=== PATIENT | male | born 1945 | race Caucasian/White ===

== ENCOUNTER 2016-12-31 11:53 | Inpatient (IN) | payer MEDICARE, OTHER ==
[2016-12-31] VITALS (7 sets, daily range): BP systolic 114–166; BP diastolic 68–95; PULSE 73–88; RESP 14–24; TEMP 97.7–97.9; O2SAT 97–100
[~2016-12-31] VITALS: Ht 175.3 cm; Wt 86.1 kg
[2016-12-31] MEDS ORDERED: NS 500 ML (EXCEL BAG) INJ 500 ML IV ONE (12:00)
[2016-12-31] MEDS ORDERED: NORMOSOL R INJ 3,000 ML IV ONE (12:00)
[2016-12-31] MEDS ORDERED: PHENYLEPH/NS 1000 MCG/10 ML SYR IV ONE (12:00)
[2016-12-31] MEDS ORDERED: SODIUM CHLORIDE 0.9% INJ 250 ML IV ONE (12:00)
[2016-12-31] MEDS ORDERED: SODIUM CHLOR 0.9% 1000 ML INJ 2,000 ML IV ONE (12:00)
[2016-12-31] MEDS ORDERED: ETOMIDATE 40 MG/20 ML VIAL ONE (12:02)
[2016-12-31] MEDS ORDERED: PROPOFOL 1000 MG/100 ML INJ 100 ML ONE ×2 (12:10→15:14)
[2016-12-31] MEDS ORDERED: MIDAZOLAM HCL 5 MG/ML VIAL (1 ML) ONE ×2 (12:20→13:34)
[2016-12-31 12:33] LABS: APTT (PATIENT) 23.8 SEC (24.3-30.1); INTERNATIONAL NORMALIZED RATIO 1.2 RATIO; PROTHROMBIN TIME - PATIENT 13.2 SEC (9.8-11.6)
[2016-12-31 12:35] LABS: AUTOMATED NEUTROPHIL # 6.7 TH/MM3 (1.8-7.7); BASOPHIL % 0.3 % (0.0-2.0); EOSINOPHIL # 0.1 TH/MM3 (0-0.4); EOSINOPHIL % 0.8 % (0.0-4.0); HEMATOCRIT 39.5 % (39.0-51.0); HEMO FLAGS DIFF FINAL; LYMPH % 15.6 % (9.0-44.0); LYMPHOCYTE # 1.4 TH/MM3 (1.0-4.8); MEAN CORPUSCULAR HEMOGLOBIN 33.2 PG (27.0-34.0); MEAN CORPUSCULAR HGB CONC 33.2 % (32.0-36.0); MONO % 9.5 % (0.0-8.0); NEUT % 73.8 % (16.0-70.0); PLATELET COUNT 217 TH/MM3 (150-450); RED BLOOD COUNT 3.95 MIL/MM3 (4.50-5.90); RED CELL DISTRIBUTION WIDTH 13.2 % (11.6-17.2); WHITE BLOOD COUNT 9.1 TH/MM3 (4.0-11.0)
[2016-12-31 12:39] LABS: I-STAT POTASSIUM 4.1 MMOL/L (3.5-4.9)
[2016-12-31] MEDS ORDERED: IOHEXOL 350 MG/ML 10 ML VIAL (for RAD DIAG) IV ONE (12:42)
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
[2016-12-31] MEDS ORDERED: ETOMIDATE 20 MG/10 ML VIAL ONE (13:32)
[2016-12-31 13:46] LABS: BLOOD GAS BASE EXCESS -10.2 mmol/L (-2-2); BLOOD GAS CARBOXYHEMOGLOBIN 1.1 % (0-4); BLOOD GAS HCO3 17 mmol/L (22-26); BLOOD GAS METHEMOGLOBIN 1.3 % (0-2); BLOOD GAS O2 HGB SATURATION 91 % (90-100); BLOOD GAS OXYGEN CONTENT 12.1 Vol % (12.0-20.0); BLOOD GAS PCO2 54 mmHg (38-42); BLOOD GAS PO2 84 mmHg (61-120); BLOOD GAS TOTAL HGB 9.4 G/DL (12.0-16.0); CRITICAL VALUE YES; DRAW SITE ART LINE; FIO2 100 %; OXYGEN DEVICE VENTILATOR; STAT YES; TEMP CORR TO 98.6
[2016-12-31 13:52] LABS: AUTOMATED NEUTROPHIL # 13.5 TH/MM3 (1.8-7.7); BASOPHIL # 0.1 TH/MM3 (0-0.2); BASOPHIL % 0.3 % (0.0-2.0); EOSINOPHIL # 0.1 TH/MM3 (0-0.4); EOSINOPHIL % 0.3 % (0.0-4.0); HEMATOCRIT 27.4 % (39.0-51.0); HEMO FLAGS AUTO DIFF; LYMPH % 11.2 % (9.0-44.0); LYMPHOCYTE # 1.9 TH/MM3 (1.0-4.8); MEAN CELL VOLUME 94.5 FL (80.0-100.0); MEAN CORPUSCULAR HEMOGLOBIN 32.3 PG (27.0-34.0); MEAN CORPUSCULAR HGB CONC 34.2 % (32.0-36.0); MONO % 6.7 % (0.0-8.0); NEUT % 81.5 % (16.0-70.0); PLATELET COUNT 93 TH/MM3 (150-450); RED CELL DISTRIBUTION WIDTH 16.9 % (11.6-17.2); WHITE BLOOD COUNT 16.6 TH/MM3 (4.0-11.0)
[2016-12-31 14:06] LABS: APTT (PATIENT) 74.8 SEC (24.3-30.1); INTERNATIONAL NORMALIZED RATIO 1.3 RATIO; PROTHROMBIN TIME - PATIENT 14.8 SEC (9.8-11.6)
[2016-12-31 14:13] LABS: CALCIUM-PROTEIN CORRECTED 7.5 MG/DL (8.5-10.1); POTASSIUM 4.2 MEQ/L (3.5-5.1); TOTAL BILIRUBIN ADULT 0.4 MG/DL (0.2-1.0)
[2016-12-31 14:17] LABS: BANDS 14 % (0-6); METAMYELOCYTES 3 % (0-1); MYELOCYTES 0 % (0-0); NEUTROPHIL # MANUAL DIFF 15.3 TH/MM3 (1.8-7.7); POLYS (SEG NEUTROPHILS) 75 % (16-70); WBC DIFF SAMPLE 100
[2016-12-31 14:18] LABS: PLATELET ESTIMATE SMEAR LOW (NORMAL); PLATELET MORPHOLOGY NORMAL (NORMAL); SCAN/DIFF FINAL DIFF MANUAL
[2016-12-31 14:18] LABS: BLOOD GAS BASE EXCESS -7.2 mmol/L (-2-2); BLOOD GAS CARBOXYHEMOGLOBIN 1.2 % (0-4); BLOOD GAS HCO3 19 mmol/L (22-26); BLOOD GAS METHEMOGLOBIN 1.1 % (0-2); BLOOD GAS O2 HGB SATURATION 97 % (90-100); BLOOD GAS OXYGEN CONTENT 15.7 Vol % (12.0-20.0); BLOOD GAS PCO2 42 mmHg (38-42); BLOOD GAS PO2 235 mmHg (61-120); BLOOD GAS TOTAL HGB 11.1 G/DL (12.0-16.0); CRITICAL VALUE YES; TEMP CORR TO 98.6
[2016-12-31 14:19] LABS: FIO2 100 %; OXYGEN DEVICE VENTILATOR; STAT YES; ULNAR PULSE PRESENT; VENT SETTINGS OR SETTINGS
[2016-12-31 14:20] LABS: CRENATED RBCS 1+ (NORMAL)
[2016-12-31] MEDS ORDERED: SODIUM CHLORIDE 0.9% FLUSH 10 ML FLUSH IV FLUSH PRN (15:30)
[2016-12-31] MEDS ORDERED: Post-op Orders (for Pharmacy) MISC XX ONE (15:30)
[2016-12-31] MEDS ORDERED: NALOXONE HCL 0.4 MG/ML AMP IV PRN (15:30)
[2016-12-31] MEDS ORDERED: NOREPINEPHRINE-DEXTROSE DRIP 250 ML IV ONE (15:39)
[2016-12-31 16:00] LABS: BLOOD GAS BASE EXCESS -3.2 mmol/L (-2-2); BLOOD GAS CARBOXYHEMOGLOBIN 1.2 % (0-4); BLOOD GAS HCO3 21 mmol/L (22-26); BLOOD GAS O2 HGB SATURATION 96 % (90-100); BLOOD GAS OXYGEN CONTENT 18.2 Vol % (12.0-20.0); BLOOD GAS PCO2 40 mmHg (38-42); BLOOD GAS PO2 102 mmHg (61-120); BLOOD GAS TOTAL HGB 13.4 G/DL (12.0-16.0); TEMP CORR TO 98.6
[2016-12-31] MEDS: LACTATED RINGER'S 1000 ML INJ 1,000 ML IV SCH ×2 (16:00→20:11)
[2016-12-31 16:01] LABS: CRITICAL VALUE NO; DRAW SITE ART LINE; FIO2 50 %; OXYGEN DEVICE VENTILATOR; STAT NO
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
[2016-12-31] MEDS: PANTOPRAZOLE SODIUM 40 MG VIAL IV SCH (16:30)
[2016-12-31] MEDS: PIPERACIL-TAZO 3.375 GM PREMIX 50 ML IV SCH (16:30)
[2016-12-31] MEDS: fentaNYL DRIP 250 ML IV SCH (16:31)
[2016-12-31] MEDS: PROPOFOL 1000 MG/100 ML INJ 100 ML IV SCH (16:31)
[2016-12-31 16:39] LABS: AUTOMATED NEUTROPHIL # 9.9 TH/MM3 (1.8-7.7); BASOPHIL % 0.1 % (0.0-2.0); HEMATOCRIT 38.7 % (39.0-51.0); LYMPH % 7.4 % (9.0-44.0); LYMPHOCYTE # 0.9 TH/MM3 (1.0-4.8); MEAN CELL VOLUME 86.6 FL (80.0-100.0); MEAN CORPUSCULAR HEMOGLOBIN 29.9 PG (27.0-34.0); MEAN CORPUSCULAR HGB CONC 34.5 % (32.0-36.0); NEUT % 82.5 % (16.0-70.0); PLATELET COUNT 92 TH/MM3 (150-450); RED BLOOD COUNT 4.48 MIL/MM3 (4.50-5.90); RED CELL DISTRIBUTION WIDTH 17.9 % (11.6-17.2)
[2016-12-31 16:48] LABS: HEMO FLAGS AUTO DIFF
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
[2016-12-31 17:24] LABS: BANDS 18 % (0-6); METAMYELOCYTES 1 % (0-1); NEUTROPHIL # MANUAL DIFF 10.6 TH/MM3 (1.8-7.7); POLYS (SEG NEUTROPHILS) 69 % (16-70); WBC DIFF SAMPLE 100
[2016-12-31 17:25] LABS: PLATELET ESTIMATE SMEAR LOW (NORMAL); PLATELET MORPHOLOGY NORMAL (NORMAL); SCAN/DIFF FINAL DIFF MANUAL
[2016-12-31] MEDS: CHLORHEXIDINE 0.12% (ORAL KIT) 15 ML CUP MT SCH (20:09)
[2016-12-31] MEDS: SODIUM CHLORIDE 0.9% FLUSH 10 ML FLUSH IV FLUSH SCH (20:10)
[2016-12-31 20:27] LABS: HEMATOCRIT 36.8 % (39.0-51.0); MEAN CELL VOLUME 86.2 FL (80.0-100.0); MEAN CORPUSCULAR HEMOGLOBIN 29.7 PG (27.0-34.0); MEAN CORPUSCULAR HGB CONC 34.5 % (32.0-36.0); PLATELET COUNT 95 TH/MM3 (150-450); RED BLOOD COUNT 4.27 MIL/MM3 (4.50-5.90); RED CELL DISTRIBUTION WIDTH 17.9 % (11.6-17.2); WHITE BLOOD COUNT 12.3 TH/MM3 (4.0-11.0)
[2016-12-31 20:29] LABS: REVIEW FLAG FINAL
[2016-12-31 20:37] LABS: APTT (PATIENT) 29.2 SEC (24.3-30.1); INTERNATIONAL NORMALIZED RATIO 1.1 RATIO; PROTHROMBIN TIME - PATIENT 12.6 SEC (9.8-11.6)
[2016-12-31 21:01] LABS: BICARBONATE 24.1 MEQ/L (21.0-32.0); POTASSIUM 4.1 MEQ/L (3.5-5.1)
--- NOTE | 2016-12-31 21:30 | MP ---
cc: OLGA HIDALGO MD DATE OF SURGERY 12/31/2016 PREOPERATIVE DIAGNOSIS: Bilateral hemopneumothoraces. POSTOPERATIVE DIAGNOSIS Bilateral hemopneumothoraces. PROCEDURE Left lateral chest tube placement and left anterior chest tube placement. SURGEON Dr. Hidalgo. ANESTHESIA General. ESTIMATED BLOOD LOSS Minimal. DESCRIPTION OF PROCEDURE The patient prepped and draped in the usual fashion in the ER. Area infiltrated with 1% Xylocaine. Needle inserted in the sixth intercostal space. On withdrawal of the needle air is encountered. An incision is now made in mid axillary line deepened down with hemostat into the chest and there is a shelton of air. A 28-English chest tube is placed in the posterior sulcus sutured in place with 0-silk. After the CT scan the patient is noted to have an area of left upper lobe collapse possibly due to bronchial leak in the upper of bronchi. Therefore, after completing the abdominal surgical case in the operating room, this thing is attended. An incision is made in the mammary line about fourth intercostal space anteriorly and then deepened down into the chest. A 28-English chest tube is placed and placed on Pleur-Evac draining massive amounts of blood and air establishing re-expansion of this lung. Chest x-ray is obtained. The patient tolerated the procedure well. Olga Hidalgo SJ/KK /4:44 PM /9:23 PM
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
[2016-12-31 21:37] LABS: CALCIUM-PROTEIN CORRECTED 8.2 MG/DL (8.5-10.1)
[2017-01-01] VITALS (18 sets, daily range): BP systolic 98–158; BP diastolic 53–84; PULSE 62–108; RESP 14–18; TEMP 98.1–99.6; O2SAT 94–100
[2017-01-01] MEDS: PIPERACIL-TAZO 3.375 GM PREMIX 50 ML IV SCH ×3 (00:36→16:16)
[2017-01-01] MEDS: PROPOFOL 1000 MG/100 ML INJ 100 ML IV SCH ×4 (00:36→22:32)
[2017-01-01] MEDS: LACTATED RINGER'S 1000 ML INJ 1,000 ML IV SCH ×5 (03:43→21:23)
--- NOTE | 2017-01-01 05:01 | RADRPT ---
EXAM DATE/TIME: 01/01/2017 04:37 [facility] COMPARISON: CHEST SINGLE AP, December 31, 2016, 15:38. INDICATIONS : Short of breath. MEDICAL HISTORY : None. SURGICAL HISTORY : None. ENCOUNTER: Subsequent ACUITY: 2 days PAIN SCORE: 0/10 LOCATION: Bilateral chest FINDINGS: A single view of the chest demonstrates 2 left-sided chest tubes and one right-sided chest tube. No p neumothorax. Endotracheal tube nasogastric tube are unchanged. Lungs are relatively clear. Subcutaneo us emphysema bilaterally. Left-sided rib fractures. CONCLUSION: No pneumothorax. Juan Miller MD on January 01, 2017 at 4:58 Board Certified Radiologist. This report was verified electronically.
[2017-01-01 05:13] LABS: AUTOMATED NEUTROPHIL # 8.7 TH/MM3 (1.8-7.7); BASOPHIL % 0.2 % (0.0-2.0); EOSINOPHIL % 0.1 % (0.0-4.0); HEMATOCRIT 34.5 % (39.0-51.0); HEMO FLAGS AUTO DIFF; LYMPH % 7.9 % (9.0-44.0); LYMPHOCYTE # 0.9 TH/MM3 (1.0-4.8); MEAN CELL VOLUME 86.6 FL (80.0-100.0); MEAN CORPUSCULAR HEMOGLOBIN 29.9 PG (27.0-34.0); MEAN CORPUSCULAR HGB CONC 34.5 % (32.0-36.0); MONO % 17.1 % (0.0-8.0); NEUT % 74.7 % (16.0-70.0); PLATELET COUNT 99 TH/MM3 (150-450); RED BLOOD COUNT 3.98 MIL/MM3 (4.50-5.90); RED CELL DISTRIBUTION WIDTH 18.3 % (11.6-17.2); WHITE BLOOD COUNT 11.6 TH/MM3 (4.0-11.0)
[2017-01-01 05:32] LABS: APTT (PATIENT) 29.4 SEC (24.3-30.1); INTERNATIONAL NORMALIZED RATIO 1.2 RATIO; PROTHROMBIN TIME - PATIENT 13.6 SEC (9.8-11.6)
[2017-01-01 05:54] LABS: BICARBONATE 29.4 MEQ/L (21.0-32.0); CALCIUM-PROTEIN CORRECTED 7.7 MG/DL (8.5-10.1); MAGNESIUM 1.7 MG/DL (1.5-2.5); POTASSIUM 4.4 MEQ/L (3.5-5.1)
[2017-01-01 06:13] LABS: CKMB 7.4 NG/ML (0.5-3.6)
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
[2017-01-01 06:54] LABS: BANDS 12 % (0-6); METAMYELOCYTES 1 % (0-1); NEUTROPHIL # MANUAL DIFF 9.6 TH/MM3 (1.8-7.7); POLYS (SEG NEUTROPHILS) 70 % (16-70); WBC DIFF SAMPLE 100
[2017-01-01 06:55] LABS: PLATELET ESTIMATE SMEAR LOW (NORMAL); PLATELET MORPHOLOGY NORMAL (NORMAL); SCAN/DIFF FINAL DIFF MANUAL
[2017-01-01] MEDS: CHLORHEXIDINE 0.12% (ORAL KIT) 15 ML CUP MT SCH ×2 (07:31→20:28)
[2017-01-01] MEDS: SODIUM CHLORIDE 0.9% FLUSH 10 ML FLUSH IV FLUSH SCH ×2 (07:32→21:05)
[2017-01-01 09:45] LABS: BLOOD GAS BASE EXCESS 2.4 mmol/L (-2-2); BLOOD GAS CARBOXYHEMOGLOBIN 1.6 % (0-4); BLOOD GAS HCO3 27 mmol/L (22-26); BLOOD GAS METHEMOGLOBIN 0.9 % (0-2); BLOOD GAS O2 HGB SATURATION 92 % (90-100); BLOOD GAS OXYGEN CONTENT 14.2 Vol % (12.0-20.0); BLOOD GAS PCO2 44 mmHg (38-42); BLOOD GAS PO2 71 mmHg (61-120); BLOOD GAS TOTAL HGB 10.9 G/DL (12.0-16.0); CRITICAL VALUE NO; OXYGEN DEVICE VENT; TEMP CORR TO 98.6
[2017-01-01 09:46] LABS: DRAW SITE LT RADIAL; FIO2 40 %; NUMBER OF ARTERIAL PUNCTURES 1; STAT NO; ULNAR PULSE PRESENT
--- NOTE | 2017-01-01 09:50 | EKG ---
Date Performed: 12/31/2016 Time Performed: 16:26:34 PTAGE: 89 years EKG: Sinus rhythm LOW QRS VOLTAGE IN PRECORDIAL LEADS PATTERN CONSISTENT WITH PULMONARY DISEASE POSSIBLE RIGHT VENTRIC ULAR CONDUCTION DELAY LEFT ANTERIOR FASCICULAR BLOCK NONSPECIFIC T-WAVE ABNORMALITY ABNORMAL ECG INTE RPRETATION BASED ON A DEFAULT AGE OF 42 YEARS NO PREVIOUS TRACING DOCTOR: Ziggy Barksdale Interpretating Date/Time 01/01/2017 09:49:17
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
[2017-01-01] MEDS: fentaNYL DRIP 250 ML IV SCH (15:15)
[2017-01-01] MEDS: PANTOPRAZOLE SODIUM 40 MG VIAL IV SCH (16:16)
[2017-01-01] MEDS ORDERED: MAGNESIUM SULFATE INJ 2 GM in SODIUM CHLORIDE 0.9% INJ 96 ML IV PRN (19:00)
[2017-01-01] MEDS ORDERED: POTASSIUM CHLORIDE 25 MEQ EFFERVESCENT TAB PO PRN (19:00)
[2017-01-01] MEDS ORDERED: POTASSIUM PHOSPHATE INJ 30 MMOL in SODIUM CHLOR 0.9% 250 ML INJ 250 ML IV PRN (19:00)
[2017-01-01] MEDS ORDERED: POTASSIUM PHOSPHATE MONOBASIC 500 MG TAB PO/TUBE PRN (19:00)
[2017-01-01] MEDS ORDERED: MAGNESIUM SULFATE INJ 4 GM in SODIUM CHLORIDE 0.9% INJ 92 ML IV PRN (19:00)
[2017-01-01] MEDS ORDERED: MAGNESIUM OXIDE 400 MG TAB PO PRN (19:00)
[2017-01-01] MEDS ORDERED: POTASSIUM CHLOR 20 MEQ PREMIX 100 ML IV PRN ×2 (19:00)
[2017-01-01] MEDS ORDERED: POTASSIUM PHOSPHATE MONOBASIC 500 MG TAB PO PRN (19:00)
[2017-01-01] MEDS ORDERED: POTASSIUM CHLOR 40 MEQ PREMIX 100 ML IV PRN (19:00)
--- NOTE | 2017-01-01 21:17 | ECHRPT ---
Indication: CHEST TRAUMA CONCLUSIONS Very technically difficult study. Grossly normal left ventricular size and systolic function on limited imaging. BP: 98 / 57 HR: 71 Rhythm: Sinus MEASUREMENTS (Male / Female) Normal Values Technical Quality:Very technically difficult study M-MODE LV Diastolic Diameter MM 3.5 cm 4.2 - 5.9 / 3.9 - 5.3 cm LV Systolic Diameter MM 2.0 cm LV Ejection Fraction MM Teich 75.7 % IVS Diastolic Thickness MM 1.5 cm 0.6 - 1.0 / 0.6 - 0.9 cm LVPW Diastolic Thickness MM 1.2 cm 0.6 - 1.0 / 0.6 - 0.9 cm LV Relative Wall Thickness MM 0.8 0.24 - 0.42 / 0.22 - 0.42 RV Diastolic Diameter MM 2.1 cm FINDINGS LEFT VENTRICLE Grossly normal left ventricular size and systolic function on limited imaging. RIGHT VENTRICLE The right ventricle was not well visualized. Normal right ventricular size and systolic function. LEFT ATRIUM The left atrium was not well visualized. RIGHT ATRIUM The right atrium is not well visualized. ATRIAL SEPTUM The interatrial septum not well visualized. AORTA The aortic root and proximal ascending aorta are not well visualized. MITRAL VALVE The mitral valve is not well visualized. AORTIC VALVE The aortic valve is not well visualized. TRICUSPID VALVE The tricuspid valve is not well visualized. PULMONARY VALVE The pulmonary valve is not well visualized. PERICARDIUM No pericardial effusion. Ziggy Barksdale MD, FACC (Electronically Signed) Final Date:01 January 2017 21:16
[2017-01-02] VITALS (19 sets, daily range): BP systolic 107–151; BP diastolic 56–79; PULSE 66–107; RESP 14; TEMP 98.4–100.9; O2SAT 95–100
[2017-01-02] MEDS: LACTATED RINGER'S 1000 ML INJ 1,000 ML IV SCH ×3 (02:54→16:49)
[2017-01-02] MEDS: PROPOFOL 1000 MG/100 ML INJ 100 ML IV SCH ×5 (03:51→21:32)
[2017-01-02 04:01] LABS: AUTOMATED NEUTROPHIL # 8.8 TH/MM3 (1.8-7.7); BASOPHIL % 0.3 % (0.0-2.0); EOSINOPHIL # 0.1 TH/MM3 (0-0.4); EOSINOPHIL % 1.2 % (0.0-4.0); HEMATOCRIT 26.2 % (39.0-51.0); HEMO FLAGS DIFF FINAL; LYMPH % 11.5 % (9.0-44.0); LYMPHOCYTE # 1.4 TH/MM3 (1.0-4.8); MEAN CELL VOLUME 88.4 FL (80.0-100.0); MEAN CORPUSCULAR HEMOGLOBIN 30.5 PG (27.0-34.0); MEAN CORPUSCULAR HGB CONC 34.5 % (32.0-36.0); MONO % 15.3 % (0.0-8.0); NEUT % 71.7 % (16.0-70.0); PLATELET COUNT 108 TH/MM3 (150-450); RED BLOOD COUNT 2.96 MIL/MM3 (4.50-5.90); RED CELL DISTRIBUTION WIDTH 17.8 % (11.6-17.2); WHITE BLOOD COUNT 12.2 TH/MM3 (4.0-11.0)
[2017-01-02 04:36] LABS: BICARBONATE 31.1 MEQ/L (21.0-32.0); CALCIUM-PROTEIN CORRECTED 8.3 MG/DL (8.5-10.1); MAGNESIUM 1.8 MG/DL (1.5-2.5); POTASSIUM 3.7 MEQ/L (3.5-5.1); TOTAL BILIRUBIN ADULT 0.9 MG/DL (0.2-1.0)
[2017-01-02 05:04] LABS: BLOOD GAS BASE EXCESS 3.7 mmol/L (-2-2); BLOOD GAS CARBOXYHEMOGLOBIN 1.4 % (0-4); BLOOD GAS HCO3 28 mmol/L (22-26); BLOOD GAS METHEMOGLOBIN 0.9 % (0-2); BLOOD GAS O2 HGB SATURATION 92 % (90-100); BLOOD GAS OXYGEN CONTENT 12.3 Vol % (12.0-20.0); BLOOD GAS PCO2 48 mmHg (38-42); BLOOD GAS PO2 72 mmHg (61-120); BLOOD GAS TOTAL HGB 9.5 G/DL (12.0-16.0); CRITICAL VALUE NO; TEMP CORR TO 98.6
[2017-01-02 05:05] LABS: DRAW SITE RT RADIAL; FIO2 40 %; NUMBER OF ARTERIAL PUNCTURES 1; OXYGEN DEVICE PRVC; STAT NO; ULNAR PULSE PRESENT
--- NOTE | 2017-01-02 05:30 | RADRPT ---
EXAM DATE/TIME: 01/02/2017 04:24 [facility] COMPARISON: CHEST SINGLE AP, January 01, 2017, 4:37. INDICATIONS : Short of breath. MEDICAL HISTORY : None. SURGICAL HISTORY : None. ENCOUNTER: Subsequent ACUITY: 3 days PAIN SCORE: Non-responsive. LOCATION: Bilateral chest FINDINGS: A single view of the chest demonstrates right basilar density. Bilateral chest tubes without pneumoth orax. Endotracheal tube and nasogastric tube are unchanged. Left-sided rib fractures. Subcutaneous em physema bilaterally again noted. CONCLUSION: Right basilar atelectasis. No pneumothorax. Juan Miller MD on January 02, 2017 at 5:26 Board Certified Radiologist. This report was verified electronically.
[2017-01-02] MEDS: SODIUM PHOSPHATE INJ 30 MMOL in SODIUM CHLOR 0.9% 250 ML INJ 240 ML IV PRN (06:00)
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
[2017-01-02] MEDS: CHLORHEXIDINE 0.12% (ORAL KIT) 15 ML CUP MT SCH ×2 (08:00→20:02)
[2017-01-02] MEDS: SODIUM CHLORIDE 0.9% FLUSH 10 ML FLUSH IV FLUSH SCH ×2 (08:53→20:02)
[2017-01-02] MEDS: PIPERACIL-TAZO 3.375 GM PREMIX 50 ML IV SCH ×2 (08:53)
--- NOTE | 2017-01-02 09:28 | RADRPT ---
EXAM DATE/TIME: 01/02/2017 08:16 [facility] COMPARISON: CT THORAX W CONTRAST, December 31, 2016, 12:42. CHEST SINGLE AP, January 02, 2017, 4:24. INDICATIONS : Evaluate for fracture due to trauma. MEDICAL HISTORY : None. SURGICAL HISTORY : None. ENCOUNTER: Subsequent ACUITY: 3 days PAIN SCORE: Non-responsive. LOCATION: Left Clavicle. FINDINGS: Two view examination of the left clavicle demonstrates nondisplaced fractures involving the distal po rtion of the clavicle. There continues to be good alignment at the a.c. joint. There also appear to b e fractures involving the left scapula. Fractures of the left scapula appear relatively nondisplaced. CONCLUSION: Nondisplaced fractures involving the distal clavicle with good alignment at the a.c. joint. Lars Granados MD on January 02, 2017 at 9:23 Board Certified Radiologist. This report was verified electronically.
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
[2017-01-02] MEDS: PANTOPRAZOLE SODIUM 40 MG VIAL IV SCH (16:01)
[2017-01-02] MEDS: fentaNYL DRIP 250 ML IV SCH (16:04)
[2017-01-03] VITALS (21 sets, daily range): BP systolic 103–148; BP diastolic 57–81; PULSE 56–106; RESP 14–22; TEMP 98.2–99.5; O2SAT 92–100
[2017-01-03] MEDS: LACTATED RINGER'S 1000 ML INJ 1,000 ML IV SCH ×2 (02:20→11:10)
[2017-01-03] MEDS: PROPOFOL 1000 MG/100 ML INJ 100 ML IV SCH ×5 (02:21→17:42)
[2017-01-03 04:19] LABS: BASOPHIL % 0.4 % (0.0-2.0); EOSINOPHIL # 0.3 TH/MM3 (0-0.4); HEMO FLAGS DIFF FINAL; LYMPH % 7.2 % (9.0-44.0); LYMPHOCYTE # 0.8 TH/MM3 (1.0-4.8); MEAN CELL VOLUME 90.4 FL (80.0-100.0); MEAN CORPUSCULAR HGB CONC 35.4 % (32.0-36.0); MONO % 13.4 % (0.0-8.0); PLATELET COUNT 121 TH/MM3 (150-450); RED BLOOD COUNT 2.43 MIL/MM3 (4.50-5.90); RED CELL DISTRIBUTION WIDTH 17.4 % (11.6-17.2); WHITE BLOOD COUNT 10.5 TH/MM3 (4.0-11.0)
[2017-01-03 04:49] LABS: BICARBONATE 29.8 MEQ/L (21.0-32.0); CALCIUM-PROTEIN CORRECTED 8.5 MG/DL (8.5-10.1); MAGNESIUM 1.8 MG/DL (1.5-2.5); TOTAL BILIRUBIN ADULT 0.8 MG/DL (0.2-1.0)
[2017-01-03 04:51] LABS: POTASSIUM 3.6 MEQ/L (3.5-5.1)
--- NOTE | 2017-01-03 06:10 | RADRPT ---
EXAM DATE/TIME: 01/03/2017 05:11 [facility] COMPARISON: CHEST SINGLE AP, January 02, 2017, 4:24. INDICATIONS : Trauma MEDICAL HISTORY : None. SURGICAL HISTORY : None. ENCOUNTER: Subsequent ACUITY: 4 - 6 days PAIN SCORE: Non-responsive. LOCATION: Bilateral chest FINDINGS: A single view of the chest demonstrates bilateral thoracostomy tubes without pneumothorax. Multiple l eft-sided rib fractures. Emphysematous changes in the deep tissues about the left chest are stable. R ight-sided consolidation/effusion with probable atelectatic changes in the left lingula. Endotracheal and nasogastric tubes are unchanged in position. CONCLUSION: 1. Stable position of life support tubes including bilateral thoracostomy tubes without pneumothorax. 2. Extensive left-sided rib fractures. Stable emphysematous changes in the deep tissues about the lef t hemithorax. 3. Right basilar consolidation/effusion with minimal atelectatic changes in the left lingular region. Augusto Sims MD on January 03, 2017 at 5:59 Board Certified Radiologist. This report was verified electronically.
[2017-01-03 06:14] LABS: BLOOD GAS BASE EXCESS 1.6 mmol/L (-2-2); BLOOD GAS CARBOXYHEMOGLOBIN 1.3 % (0-4); BLOOD GAS HCO3 26 mmol/L (22-26); BLOOD GAS METHEMOGLOBIN 0.8 % (0-2); BLOOD GAS O2 HGB SATURATION 94 % (90-100); BLOOD GAS OXYGEN CONTENT 14.4 Vol % (12.0-20.0); BLOOD GAS PCO2 44 mmHg (38-42); BLOOD GAS PO2 82 mmHg (61-120); BLOOD GAS TOTAL HGB 10.8 G/DL (12.0-16.0); CRITICAL VALUE NO; OXYGEN DEVICE VENT; TEMP CORR TO 98.6; VENT SETTINGS SEE COMMENTS
[2017-01-03 06:15] LABS: DRAW SITE RT RADIAL; FIO2 40 %; NUMBER OF ARTERIAL PUNCTURES 1; STAT NO; ULNAR PULSE PRESENT
[2017-01-03] MEDS: SODIUM PHOSPHATE INJ 30 MMOL in SODIUM CHLOR 0.9% 250 ML INJ 240 ML IV PRN (07:03)
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
[2017-01-03] MEDS: CHLORHEXIDINE 0.12% (ORAL KIT) 15 ML CUP MT SCH ×2 (08:00→20:00)
[2017-01-03] MEDS: SODIUM CHLORIDE 0.9% FLUSH 10 ML FLUSH IV FLUSH SCH ×2 (09:00→20:56)
[2017-01-03] MEDS ORDERED: SODIUM CHLOR 0.9% 250 ML INJ 250 ML IV ONE (09:15)
[2017-01-03] MEDS ORDERED: FUROSEMIDE 20 MG/2 ML VIAL IV ONE (09:15)
[2017-01-03] MEDS: DEXMEDETOMIDINE INJ 200 MCG in SODIUM CHLORIDE 0.9% INJ 50 ML IV SCH ×4 (10:25→22:13)
[2017-01-03] MEDS: fentaNYL DRIP 250 ML IV SCH (10:33)
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
[2017-01-03] MEDS ORDERED: POTASSIUM CHLOR 40 MEQ PREMIX 100 ML IV ONE (10:45)
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
[2017-01-03] MEDS: MAGNESIUM SULFATE 1 GM PREMIX 100 ML IV SCH ×2 (11:09→13:00)
[2017-01-03 15:39] LABS: HEMATOCRIT 28.7 % (39.0-51.0); REVIEW FLAG FINAL
[2017-01-03] MEDS: PANTOPRAZOLE SODIUM 40 MG VIAL IV SCH (17:34)
[2017-01-03] MEDS: DOCUSATE SODIUM 100 MG/10 ML UDC PO SCH (20:56)
[2017-01-04] VITALS (17 sets, daily range): BP systolic 92–152; BP diastolic 50–83; PULSE 40–126; RESP 14–15; TEMP 97.7–100.3; O2SAT 92–100
[2017-01-04 05:06] LABS: BLOOD GAS BASE EXCESS 2.8 mmol/L (-2-2); BLOOD GAS CARBOXYHEMOGLOBIN 1.6 % (0-4); BLOOD GAS HCO3 27 mmol/L (22-26); BLOOD GAS METHEMOGLOBIN 0.7 % (0-2); BLOOD GAS O2 HGB SATURATION 93 % (90-100); BLOOD GAS OXYGEN CONTENT 13.5 Vol % (12.0-20.0); BLOOD GAS PCO2 39 mmHg (38-42); BLOOD GAS PO2 71 mmHg (61-120); BLOOD GAS TOTAL HGB 10.4 G/DL (12.0-16.0); CRITICAL VALUE NO; DRAW SITE RT RADIAL; FIO2 40 %; NUMBER OF ARTERIAL PUNCTURES 1; OXYGEN DEVICE VENTILATOR; STAT NO; TEMP CORR TO 98.6; ULNAR PULSE PRESENT; VENT SETTINGS PRVC14/600/1.3/+8
[2017-01-04 05:07] LABS: BASOPHIL # 0.1 TH/MM3 (0-0.2); BASOPHIL % 0.6 % (0.0-2.0); EOSINOPHIL # 0.6 TH/MM3 (0-0.4); EOSINOPHIL % 5.7 % (0.0-4.0); HEMATOCRIT 27.6 % (39.0-51.0); HEMO FLAGS DIFF FINAL; LYMPH % 7.1 % (9.0-44.0); LYMPHOCYTE # 0.7 TH/MM3 (1.0-4.8); MEAN CELL VOLUME 89.7 FL (80.0-100.0); MEAN CORPUSCULAR HEMOGLOBIN 30.2 PG (27.0-34.0); MEAN CORPUSCULAR HGB CONC 33.7 % (32.0-36.0); MONO % 16.1 % (0.0-8.0); NEUT % 70.5 % (16.0-70.0); PLATELET COUNT 178 TH/MM3 (150-450); RED BLOOD COUNT 3.08 MIL/MM3 (4.50-5.90); RED CELL DISTRIBUTION WIDTH 16.4 % (11.6-17.2); WHITE BLOOD COUNT 9.9 TH/MM3 (4.0-11.0)
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
[2017-01-04 05:18] LABS: ALT (GPT) 37 U/L (12-78); ANION GAP 6 MEQ/L (5-15); AST (GOT) 32 U/L (15-37); BICARBONATE 30.1 MEQ/L (21.0-32.0); BLOOD UREA NITROGEN 11 MG/DL (7-18); CHLORIDE 108 MEQ/L (98-107); GLOMERULAR FILTRATION RATE 112 ML/MIN (>89); POTASSIUM 3.4 MEQ/L (3.5-5.1); SODIUM (NA) 144 MEQ/L (136-145)
[2017-01-04 05:20] LABS: ALKALINE PHOSPHATASE 42 U/L (45-117); TOTAL BILIRUBIN ADULT 0.7 MG/DL (0.2-1.0)
[2017-01-04] MEDS ORDERED: POTASSIUM CHLOR 40 MEQ PREMIX 100 ML IV ONE (07:30)
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
[2017-01-04] MEDS: LACTATED RINGER'S 1000 ML INJ 1,000 ML IV SCH ×3 (08:49→23:50)
[2017-01-04] MEDS: DEXMEDETOMIDINE INJ 200 MCG in SODIUM CHLORIDE 0.9% INJ 50 ML IV SCH (10:06)
[2017-01-04] MEDS: fentaNYL DRIP 250 ML IV SCH ×2 (10:06→20:54)
[2017-01-04] MEDS: LACTULOSE SYRUP 20 GM/30 ML CUP PO SCH ×2 (10:06→20:55)
[2017-01-04] MEDS: DOCUSATE SODIUM 100 MG/10 ML UDC PO SCH ×2 (10:06→20:55)
[2017-01-04] MEDS: CHLORHEXIDINE 0.12% (ORAL KIT) 15 ML CUP MT SCH ×2 (10:07→20:00)
[2017-01-04] MEDS: SODIUM CHLORIDE 0.9% FLUSH 10 ML FLUSH IV FLUSH SCH ×2 (10:07→20:55)
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
[2017-01-04] MEDS ORDERED: ENALAPRILAT 1.25 MG/ML VIAL IV PUSH PRN (13:30)
[2017-01-04] MEDS ORDERED: Vancomycin Consult Pharmacy 1 EA OTHER SCH (13:30)
[2017-01-04] MEDS: PROPOFOL 1000 MG/100 ML INJ 100 ML IV SCH ×3 (13:51→20:54)
[2017-01-04] MEDS: MIDAZOLAM 100 MG/ML INJ 100 ML IV SCH (13:54)
[2017-01-04] MEDS: PIPERACIL-TAZO 4.5 GM PREMIX 100 ML IV SCH ×2 (13:55→20:54)
[2017-01-04] MEDS: VANCOMYCIN 1,500 MG/NS 500 ML IV SCH ×2 (17:30)
[2017-01-04] MEDS: PANTOPRAZOLE SODIUM 40 MG VIAL IV SCH (17:31)
[2017-01-04] MEDS ORDERED: ROCURONIUM INJ 50 MG/5 ML VIAL ONE (17:57)
--- NOTE | 2017-01-04 18:14 | PD.PROCEDR ---
Procedure Note Procedure DATE: 01/04/2017 PROCEDURE: Orotracheal intubation INDICATION: Unable to pass suction catheter through ET tube likely obstruction process with high peak pressures DETAILS OF PROCEDURE The patient was placed in optimal position and preoxygenated with 100% FiO2 via bag valve mask. At the start oxygen saturation was 100%. The patient was administered 50 mg rocuronium IV while on sedation of propofol drip at 35 mcg/kg /m and fentanyl drip at 200 mcg an hour. I entered the oropharynx with a size 4 GVL glidescope obtained a grade 3 view of the airway. On single attempt a size 8.0 cuffed endotracheal tube was passed through the vocal cords. Correct tube location was confirmed with end tidal CO2 detector and by auscultating over bilateral lung phillips. The endotracheal tube was secured with adhesive tape at a depth of 24 cm at the lips. The patient was connected to the ventilator. The patient tolerated the procedure well without any apparent complications. Oxygen saturations were maintained greater than 95% all times. STAT chest x-ray pending at time of dictation. Osmar Reina MD Jan 04, 2017 18:14
--- NOTE | 2017-01-04 19:05 | RADRPT ---
EXAM DATE/TIME: 01/04/2017 18:49 [facility] COMPARISON: CHEST SINGLE AP, January 04, 2017, 4:27. INDICATIONS : Respiratory failure. Patient is status post intubation.. MEDICAL HISTORY : None. SURGICAL HISTORY : None. ENCOUNTER: Subsequent ACUITY: 1 day PAIN SCORE: Non-responsive. LOCATION: Bilateral chest FINDINGS: A single AP semierect view of the chest was obtained again demonstrates the right-sided chest tube in place with no visualized pneumothorax. An endotracheal tube is present with the tip approximately 2 cm above the janice. A nasogastric tube is seen coursing through the esophagus and into the stomach. The patient is mildly rotated. There are 2 left-sided chest tubes in place. There is a left clavicula r fracture. Multiple left rib fractures are visualized as well. There is a small amount of subcutaneo us emphysema again noted over the left clavicle. There is a left effusion with blunting of the costop hrenic angle. There is mild patchy opacity in the left lung base. The heart size is at the upper limi ts of normal. CONCLUSION: 1. Endotracheal tube in place with the tip approximately 2 cm above the janice. 2. Bilateral chest tubes with no visualized pneumothorax. 3. Small left effusion and patchy opacity at the left lung base. 4. Left clavicular fracture and multiple left rib fractures. Burt Moses MD on January 04, 2017 at 19:01 Board Certified Radiologist. This report was verified electronically.
[2017-01-05] VITALS (17 sets, daily range): BP systolic 96–135; BP diastolic 55–73; PULSE 53–82; RESP 15; TEMP 98.3–99.1; O2SAT 95–100
[2017-01-05] MEDS: PIPERACIL-TAZO 4.5 GM PREMIX 100 ML IV SCH ×4 (03:00→19:55)
[2017-01-05] MEDS: PROPOFOL 1000 MG/100 ML INJ 100 ML IV SCH ×5 (03:56→22:41)
[2017-01-05] MEDS: VANCOMYCIN 1,500 MG/NS 500 ML IV SCH ×4 (03:57→15:02)
[2017-01-05 04:39] LABS: BASOPHIL % 0.4 % (0.0-2.0); EOSINOPHIL # 0.4 TH/MM3 (0-0.4); EOSINOPHIL % 5.5 % (0.0-4.0); HEMATOCRIT 24.6 % (39.0-51.0); HEMO FLAGS DIFF FINAL; LYMPH % 12.2 % (9.0-44.0); MEAN CELL VOLUME 90.1 FL (80.0-100.0); MEAN CORPUSCULAR HGB CONC 33.3 % (32.0-36.0); MONO % 17.1 % (0.0-8.0); NEUT % 64.8 % (16.0-70.0); PLATELET COUNT 189 TH/MM3 (150-450); RED BLOOD COUNT 2.73 MIL/MM3 (4.50-5.90); RED CELL DISTRIBUTION WIDTH 16.1 % (11.6-17.2); WHITE BLOOD COUNT 7.8 TH/MM3 (4.0-11.0)
[2017-01-05 05:03] LABS: ANION GAP 8 MEQ/L (5-15); AST (GOT) 33 U/L (15-37); BICARBONATE 27.5 MEQ/L (21.0-32.0); BLOOD UREA NITROGEN 14 MG/DL (7-18); CHLORIDE 108 MEQ/L (98-107); GLOMERULAR FILTRATION RATE 88 ML/MIN (>89); MAGNESIUM 2.3 MG/DL (1.5-2.5); POTASSIUM 3.2 MEQ/L (3.5-5.1); SODIUM (NA) 143 MEQ/L (136-145)
[2017-01-05 05:05] LABS: ALKALINE PHOSPHATASE 103 U/L (45-117); ALT (GPT) 31 U/L (12-78); TOTAL BILIRUBIN ADULT 0.8 MG/DL (0.2-1.0)
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
--- NOTE | 2017-01-05 05:42 | RADRPT ---
EXAM DATE/TIME: 01/05/2017 04:58 [facility] COMPARISON: CT BRAIN W/O CONTRAST, December 31, 2016, 12:38. INDICATIONS : Vision changes. RADIATION DOSE: 47.23 CTDIvol (mGy) MEDICAL HISTORY : None SURGICAL HISTORY : None. ENCOUNTER: Subsequent ACUITY: 2 days PAIN SCALE: 0/10 LOCATION: cranial TECHNIQUE: Multiple contiguous axial images were obtained of the head. Using automated exposure control and adj ustment of the mA and/or kV according to patient size, radiation dose was kept as low as reasonably a chievable to obtain optimal diagnostic quality images. DICOM format image data is available electro nically for review and comparison. FINDINGS: CEREBRUM: The ventricles are normal for age. No evidence of midline shift, mass lesion, hemorrhage or acute in farction. No extra-axial fluid collections are seen. POSTERIOR FOSSA: The cerebellum and brainstem are intact. The 4th ventricle is midline. The cerebellopontine angle i s unremarkable. EXTRACRANIAL: The visualized portion of the orbits is intact. Diffuse sinus opacification. SKULL: The calvaria is intact. No evidence of skull fracture. CONCLUSION: No acute intracranial disease. Paranasal sinus disease. Juan Miller MD on January 05, 2017 at 5:39 Board Certified Radiologist. This report was verified electronically.
[2017-01-05 05:50] LABS: BLOOD GAS BASE EXCESS 2.4 mmol/L (-2-2); BLOOD GAS CARBOXYHEMOGLOBIN 1.5 % (0-4); BLOOD GAS HCO3 26 mmol/L (22-26); BLOOD GAS METHEMOGLOBIN 0.7 % (0-2); BLOOD GAS O2 HGB SATURATION 89 % (90-100); BLOOD GAS OXYGEN CONTENT 11.3 Vol % (12.0-20.0); BLOOD GAS PCO2 40 mmHg (38-42); BLOOD GAS PO2 61 mmHg (61-120); CRITICAL VALUE YES; DRAW SITE LT BRACHIAL; FIO2 50 %; NUMBER OF ARTERIAL PUNCTURES 2; OXYGEN DEVICE VENTILATOR; STAT NO; TEMP CORR TO 98.6; ULNAR PULSE PRESENT; VENT SETTINGS PRVC/AC
[2017-01-05] MEDS: MIDAZOLAM 100 MG/ML INJ 100 ML IV SCH (06:01)
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
[2017-01-05] MEDS ORDERED: GLYCERIN ADULT 2 GM SUPP RECTAL PRN (07:45)
[2017-01-05] MEDS ORDERED: POTASSIUM CHLOR 40 MEQ PREMIX 100 ML IV ONE (08:00)
[2017-01-05] MEDS ORDERED: METHYLNALTREXONE BROMIDE 12 MG/0.6 ML VIAL SQ ONE (08:00)
[2017-01-05] MEDS: LACTULOSE SYRUP 20 GM/30 ML CUP PO SCH ×2 (08:51→19:55)
[2017-01-05] MEDS: DOCUSATE SODIUM 100 MG/10 ML UDC PO SCH ×2 (08:52→19:55)
[2017-01-05] MEDS: POLYETHYLENE GLYCOL 17 GM PKG OG-TUBE SCH ×2 (08:52→19:56)
[2017-01-05] MEDS: fentaNYL DRIP 250 ML IV SCH (08:52)
--- NOTE | 2017-01-05 08:57 | RADRPT ---
EXAM DATE/TIME: 01/05/2017 08:09 [facility] COMPARISON: No previous studies available for comparison. INDICATIONS : Evaluate abdomen due to constipation. MEDICAL HISTORY : None. SURGICAL HISTORY : None. ENCOUNTER: Initial ACUITY: 1 day PAIN SCORE: Non-responsive. LOCATION: Bilateral abdomen. FINDINGS: Supine view of the abdomen was performed. Surgical drain overlies the left upper abdominal abdomen. N G tube enters the stomach. Numerous air-filled loops of small bowel throughout the abdomen. No abnor mal masses, calcifications, or organomegaly is seen. There numerous left-sided rib fractures. CONCLUSION: Multiple displaced rib fractures on the left side. NG tube and surgical drain are in good position. N umerous air-filled loops of bowel throughout the abdomen. Ziggy Juarez MD on January 05, 2017 at 8:54 Board Certified Radiologist. This report was verified electronically.
[2017-01-05] MEDS ORDERED: POTASSIUM CHLORIDE 20 MEQ PWD PACKET PO ONE (09:00)
[2017-01-05] MEDS: SENNOSIDES SYRUP 8.8 MG/5 ML CUP NG SCH ×2 (09:00→19:55)
[2017-01-05] MEDS ORDERED: GLYCERIN ADULT 2 GM SUPP RECTAL ONE (09:00)
[2017-01-05] MEDS: CHLORHEXIDINE 0.12% (ORAL KIT) 15 ML CUP MT SCH ×2 (09:02→19:57)
[2017-01-05] MEDS: SODIUM CHLORIDE 0.9% FLUSH 10 ML FLUSH IV FLUSH SCH ×2 (09:04→19:58)
[2017-01-05] MEDS ORDERED: REMOVE OLD LIDOCAINE PATCH T-DERMAL SCH (09:45)
[2017-01-05] MEDS: LIDOCAINE HCL 5% PATCH T-DERMAL SCH (10:32)
[2017-01-05] MEDS: REMOVE OLD LIDOCAINE PATCH T-DERMAL SCH (10:32)
[2017-01-05] MEDS: ENOXAPARIN SODIUM 30 MG/0.3 ML SYRINGE SQ SCH (11:08)
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
[2017-01-05] MEDS ORDERED: oxyCODONE HCL ORAL CONC 20 MG/ML SYRINGE PO PRN (12:00)
[2017-01-05] MEDS: oxyCODONE HCL ORAL CONC 20 MG/ML SYRINGE PO PRN ×2 (12:49→19:56)
[2017-01-05] MEDS: METOCLOPRAMIDE HCL 10 MG/2 ML VIAL IV PUSH SCH ×2 (15:02→22:41)
--- NOTE | 2017-01-05 15:25 | RADRPT ---
EXAM DATE/TIME: 01/05/2017 15:08 [facility] COMPARISON: CHEST SINGLE AP, January 05, 2017, 4:21. INDICATIONS : Evaluate post r chest tube and left lateral chest tube removed MEDICAL HISTORY : None. SURGICAL HISTORY : None. ENCOUNTER: Subsequent ACUITY: 2 days PAIN SCORE: Non-responsive. LOCATION: chest FINDINGS: A single view of the chest demonstrates persistent bibasilar areas of consolidation with probable ass ociated effusions. The right-sided thoracostomy tube and one of the left-sided thoracostomy tubes hav e been removed. No pneumothorax. A single left-sided thoracostomy tube remains. Multiple left-sided r ib fractures. Endotracheal tube is appropriately positioned above the janice the nasogastric tube ent ering the stomach. CONCLUSION: 1. Removal of the single right and one on the left thoracostomy tubes without pneumothorax. 2. Persistent bibasilar airspace disease with probable associated effusions. Augusto Sims MD on January 05, 2017 at 15:22 Board Certified Radiologist. This report was verified electronically.
[2017-01-05 23:19] LABS: BACTERIA, URINE RARE /hpf; BLOOD, URINE NEG (NEG); COMMENT (UR) CATH-CULTURE IND; CULTURE IF INDICATED CATH CULTURE IND; GLUCOSE,URINE NEG (NEG); KETONE, URINE TRACE mg/dL (NEG); MUCUS URINE FEW /lpf (OCC); NITRITE,URINE NEG (NEG); SQUAMOUS EPITHELIAL CELL URINE <1 /hpf (0-5); URINE COLOR LIGHT-RED (YELLW/STRAW)
[2017-01-06] VITALS (15 sets, daily range): BP systolic 116–165; BP diastolic 66–94; PULSE 68–110; RESP 15–25; TEMP 99–99.9; O2SAT 94–96
[2017-01-06] MEDS: ENOXAPARIN SODIUM 30 MG/0.3 ML SYRINGE SQ SCH ×2 (01:34→11:53)
[2017-01-06] MEDS: oxyCODONE HCL ORAL CONC 20 MG/ML SYRINGE PO PRN ×2 (01:35→06:21)
[2017-01-06] MEDS: PIPERACIL-TAZO 4.5 GM PREMIX 100 ML IV SCH ×4 (02:34→20:24)
[2017-01-06] MEDS: PROPOFOL 1000 MG/100 ML INJ 100 ML IV SCH ×4 (03:24→16:34)
[2017-01-06] MEDS: MIDAZOLAM 100 MG/ML INJ 100 ML IV SCH (03:24)
[2017-01-06] MEDS ORDERED: PHARMACY ORDERED LAB ONE ×2 (03:45→15:45)
[2017-01-06] MEDS: VANCOMYCIN 1,500 MG/NS 500 ML IV SCH ×4 (04:00→17:02)
[2017-01-06 06:14] LABS: BLOOD GAS BASE EXCESS 1.9 mmol/L (-2-2); BLOOD GAS CARBOXYHEMOGLOBIN 1.5 % (0-4); BLOOD GAS HCO3 26 mmol/L (22-26); BLOOD GAS O2 HGB SATURATION 92 % (90-100); BLOOD GAS OXYGEN CONTENT 13.1 Vol % (12.0-20.0); BLOOD GAS PCO2 43 mmHg (38-42); BLOOD GAS PO2 72 mmHg (61-120); BLOOD GAS TOTAL HGB 10.1 G/DL (12.0-16.0); CRITICAL VALUE NO; OXYGEN DEVICE VENTILATOR; TEMP CORR TO 98.6; VENT SETTINGS PRVC/AC
[2017-01-06 06:15] LABS: DRAW SITE LT BRACHIAL; FIO2 50 %; NUMBER OF ARTERIAL PUNCTURES 2; STAT NO; ULNAR PULSE PRESENT
[2017-01-06] MEDS: METOCLOPRAMIDE HCL 10 MG/2 ML VIAL IV PUSH SCH ×3 (06:20→22:32)
[2017-01-06 06:23] LABS: AUTOMATED NEUTROPHIL # 6.9 TH/MM3 (1.8-7.7); BASOPHIL % 0.2 % (0.0-2.0); EOSINOPHIL # 0.4 TH/MM3 (0-0.4); EOSINOPHIL % 3.9 % (0.0-4.0); HEMATOCRIT 28.4 % (39.0-51.0); HEMO FLAGS DIFF FINAL; LYMPH % 5.8 % (9.0-44.0); LYMPHOCYTE # 0.5 TH/MM3 (1.0-4.8); MEAN CELL VOLUME 91.1 FL (80.0-100.0); MEAN CORPUSCULAR HEMOGLOBIN 30.1 PG (27.0-34.0); MEAN CORPUSCULAR HGB CONC 33.1 % (32.0-36.0); MONO % 16.9 % (0.0-8.0); NEUT % 73.2 % (16.0-70.0); PLATELET COUNT 267 TH/MM3 (150-450); RED BLOOD COUNT 3.12 MIL/MM3 (4.50-5.90); RED CELL DISTRIBUTION WIDTH 16.3 % (11.6-17.2); WHITE BLOOD COUNT 9.4 TH/MM3 (4.0-11.0)
--- NOTE | 2017-01-06 06:31 | RADRPT ---
EXAM DATE/TIME: 01/06/2017 04:58 [facility] COMPARISON: CHEST SINGLE AP, January 05, 2017, 15:08. INDICATIONS : Short of breath. MEDICAL HISTORY : None. SURGICAL HISTORY : None. ENCOUNTER: Subsequent ACUITY: 3 days PAIN SCORE: 0/10 LOCATION: Bilateral chest FINDINGS: A single view of the chest demonstrates the endotracheal tube and nasogastric tube are in good positi on. The left-sided chest tube is in good position. As a moderate size left pleural effusion. The hear t is enlarged. There is no visible pneumothorax. Osseous structures are intact. CONCLUSION: Numerous left-sided rib fractures. Continued increased density left lung likely pleural effusion Ziggy Juarez MD on January 06, 2017 at 6:29 Board Certified Radiologist. This report was verified electronically.
--- NOTE | 2017-01-06 07:01 | PD.ORT.PN ---
Subjective Subjective Remarks Intubated and sedated Objective Vitals Vital Signs Date Time Temp Pulse Resp B/P Pulse Ox O2 Delivery O2 Flow Rate FiO2 01/06/17 05:26 94 50 01/06/17 02:00 50 01/06/17 00:00 92 01/06/17 00:00 50 01/06/17 00:00 99.2 92 15 158/90 96 01/05/17 23:49 99 50 01/05/17 22:00 74 01/05/17 20:01 97 50 01/05/17 20:00 50 01/05/17 20:00 98.4 82 15 135/73 97 01/05/17 20:00 97 Mechanical Ventilator 50 01/05/17 20:00 72 01/05/17 18:00 72 01/05/17 16:00 50 01/05/17 16:00 72 01/05/17 16:00 98.6 72 15 129/71 97 01/05/17 15:31 96 50 01/05/17 14:00 60 01/05/17 12:28 95 50 01/05/17 12:00 62 01/05/17 12:00 98.5 62 15 114/65 97 01/05/17 12:00 50 01/05/17 10:00 59 01/05/17 09:29 100 55 01/05/17 08:00 98.7 53 15 97/56 98 01/05/17 08:00 53 01/05/17 08:00 50 01/05/17 08:00 98 Mechanical Ventilator 60 I/O 01/05/17 01/05/17 01/05/17 01/06/17 01/06/17 01/06/17 07:00 15:00 23:00 07:00 15:00 23:00 Intake Total 1445 ml 2308 ml 1204 ml Output Total 353 ml 460 ml 413 ml Balance 1092 ml 1848 ml 791 ml Intake IV Total 1098 ml 1490 ml 720 ml Tube Feeding 307 ml 618 ml 344 ml Lipid 140 ml Other 40 ml 60 ml 140 ml Output Urine Total 225 ml 350 ml 325 ml Chest Tube Drainage Total 68 ml 30 ml 38 ml Drainage Total 60 ml 80 ml 50 ml # Bowel Movements 0 2 1 Result Diagram: 01/06/17 0610 01/05/17 1650 Imaging Last 24 hours Impressions Chest X-Ray 01/02/17 0600 Signed Impressions: Service Date/Time: December 04:24 - CONCLUSION: Right basilar atelectasis. No pneumothorax. Juan Miller MD Objective Remarks LUE: palpable deformity left clavicle. mild crepitus. good cap refill distally. In restraints RUE: no crepitus with motion. good cap refill BLE: no crepitus with motion. good cap refill Assessment & Plan Assessment and Plan 1) Left Clavicle and Scapula fxs -xrays of clavicle reviewed. properly aligned. -nonop treatment -sling and swath once restraints are removed and NWB -f/u outpatient with Marcel or Burt Schofield Jr. Jan 06, 2017 07:01
[2017-01-06 07:17] LABS: BICARBONATE 29.5 MEQ/L (21.0-32.0); CALCIUM-PROTEIN CORRECTED 8.6 MG/DL (8.5-10.1); MAGNESIUM 2.1 MG/DL (1.5-2.5); POTASSIUM 3.7 MEQ/L (3.5-5.1)
[2017-01-06] MEDS: DOCUSATE SODIUM 100 MG/10 ML UDC PO SCH ×2 (08:24→20:24)
[2017-01-06] MEDS: SODIUM CHLORIDE 0.9% FLUSH 10 ML FLUSH IV FLUSH SCH ×2 (08:24→20:25)
[2017-01-06] MEDS: LACTULOSE SYRUP 20 GM/30 ML CUP PO SCH ×2 (08:25→20:24)
[2017-01-06] MEDS: LIDOCAINE HCL 5% PATCH T-DERMAL SCH (08:25)
[2017-01-06] MEDS: POLYETHYLENE GLYCOL 17 GM PKG OG-TUBE SCH ×3 (08:25→20:24)
[2017-01-06] MEDS: SENNOSIDES SYRUP 8.8 MG/5 ML CUP NG SCH ×3 (08:25→20:24)
[2017-01-06] MEDS: CHLORHEXIDINE 0.12% (ORAL KIT) 15 ML CUP MT SCH ×2 (08:27→20:25)
[2017-01-06] MEDS: REMOVE OLD LIDOCAINE PATCH T-DERMAL SCH (11:00)
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
[2017-01-06] MEDS: fentaNYL DRIP 250 ML IV SCH ×2 (13:37→20:24)
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
[2017-01-07] VITALS (21 sets, daily range): BP systolic 98–182; BP diastolic 55–98; PULSE 54–86; RESP 15–16; TEMP 98.8–99.8; O2SAT 89–98
[2017-01-07] MEDS: ENOXAPARIN SODIUM 30 MG/0.3 ML SYRINGE SQ SCH ×3 (00:14→23:36)
[2017-01-07] MEDS: PROPOFOL 1000 MG/100 ML INJ 100 ML IV SCH ×7 (00:15→23:35)
[2017-01-07] MEDS: PIPERACIL-TAZO 4.5 GM PREMIX 100 ML IV SCH ×4 (01:52→20:28)
[2017-01-07 05:06] LABS: BLOOD GAS CARBOXYHEMOGLOBIN 1.6 % (0-4); BLOOD GAS HCO3 27 mmol/L (22-26); BLOOD GAS METHEMOGLOBIN 0.7 % (0-2); BLOOD GAS O2 HGB SATURATION 91 % (90-100); BLOOD GAS OXYGEN CONTENT 11.5 Vol % (12.0-20.0); BLOOD GAS PCO2 43 mmHg (38-42); BLOOD GAS PO2 68 mmHg (61-120); BLOOD GAS TOTAL HGB 8.9 G/DL (12.0-16.0); CRITICAL VALUE NO; OXYGEN DEVICE VENTILATOR; TEMP CORR TO 98.6
[2017-01-07 05:07] LABS: ALT (GPT) 57 U/L (12-78); ANION GAP 5 MEQ/L (5-15); AST (GOT) 49 U/L (15-37); BICARBONATE 28.6 MEQ/L (21.0-32.0); BLOOD UREA NITROGEN 11 MG/DL (7-18); CHLORIDE 108 MEQ/L (98-107); GLOMERULAR FILTRATION RATE 89 ML/MIN (>89); MAGNESIUM 2.1 MG/DL (1.5-2.5); POTASSIUM 3.8 MEQ/L (3.5-5.1); SODIUM (NA) 142 MEQ/L (136-145)
[2017-01-07 05:07] LABS: DRAW SITE LT BRACHIAL; FIO2 45 %; NUMBER OF ARTERIAL PUNCTURES 2; STAT NO; VENT SETTINGS PRVC/AC
[2017-01-07 05:09] LABS: ALKALINE PHOSPHATASE 76 U/L (45-117); TOTAL BILIRUBIN ADULT 0.7 MG/DL (0.2-1.0)
[2017-01-07] MEDS: VANCOMYCIN INJ 1,700 MG in SODIUM CHLORID 0.9% 500 ML INJ 500 ML IV SCH ×2 (05:28→16:01)
[2017-01-07] MEDS: METOCLOPRAMIDE HCL 10 MG/2 ML VIAL IV PUSH SCH ×3 (05:28→22:52)
[2017-01-07 05:35] LABS: BASOPHIL # 0.1 TH/MM3 (0-0.2); BASOPHIL % 0.6 % (0.0-2.0); EOSINOPHIL # 0.5 TH/MM3 (0-0.4); EOSINOPHIL % 5.3 % (0.0-4.0); HEMATOCRIT 30.3 % (39.0-51.0); HEMO FLAGS DIFF FINAL; LYMPH % 9.8 % (9.0-44.0); LYMPHOCYTE # 0.9 TH/MM3 (1.0-4.8); MEAN CELL VOLUME 91.2 FL (80.0-100.0); MEAN CORPUSCULAR HEMOGLOBIN 30.1 PG (27.0-34.0); MONO % 21.9 % (0.0-8.0); NEUT % 62.4 % (16.0-70.0); PLATELET COUNT 410 TH/MM3 (150-450); RED BLOOD COUNT 3.33 MIL/MM3 (4.50-5.90); RED CELL DISTRIBUTION WIDTH 16.1 % (11.6-17.2); WHITE BLOOD COUNT 9.6 TH/MM3 (4.0-11.0)
--- NOTE | 2017-01-07 05:53 | RADRPT ---
EXAM DATE/TIME: 01/07/2017 05:03 [facility] COMPARISON: CHEST SINGLE AP, January 06, 2017, 4:58. INDICATIONS : Short of breath. MEDICAL HISTORY : None. SURGICAL HISTORY : None. ENCOUNTER: Subsequent ACUITY: 4 - 6 days PAIN SCORE: Non-responsive. LOCATION: Bilateral chest FINDINGS: Decreasing bilateral consolidation and small effusions, now mild/small. No pneumothorax. Heart size stable, within normal limits. Endotracheal tube tip is approximately 4 cm above the janice. Nasogastric tube courses into the stoma ch. CONCLUSION: Decreasing effusions and basilar predominant consolidation, now small/mild. Daljit Cabrera MD on January 07, 2017 at 5:51 Board Certified Radiologist. This report was verified electronically.
[2017-01-07] MEDS: CHLORHEXIDINE 0.12% (ORAL KIT) 15 ML CUP MT SCH ×2 (08:00→20:30)
[2017-01-07] MEDS: POLYETHYLENE GLYCOL 17 GM PKG OG-TUBE SCH ×2 (08:03→20:28)
[2017-01-07] MEDS: REMOVE OLD LIDOCAINE PATCH T-DERMAL SCH (08:04)
[2017-01-07] MEDS: DOCUSATE SODIUM 100 MG/10 ML UDC PO SCH ×2 (08:04→20:28)
[2017-01-07] MEDS: SENNOSIDES SYRUP 8.8 MG/5 ML CUP NG SCH ×2 (08:04→20:29)
[2017-01-07] MEDS: LACTULOSE SYRUP 20 GM/30 ML CUP PO SCH ×2 (08:04→20:28)
[2017-01-07] MEDS: SODIUM CHLORIDE 0.9% FLUSH 10 ML FLUSH IV FLUSH SCH ×2 (08:05→20:29)
[2017-01-07] MEDS: fentaNYL DRIP 250 ML IV SCH ×2 (11:28→23:36)
[2017-01-07 12:44] LABS: BLOOD GAS VENOUS BASE EXCESS 2.7 mmol/L (-2-2); BLOOD GAS VENOUS HCO3 28 mmol/L (22-26); BLOOD GAS VENOUS O2 CONTENT 6.5 Vol % (9.0-17.0); BLOOD GAS VENOUS O2 HGB SAT 45 % (70-76); BLOOD GAS VENOUS PCO2 53 mmHg (44-48); BLOOD GAS VENOUS PO2 29 mmHg (35-40); BLOOD GAS VENOUS pH 7.34 (7.360-7.400); TEMP CORR TO 98.6
[2017-01-07 12:45] LABS: CRITICAL VALUE YES; DRAW SITE RT BRACHIAL; FIO2 65 %; OXYGEN DEVICE VENTILATOR; STAT YES
--- NOTE | 2017-01-07 13:24 | RADRPT ---
EXAM DATE/TIME: 01/07/2017 13:01 [facility] COMPARISON: CHEST SINGLE AP, January 07, 2017, 5:03. INDICATIONS : Respiratory failure. MEDICAL HISTORY : Non-responsive. SURGICAL HISTORY : Non-responsive. ENCOUNTER: Subsequent ACUITY: 1 week PAIN SCORE: Non-responsive. LOCATION: Bilateral chest FINDINGS: The ET tube is in good position there is a nasogastric tube present. The heart is enlarged. There are small bilateral effusions. There is diffuse interstitial prominence with likely parenchymal contusio n on the left. There is a chest tube on the left. In this projection, the tip of the tube is likely s till within the thorax however the sidehole may be outside of the thorax along the chest wall. There are multiple rib fractures along the left apex. There is no significant pneumothorax. The osseous str uctures are grossly intact. CONCLUSION: 1. Left effusion and parenchymal contusion. 2. ET tube and NG tube in good position. 3. The tip of the chest tube likely remains within the thorax are the sidehole may have pulled out. T here are multiple left upper rib fractures. There is no pneumothorax. Fly Longo MD on January 07, 2017 at 13:20 Board Certified Radiologist. This report was verified electronically.
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
[2017-01-07] MEDS: ARTIFICIAL TEARS OPTH OINT 3.5 APPLIC/3.5 GM TUBO EACH EYE SCH (20:31)
[2017-01-08] VITALS (22 sets, daily range): BP systolic 108–149; BP diastolic 57–91; PULSE 58–90; RESP 15–21; TEMP 98.3–98.9; O2SAT 92–97
[2017-01-08] MEDS: PIPERACIL-TAZO 4.5 GM PREMIX 100 ML IV SCH ×4 (02:16→20:08)
[2017-01-08] MEDS: VANCOMYCIN INJ 1,700 MG in SODIUM CHLORID 0.9% 500 ML INJ 500 ML IV SCH ×3 (04:26→23:58)
[2017-01-08 04:42] LABS: AUTOMATED NEUTROPHIL # 6.2 TH/MM3 (1.8-7.7); BASOPHIL # 0.1 TH/MM3 (0-0.2); BASOPHIL % 0.6 % (0.0-2.0); EOSINOPHIL # 0.6 TH/MM3 (0-0.4); EOSINOPHIL % 6.4 % (0.0-4.0); HEMATOCRIT 29.8 % (39.0-51.0); HEMO FLAGS DIFF FINAL; LYMPH % 10.3 % (9.0-44.0); MEAN CELL VOLUME 90.6 FL (80.0-100.0); MEAN CORPUSCULAR HEMOGLOBIN 30.2 PG (27.0-34.0); MEAN CORPUSCULAR HGB CONC 33.4 % (32.0-36.0); MONO % 20.5 % (0.0-8.0); NEUT % 62.2 % (16.0-70.0); PLATELET COUNT 485 TH/MM3 (150-450); RED BLOOD COUNT 3.29 MIL/MM3 (4.50-5.90); RED CELL DISTRIBUTION WIDTH 16.2 % (11.6-17.2)
[2017-01-08 05:10] LABS: ALT (GPT) 78 U/L (12-78); ANION GAP 6 MEQ/L (5-15); AST (GOT) 65 U/L (15-37); BICARBONATE 28.5 MEQ/L (21.0-32.0); BLOOD UREA NITROGEN 12 MG/DL (7-18); CHLORIDE 108 MEQ/L (98-107); GLOMERULAR FILTRATION RATE 89 ML/MIN (>89); MAGNESIUM 2.2 MG/DL (1.5-2.5); POTASSIUM 3.9 MEQ/L (3.5-5.1); SODIUM (NA) 142 MEQ/L (136-145)
[2017-01-08 05:12] LABS: ALKALINE PHOSPHATASE 73 U/L (45-117); TOTAL BILIRUBIN ADULT 0.6 MG/DL (0.2-1.0)
[2017-01-08 05:40] LABS: BLOOD GAS BASE EXCESS 2.3 mmol/L (-2-2); BLOOD GAS CARBOXYHEMOGLOBIN 1.4 % (0-4); BLOOD GAS HCO3 27 mmol/L (22-26); BLOOD GAS METHEMOGLOBIN 0.9 % (0-2); BLOOD GAS O2 HGB SATURATION 86 % (90-100); BLOOD GAS OXYGEN CONTENT 11.5 Vol % (12.0-20.0); BLOOD GAS PCO2 48 mmHg (38-42); BLOOD GAS PO2 57 mmHg (61-120); BLOOD GAS TOTAL HGB 9.5 G/DL (12.0-16.0); CRITICAL VALUE YES; OXYGEN DEVICE VENTILATOR; TEMP CORR TO 98.6
[2017-01-08 05:41] LABS: DRAW SITE LT BRACHIAL; FIO2 65 %; NUMBER OF ARTERIAL PUNCTURES 1; STAT NO; VENT SETTINGS PRVC/AC
[2017-01-08] MEDS: METOCLOPRAMIDE HCL 10 MG/2 ML VIAL IV PUSH SCH ×3 (06:23→22:00)
--- NOTE | 2017-01-08 07:33 | RADRPT ---
EXAM DATE/TIME: 01/08/2017 06:55 [facility] COMPARISON: CHEST SINGLE AP, January 04, 2017, 4:27. CHEST SINGLE AP, January 04, 2017, 18:49. CHEST SINGLE AP, January 05, 2017, 4:21. CHEST SINGLE AP, January 05, 2017, 15:08. CHEST SINGLE AP, January 06, 2017, 4:58. CHEST SINGLE AP, January 07, 2017, 13:01. INDICATIONS : Low oxygen saturation. MEDICAL HISTORY : None. SURGICAL HISTORY : None. ENCOUNTER: Subsequent ACUITY: 1 day PAIN SCORE: Non-responsive. LOCATION: Bilateral chest FINDINGS: A left apical chest tube has pulled back and now is within the chest wall. It is no longer within the pleural space. The lungs continue to demonstrate patchy airspace disease. Left-sided pleural thickening and effusion remain evident. There is no significant pneumothorax. Endotracheal and nasogastric tubes are in stable position. Left rib fractures are again noted. CONCLUSION: Left apical chest tube has pulled out of the pleural space and is now within the chest wall. No evidence of pneumothorax Persistent bilateral patchy airspace disease and left pleural effusion. No other significant change. Charanjit Wilburn MD on January 08, 2017 at 7:29 Board Certified Radiologist. This report was verified electronically.
[2017-01-08] MEDS: PROPOFOL 1000 MG/100 ML INJ 100 ML IV SCH ×5 (08:28→23:58)
[2017-01-08] MEDS: CHLORHEXIDINE 0.12% (ORAL KIT) 15 ML CUP MT SCH ×2 (08:29→20:12)
[2017-01-08] MEDS: LIDOCAINE HCL 5% PATCH T-DERMAL SCH ×2 (09:00→10:06)
--- NOTE | 2017-01-08 09:38 | RADRPT ---
EXAM DATE/TIME: 01/08/2017 08:10 [facility] COMPARISON: No previous studies available for comparison. INDICATIONS : Bilateral arm swelling. MEDICAL HISTORY : Left clavicle fracture. Left Scapulor fracture. Left and right rib fracture. Hemopneumothorax. Liver laceration. SURGICAL HISTORY : Exploratory laparotomy. Splenectomy. Intubated. ENCOUNTER: Initial ACUITY: 1 day PAIN SCORE: Non-responsive LOCATION: Bilateral arm. FINDINGS: RIGHT UPPER EXTREMITY: There is spontaneous flow documented in the brachial, basilic, cephalic, axillary, and subclavian vei ns. The vessels are compressible and augmentation response is documented. No filling defects are se en. The flow is phasic with respiration. Direction of flow in the jugular vein is caudal. LEFT UPPER EXTREMITY: There is spontaneous flow documented in the brachial, cephalic, axillary, and subclavian veins. The vessels are compressible and augmentation response is documented. No filling defects are seen. The flow is phasic with respiration. Direction of flow in the jugular vein is caudal. There is however occlusive thrombus within the basilic vein. CONCLUSION: Occlusive thrombus within the left basilic vein. Nichol Wellington MD on January 08, 2017 at 9:35 Board Certified Radiologist. This report was verified electronically.
[2017-01-08] MEDS ORDERED: BISACODYL 10 MG SUPP RECTAL ONE (09:45)
--- NOTE | 2017-01-08 09:45 | RADRPT ---
EXAM DATE/TIME: 01/08/2017 08:43 [facility] COMPARISON: No previous studies available for comparison. INDICATIONS : Bilateral leg swelling. MEDICAL HISTORY : Left clavicle fracture. Left Scapulor fracture. Left and right rib fracture. Hemopneumothorax. Liver laceration. SURGICAL HISTORY : Exploratory laparotomy. Splenectomy. Intubated. ENCOUNTER: Initial ACUITY: 1 day PAIN SCORE: Non-responsive LOCATION: Bilateral leg. TECHNIQUE: Venous ultrasound of the left and right leg was performed from the inguinal ligament to the proximal calf. Real-time, color Doppler and spectral tracing, compression and augmentation techniques were us ed. FINDINGS: RIGHT LEG: There is normal compressibility of the deep venous system from the inguinal region to the proximal ca lf. No echogenic clot is seen in the lumen of the common femoral, femoral, popliteal, and posterior tibial veins. There is a normal response of the venous system to proximal and distal augmentation an d respiration. LEFT LEG: There is normal compressibility of the deep venous system from the inguinal region to the proximal ca lf. No echogenic clot is seen in the lumen of the common femoral, femoral, popliteal, and posterior tibial veins. There is a normal response of the venous system to proximal and distal augmentation an d respiration. CONCLUSION: Normal examination. Nichol Wellington MD on January 08, 2017 at 9:36 Board Certified Radiologist. This report was verified electronically.
[2017-01-08] MEDS: POLYETHYLENE GLYCOL 17 GM PKG OG-TUBE SCH ×2 (10:02→20:08)
[2017-01-08] MEDS: DOCUSATE SODIUM 100 MG/10 ML UDC PO SCH ×2 (10:02→20:08)
[2017-01-08] MEDS: LACTULOSE SYRUP 20 GM/30 ML CUP PO SCH ×2 (10:02→20:07)
[2017-01-08] MEDS: SENNOSIDES SYRUP 8.8 MG/5 ML CUP NG SCH ×2 (10:02→20:08)
[2017-01-08] MEDS: PANTOPRAZOLE SODIUM 40 MG VIAL IV PUSH SCH (10:03)
[2017-01-08] MEDS: SODIUM CHLORIDE 0.9% FLUSH 10 ML FLUSH IV FLUSH SCH ×2 (10:03→20:08)
[2017-01-08] MEDS: ARTIFICIAL TEARS OPTH OINT 3.5 APPLIC/3.5 GM TUBO EACH EYE SCH ×2 (10:04→20:09)
[2017-01-08] MEDS: REMOVE OLD LIDOCAINE PATCH T-DERMAL SCH (10:05)
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
[2017-01-08] MEDS: ENOXAPARIN SODIUM 30 MG/0.3 ML SYRINGE SQ SCH ×2 (11:29→23:58)
[2017-01-08] MEDS: fentaNYL DRIP 250 ML IV SCH ×2 (12:26→20:09)
[2017-01-08] MEDS ORDERED: IOHEXOL 350 MG/ML 10 ML VIAL (for RAD DIAG) IV ONE (12:54)
--- NOTE | 2017-01-08 13:34 | RADRPT ---
EXAM DATE/TIME: 01/08/2017 12:49 [facility] COMPARISON: CT ABDOMEN & PELVIS W CONTRAST, December 31, 2016, 12:42. CT THORAX W CONTRAST, December 31, 2016, 12:42. INDICATIONS : Chest trauma; evaluate for embolism. IV CONTRAST: 74 cc Omnipaque 350 (iohexol) IV RADIATION DOSE: 24.48 CTDIvol (mGy) MEDICAL HISTORY : None SURGICAL HISTORY : Bilateral chest tubes. ENCOUNTER: Initial ACUITY: 1 week PAIN SCALE: Non-responsive LOCATION: chest TECHNIQUE: Volumetric scanning of the chest was performed using a pulmonary embolism protocol MIP images were re constructed. Using automated exposure control and adjustment of the mA and/or kV according to patien t size, radiation dose was kept as low as reasonably achievable to obtain optimal diagnostic quality images. DICOM format image data is available electronically for review and comparison. Follow-up recommendations for incidentally detected pulmonary nodules are based at a minimum on nodul e size and patient risk factors according to Fleischner Society Guidelines. FINDINGS: Multiple left sided rib fractures, left scapular and clavicular fractures are again seen. Previo usly seen extensive subcutaneous emphysema has resolved and the pneumothorax has resolved. Bilateral pleural effusions are present with dense consolidation in both lung bases worse since the prior exam particularly in the left lower chest. There is no evidence for PE for technique. Incidental note is m tony of cysts in the liver the largest measures 1.8 cm in size. CONCLUSION: 1. There is no evidence for PE for technique. 2. Worsening left pleural effusion and interval development of right pleural effusion and dense conso lidation in both lung bases. 3. Resolution of the previously seen left pneumothorax and subcutaous emphysema. Nichol Wellington MD on January 08, 2017 at 13:27 Board Certified Radiologist. This report was verified electronically.
[2017-01-08] MEDS: HYDROmorphone HCL PF 1 MG/ML VIAL IV PRN (13:48)
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
[2017-01-08] MEDS ORDERED: LIDOCAINE 1%/EPINEPHrine 1:100,000 SOLN 20 ML VIAL ONE (16:33)
[2017-01-08] MEDS ORDERED: PHARMACY ORDERED LAB ONE (16:45)
--- NOTE | 2017-01-08 17:29 | PD.RAD ---
Post CT Procedure Prog Note Pre Procedure Diagnosis: (1) Bilateral pneumothorax (2) Flail chest Post Procedure Diagnosis: (1) Flail chest (2) Bilateral pneumothorax Procedure Date: Jan 08, 2017 Supervising Radiologist: Fly Longo Anesthesia: Local, Conscious Sedation Plan of Activity Patient to Unit: Critical Care Patient Condition: Poor Additional Comments: 12 Bangladeshi chest tube placed on the left. 1 liter of hemorrhagic fluid removed. samples sent for culture. Complete reinflation of the left lung. Tube in good position. See PACS Report for procedural detail/treatment Fly Longo MD Jan 08, 2017 17:29
[2017-01-08 20:08] LABS: PLEURAL FLUID LYMPHS 6 %
[2017-01-09] VITALS (22 sets, daily range): BP systolic 94–134; BP diastolic 53–71; PULSE 55–85; RESP 13–15; TEMP 98.4–99.6; O2SAT 92–96
[2017-01-09] MEDS: PIPERACIL-TAZO 4.5 GM PREMIX 100 ML IV SCH ×4 (02:14→20:16)
[2017-01-09] MEDS: HYDROmorphone HCL PF 1 MG/ML VIAL IV PRN ×3 (02:15→13:36)
--- NOTE | 2017-01-09 03:48 | RADRPT ---
EXAM DATE/TIME: 01/09/2017 02:34 [facility] COMPARISON: CHEST SINGLE AP, January 08, 2017, 6:55. INDICATIONS : Short of breath. MEDICAL HISTORY : None. SURGICAL HISTORY : Bilateral chest tubes. ENCOUNTER: Subsequent ACUITY: 2 days PAIN SCORE: Non-responsive. LOCATION: Bilateral chest FINDINGS: A single frontal expiratory view of the chest was performed. Endotracheal tube and nasogastric tube i n place. Multiple left-sided rib fractures are again seen. Left sided chest tube is in place. No evid ence of pneumothorax. Bilateral lower lung zone opacity more prominent on the most recent comparison chest radiograph. Lung volumes are low. CONCLUSION: Low lung volumes with bilateral lower lung consolidation versus atelectasis and pleural effusions. Le ft-sided chest tube. No evidence of the thorax. Randall Rm MD on January 09, 2017 at 3:43 Board Certified Radiologist. This report was verified electronically.
[2017-01-09 04:44] LABS: HEMATOCRIT 26.5 % (39.0-51.0); MEAN CELL VOLUME 91.5 FL (80.0-100.0); MEAN CORPUSCULAR HEMOGLOBIN 30.2 PG (27.0-34.0); PLATELET COUNT 536 TH/MM3 (150-450); RED BLOOD COUNT 2.89 MIL/MM3 (4.50-5.90); RED CELL DISTRIBUTION WIDTH 16.2 % (11.6-17.2); REVIEW FLAG FINAL; WHITE BLOOD COUNT 8.7 TH/MM3 (4.0-11.0)
[2017-01-09 05:16] LABS: BICARBONATE 28.8 MEQ/L (21.0-32.0); POTASSIUM 3.5 MEQ/L (3.5-5.1)
[2017-01-09] MEDS: METOCLOPRAMIDE HCL 10 MG/2 ML VIAL IV PUSH SCH ×3 (05:37→21:43)
[2017-01-09] MEDS: PROPOFOL 1000 MG/100 ML INJ 100 ML IV SCH ×4 (05:37→22:59)
[2017-01-09 05:42] LABS: BLOOD GAS BASE EXCESS 2.3 mmol/L (-2-2); BLOOD GAS CARBOXYHEMOGLOBIN 1.4 % (0-4); BLOOD GAS HCO3 27 mmol/L (22-26); BLOOD GAS METHEMOGLOBIN 0.9 % (0-2); BLOOD GAS O2 HGB SATURATION 89 % (90-100); BLOOD GAS OXYGEN CONTENT 11.3 Vol % (12.0-20.0); BLOOD GAS PCO2 43 mmHg (38-42); BLOOD GAS PO2 62 mmHg (61-120); TEMP CORR TO 98.6
[2017-01-09 05:43] LABS: CRITICAL VALUE YES; FIO2 80 %; OXYGEN DEVICE VENTILATOR; VENT SETTINGS PRVC/AC
[2017-01-09 05:44] LABS: DRAW SITE RT BRACHIAL; NUMBER OF ARTERIAL PUNCTURES 1; STAT NO
--- NOTE | 2017-01-09 07:52 | RADRPT ---
EXAM DATE/TIME: 01/08/2017 16:58 INDICATIONS : Left lung fluid. DEVICE(S): 1.) [place] 12fr FLUID: Total volume [id number] cc of cloudy, red fluid was remoted. Fluid was sent for laboratory ordered studies. MEDICAL HISTORY : None. SURGICAL HISTORY : Pacemaker. ENCOUNTER: Initial ACUITY: 1 day PAIN SCORE: Non-responsive LOCATION: Left chest PROCEDURE : 1. CT guided chest tube placement. 2. Conscious sedation with continuous EKG and oximetry monitoring. The risks, benefits and alternatives to the procedure were explained and verbal and written consent w as obtained. The site was prepped in sterile fashion. Full sterile technique was used, including ca p, mask, sterile gloves and gown and a large sterile sheet. Hand hygiene and 2% chlorhexidine and/or betadine/alcohol prep was utilized per protocol for cutaneous antisepsis. The skin and subcutaneous tissues were infiltrated with local anesthetic solution. Using automated exposure control and adjus tment of the mA and/or kV according to patient size, radiation dose was kept as low as reasonably ach ievable to obtain optimal diagnostic quality images. DICOM format image data is available electronic ally for review and comparison. With CT guidance the left chest was punctured and a 12 [place] nonlocking catheter was placed. Suction ing was applied and 1 L of hemorrhagic fluid was removed. Post procedure images demonstrate satisfac tory position of the tube. The catheter was sutured in place and a dressing was applied. Conscious sedation was performed with the prescribed dosages and duration as above. The patient ben ated the procedure well and there were no complications. EKG and oximetry remained stable throughout the procedure. The patient was sent to post anesthesia recovery in stable condition. CONCLUSION: Uncomplicated chest tube placement as above. 1 L of hemorrhagic fluid was removed. Fly Longo MD on January 09, 2017 at 7:49 Board Certified Radiologist. This report was verified electronically.
[2017-01-09] MEDS: fentaNYL DRIP 250 ML IV SCH (08:13)
[2017-01-09] MEDS: CHLORHEXIDINE 0.12% (ORAL KIT) 15 ML CUP MT SCH ×2 (08:15→20:17)
[2017-01-09] MEDS ORDERED: SODIUM CHLOR 0.9% 250 ML INJ 250 ML IV ONE (09:30)
[2017-01-09] MEDS ORDERED: FUROSEMIDE 20 MG/2 ML VIAL IV ONE (09:30)
[2017-01-09] MEDS: LORazepam 2 MG/ML VIAL IV PRN (09:32)
[2017-01-09] MEDS: ARTIFICIAL TEARS OPTH OINT 3.5 APPLIC/3.5 GM TUBO EACH EYE SCH ×2 (09:39→20:16)
[2017-01-09] MEDS: LACTULOSE SYRUP 20 GM/30 ML CUP PO SCH ×2 (09:39→20:17)
[2017-01-09] MEDS: SENNOSIDES SYRUP 8.8 MG/5 ML CUP NG SCH ×2 (09:39→20:17)
[2017-01-09] MEDS: PANTOPRAZOLE SODIUM 40 MG VIAL IV PUSH SCH (09:39)
[2017-01-09] MEDS: SODIUM CHLORIDE 0.9% FLUSH 10 ML FLUSH IV FLUSH SCH ×2 (09:40→20:16)
[2017-01-09] MEDS: LIDOCAINE HCL 5% PATCH T-DERMAL SCH (09:40)
[2017-01-09] MEDS: DOCUSATE SODIUM 100 MG/10 ML UDC PO SCH ×2 (09:40→20:17)
[2017-01-09] MEDS: REMOVE OLD LIDOCAINE PATCH T-DERMAL SCH (09:40)
[2017-01-09] MEDS: POLYETHYLENE GLYCOL 17 GM PKG OG-TUBE SCH ×2 (09:41→20:17)
[2017-01-09] MEDS ORDERED: NALOXONE HCL 0.4 MG/ML AMP IV PRN (11:15)
[2017-01-09] MEDS: ENOXAPARIN SODIUM 30 MG/0.3 ML SYRINGE SQ SCH (11:39)
[2017-01-09] MEDS: VANCOMYCIN INJ 1,700 MG in SODIUM CHLORID 0.9% 500 ML INJ 500 ML IV SCH (12:01)
[2017-01-09] MEDS: HYDROmorphone HCL PCA 6 MG/30 ML IV SCH ×6 (13:07→22:20)
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
[2017-01-09] MEDS: PCA - TOTAL MG DILAUDID DELIVERED PER SHIFT OTHER SCH ×2 (14:00→22:13)
[2017-01-09 15:04] LABS: BLOOD GAS CARBOXYHEMOGLOBIN 1.3 % (0-4); BLOOD GAS HCO3 27 mmol/L (22-26); BLOOD GAS O2 HGB SATURATION 88 % (90-100); BLOOD GAS OXYGEN CONTENT 11.9 Vol % (12.0-20.0); BLOOD GAS PCO2 46 mmHg (38-42); BLOOD GAS PO2 62 mmHg (61-120); BLOOD GAS TOTAL HGB 9.6 G/DL (12.0-16.0); CRITICAL VALUE YES; OXYGEN DEVICE VENTILATOR; TEMP CORR TO 98.6
[2017-01-09 15:05] LABS: DRAW SITE LT RADIAL; FIO2 75 %; NUMBER OF ARTERIAL PUNCTURES 1; STAT NO; ULNAR PULSE PRESENT; VENT SETTINGS APRV
[2017-01-09 19:05] LABS: HEMATOCRIT 29.9 % (39.0-51.0); REVIEW FLAG FINAL
[2017-01-10] VITALS (18 sets, daily range): BP systolic 109–175; BP diastolic 55–98; PULSE 61–108; RESP 13–25; TEMP 99.3–100.5; O2SAT 75–97
[2017-01-10] MEDS: HYDROmorphone HCL PCA 6 MG/30 ML IV SCH ×13 (00:12→22:22)
[2017-01-10] MEDS: VANCOMYCIN INJ 1,700 MG in SODIUM CHLORID 0.9% 500 ML INJ 500 ML IV SCH (00:15)
[2017-01-10] MEDS: ENOXAPARIN SODIUM 30 MG/0.3 ML SYRINGE SQ SCH ×3 (00:15→23:34)
[2017-01-10] MEDS: PROPOFOL 1000 MG/100 ML INJ 100 ML IV SCH ×6 (02:04→23:17)
[2017-01-10] MEDS: PIPERACIL-TAZO 4.5 GM PREMIX 100 ML IV SCH ×4 (03:34→20:31)
[2017-01-10] MEDS: LORazepam 2 MG/ML VIAL IV PRN (03:44)
[2017-01-10 04:14] LABS: AUTOMATED NEUTROPHIL # 7.2 TH/MM3 (1.8-7.7); BASOPHIL # 0.1 TH/MM3 (0-0.2); BASOPHIL % 0.8 % (0.0-2.0); EOSINOPHIL # 0.8 TH/MM3 (0-0.4); EOSINOPHIL % 7.1 % (0.0-4.0); HEMATOCRIT 31.6 % (39.0-51.0); HEMO FLAGS DIFF FINAL; LYMPH % 12.4 % (9.0-44.0); LYMPHOCYTE # 1.5 TH/MM3 (1.0-4.8); MEAN CELL VOLUME 89.3 FL (80.0-100.0); MEAN CORPUSCULAR HEMOGLOBIN 30.1 PG (27.0-34.0); MEAN CORPUSCULAR HGB CONC 33.6 % (32.0-36.0); MONO % 18.3 % (0.0-8.0); NEUT % 61.4 % (16.0-70.0); PLATELET COUNT 651 TH/MM3 (150-450); RED BLOOD COUNT 3.54 MIL/MM3 (4.50-5.90); RED CELL DISTRIBUTION WIDTH 16.4 % (11.6-17.2); WHITE BLOOD COUNT 11.7 TH/MM3 (4.0-11.0)
[2017-01-10 04:26] LABS: BODY FLUID LDH 252 U/L (()); BODY FLUID LDH SOURCE PLEURAL (())
[2017-01-10 04:48] LABS: ALT (GPT) 71 U/L (12-78); ANION GAP 8 MEQ/L (5-15); AST (GOT) 54 U/L (15-37); BICARBONATE 27.7 MEQ/L (21.0-32.0); BLOOD UREA NITROGEN 11 MG/DL (7-18); CHLORIDE 106 MEQ/L (98-107); GLOMERULAR FILTRATION RATE 86 ML/MIN (>89); MAGNESIUM 2.1 MG/DL (1.5-2.5); POTASSIUM 3.5 MEQ/L (3.5-5.1); SODIUM (NA) 142 MEQ/L (136-145)
[2017-01-10 04:50] LABS: ALKALINE PHOSPHATASE 90 U/L (45-117); TOTAL BILIRUBIN ADULT 0.8 MG/DL (0.2-1.0)
[2017-01-10] MEDS: METOCLOPRAMIDE HCL 10 MG/2 ML VIAL IV PUSH SCH ×3 (05:09→21:56)
[2017-01-10 05:27] LABS: BLOOD GAS BASE EXCESS 1.7 mmol/L (-2-2); BLOOD GAS CARBOXYHEMOGLOBIN 1.1 % (0-4); BLOOD GAS HCO3 26 mmol/L (22-26); BLOOD GAS METHEMOGLOBIN 0.8 % (0-2); BLOOD GAS O2 HGB SATURATION 92 % (90-100); BLOOD GAS OXYGEN CONTENT 12.8 Vol % (12.0-20.0); BLOOD GAS PCO2 41 mmHg (38-42); BLOOD GAS PO2 71 mmHg (61-120); BLOOD GAS TOTAL HGB 9.8 G/DL (12.0-16.0); CRITICAL VALUE NO; OXYGEN DEVICE VENTILATOR; TEMP CORR TO 98.6
[2017-01-10 05:28] LABS: DRAW SITE RT BRACHIAL; FIO2 100 %; NUMBER OF ARTERIAL PUNCTURES 1; STAT NO; ULNAR PULSE PRESENT; VENT SETTINGS BILEVEL
[2017-01-10] MEDS: PCA - TOTAL MG DILAUDID DELIVERED PER SHIFT OTHER SCH ×3 (05:45→22:08)
--- NOTE | 2017-01-10 06:10 | RADRPT ---
EXAM DATE/TIME: 01/10/2017 03:24 [place] COMPARISON: CT PULMONARY ANGIOGRAM, January 08, 2017, 12:49. INDICATIONS : Trauma. MEDICAL HISTORY : None. SURGICAL HISTORY : None. ENCOUNTER: Subsequent ACUITY: 1 week PAIN SCORE: Non-responsive. LOCATION: Bilateral chest FINDINGS: There are bilateral pleural effusions. Endotracheal tube, enteric tube again seen. There is cardiomeg renato. There is basilar atelectasis. CONCLUSION: Bilateral effusions and basilar atelectasis. Shan Sotomayor MD on January 10, 2017 at 6:07 Board Certified Radiologist. This report was verified electronically.
[2017-01-10] MEDS: CHLORHEXIDINE 0.12% (ORAL KIT) 15 ML CUP MT SCH ×2 (08:00→20:31)
[2017-01-10] MEDS: ARTIFICIAL TEARS OPTH OINT 3.5 APPLIC/3.5 GM TUBO EACH EYE SCH ×2 (08:42→20:32)
[2017-01-10] MEDS: SODIUM CHLORIDE 0.9% FLUSH 10 ML FLUSH IV FLUSH SCH ×2 (08:42→20:32)
[2017-01-10] MEDS: PANTOPRAZOLE SODIUM 40 MG VIAL IV PUSH SCH (08:42)
[2017-01-10] MEDS: SENNOSIDES SYRUP 8.8 MG/5 ML CUP NG SCH ×2 (08:42→20:32)
[2017-01-10] MEDS: REMOVE OLD LIDOCAINE PATCH T-DERMAL SCH (08:43)
[2017-01-10] MEDS: POLYETHYLENE GLYCOL 17 GM PKG OG-TUBE SCH ×2 (08:43→20:33)
[2017-01-10] MEDS: LIDOCAINE HCL 5% PATCH T-DERMAL SCH (08:43)
[2017-01-10] MEDS: DOCUSATE SODIUM 100 MG/10 ML UDC PO SCH ×2 (08:43→20:33)
[2017-01-10] MEDS: LACTULOSE SYRUP 20 GM/30 ML CUP PO SCH ×2 (08:43→20:33)
[2017-01-10] MEDS: RESP: ALBUTEROL 2.5 MG/3 ML NEB (PRN) NEB ×2 (09:15→16:37)
[2017-01-10] MEDS ORDERED: FUROSEMIDE 40 MG/5 ML UNIT DOSE CUP NG ONE (09:30)
[2017-01-10] MEDS ORDERED: POTASSIUM CHLORIDE 25 MEQ EFFERVESCENT TAB PO ONE (09:30)
[2017-01-10] MEDS: MIDAZOLAM 100 MG/ML INJ 100 ML IV SCH (10:37)
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
[2017-01-10] MEDS ORDERED: PHARMACY ORDERED LAB ONE (11:45)
[2017-01-10] MEDS: VANCOMYCIN 1,500 MG/NS 500 ML IV SCH ×2 (15:06)
[2017-01-10 17:46] LABS: BLOOD GAS BASE EXCESS 2.1 mmol/L (-2-2); BLOOD GAS CARBOXYHEMOGLOBIN 1.3 % (0-4); BLOOD GAS HCO3 26 mmol/L (22-26); BLOOD GAS METHEMOGLOBIN 1.1 % (0-2); BLOOD GAS O2 HGB SATURATION 94 % (90-100); BLOOD GAS OXYGEN CONTENT 12.6 Vol % (12.0-20.0); BLOOD GAS PCO2 36 mmHg (38-42); BLOOD GAS PO2 78 mmHg (61-120); BLOOD GAS TOTAL HGB 9.5 G/DL (12.0-16.0); CRITICAL VALUE NO; DRAW SITE RT RADIAL; FIO2 70 %; NUMBER OF ARTERIAL PUNCTURES 1; OXYGEN DEVICE VENTILATOR; STAT NO; TEMP CORR TO 98.6; ULNAR PULSE PRESENT
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
[2017-01-11] VITALS (18 sets, daily range): BP systolic 119–145; BP diastolic 62–76; PULSE 68–93; RESP 13–14; TEMP 98.5–99.8; O2SAT 70–98
[2017-01-11] MEDS: HYDROmorphone HCL PCA 6 MG/30 ML IV SCH ×12 (00:13→22:13)
[2017-01-11] MEDS: PROPOFOL 1000 MG/100 ML INJ 100 ML IV SCH ×5 (02:00→21:40)
[2017-01-11] MEDS: PIPERACIL-TAZO 4.5 GM PREMIX 100 ML IV SCH ×4 (02:23→21:20)
[2017-01-11] MEDS: VANCOMYCIN 1,500 MG/NS 500 ML IV SCH ×4 (04:14→16:12)
[2017-01-11 04:35] LABS: AUTOMATED NEUTROPHIL # 8.6 TH/MM3 (1.8-7.7); BASOPHIL # 0.1 TH/MM3 (0-0.2); BASOPHIL % 0.5 % (0.0-2.0); EOSINOPHIL # 0.6 TH/MM3 (0-0.4); EOSINOPHIL % 4.9 % (0.0-4.0); HEMATOCRIT 28.1 % (39.0-51.0); HEMO FLAGS DIFF FINAL; LYMPH % 7.1 % (9.0-44.0); LYMPHOCYTE # 0.9 TH/MM3 (1.0-4.8); MEAN CELL VOLUME 90.5 FL (80.0-100.0); MEAN CORPUSCULAR HEMOGLOBIN 30.3 PG (27.0-34.0); MEAN CORPUSCULAR HGB CONC 33.5 % (32.0-36.0); MONO % 15.4 % (0.0-8.0); NEUT % 72.1 % (16.0-70.0); PLATELET COUNT 657 TH/MM3 (150-450); RED CELL DISTRIBUTION WIDTH 15.8 % (11.6-17.2); WHITE BLOOD COUNT 11.9 TH/MM3 (4.0-11.0)
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
[2017-01-11 05:04] LABS: ALT (GPT) 73 U/L (12-78); ANION GAP 8 MEQ/L (5-15); AST (GOT) 53 U/L (15-37); BICARBONATE 27.2 MEQ/L (21.0-32.0); BLOOD UREA NITROGEN 14 MG/DL (7-18); CHLORIDE 107 MEQ/L (98-107); GLOMERULAR FILTRATION RATE 76 ML/MIN (>89); POTASSIUM 3.3 MEQ/L (3.5-5.1); SODIUM (NA) 142 MEQ/L (136-145)
[2017-01-11 05:06] LABS: ALKALINE PHOSPHATASE 105 U/L (45-117); TOTAL BILIRUBIN ADULT 0.7 MG/DL (0.2-1.0)
[2017-01-11 05:18] LABS: BLOOD GAS BASE EXCESS 2.4 mmol/L (-2-2); BLOOD GAS CARBOXYHEMOGLOBIN 1.2 % (0-4); BLOOD GAS HCO3 26 mmol/L (22-26); BLOOD GAS O2 HGB SATURATION 93 % (90-100); BLOOD GAS PCO2 37 mmHg (38-42); BLOOD GAS PO2 72 mmHg (61-120); BLOOD GAS TOTAL HGB 10.7 G/DL (12.0-16.0); TEMP CORR TO 98.6
[2017-01-11 05:19] LABS: CRITICAL VALUE NO; OXYGEN DEVICE VENTILATOR
[2017-01-11 05:20] LABS: DRAW SITE RT RADIAL; FIO2 80 %; NUMBER OF ARTERIAL PUNCTURES 1; STAT NO; ULNAR PULSE PRESENT; VENT SETTINGS APRV
[2017-01-11] MEDS: METOCLOPRAMIDE HCL 10 MG/2 ML VIAL IV PUSH SCH ×3 (05:47→21:20)
[2017-01-11] MEDS: POTASSIUM CHLOR 40 MEQ PREMIX 100 ML IV PRN (05:48)
[2017-01-11] MEDS: PCA - TOTAL MG DILAUDID DELIVERED PER SHIFT OTHER SCH ×3 (06:53→22:12)
[2017-01-11] MEDS ORDERED: FUROSEMIDE 40 MG/4 ML VIAL IV PUSH ONE (08:00)
[2017-01-11] MEDS: CHLORHEXIDINE 0.12% (ORAL KIT) 15 ML CUP MT SCH ×2 (08:00→20:22)
[2017-01-11] MEDS ORDERED: POTASSIUM CHLORIDE 25 MEQ EFFERVESCENT TAB PO ONE (08:00)
[2017-01-11] MEDS: PANTOPRAZOLE SODIUM 40 MG VIAL IV PUSH SCH (08:24)
[2017-01-11] MEDS: LIDOCAINE HCL 5% PATCH T-DERMAL SCH (08:24)
[2017-01-11] MEDS: POLYETHYLENE GLYCOL 17 GM PKG OG-TUBE SCH ×2 (08:27→21:00)
[2017-01-11] MEDS: ARTIFICIAL TEARS OPTH OINT 3.5 APPLIC/3.5 GM TUBO EACH EYE SCH (08:27)
[2017-01-11] MEDS: SENNOSIDES SYRUP 8.8 MG/5 ML CUP NG SCH ×2 (08:27→21:00)
[2017-01-11] MEDS: SODIUM CHLORIDE 0.9% FLUSH 10 ML FLUSH IV FLUSH SCH ×2 (08:27→21:20)
[2017-01-11] MEDS: DOCUSATE SODIUM 100 MG/10 ML UDC PO SCH ×2 (08:28→21:00)
[2017-01-11] MEDS: REMOVE OLD LIDOCAINE PATCH T-DERMAL SCH (08:28)
[2017-01-11] MEDS: LACTULOSE SYRUP 20 GM/30 ML CUP PO SCH ×2 (08:28→21:00)
[2017-01-11] MEDS: MIDAZOLAM HCL 5 MG/ML VIAL (1 ML) IV PRN (09:10)
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
[2017-01-11] MEDS: RESP: ALBUTEROL 2.5 MG/3 ML NEB (PRN) NEB ×2 (12:18→19:52)
[2017-01-11] MEDS: ENOXAPARIN SODIUM 30 MG/0.3 ML SYRINGE SQ SCH ×2 (12:26→23:56)
[2017-01-11] MEDS: ARTIFICIAL TEARS OPTH SOLN 15 ML BTL EACH EYE SCH ×2 (12:27→16:12)
[2017-01-11] MEDS: MIDAZOLAM 100 MG/ML INJ 100 ML IV SCH (18:13)
[2017-01-12] VITALS (19 sets, daily range): BP systolic 125–154; BP diastolic 68–75; PULSE 75–91; RESP 13–25; TEMP 99.5–100.5; O2SAT 92–97
[2017-01-12] MEDS: HYDROmorphone HCL PCA 6 MG/30 ML IV SCH ×6 (00:10→10:06)
[2017-01-12] MEDS: PROPOFOL 1000 MG/100 ML INJ 100 ML IV SCH ×8 (00:13→23:30)
[2017-01-12] MEDS: PIPERACIL-TAZO 4.5 GM PREMIX 100 ML IV SCH ×4 (03:11→20:34)
[2017-01-12] MEDS ORDERED: PHARMACY ORDERED LAB ONE (03:45)
[2017-01-12 04:17] LABS: AUTOMATED NEUTROPHIL # 10.3 TH/MM3 (1.8-7.7); BASOPHIL # 0.1 TH/MM3 (0-0.2); BASOPHIL % 0.4 % (0.0-2.0); EOSINOPHIL # 0.8 TH/MM3 (0-0.4); EOSINOPHIL % 5.5 % (0.0-4.0); HEMATOCRIT 28.9 % (39.0-51.0); HEMO FLAGS DIFF FINAL; LYMPH % 7.1 % (9.0-44.0); MEAN CELL VOLUME 90.9 FL (80.0-100.0); MONO % 14.8 % (0.0-8.0); NEUT % 72.2 % (16.0-70.0); PLATELET COUNT 744 TH/MM3 (150-450); RED BLOOD COUNT 3.18 MIL/MM3 (4.50-5.90); RED CELL DISTRIBUTION WIDTH 16.7 % (11.6-17.2); WHITE BLOOD COUNT 14.3 TH/MM3 (4.0-11.0)
--- NOTE | 2017-01-12 04:18 | RADRPT ---
EXAM DATE/TIME: 01/12/2017 03:30 [place] COMPARISON: CHEST SINGLE AP, January 11, 2017, 4:08. INDICATIONS : Evaluate respiratory failure and rib fractures post trauma. MEDICAL HISTORY : None. Liver laceration SURGICAL HISTORY : Splenectomy. ENCOUNTER: Subsequent ACUITY: 1 week PAIN SCORE: Non-responsive. LOCATION: Bilateral chest FINDINGS: Bilateral effusions and basilar consolidation stable. Endotracheal tube and enteric tube again seen. Cardiomegaly. CONCLUSION: No significant change has occurred. Shan Sotomayor MD on January 12, 2017 at 4:16 Board Certified Radiologist. This report was verified electronically.
[2017-01-12 04:39] LABS: BICARBONATE 27.2 MEQ/L (21.0-32.0); MAGNESIUM 2.2 MG/DL (1.5-2.5); POTASSIUM 3.3 MEQ/L (3.5-5.1)
[2017-01-12 04:48] LABS: CALCIUM-PROTEIN CORRECTED 8.3 MG/DL (8.5-10.1)
[2017-01-12 05:15] LABS: BLOOD GAS BASE EXCESS 1.9 mmol/L (-2-2); BLOOD GAS CARBOXYHEMOGLOBIN 1.2 % (0-4); BLOOD GAS HCO3 26 mmol/L (22-26); BLOOD GAS METHEMOGLOBIN 0.8 % (0-2); BLOOD GAS O2 HGB SATURATION 92 % (90-100); BLOOD GAS OXYGEN CONTENT 13.7 Vol % (12.0-20.0); BLOOD GAS PCO2 37 mmHg (38-42); BLOOD GAS PO2 70 mmHg (61-120); BLOOD GAS TOTAL HGB 10.5 G/DL (12.0-16.0); CRITICAL VALUE NO; OXYGEN DEVICE VENTILATOR; TEMP CORR TO 98.6
[2017-01-12 05:16] LABS: DRAW SITE RT RADIAL; FIO2 80 %; NUMBER OF ARTERIAL PUNCTURES 1; STAT NO; ULNAR PULSE PRESENT; VENT SETTINGS APRV
[2017-01-12] MEDS: POTASSIUM CHLOR 40 MEQ PREMIX 100 ML IV PRN (06:10)
[2017-01-12] MEDS: METOCLOPRAMIDE HCL 10 MG/2 ML VIAL IV PUSH SCH ×3 (06:10→20:20)
[2017-01-12] MEDS: PCA - TOTAL MG DILAUDID DELIVERED PER SHIFT OTHER SCH (06:11)
[2017-01-12] MEDS: VANCOMYCIN 1,500 MG/NS 500 ML IV SCH ×4 (06:48→16:00)
[2017-01-12] MEDS: CHLORHEXIDINE 0.12% (ORAL KIT) 15 ML CUP MT SCH ×2 (07:55→20:00)
[2017-01-12] MEDS: ARTIFICIAL TEARS OPTH SOLN 15 ML BTL EACH EYE SCH ×3 (07:55→17:05)
[2017-01-12] MEDS: SODIUM CHLORIDE 0.9% FLUSH 10 ML FLUSH IV FLUSH SCH ×2 (07:55→20:34)
[2017-01-12] MEDS: MIDAZOLAM 100 MG/ML INJ 100 ML IV SCH (07:56)
[2017-01-12] MEDS: DOCUSATE SODIUM 100 MG/10 ML UDC PO SCH ×2 (07:57→20:20)
[2017-01-12] MEDS: SENNOSIDES SYRUP 8.8 MG/5 ML CUP NG SCH ×2 (07:57→20:19)
[2017-01-12] MEDS: POLYETHYLENE GLYCOL 17 GM PKG OG-TUBE SCH ×2 (07:57→20:19)
[2017-01-12] MEDS: LACTULOSE SYRUP 20 GM/30 ML CUP PO SCH ×2 (07:57→20:20)
[2017-01-12] MEDS: LIDOCAINE HCL 5% PATCH T-DERMAL SCH (08:14)
[2017-01-12] MEDS: REMOVE OLD LIDOCAINE PATCH T-DERMAL SCH (08:14)
[2017-01-12] MEDS: PANTOPRAZOLE SODIUM 40 MG VIAL IV PUSH SCH (08:14)
[2017-01-12] MEDS ORDERED: BUMETANIDE INJ 1 MG/4 ML VIAL IV PUSH ONE (10:30)
[2017-01-12] MEDS: fentaNYL 2,500 MCG/NS 250 ML IV SCH ×2 (11:48→20:34)
[2017-01-12] MEDS: ENOXAPARIN SODIUM 30 MG/0.3 ML SYRINGE SQ SCH ×2 (11:48→23:30)
[2017-01-12 12:33] LABS: BACTERIA, URINE FEW /hpf; BLOOD, URINE LARGE (NEG); GLUCOSE,URINE NEG (NEG); KETONE, URINE NEG (NEG); NITRITE,URINE NEG (NEG)
[2017-01-12 12:34] LABS: COMMENT (UR) CATH-CULTURE IND; CULTURE IF INDICATED CATH CULTURE IND; URINE COLOR BROWN (YELLW/STRAW)
[2017-01-12 13:56] LABS: C. DIFF EPI 027 PRESUMPTIVE NEGATIVE (NEGATIVE); C. DIFF TOXIN PCR NEGATIVE (NEGATIVE)
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
[2017-01-12] MEDS: RESP: ALBUTEROL 2.5 MG/3 ML NEB (PRN) NEB (20:01)
[2017-01-13] VITALS (18 sets, daily range): BP systolic 121–150; BP diastolic 68–81; PULSE 65–102; RESP 13–27; TEMP 98.6–99.6; O2SAT 92–100
[2017-01-13] MEDS: PROPOFOL 1000 MG/100 ML INJ 100 ML IV SCH ×6 (02:36→16:17)
[2017-01-13] MEDS: PIPERACIL-TAZO 4.5 GM PREMIX 100 ML IV SCH ×4 (02:37→19:55)
[2017-01-13] MEDS: VANCOMYCIN 1,500 MG/NS 500 ML IV SCH ×2 (02:37)
[2017-01-13 03:06] LABS: AUTOMATED NEUTROPHIL # 11.5 TH/MM3 (1.8-7.7); BASOPHIL # 0.1 TH/MM3 (0-0.2); BASOPHIL % 0.5 % (0.0-2.0); EOSINOPHIL # 0.6 TH/MM3 (0-0.4); HEMATOCRIT 31.5 % (39.0-51.0); LYMPH % 8.1 % (9.0-44.0); LYMPHOCYTE # 1.3 TH/MM3 (1.0-4.8); MEAN CORPUSCULAR HEMOGLOBIN 29.6 PG (27.0-34.0); MEAN CORPUSCULAR HGB CONC 32.2 % (32.0-36.0); MONO % 16.3 % (0.0-8.0); NEUT % 71.1 % (16.0-70.0); PLATELET COUNT 881 TH/MM3 (150-450); RED BLOOD COUNT 3.42 MIL/MM3 (4.50-5.90); RED CELL DISTRIBUTION WIDTH 16.3 % (11.6-17.2); WHITE BLOOD COUNT 16.2 TH/MM3 (4.0-11.0)
[2017-01-13 03:21] LABS: ALT (GPT) 105 U/L (12-78); ANION GAP 7 MEQ/L (5-15); AST (GOT) 68 U/L (15-37); BICARBONATE 27.8 MEQ/L (21.0-32.0); BLOOD UREA NITROGEN 17 MG/DL (7-18); CHLORIDE 106 MEQ/L (98-107); GLOMERULAR FILTRATION RATE 70 ML/MIN (>89); POTASSIUM 3.8 MEQ/L (3.5-5.1); SODIUM (NA) 141 MEQ/L (136-145)
[2017-01-13 03:23] LABS: ALKALINE PHOSPHATASE 186 U/L (45-117)
[2017-01-13 03:29] LABS: HEMO FLAGS AUTO DIFF
[2017-01-13] MEDS: METOCLOPRAMIDE HCL 10 MG/2 ML VIAL IV PUSH SCH (04:47)
[2017-01-13 05:16] LABS: SCAN/DIFF AUTO DIFF CONFIRMED
[2017-01-13 05:17] LABS: PLATELET ESTIMATE SMEAR HIGH (NORMAL); PLATELET MORPHOLOGY NORMAL (NORMAL)
[2017-01-13] MEDS: fentaNYL 2,500 MCG/NS 250 ML IV SCH ×2 (06:25→16:16)
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
[2017-01-13] MEDS: CHLORHEXIDINE 0.12% (ORAL KIT) 15 ML CUP MT SCH ×2 (08:00→19:56)
[2017-01-13] MEDS: SODIUM CHLORIDE 0.9% FLUSH 10 ML FLUSH IV FLUSH SCH ×2 (08:21→19:56)
[2017-01-13] MEDS: ARTIFICIAL TEARS OPTH SOLN 15 ML BTL EACH EYE SCH ×3 (08:21→17:23)
[2017-01-13] MEDS: PANTOPRAZOLE SODIUM 40 MG VIAL IV PUSH SCH (08:22)
[2017-01-13] MEDS: SENNOSIDES SYRUP 8.8 MG/5 ML CUP NG SCH ×2 (08:22→19:56)
[2017-01-13] MEDS: LIDOCAINE HCL 5% PATCH T-DERMAL SCH (08:22)
[2017-01-13] MEDS ORDERED: BUMETANIDE INJ 1 MG/4 ML VIAL IV PUSH ONE (09:45)
--- NOTE | 2017-01-13 10:07 | RADRPT ---
EXAM DATE/TIME: 01/13/2017 09:54 [facility] COMPARISON: CHEST SINGLE AP, January 11, 2017, 4:08. CHEST SINGLE AP, January 12, 2017, 3:30. INDICATIONS : Shortness of breath; evaluate for effusion. MEDICAL HISTORY : Unobtainable. SURGICAL HISTORY : Unobtainable. ENCOUNTER: Subsequent ACUITY: 2 weeks PAIN SCORE: Non-responsive. LOCATION: Bilateral chest FINDINGS: A single view of the chest demonstrates the endotracheal tube and nasogastric remain in good position . There is a consolidation the right lung base and mild perihilar vascular congestion. Left pigtail c atheter in good position. Numerous left-sided rib fractures without evidence of pneumothorax. Small p leural effusion on the left.. The cardiomediastinal contours are unremarkable. Osseous structures a re intact. CONCLUSION: Tubes and catheters in good position. Numerous left-sided rib fracture without evidence of residual p neumothorax. Small pleural effusion the left lateral chest Ziggy Juarez MD on January 13, 2017 at 10:04 Board Certified Radiologist. This report was verified electronically.
[2017-01-13] MEDS: REMOVE OLD LIDOCAINE PATCH T-DERMAL SCH (11:00)
[2017-01-13 12:12] LABS: BLOOD GAS BASE EXCESS 1.8 mmol/L (-2-2); BLOOD GAS CARBOXYHEMOGLOBIN 1.2 % (0-4); BLOOD GAS HCO3 25 mmol/L (22-26); BLOOD GAS METHEMOGLOBIN 0.8 % (0-2); BLOOD GAS O2 HGB SATURATION 93 % (90-100); BLOOD GAS OXYGEN CONTENT 13.7 Vol % (12.0-20.0); BLOOD GAS PCO2 34 mmHg (38-42); BLOOD GAS PO2 68 mmHg (61-120); BLOOD GAS TOTAL HGB 10.4 G/DL (12.0-16.0); CRITICAL VALUE NO; OXYGEN DEVICE VENTILATOR; TEMP CORR TO 98.6
[2017-01-13] MEDS: ENOXAPARIN SODIUM 30 MG/0.3 ML SYRINGE SQ SCH (12:13)
[2017-01-13 12:14] LABS: DRAW SITE RT RADIAL; FIO2 40 %; NUMBER OF ARTERIAL PUNCTURES 1; STAT NO; ULNAR PULSE PRESENT
[2017-01-13] MEDS: VANCOMYCIN INJ 1,250 MG in SODIUM CHLOR 0.9% 250 ML INJ 250 ML IV SCH (17:22)
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
[2017-01-13] MEDS: MIDAZOLAM 100 MG/ML INJ 100 ML IV SCH (19:56)
--- NOTE | 2017-01-13 22:22 | HHI.IDPN ---
Subjective Subjective Remarks delayed entry pt was seen earlier today around [address] Trimble overall somewhat better FiO2 down to 45% fever low grade large amount of secretions Antibiotics vancomycin zosyn Allergies: Coded Allergies: No Known Allergies (Unverified , 12/31/16) Objective . Vital Signs Date Time Temp Pulse Resp B/P Pulse Ox O2 Delivery O2 Flow Rate FiO2 01/13/17 22:00 89 01/13/17 20:00 99.1 75 13 128/68 92 01/13/17 20:00 40 01/13/17 20:00 72 01/13/17 19:45 94 40 01/13/17 18:00 69 01/13/17 16:00 98.8 88 13 142/79 94 01/13/17 16:00 60 01/13/17 16:00 88 01/13/17 15:46 99 40 01/13/17 14:00 94 01/13/17 12:23 95 40 01/13/17 12:00 98.8 102 27 150/72 94 01/13/17 12:00 102 01/13/17 12:00 60 01/13/17 10:10 96 Ventilator 40 01/13/17 10:00 65 01/13/17 08:00 98.7 66 13 146/81 100 01/13/17 08:00 60 01/13/17 08:00 68 01/13/17 07:35 99 60 01/13/17 06:00 81 01/13/17 04:00 77 01/13/17 04:00 99.6 75 13 148/77 100 01/13/17 04:00 70 01/13/17 03:32 97 70 01/13/17 02:00 93 01/13/17 00:00 70 01/13/17 00:00 79 01/13/17 00:00 98.6 74 13 121/68 96 01/12/17 23:55 97 70 01/12/17 01/12/17 01/13/17 15:00 23:00 07:00 Intake Total 1147 ml 1611 ml 1308 ml Output Total 1600 ml 725 ml 250 ml Balance -453 ml 886 ml 1058 ml Intake IV Total 669 ml 1195 ml 942 ml Tube Feeding 478 ml 416 ml 366 ml Output Urine Total 1300 ml 425 ml 250 ml Stool Total 200 ml Chest Tube Drainage Total 300 ml 100 ml # Bowel Movements 4 . Laboratory Tests Test 01/12/17 01/13/17 03:45 02:30 White Blood Count 14.3 TH/MM3 16.2 TH/MM3 Red Blood Count 3.18 MIL/MM3 3.42 MIL/MM3 Hemoglobin 9.5 GM/DL 10.2 GM/DL Hematocrit 28.9 % 31.5 % Mean Corpuscular Volume 90.9 FL 92.0 FL Mean Corpuscular Hemoglobin 30.0 PG 29.6 PG Mean Corpuscular Hemoglobin 33.0 % 32.2 % Concent Red Cell Distribution Width 16.7 % 16.3 % Platelet Count 744 TH/MM3 881 TH/MM3 Mean Platelet Volume 8.3 FL 8.2 FL Neutrophils (%) (Auto) 72.2 % 71.1 % Lymphocytes (%) (Auto) 7.1 % 8.1 % Monocytes (%) (Auto) 14.8 % 16.3 % Eosinophils (%) (Auto) 5.5 % 4.0 % Basophils (%) (Auto) 0.4 % 0.5 % Neutrophils # (Auto) 10.3 TH/MM3 11.5 TH/MM3 Lymphocytes # (Auto) 1.0 TH/MM3 1.3 TH/MM3 Monocytes # (Auto) 2.1 TH/MM3 2.6 TH/MM3 Eosinophils # (Auto) 0.8 TH/MM3 0.6 TH/MM3 Basophils # (Auto) 0.1 TH/MM3 0.1 TH/MM3 CBC Comment DIFF FINAL AUTO DIFF Differential Comment AUTO DIFF CONFIRMED Platelet Estimate HIGH Platelet Morphology Comment NORMAL Laboratory Tests Test 01/12/17 01/12/17 01/13/17 03:45 16:58 02:30 Sodium Level 141 MEQ/L 141 MEQ/L Potassium Level 3.3 MEQ/L 3.9 MEQ/L 3.8 MEQ/L Chloride Level 106 MEQ/L 106 MEQ/L Carbon Dioxide Level 27.2 MEQ/L 27.8 MEQ/L Anion Gap 8 MEQ/L 7 MEQ/L Blood Urea Nitrogen 16 MG/DL 17 MG/DL Creatinine 1.00 MG/DL 1.05 MG/DL Estimat Glomerular Filtration 74 ML/MIN 70 ML/MIN Rate Random Glucose 170 MG/DL 166 MG/DL Calcium Level 7.4 MG/DL 7.7 MG/DL Protein Corrected Calcium 8.3 MG/DL Phosphorus Level 3.0 MG/DL Magnesium Level 2.2 MG/DL Total Bilirubin 1.0 MG/DL 1.0 MG/DL Aspartate Amino Transf 62 U/L 68 U/L (AST/SGOT) Alanine Aminotransferase 86 U/L 105 U/L (ALT/SGPT) Alkaline Phosphatase 141 U/L 186 U/L Total Protein 5.4 GM/DL 6.3 GM/DL Albumin 1.6 GM/DL 1.7 GM/DL Microbiology Date/Time Procedure Status Source Growth 01/12/17 11:00 Gram Stain - Final Resulted Sputum Endotracheal 01/12/17 11:00 Sputum Culture - Preliminary Resulted Sputum Endotracheal MODERATE GROWTH NORMAL RESPIRATORY FL... 01/12/17 11:00 Urine Culture - Preliminary Resulted Urine Catheterized Urine NO GROWTH IN 24 HOURS. 01/12/17 17:08 Aerobic Blood Culture - Preliminary Resulted Blood Peripheral NO GROWTH IN 1 DAY 01/12/17 17:08 Anaerobic Blood Culture - Preliminary Resulted Blood Peripheral NO GROWTH IN 1 DAY 01/12/17 18:52 Aerobic Blood Culture - Preliminary Resulted Blood Peripheral NO GROWTH IN 1 DAY 01/12/17 18:52 Anaerobic Blood Culture - Preliminary Resulted Blood Peripheral NO GROWTH IN 1 DAY Imaging Last Impressions Chest X-Ray 01/13/17 0000 Signed Impressions: Service Date/Time: Friday, January 13, 2017 09:54 - CONCLUSION: Tubes and catheters in good position. Numerous left-sided rib fracture without evidence of residual pneumothorax. Small pleural effusion the left lateral chest Ziggy Juarez MD Chest Tube Insertion 01/08/17 1628 Signed Impressions: Service Date/Time: Sunday, January 08, 2017 16:58 - CONCLUSION: Uncomplicated chest tube placement as above. 1 L of hemorrhagic fluid was removed. Fly Longo MD Upper Extremity Ultrasound 01/08/17 0000 Signed Impressions: Service Date/Time: Sunday, January 08, 2017 08:10 - CONCLUSION: Occlusive thrombus within the left basilic vein. Nichol Wellington MD Lower Extremity Ultrasound 01/08/17 0000 Signed Impressions: Service Date/Time: Sunday, January 08, 2017 08:43 - CONCLUSION: Normal examination. Nichol Wellington MD CT Angiography 01/08/17 0000 Signed Impressions: Service Date/Time: Sunday, January 08, 2017 12:49 - CONCLUSION: 1. There is no evidence for PE for technique. 2. Worsening left pleural effusion and interval development of right pleural effusion and dense consolidation in both lung bases. 3. Resolution of the previously seen left pneumothorax and subcutaous emphysema. Nichol Wellington MD Head CT 01/05/17 0600 Signed Impressions: Service Date/Time: Thursday, January 05, 2017 04:58 - CONCLUSION: No acute intracranial disease. Paranasal sinus disease. Juan Miller MD Abdomen X-Ray 01/05/17 0000 Signed Impressions: Service Date/Time: Thursday, January 05, 2017 08:09 - CONCLUSION: Multiple displaced rib fractures on the left side. NG tube and surgical drain are in good position. Numerous air-filled loops of bowel throughout the abdomen. Ziggy Juarez MD Clavicle X-Ray 01/02/17 0000 Signed Impressions: Service Date/Time: December 08:16 - CONCLUSION: Nondisplaced fractures involving the distal clavicle with good alignment at the a.c. joint. Lars Granados MD Pelvis X-Ray 12/31/16 1224 Signed Impressions: Service Date/Time: Saturday, December 31, 2016 11:46 - CONCLUSION: No acute disease. Shan Sotomayor MD Chest CT 12/31/16 1224 Signed Impressions: Service Date/Time: Saturday, December 31, 2016 12:42 - CONCLUSION: 1. Flail left chest with a moderate to large left pneumothorax and presence of left chest tube. This does raise the possibility of a bronchial injury. 2. Comminuted left clavicle and left scapular fracture. 3. Right chest tube also present with tiny right pneumothorax. 4. Bilateral lung contusions. Small left hemothorax. No evidence for traumatic aortic injury. Endotracheal tube in satisfactory position. Kimo Ventura MD Cervical Spine CT 12/31/16 1224 Signed Impressions: Service Date/Time: Saturday, December 31, 2016 12:38 - CONCLUSION: 1. Extensive air within the soft tissues of the neck dissecting cephalad from the chest. Bilateral chest tubes with small apical pneumothoraces. Endotracheal tube present. 2. No acute fracture or subluxation in the cervical spine. Kimo Ventura MD Abdomen/Pelvis CT 12/31/16 1224 Signed Impressions: Service Date/Time: Saturday, December 31, 2016 12:42 - CONCLUSION: 1. Severely fractured spleen with numerous areas of active extravasation and moderate hemoperitoneum. 2. Laceration left lobe liver with some active extravasation as well. 3. Extensive air dissecting down the left abdominal wall and into the left scrotal region. 4. Flattened IVC with intense contrast in the kidneys and adrenals characteristic of hypovolemia. 5. Numerous lower left rib fractures left pneumothorax, left hemothorax and bilateral chest tubes and lung contusions. See chest CT report. Kimo Ventura MD Physical Exam CONSTITUTIONAL/GENERAL: This is an adequately nourished patient, in no apparent distress. TUBES/LINES/DRAINS: SKIN: No jaundice, rashes, or lesions. . Skin temperature appropriate. Not diaphoretic. EYES: Pupils equal and round and reactive. No scleral icterus. No injection or drainage. Fundi not examined. ENT: Hearing not tested. Nose without bleeding or purulent drainage.Oral mucosae without visible erythema, exudates, masses, or lesions. Orally intubated NECK: Trachea midline. Supple, nontender. CARDIOVASCULAR: Regular rate and rhythm without murmurs, gallops, or rubs. No JVD. Periphery well perfused with brisk refill RESPIRATORY/CHEST: Symmetric, unlabored respirations. Clear to auscultation. Breath sounds diminished b/b. No wheezes, rales, or rhonchi. CT in place L with serosang dc GASTROINTESTINAL: Abdomen tight , markedly distended no reaction to plpaation. No hepato-splenomegaly, or palpable masses. Bowel sounds hypoactive Medial laparotomy with minimal d/c Liquid brown strool in dignidshield GENITOURINARY: Without palpable bladder distension. Michel catheter in place with very cloudy brownish urine Scrtom is markedly edematous and ecchymotic MUSCULOSKELETAL: Extremities without clubbing, cyanosis, Improcved ansarca 4+ edema, less tight No mottling or clubbing. NEUROLOGICAL: Heavily sedated and unresponsive PSYCHIATRIC: unable to assess Assessment & Plan Remarks Assessment and Plan Multi trauma LEFT clavicle fx (non op) LEFT scapula fx (non-op) Bronchial arboration LEFT serial rib fx LEFT flail chest LEFT PTX / FELIPE RIGHT PTX BILAT lung contusions Fractured spleen (Grade 4) w/ extravasation and hemoperitoneum LEFT lower lobe liver laceration Hepatic vein rupture Extensive air down the left abdominal wall Hemorrhagic shock Fluid overload PNA in the settings of b/l pulmonary contusions Low grade fever Worsning leukocytosis Diarrhea, C.diff negative Some improvement noted - cont current abx - fu P clx -fu blood clx - if bl clx remain neg @ 3 days will start to de esaclate abx tx dw Lurdes Molina MD Jan 13, 2017 22:22
[2017-01-14] VITALS (19 sets, daily range): BP systolic 128–176; BP diastolic 60–84; PULSE 58–86; RESP 13; TEMP 98.6–99.8; O2SAT 79–99
[2017-01-14] MEDS: PROPOFOL 1000 MG/100 ML INJ 100 ML IV SCH ×7 (00:17→23:30)
[2017-01-14] MEDS: fentaNYL 2,500 MCG/NS 250 ML IV SCH ×3 (00:17→23:30)
[2017-01-14] MEDS: ENOXAPARIN SODIUM 30 MG/0.3 ML SYRINGE SQ SCH ×3 (00:17→23:32)
[2017-01-14] MEDS: MIDAZOLAM HCL 5 MG/ML VIAL (1 ML) IV PRN (03:18)
[2017-01-14] MEDS: PIPERACIL-TAZO 4.5 GM PREMIX 100 ML IV SCH ×4 (03:18→21:13)
[2017-01-14] MEDS: LORazepam 2 MG/ML VIAL IV PRN (03:18)
[2017-01-14 03:32] LABS: AUTOMATED NEUTROPHIL # 10.8 TH/MM3 (1.8-7.7); BASOPHIL # 0.1 TH/MM3 (0-0.2); BASOPHIL % 0.5 % (0.0-2.0); EOSINOPHIL # 0.8 TH/MM3 (0-0.4); EOSINOPHIL % 5.3 % (0.0-4.0); HEMATOCRIT 28.6 % (39.0-51.0); LYMPH % 6.7 % (9.0-44.0); MEAN CELL VOLUME 91.3 FL (80.0-100.0); MEAN CORPUSCULAR HGB CONC 32.8 % (32.0-36.0); MONO % 14.5 % (0.0-8.0); PLATELET COUNT 898 TH/MM3 (150-450); RED BLOOD COUNT 3.13 MIL/MM3 (4.50-5.90); RED CELL DISTRIBUTION WIDTH 16.1 % (11.6-17.2); WHITE BLOOD COUNT 14.8 TH/MM3 (4.0-11.0)
[2017-01-14 03:37] LABS: HEMO FLAGS AUTO DIFF
[2017-01-14] MEDS ORDERED: PHARMACY ORDERED LAB ONE (03:45)
[2017-01-14] MEDS: VANCOMYCIN INJ 1,250 MG in SODIUM CHLOR 0.9% 250 ML INJ 250 ML IV SCH (03:55)
[2017-01-14 04:08] LABS: BICARBONATE 26.6 MEQ/L (21.0-32.0); POTASSIUM 3.5 MEQ/L (3.5-5.1); TOTAL BILIRUBIN ADULT 0.8 MG/DL (0.2-1.0)
[2017-01-14] MEDS: RESP: ALBUTEROL 2.5 MG/3 ML NEB (PRN) NEB (05:05)
[2017-01-14 05:28] LABS: BLOOD GAS BASE EXCESS 1.3 mmol/L (-2-2); BLOOD GAS CARBOXYHEMOGLOBIN 1.1 % (0-4); BLOOD GAS HCO3 26 mmol/L (22-26); BLOOD GAS METHEMOGLOBIN 0.8 % (0-2); BLOOD GAS O2 HGB SATURATION 96 % (90-100); BLOOD GAS OXYGEN CONTENT 12.7 Vol % (12.0-20.0); BLOOD GAS PCO2 41 mmHg (38-42); BLOOD GAS PO2 111 mmHg (61-120); BLOOD GAS TOTAL HGB 9.3 G/DL (12.0-16.0); CRITICAL VALUE NO; OXYGEN DEVICE VENTILATOR; TEMP CORR TO 98.6
[2017-01-14 05:29] LABS: VENT SETTINGS APRV
[2017-01-14 05:30] LABS: FIO2 100 %
[2017-01-14 05:31] LABS: PLATELET ESTIMATE SMEAR HIGH (NORMAL); PLATELET MORPHOLOGY NORMAL (NORMAL)
[2017-01-14 05:32] LABS: DRAW SITE RT BRACHIAL; NUMBER OF ARTERIAL PUNCTURES 1; STAT NO; ULNAR PULSE PRESENT
[2017-01-14 05:32] LABS: SCAN/DIFF AUTO DIFF CONFIRMED
[2017-01-14] MEDS: POTASSIUM CHLOR 40 MEQ PREMIX 100 ML IV PRN (05:40)
--- NOTE | 2017-01-14 06:02 | RADRPT ---
EXAM DATE/TIME: 01/14/2017 04:40 [place] COMPARISON: CHEST SINGLE AP, January 13, 2017, 9:54. INDICATIONS : Shortness of breath. MEDICAL HISTORY : None. SURGICAL HISTORY : None. ENCOUNTER: Subsequent ACUITY: 2 weeks PAIN SCORE: 0/10 LOCATION: Bilateral chest FINDINGS: The support devices remain in place. There are scattered areas of atelectasis in both lung bases, rig ht greater than left. There is no definite pneumothorax. Multiple left-sided rib fractures are again demonstrated. The heart size is stable. No significant pleural effusions. No significant change lesley red to the prior exam. CONCLUSION: No significant interval change. Lars Granados MD on January 14, 2017 at 5:59 Board Certified Radiologist. This report was verified electronically.
[2017-01-14] MEDS: HYDROmorphone HCL PF 1 MG/ML VIAL IV PRN (06:10)
[2017-01-14] MEDS: CHLORHEXIDINE 0.12% (ORAL KIT) 15 ML CUP MT SCH ×2 (08:00→21:37)
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
[2017-01-14] MEDS: ARTIFICIAL TEARS OPTH SOLN 15 ML BTL EACH EYE SCH ×3 (09:00→18:00)
[2017-01-14] MEDS: LIDOCAINE HCL 5% PATCH T-DERMAL SCH (09:00)
[2017-01-14] MEDS: SODIUM CHLORIDE 0.9% FLUSH 10 ML FLUSH IV FLUSH SCH ×2 (09:00→21:14)
[2017-01-14 09:31] LABS: BLOOD GAS BASE EXCESS 1.5 mmol/L (-2-2); BLOOD GAS CARBOXYHEMOGLOBIN 1.1 % (0-4); BLOOD GAS HCO3 25 mmol/L (22-26); BLOOD GAS METHEMOGLOBIN 0.7 % (0-2); BLOOD GAS O2 HGB SATURATION 97 % (90-100); BLOOD GAS OXYGEN CONTENT 13.2 Vol % (12.0-20.0); BLOOD GAS PCO2 39 mmHg (38-42); BLOOD GAS PO2 125 mmHg (61-120); BLOOD GAS TOTAL HGB 9.5 G/DL (12.0-16.0); TEMP CORR TO 98.6
[2017-01-14 09:32] LABS: CRITICAL VALUE NO; OXYGEN DEVICE VENTILATOR
[2017-01-14 09:33] LABS: DRAW SITE RT RADIAL; FIO2 80 %; VENT SETTINGS BILEVEL/APRV
[2017-01-14 09:34] LABS: NUMBER OF ARTERIAL PUNCTURES 1; STAT NO; ULNAR PULSE PRESENT
[2017-01-14] MEDS ORDERED: BUMETANIDE INJ 1 MG/4 ML VIAL IV PUSH ONE (09:45)
[2017-01-14] MEDS: SENNOSIDES SYRUP 8.8 MG/5 ML CUP NG SCH ×2 (10:19→21:14)
[2017-01-14] MEDS: REMOVE OLD LIDOCAINE PATCH T-DERMAL SCH (11:00)
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
--- NOTE | 2017-01-14 14:31 | HHI.IDPN ---
Subjective Subjective Remarks no fever WBC went down all clx remain negative On vent 50% Antibiotics vancomycin zosyn Allergies: Coded Allergies: No Known Allergies (Unverified , 12/31/16) Objective . Vital Signs Date Time Temp Pulse Resp B/P Pulse Ox O2 Delivery O2 Flow Rate FiO2 01/14/17 12:17 99 50 01/14/17 12:00 50 01/14/17 12:00 72 01/14/17 10:00 74 01/14/17 09:45 99 70 01/14/17 08:00 73 01/14/17 08:00 80 01/14/17 08:00 99.1 76 13 151/70 94 01/14/17 07:30 97 80 01/14/17 07:01 90 01/14/17 06:00 66 01/14/17 05:06 92 100 01/14/17 04:00 58 01/14/17 04:00 99.1 81 13 138/72 88 01/14/17 04:00 100 01/14/17 03:00 79 100 01/14/17 02:00 58 01/14/17 01:18 96 40 01/14/17 00:00 60 01/14/17 00:00 40 01/14/17 00:00 98.6 60 13 128/60 96 01/13/17 22:00 89 01/13/17 20:00 99.1 75 13 128/68 92 01/13/17 20:00 40 01/13/17 20:00 72 01/13/17 19:45 94 40 01/13/17 18:00 69 01/13/17 16:00 98.8 88 13 142/79 94 01/13/17 16:00 60 01/13/17 16:00 88 01/13/17 15:46 99 40 01/13/17 01/13/17 01/14/17 14:59 22:59 06:59 Intake Total 1831 ml 1060 ml 1283 ml Output Total 970 ml 425 ml 400 ml Balance 861 ml 635 ml 883 ml Intake IV Total 1073 ml 776 ml 863 ml Tube Feeding 658 ml 284 ml 420 ml Other 100 ml Output Urine Total 900 ml 425 ml 400 ml Stool Total 0 ml Chest Tube Drainage Total 70 ml . Laboratory Tests Test 01/13/17 01/14/17 02:30 03:20 White Blood Count 16.2 TH/MM3 14.8 TH/MM3 Red Blood Count 3.42 MIL/MM3 3.13 MIL/MM3 Hemoglobin 10.2 GM/DL 9.4 GM/DL Hematocrit 31.5 % 28.6 % Mean Corpuscular Volume 92.0 FL 91.3 FL Mean Corpuscular Hemoglobin 29.6 PG 30.0 PG Mean Corpuscular Hemoglobin 32.2 % 32.8 % Concent Red Cell Distribution Width 16.3 % 16.1 % Platelet Count 881 TH/MM3 898 TH/MM3 Mean Platelet Volume 8.2 FL 7.7 FL Neutrophils (%) (Auto) 71.1 % 73.0 % Lymphocytes (%) (Auto) 8.1 % 6.7 % Monocytes (%) (Auto) 16.3 % 14.5 % Eosinophils (%) (Auto) 4.0 % 5.3 % Basophils (%) (Auto) 0.5 % 0.5 % Neutrophils # (Auto) 11.5 TH/MM3 10.8 TH/MM3 Lymphocytes # (Auto) 1.3 TH/MM3 1.0 TH/MM3 Monocytes # (Auto) 2.6 TH/MM3 2.2 TH/MM3 Eosinophils # (Auto) 0.6 TH/MM3 0.8 TH/MM3 Basophils # (Auto) 0.1 TH/MM3 0.1 TH/MM3 CBC Comment AUTO DIFF AUTO DIFF Differential Comment AUTO DIFF AUTO DIFF CONFIRMED CONFIRMED Platelet Estimate HIGH HIGH Platelet Morphology Comment NORMAL NORMAL Red Cell Morphology Comment NORMAL Laboratory Tests Test 01/12/17 01/13/17 01/14/17 16:58 02:30 03:20 Potassium Level 3.9 MEQ/L 3.8 MEQ/L 3.5 MEQ/L Sodium Level 141 MEQ/L 140 MEQ/L Chloride Level 106 MEQ/L 105 MEQ/L Carbon Dioxide Level 27.8 MEQ/L 26.6 MEQ/L Anion Gap 7 MEQ/L 8 MEQ/L Blood Urea Nitrogen 17 MG/DL 18 MG/DL Creatinine 1.05 MG/DL 0.92 MG/DL Estimat Glomerular Filtration 70 ML/MIN 82 ML/MIN Rate Random Glucose 166 MG/DL 166 MG/DL Calcium Level 7.7 MG/DL 7.4 MG/DL Total Bilirubin 1.0 MG/DL 0.8 MG/DL Aspartate Amino Transf 68 U/L 73 U/L (AST/SGOT) Alanine Aminotransferase 105 U/L 122 U/L (ALT/SGPT) Alkaline Phosphatase 186 U/L 205 U/L Total Protein 6.3 GM/DL 6.0 GM/DL Albumin 1.7 GM/DL 1.6 GM/DL Protein Corrected Calcium 8.0 MG/DL Microbiology Date/Time Procedure Status Source Growth 01/12/17 11:00 Gram Stain - Final Complete Sputum Endotracheal 01/12/17 11:00 Sputum Culture - Final Complete Sputum Endotracheal MODERATE GROWTH NORMAL RESPIRATORY BELTRAN 01/12/17 11:00 Urine Culture - Final Complete Urine Catheterized Urine NO GROWTH IN 48 HOURS. 01/12/17 17:08 Aerobic Blood Culture - Preliminary Resulted Blood Peripheral NO GROWTH IN 2 DAYS 01/12/17 17:08 Anaerobic Blood Culture - Preliminary Resulted Blood Peripheral NO GROWTH IN 2 DAYS 01/12/17 18:52 Aerobic Blood Culture - Preliminary Resulted Blood Peripheral NO GROWTH IN 2 DAYS 01/12/17 18:52 Anaerobic Blood Culture - Preliminary Resulted Blood Peripheral NO GROWTH IN 2 DAYS Imaging Last Impressions Chest X-Ray 01/14/17 0600 Signed Impressions: Service Date/Time: Saturday, January 14, 2017 04:40 - CONCLUSION: No significant interval change. Lars Granados MD Chest Tube Insertion 01/08/17 1628 Signed Impressions: Service Date/Time: Sunday, January 08, 2017 16:58 - CONCLUSION: Uncomplicated chest tube placement as above. 1 L of hemorrhagic fluid was removed. Fly Longo MD Upper Extremity Ultrasound 01/08/17 0000 Signed Impressions: Service Date/Time: Sunday, January 08, 2017 08:10 - CONCLUSION: Occlusive thrombus within the left basilic vein. Nichlo Wellington MD Lower Extremity Ultrasound 01/08/17 0000 Signed Impressions: Service Date/Time: Sunday, January 08, 2017 08:43 - CONCLUSION: Normal examination. Nichol Wellington MD CT Angiography 01/08/17 0000 Signed Impressions: Service Date/Time: Sunday, January 08, 2017 12:49 - CONCLUSION: 1. There is no evidence for PE for technique. 2. Worsening left pleural effusion and interval development of right pleural effusion and dense consolidation in both lung bases. 3. Resolution of the previously seen left pneumothorax and subcutaous emphysema. Nichol Wellington MD Head CT 01/05/17 0600 Signed Impressions: Service Date/Time: Thursday, January 05, 2017 04:58 - CONCLUSION: No acute intracranial disease. Paranasal sinus disease. Juan Miller MD Abdomen X-Ray 01/05/17 0000 Signed Impressions: Service Date/Time: Thursday, January 05, 2017 08:09 - CONCLUSION: Multiple displaced rib fractures on the left side. NG tube and surgical drain are in good position. Numerous air-filled loops of bowel throughout the abdomen. Ziggy Juarez MD Clavicle X-Ray 01/02/17 0000 Signed Impressions: Service Date/Time: December 08:16 - CONCLUSION: Nondisplaced fractures involving the distal clavicle with good alignment at the a.c. joint. Lars Granados MD Pelvis X-Ray 12/31/16 1224 Signed Impressions: Service Date/Time: Saturday, December 31, 2016 11:46 - CONCLUSION: No acute disease. Shan Sotomayor MD Chest CT 12/31/16 1224 Signed Impressions: Service Date/Time: Saturday, December 31, 2016 12:42 - CONCLUSION: 1. Flail left chest with a moderate to large left pneumothorax and presence of left chest tube. This does raise the possibility of a bronchial injury. 2. Comminuted left clavicle and left scapular fracture. 3. Right chest tube also present with tiny right pneumothorax. 4. Bilateral lung contusions. Small left hemothorax. No evidence for traumatic aortic injury. Endotracheal tube in satisfactory position. Kimo Ventura MD Cervical Spine CT 12/31/16 1224 Signed Impressions: Service Date/Time: Saturday, December 31, 2016 12:38 - CONCLUSION: 1. Extensive air within the soft tissues of the neck dissecting cephalad from the chest. Bilateral chest tubes with small apical pneumothoraces. Endotracheal tube present. 2. No acute fracture or subluxation in the cervical spine. Kmio Ventura MD Abdomen/Pelvis CT 12/31/16 1224 Signed Impressions: Service Date/Time: Saturday, December 31, 2016 12:42 - CONCLUSION: 1. Severely fractured spleen with numerous areas of active extravasation and moderate hemoperitoneum. 2. Laceration left lobe liver with some active extravasation as well. 3. Extensive air dissecting down the left abdominal wall and into the left scrotal region. 4. Flattened IVC with intense contrast in the kidneys and adrenals characteristic of hypovolemia. 5. Numerous lower left rib fractures left pneumothorax, left hemothorax and bilateral chest tubes and lung contusions. See chest CT report. Kimo Ventura MD Physical Exam CONSTITUTIONAL/GENERAL: This is an adequately nourished patient, in no apparent distress. TUBES/LINES/DRAINS: SKIN: No jaundice, rashes, or lesions. . Skin temperature appropriate. Not diaphoretic. EYES: Pupils equal and round and reactive. No scleral icterus. No injection or drainage. Fundi not examined. ENT: Hearing not tested. Nose without bleeding or purulent drainage.Oral mucosae without visible erythema, exudates, masses, or lesions. Orally intubated CARDIOVASCULAR: Regular rate and rhythm without murmurs, gallops, or rubs. No JVD. Periphery well perfused with brisk refill RESPIRATORY/CHEST: Symmetric, unlabored respirations. Clear to auscultation. Breath sounds diminished b/b. No wheezes, rales, or rhonchi. CT in place L with serosang dc GASTROINTESTINAL: Abdomen tight , markedly distended no reaction to plpaation. No hepato-splenomegaly, or palpable masses. Bowel sounds hypoactive Medial laparotomy with minimal d/c Liquid brown strool in dignidshield GENITOURINARY: Without palpable bladder distension. Michel catheter in place with cloudy brownish urine MUSCULOSKELETAL: Extremities without clubbing, cyanosis, 4+ edema, less tight , seems better No mottling or clubbing. NEUROLOGICAL: Heavily sedated and unresponsive PSYCHIATRIC: unable to assess Assessment & Plan Remarks Assessment and Plan Multi trauma LEFT clavicle fx (non op) LEFT scapula fx (non-op) Bronchial arboration LEFT serial rib fx LEFT flail chest LEFT PTX / FELIPE RIGHT PTX BILAT lung contusions Fractured spleen (Grade 4) w/ extravasation and hemoperitoneum LEFT lower lobe liver laceration Hepatic vein rupture Extensive air down the left abdominal wall Hemorrhagic shock Fluid overload PNA in the settings of b/l pulmonary contusions Low grade fever Leukocytosis - improving Diarrhea, C.diff negative Some improvement noted - dc vanco - cont zosyn for now - will change to CFTX tomorrow if bllod cl remain negative _ ok to place PICC line dw Lurdes Chapman MD Jan 14, 2017 14:31
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
--- NOTE | 2017-01-14 19:12 | RADRPT ---
EXAM DATE/TIME: 01/14/2017 18:56 [facility] COMPARISON: CHEST SINGLE AP, January 14, 2017, 4:40. INDICATIONS : Post right side PICC line placement. MEDICAL HISTORY : None. SURGICAL HISTORY : None. ENCOUNTER: Subsequent ACUITY: 2 weeks PAIN SCORE: Non-responsive. LOCATION: Bilateral chest FINDINGS: Right PIC line is present. The distal tip overlies the expected location of the SVC/right atrial junc tion. Left lung is not fully imaged. CONCLUSION: Right PICC line as above. Shan Sotomayor MD on January 14, 2017 at 19:10 Board Certified Radiologist. This report was verified electronically.
[2017-01-14] MEDS ORDERED: SODIUM CHLORIDE 0.9% FLUSH 10 ML FLUSH IV FLUSH PRN (21:00)
[2017-01-14] MEDS: hydrALAZINE HCL 20 MG/ML VIAL IV PUSH PRN (21:51)
[2017-01-15] VITALS (18 sets, daily range): BP systolic 128–154; BP diastolic 68–86; PULSE 73–115; RESP 13–28; TEMP 99–99.7; O2SAT 96–100
[2017-01-15] MEDS: PIPERACIL-TAZO 4.5 GM PREMIX 100 ML IV SCH ×4 (02:38→20:58)
[2017-01-15] MEDS: MIDAZOLAM 100 MG/ML INJ 100 ML IV SCH (02:39)
[2017-01-15] MEDS: PROPOFOL 1000 MG/100 ML INJ 100 ML IV SCH ×6 (02:39→20:58)
[2017-01-15] MEDS ORDERED: PHARMACY ORDERED LAB ONE (03:45)
--- NOTE | 2017-01-15 04:32 | RADRPT ---
EXAM DATE/TIME: 01/15/2017 03:51 [facility] COMPARISON: CHEST SINGLE AP, January 14, 2017, 18:56. INDICATIONS : Shortness of breath. MEDICAL HISTORY : None. SURGICAL HISTORY : None. ENCOUNTER: Subsequent ACUITY: 2 weeks PAIN SCORE: Non-responsive. LOCATION: Bilateral chest FINDINGS: The support devices remain in place. There continues to be scattered pulmonary infiltrates bilaterall y. The pattern is not significantly changed compared to the prior study. The heart size is stable. No definite pneumothorax. CONCLUSION: No significant interval change. Lars Granados MD on January 15, 2017 at 4:30 Board Certified Radiologist. This report was verified electronically.
[2017-01-15 04:48] LABS: AUTOMATED NEUTROPHIL # 8.4 TH/MM3 (1.8-7.7); BASOPHIL # 0.1 TH/MM3 (0-0.2); BASOPHIL % 0.5 % (0.0-2.0); EOSINOPHIL # 0.8 TH/MM3 (0-0.4); EOSINOPHIL % 6.8 % (0.0-4.0); HEMATOCRIT 25.9 % (39.0-51.0); HEMO FLAGS DIFF FINAL; LYMPH % 5.7 % (9.0-44.0); LYMPHOCYTE # 0.7 TH/MM3 (1.0-4.8); MEAN CELL VOLUME 92.1 FL (80.0-100.0); MEAN CORPUSCULAR HEMOGLOBIN 31.2 PG (27.0-34.0); MEAN CORPUSCULAR HGB CONC 33.9 % (32.0-36.0); MONO % 17.1 % (0.0-8.0); NEUT % 69.9 % (16.0-70.0); PLATELET COUNT 880 TH/MM3 (150-450); RED BLOOD COUNT 2.81 MIL/MM3 (4.50-5.90); RED CELL DISTRIBUTION WIDTH 16.4 % (11.6-17.2)
[2017-01-15 05:09] LABS: BLOOD GAS BASE EXCESS 0.9 mmol/L (-2-2); BLOOD GAS CARBOXYHEMOGLOBIN 0.9 % (0-4); BLOOD GAS HCO3 25 mmol/L (22-26); BLOOD GAS METHEMOGLOBIN 0.8 % (0-2); BLOOD GAS O2 HGB SATURATION 97 % (90-100); BLOOD GAS OXYGEN CONTENT 18.2 Vol % (12.0-20.0); BLOOD GAS PCO2 37 mmHg (38-42); BLOOD GAS PO2 114 mmHg (61-120); BLOOD GAS TOTAL HGB 13.3 G/DL (12.0-16.0); CRITICAL VALUE NO; OXYGEN DEVICE VENTILATOR; TEMP CORR TO 98.6
[2017-01-15 05:10] LABS: DRAW SITE RT RADIAL; FIO2 50 %; NUMBER OF ARTERIAL PUNCTURES 1; STAT NO; ULNAR PULSE PRESENT; VENT SETTINGS APRV
[2017-01-15 05:22] LABS: BICARBONATE 25.8 MEQ/L (21.0-32.0); CALCIUM-PROTEIN CORRECTED 7.9 MG/DL (8.5-10.1); POTASSIUM 3.5 MEQ/L (3.5-5.1)
[2017-01-15] MEDS: POTASSIUM CHLOR 40 MEQ PREMIX 100 ML IV PRN (06:02)
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
[2017-01-15] MEDS: CHLORHEXIDINE 0.12% (ORAL KIT) 15 ML CUP MT SCH ×2 (08:00→20:59)
[2017-01-15] MEDS: SENNOSIDES SYRUP 8.8 MG/5 ML CUP NG SCH ×2 (08:38→20:58)
[2017-01-15] MEDS: LIDOCAINE HCL 5% PATCH T-DERMAL SCH (08:39)
[2017-01-15] MEDS: REMOVE OLD LIDOCAINE PATCH T-DERMAL SCH (08:39)
[2017-01-15] MEDS: SODIUM CHLORIDE 0.9% FLUSH 10 ML FLUSH IV FLUSH SCH ×3 (08:39→20:58)
[2017-01-15] MEDS: ARTIFICIAL TEARS OPTH SOLN 15 ML BTL EACH EYE SCH ×3 (08:39→15:40)
[2017-01-15] MEDS: fentaNYL 2,500 MCG/NS 250 ML IV SCH (09:55)
[2017-01-15] MEDS ORDERED: BUMETANIDE INJ 1 MG/4 ML VIAL IV PUSH ONE (10:00)
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
[2017-01-15] MEDS: ENOXAPARIN SODIUM 30 MG/0.3 ML SYRINGE SQ SCH (11:55)
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
[2017-01-16] VITALS (20 sets, daily range): BP systolic 115–154; BP diastolic 65–94; PULSE 75–94; RESP 13–40; TEMP 99.1–100.4; O2SAT 94–100
[2017-01-16] MEDS: fentaNYL 2,500 MCG/NS 250 ML IV SCH ×3 (00:01→16:56)
[2017-01-16] MEDS: ENOXAPARIN SODIUM 30 MG/0.3 ML SYRINGE SQ SCH ×2 (00:01→10:48)
[2017-01-16] MEDS: LABETALOL HCL 100 MG/20 ML VIAL IV PUSH PRN (00:13)
[2017-01-16] MEDS: ACETAMINOPHEN 650 MG/20.3 ML UDC OG-TUBE PRN (00:13)
[2017-01-16] MEDS: MIDAZOLAM 100 MG/ML INJ 100 ML IV SCH ×2 (03:03→20:36)
[2017-01-16] MEDS: PROPOFOL 1000 MG/100 ML INJ 100 ML IV SCH ×7 (03:15→22:38)
[2017-01-16] MEDS: PIPERACIL-TAZO 4.5 GM PREMIX 100 ML IV SCH ×3 (04:00→14:28)
[2017-01-16 05:21] LABS: BLOOD GAS BASE EXCESS -0.1 mmol/L (-2-2); BLOOD GAS CARBOXYHEMOGLOBIN 1.1 % (0-4); BLOOD GAS HCO3 24 mmol/L (22-26); BLOOD GAS METHEMOGLOBIN 0.8 % (0-2); BLOOD GAS O2 HGB SATURATION 97 % (90-100); BLOOD GAS PCO2 35 mmHg (38-42); BLOOD GAS PO2 127 mmHg (61-120); BLOOD GAS TOTAL HGB 9.4 G/DL (12.0-16.0); CRITICAL VALUE NO; OXYGEN DEVICE VENTILATOR; TEMP CORR TO 98.6
[2017-01-16 05:22] LABS: DRAW SITE RT RADIAL; FIO2 45 %; NUMBER OF ARTERIAL PUNCTURES 1; STAT NO; ULNAR PULSE PRESENT; VENT SETTINGS BILEVEL/APRV
[2017-01-16 05:35] LABS: HEMATOCRIT 24.3 % (39.0-51.0); MEAN CELL VOLUME 91.5 FL (80.0-100.0); MEAN CORPUSCULAR HEMOGLOBIN 31.9 PG (27.0-34.0); MEAN CORPUSCULAR HGB CONC 34.9 % (32.0-36.0); PLATELET COUNT 850 TH/MM3 (150-450); RED BLOOD COUNT 2.66 MIL/MM3 (4.50-5.90); RED CELL DISTRIBUTION WIDTH 16.4 % (11.6-17.2); WHITE BLOOD COUNT 12.7 TH/MM3 (4.0-11.0)
[2017-01-16 06:02] LABS: HEMO FLAGS AUTO DIFF
--- NOTE | 2017-01-16 06:35 | RADRPT ---
EXAM DATE/TIME: 01/16/2017 05:52 [facility] COMPARISON: CHEST SINGLE AP, January 15, 2017, 3:51. INDICATIONS : Respiratory distress. MEDICAL HISTORY : None. SURGICAL HISTORY : None. ENCOUNTER: Subsequent ACUITY: 2 weeks PAIN SCORE: Non-responsive. LOCATION: Bilateral chest FINDINGS: The support devices remain in place. There is no pneumothorax. There continue to be scattered bilater al pulmonary infiltrates without significant changes. The heart size is stable. Small left pleural ef fusion which is stable. CONCLUSION: No interval change. Lars Granados MD on January 16, 2017 at 6:32 Board Certified Radiologist. This report was verified electronically.
[2017-01-16 06:57] LABS: BICARBONATE 23.8 MEQ/L (21.0-32.0); POTASSIUM 3.7 MEQ/L (3.5-5.1); TOTAL BILIRUBIN ADULT 1.3 MG/DL (0.2-1.0)
[2017-01-16 07:39] LABS: CALCIUM-PROTEIN CORRECTED 7.2 MG/DL (8.5-10.1)
[2017-01-16 08:41] LABS: BANDS 12 % (0-6); EOSINOPHILS 6 % (0-4); MYELOCYTES 1 % (0-0); NEUTROPHIL # MANUAL DIFF 10.9 TH/MM3 (1.8-7.7); POLYS (SEG NEUTROPHILS) 73 % (16-70); WBC DIFF SAMPLE 100
[2017-01-16 08:42] LABS: PLATELET ESTIMATE SMEAR HIGH (NORMAL); PLATELET MORPHOLOGY ENLARGED (NORMAL); SCAN/DIFF FINAL DIFF MANUAL
[2017-01-16] MEDS: CHLORHEXIDINE 0.12% (ORAL KIT) 15 ML CUP MT SCH ×2 (08:46→20:44)
[2017-01-16] MEDS: SENNOSIDES SYRUP 8.8 MG/5 ML CUP NG SCH ×2 (08:55→20:43)
[2017-01-16] MEDS: REMOVE OLD LIDOCAINE PATCH T-DERMAL SCH (08:56)
[2017-01-16] MEDS: LIDOCAINE HCL 5% PATCH T-DERMAL SCH (08:56)
[2017-01-16] MEDS: ARTIFICIAL TEARS OPTH SOLN 15 ML BTL EACH EYE SCH ×3 (08:56→17:30)
[2017-01-16] MEDS: SODIUM CHLORIDE 0.9% FLUSH 10 ML FLUSH IV FLUSH SCH ×3 (08:56→20:43)
[2017-01-16] MEDS ORDERED: GLUCAGON 1 MG/ML VIAL OTHER PRN (09:30)
[2017-01-16] MEDS ORDERED: DEXTROSE 50% IN WATER 50 ML SYRINGE IV PRN (09:30)
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
--- NOTE | 2017-01-16 12:25 | RADRPT ---
EXAM DATE/TIME: 01/16/2017 12:01 [facility] COMPARISON: CHEST SINGLE AP, January 12, 2017, 3:30. CHEST SINGLE AP, January 16, 2017, 5:52. INDICATIONS : Evaluate effusion MEDICAL HISTORY : [facility], rib fractures SURGICAL HISTORY : chest tube on left ENCOUNTER: Subsequent ACUITY: 2 weeks PAIN SCORE: Non-responsive. LOCATION: Bilateral chest FINDINGS: A single portable frontal view of the chest shows the left small caliber thoracostomy tube. This has pulled back somewhat relative to the January 12 exam. It remains within the left hemithorax. A small lef t effusion is stable in size. Left basilar consolidation is stable. Right lung is clear without discr ete effusion. Heart is normal in size. Tip of the endotracheal tube approximately 4 cm proximal to th e janice. Tip of the NG tube within the lower thoracic esophagus. Right PICC line in good position. M ultiple left-sided rib fractures. CONCLUSION: 1. Although the small caliber left thoracostomy tube has pulled back slightly from the prior exam it still remains within the left chest. 2. Stable small left effusion and left lower lobe consolidation. 3. No pneumothorax. Gagan Sarmiento Jr., MD on January 16, 2017 at 12:20 Board Certified Radiologist. This report was verified electronically.
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
--- NOTE | 2017-01-16 18:35 | HHI.IDPN ---
Subjective Subjective Remarks + fever up to 100.5 + liquid diarrhea, C.diff neg as of 01/12 WBC went down tolerating tube feeds all clx remain negative On vent 50% Antibiotics zosyn Allergies: Coded Allergies: No Known Allergies (Unverified , 12/31/16) Objective . Vital Signs Date Time Temp Pulse Resp B/P Pulse Ox O2 Delivery O2 Flow Rate FiO2 01/16/17 18:00 93 01/16/17 17:34 96 40 01/16/17 16:00 89 01/16/17 16:00 99.4 89 30 142/81 96 01/16/17 16:00 40 01/16/17 14:10 96 40 01/16/17 14:00 85 01/16/17 12:00 40 01/16/17 12:00 99.5 85 22 136/94 96 01/16/17 12:00 85 01/16/17 11:44 97 40 01/16/17 10:00 86 01/16/17 08:32 95 40 01/16/17 08:00 45 01/16/17 08:00 99.7 88 14 115/65 100 01/16/17 08:00 88 01/16/17 06:00 75 01/16/17 04:09 100 45 01/16/17 04:00 75 01/16/17 04:00 100.4 75 15 131/74 100 01/16/17 04:00 45 01/16/17 02:00 79 01/16/17 01:08 98 45 01/16/17 00:00 100.4 93 13 154/73 100 01/16/17 00:00 93 01/16/17 00:00 45 01/15/17 22:00 86 01/15/17 21:18 99 45 01/15/17 20:00 99.1 85 13 136/79 100 01/15/17 20:00 81 01/15/17 20:00 45 01/15/17 01/15/17 01/16/17 15:00 23:00 07:00 Intake Total 1343 ml 1053 ml 1276 ml Output Total 1500 ml 525 ml 500 ml Balance -157 ml 528 ml 776 ml Intake IV Total 732 ml 543 ml 733 ml Tube Feeding 511 ml 450 ml 483 ml Tube Irrigant 60 ml 60 ml Other 100 ml Output Urine Total 1500 ml 525 ml 500 ml Stool Total 0 ml 0 ml Chest Tube Drainage Total 0 ml 0 ml 0 ml . Laboratory Tests Test 01/15/17 01/16/17 04:25 05:00 White Blood Count 12.0 TH/MM3 12.7 TH/MM3 Red Blood Count 2.81 MIL/MM3 2.66 MIL/MM3 Hemoglobin 8.8 GM/DL 8.5 GM/DL Hematocrit 25.9 % 24.3 % Mean Corpuscular Volume 92.1 FL 91.5 FL Mean Corpuscular Hemoglobin 31.2 PG 31.9 PG Mean Corpuscular Hemoglobin 33.9 % 34.9 % Concent Red Cell Distribution Width 16.4 % 16.4 % Platelet Count 880 TH/MM3 850 TH/MM3 Mean Platelet Volume 8.2 FL 7.9 FL Neutrophils (%) (Auto) 69.9 % % Lymphocytes (%) (Auto) 5.7 % % Monocytes (%) (Auto) 17.1 % % Eosinophils (%) (Auto) 6.8 % % Basophils (%) (Auto) 0.5 % % Neutrophils # (Auto) 8.4 TH/MM3 TH/MM3 Lymphocytes # (Auto) 0.7 TH/MM3 TH/MM3 Monocytes # (Auto) 2.0 TH/MM3 TH/MM3 Eosinophils # (Auto) 0.8 TH/MM3 TH/MM3 Basophils # (Auto) 0.1 TH/MM3 TH/MM3 CBC Comment DIFF FINAL AUTO DIFF Differential Comment FINAL DIFF MANUAL Differential Total Cells 100 Counted Neutrophils % (Manual) 73 % Band Neutrophils % 12 % Lymphocytes % 3 % Monocytes % 5 % Eosinophils % 6 % Neutrophils # (Manual) 10.9 TH/MM3 Myelocytes 1 % Platelet Estimate HIGH Platelet Morphology Comment ENLARGED Laboratory Tests Test 01/15/17 01/16/17 04:25 05:00 Sodium Level 137 MEQ/L 135 MEQ/L Potassium Level 3.5 MEQ/L 3.7 MEQ/L Chloride Level 103 MEQ/L 101 MEQ/L Carbon Dioxide Level 25.8 MEQ/L 23.8 MEQ/L Anion Gap 8 MEQ/L 10 MEQ/L Blood Urea Nitrogen 18 MG/DL 19 MG/DL Creatinine 0.92 MG/DL 0.93 MG/DL Estimat Glomerular Filtration 82 ML/MIN 81 ML/MIN Rate Random Glucose 163 MG/DL 205 MG/DL Calcium Level 7.1 MG/DL 6.6 MG/DL Protein Corrected Calcium 7.9 MG/DL 7.2 MG/DL Total Bilirubin 1.0 MG/DL 1.3 MG/DL Aspartate Amino Transf 40 U/L 46 U/L (AST/SGOT) Alanine Aminotransferase 93 U/L 86 U/L (ALT/SGPT) Alkaline Phosphatase 186 U/L 190 U/L Total Protein 5.6 GM/DL 5.8 GM/DL Albumin 1.4 GM/DL 1.4 GM/DL Imaging Last Impressions Chest X-Ray 01/16/17 0600 Signed Impressions: Service Date/Time: December 05:52 - CONCLUSION: No interval change. Lars Granados MD Chest Tube Insertion 01/08/17 1628 Signed Impressions: Service Date/Time: Sunday, January 08, 2017 16:58 - CONCLUSION: Uncomplicated chest tube placement as above. 1 L of hemorrhagic fluid was removed. Fly Longo MD Upper Extremity Ultrasound 01/08/17 0000 Signed Impressions: Service Date/Time: Sunday, January 08, 2017 08:10 - CONCLUSION: Occlusive thrombus within the left basilic vein. Nichol Wellington MD Lower Extremity Ultrasound 01/08/17 0000 Signed Impressions: Service Date/Time: Sunday, January 08, 2017 08:43 - CONCLUSION: Normal examination. Nichol Wellington MD CT Angiography 01/08/17 0000 Signed Impressions: Service Date/Time: Sunday, January 08, 2017 12:49 - CONCLUSION: 1. There is no evidence for PE for technique. 2. Worsening left pleural effusion and interval development of right pleural effusion and dense consolidation in both lung bases. 3. Resolution of the previously seen left pneumothorax and subcutaous emphysema. Nichol Wellington MD Head CT 01/05/17 0600 Signed Impressions: Service Date/Time: Thursday, January 05, 2017 04:58 - CONCLUSION: No acute intracranial disease. Paranasal sinus disease. Juan Miller MD Abdomen X-Ray 01/05/17 0000 Signed Impressions: Service Date/Time: Thursday, January 05, 2017 08:09 - CONCLUSION: Multiple displaced rib fractures on the left side. NG tube and surgical drain are in good position. Numerous air-filled loops of bowel throughout the abdomen. Ziggy Juarez MD Clavicle X-Ray 01/02/17 0000 Signed Impressions: Service Date/Time: December 08:16 - CONCLUSION: Nondisplaced fractures involving the distal clavicle with good alignment at the a.c. joint. Lars Granados MD Pelvis X-Ray 12/31/16 1224 Signed Impressions: Service Date/Time: Saturday, December 31, 2016 11:46 - CONCLUSION: No acute disease. Shan Sotomayor MD Chest CT 12/31/16 1224 Signed Impressions: Service Date/Time: Saturday, December 31, 2016 12:42 - CONCLUSION: 1. Flail left chest with a moderate to large left pneumothorax and presence of left chest tube. This does raise the possibility of a bronchial injury. 2. Comminuted left clavicle and left scapular fracture. 3. Right chest tube also present with tiny right pneumothorax. 4. Bilateral lung contusions. Small left hemothorax. No evidence for traumatic aortic injury. Endotracheal tube in satisfactory position. Kimo Ventura MD Cervical Spine CT 12/31/16 1224 Signed Impressions: Service Date/Time: Saturday, December 31, 2016 12:38 - CONCLUSION: 1. Extensive air within the soft tissues of the neck dissecting cephalad from the chest. Bilateral chest tubes with small apical pneumothoraces. Endotracheal tube present. 2. No acute fracture or subluxation in the cervical spine. Kimo Ventura MD Abdomen/Pelvis CT 12/31/16 1224 Signed Impressions: Service Date/Time: Saturday, December 31, 2016 12:42 - CONCLUSION: 1. Severely fractured spleen with numerous areas of active extravasation and moderate hemoperitoneum. 2. Laceration left lobe liver with some active extravasation as well. 3. Extensive air dissecting down the left abdominal wall and into the left scrotal region. 4. Flattened IVC with intense contrast in the kidneys and adrenals characteristic of hypovolemia. 5. Numerous lower left rib fractures left pneumothorax, left hemothorax and bilateral chest tubes and lung contusions. See chest CT report. Kimo Ventura MD Physical Exam CONSTITUTIONAL/GENERAL: This is an adequately nourished patient, in no apparent distress. TUBES/LINES/DRAINS: SKIN: No jaundice, rashes, or lesions. . Skin temperature appropriate. Not diaphoretic. EYES: Pupils equal and round and reactive. No scleral icterus. No injection or drainage. Fundi not examined. ENT: Hearing not tested. Nose without bleeding or purulent drainage.Oral mucosae without visible erythema, exudates, masses, or lesions. Orally intubated CARDIOVASCULAR: Regular rate and rhythm without murmurs, gallops, or rubs. No JVD. Periphery well perfused with brisk refill RESPIRATORY/CHEST: Symmetric, unlabored respirations. Clear to auscultation. Breath sounds diminished b/b. No wheezes, rales, or rhonchi. CT in place L with serosang dc GASTROINTESTINAL: Abdomen less tight , but still markedly distended no reaction to palpation. No hepato-splenomegaly, or palpable masses. Bowel sounds hypoactive Medial laparotomy incision dry and clean Liquid brown strool in dignidshield GENITOURINARY: Without palpable bladder distension. Michel catheter in place with cloudy brownish urine MUSCULOSKELETAL: Extremities without clubbing, cyanosis, 3+ edema, less tight , seems better No mottling or clubbing. NEUROLOGICAL: Heavily sedated and unresponsive PSYCHIATRIC: unable to assess Assessment & Plan Remarks Assessment and Plan Multi trauma LEFT clavicle fx (non op) LEFT scapula fx (non-op) Bronchial arboration LEFT serial rib fx LEFT flail chest LEFT PTX / FELIPE RIGHT PTX BILAT lung contusions Fractured spleen (Grade 4) w/ extravasation and hemoperitoneum LEFT lower lobe liver laceration Hepatic vein rupture Extensive air down the left abdominal wall Hemorrhagic shock Fluid overload PNA in the settings of b/l pulmonary contusions Low grade fever Leukocytosis - improving - bandemia today Diarrhea, C.diff negative Some improvement noted - repeat BC if spikes, worse leukocytosis or clinical deterioration - cont zosyn for now - will change zosyn to CFTX selena RN dw Lurdes Chapman MD Jan 16, 2017 18:35
[2017-01-16] MEDS: cefTRIAXone INJ 2,000 MG in SODIUM CHLORIDE 0.9% INJ 100 ML IV SCH (20:37)
[2017-01-17] VITALS (18 sets, daily range): BP systolic 109–146; BP diastolic 57–87; PULSE 77–100; RESP 16–32; TEMP 98.4–99.7; O2SAT 89–97
[2017-01-17] MEDS: ENOXAPARIN SODIUM 30 MG/0.3 ML SYRINGE SQ SCH ×2 (00:22→11:49)
[2017-01-17] MEDS: PROPOFOL 1000 MG/100 ML INJ 100 ML IV SCH ×8 (01:30→21:41)
[2017-01-17] MEDS: fentaNYL 2,500 MCG/NS 250 ML IV SCH ×2 (04:53→18:33)
[2017-01-17 05:05] LABS: AUTOMATED NEUTROPHIL # 9.8 TH/MM3 (1.8-7.7); BASOPHIL # 0.2 TH/MM3 (0-0.2); BASOPHIL % 1.2 % (0.0-2.0); EOSINOPHIL # 0.8 TH/MM3 (0-0.4); HEMATOCRIT 27.1 % (39.0-51.0); LYMPH % 5.7 % (9.0-44.0); LYMPHOCYTE # 0.8 TH/MM3 (1.0-4.8); MEAN CELL VOLUME 91.6 FL (80.0-100.0); MEAN CORPUSCULAR HEMOGLOBIN 29.4 PG (27.0-34.0); MEAN CORPUSCULAR HGB CONC 32.1 % (32.0-36.0); MONO % 17.3 % (0.0-8.0); NEUT % 69.8 % (16.0-70.0); PLATELET COUNT 982 TH/MM3 (150-450); RED BLOOD COUNT 2.96 MIL/MM3 (4.50-5.90); RED CELL DISTRIBUTION WIDTH 16.5 % (11.6-17.2)
[2017-01-17 05:14] LABS: HEMO FLAGS AUTO DIFF
[2017-01-17 05:26] LABS: ANION GAP 6 MEQ/L (5-15); AST (GOT) 40 U/L (15-37); BICARBONATE 28.1 MEQ/L (21.0-32.0); BLOOD UREA NITROGEN 20 MG/DL (7-18); CHLORIDE 105 MEQ/L (98-107); GLOMERULAR FILTRATION RATE 78 ML/MIN (>89); POTASSIUM 4.1 MEQ/L (3.5-5.1); SODIUM (NA) 139 MEQ/L (136-145)
[2017-01-17 05:32] LABS: ALKALINE PHOSPHATASE 229 U/L (45-117); ALT (GPT) 85 U/L (12-78); TOTAL BILIRUBIN ADULT 0.9 MG/DL (0.2-1.0)
[2017-01-17 05:49] LABS: BLOOD GAS BASE EXCESS 1.4 mmol/L (-2-2); BLOOD GAS CARBOXYHEMOGLOBIN 1.3 % (0-4); BLOOD GAS HCO3 25 mmol/L (22-26); BLOOD GAS METHEMOGLOBIN 0.8 % (0-2); BLOOD GAS O2 HGB SATURATION 92 % (90-100); BLOOD GAS PCO2 40 mmHg (38-42); BLOOD GAS PO2 72 mmHg (61-120); BLOOD GAS TOTAL HGB 9.2 G/DL (12.0-16.0); CRITICAL VALUE NO; TEMP CORR TO 98.6
[2017-01-17 05:50] LABS: DRAW SITE RT RADIAL; FIO2 40 %; NUMBER OF ARTERIAL PUNCTURES 1; OXYGEN DEVICE VENTILATOR; STAT NO; ULNAR PULSE PRESENT; VENT SETTINGS PRVC15/550/1.0/+16
[2017-01-17 07:04] LABS: HOWELL-JOLLY BODIES PRESENT (NONE SEEN); PLATELET ESTIMATE SMEAR HIGH (NORMAL); PLATELET MORPHOLOGY ENLARGED (NORMAL); SCAN/DIFF AUTO DIFF CONFIRMED; STOMATOCYTES 1+ (NORMAL)
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
[2017-01-17] MEDS: LIDOCAINE HCL 5% PATCH T-DERMAL SCH (08:51)
[2017-01-17] MEDS: MIDAZOLAM 100 MG/ML INJ 100 ML IV SCH (08:52)
[2017-01-17] MEDS: REMOVE OLD LIDOCAINE PATCH T-DERMAL SCH (08:52)
[2017-01-17] MEDS: SENNOSIDES SYRUP 8.8 MG/5 ML CUP NG SCH ×2 (08:52→20:02)
[2017-01-17] MEDS: SODIUM CHLORIDE 0.9% FLUSH 10 ML FLUSH IV FLUSH SCH ×3 (08:52→20:02)
[2017-01-17] MEDS: ARTIFICIAL TEARS OPTH SOLN 15 ML BTL EACH EYE SCH ×3 (08:53→17:05)
[2017-01-17] MEDS: CHLORHEXIDINE 0.12% (ORAL KIT) 15 ML CUP MT SCH ×2 (08:53→20:02)
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
--- NOTE | 2017-01-17 15:01 | RADRPT ---
EXAM DATE/TIME: 01/17/2017 13:17 [facility] COMPARISON: CHEST SINGLE AP, January 17, 2017, 6:03. INDICATIONS : Evaluate for pneumothorax. MEDICAL HISTORY : GROUP HOME. Rib fracture. SURGICAL HISTORY : None. ENCOUNTER: Subsequent ACUITY: 2 weeks PAIN SCORE: Non-responsive. LOCATION: Bilateral chest FINDINGS: A single portable frontal view of the chest shows an endotracheal tube 4 cm proximal to the janice. N asogastric tube is coiled in the fundus. Right-sided PICC line with the tip in the innominate vein. T his has retracted somewhat from the prior study. Left lower lobe infiltrate and small left effusion a re stable. No pneumothorax. Heart is normal in size. Multiple left-sided rib fractures. CONCLUSION: 1. No pneumothorax. 2. Stable left lower lobe infiltrate and small effusion. 3. PICC line has pulled back slightly with the tip felt to be in the innominate vein. It can still be utilized from this level. Gagan Sarmiento Jr., MD on January 17, 2017 at 14:42 Board Certified Radiologist. This report was verified electronically.
[2017-01-17] MEDS: cefTRIAXone INJ 2,000 MG in SODIUM CHLORIDE 0.9% INJ 100 ML IV SCH (20:03)
[2017-01-17] MEDS: RESP: ALBUTEROL 2.5 MG/3 ML NEB (PRN) NEB (20:21)
[2017-01-18] VITALS (18 sets, daily range): BP systolic 100–142; BP diastolic 58–89; PULSE 72–99; RESP 12–24; TEMP 98.9–99.6; O2SAT 94–100
[2017-01-18] MEDS: PROPOFOL 1000 MG/100 ML INJ 100 ML IV SCH ×7 (00:40→22:26)
[2017-01-18] MEDS: ENOXAPARIN SODIUM 30 MG/0.3 ML SYRINGE SQ SCH ×3 (03:26→23:59)
[2017-01-18 05:05] LABS: AUTOMATED NEUTROPHIL # 8.6 TH/MM3 (1.8-7.7); BASOPHIL # 0.1 TH/MM3 (0-0.2); BASOPHIL % 0.7 % (0.0-2.0); EOSINOPHIL # 0.8 TH/MM3 (0-0.4); EOSINOPHIL % 6.5 % (0.0-4.0); HEMATOCRIT 26.9 % (39.0-51.0); LYMPH % 7.5 % (9.0-44.0); MEAN CELL VOLUME 92.2 FL (80.0-100.0); MEAN CORPUSCULAR HEMOGLOBIN 29.7 PG (27.0-34.0); MEAN CORPUSCULAR HGB CONC 32.2 % (32.0-36.0); MONO % 18.8 % (0.0-8.0); NEUT % 66.5 % (16.0-70.0); PLATELET COUNT 923 TH/MM3 (150-450); RED BLOOD COUNT 2.92 MIL/MM3 (4.50-5.90); RED CELL DISTRIBUTION WIDTH 16.2 % (11.6-17.2)
[2017-01-18 05:20] LABS: HEMO FLAGS AUTO DIFF
[2017-01-18 05:28] LABS: ANION GAP 7 MEQ/L (5-15); AST (GOT) 47 U/L (15-37); BICARBONATE 26.6 MEQ/L (21.0-32.0); BLOOD UREA NITROGEN 20 MG/DL (7-18); CHLORIDE 106 MEQ/L (98-107); GLOMERULAR FILTRATION RATE 88 ML/MIN (>89); POTASSIUM 4.3 MEQ/L (3.5-5.1); SODIUM (NA) 140 MEQ/L (136-145)
[2017-01-18 05:29] LABS: ALT (GPT) 88 U/L (12-78)
[2017-01-18 05:31] LABS: ALKALINE PHOSPHATASE 250 U/L (45-117); TOTAL BILIRUBIN ADULT 0.7 MG/DL (0.2-1.0)
[2017-01-18] MEDS: fentaNYL 2,500 MCG/NS 250 ML IV SCH (05:41)
--- NOTE | 2017-01-18 06:38 | RADRPT ---
EXAM DATE/TIME: 01/18/2017 04:49 [facility] COMPARISON: CHEST SINGLE AP, January 17, 2017, 13:17. INDICATIONS : Post chest tube removal. MEDICAL HISTORY : [facility]ITENTI[facility]. Rib Fractures. SURGICAL HISTORY : None. ENCOUNTER: Subsequent ACUITY: 2 weeks PAIN SCORE: Non-responsive. LOCATION: Bilateral chest FINDINGS: Endotracheal tube, nasogastric tube and right PICC line are stable. There has been slight interval wo rsening in aeration with increasing confluence of bibasilar pleuroparenchymal opacities. Accounting f or rotation, cardiac contours are grossly stable. CONCLUSION: Some interval worsening in aeration. Daljit Anthony MD on January 18, 2017 at 6:36 Board Certified Radiologist. This report was verified electronically.
[2017-01-18] MEDS: RESP: ALBUTEROL 2.5 MG/3 ML NEB (PRN) NEB ×2 (07:40→21:10)
[2017-01-18] MEDS: SODIUM CHLORIDE 0.9% FLUSH 10 ML FLUSH IV FLUSH SCH ×3 (07:51→20:41)
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
[2017-01-18] MEDS ORDERED: FUROSEMIDE 100 MG/10 ML VIAL IV PUSH ONE (08:15)
[2017-01-18] MEDS: ARTIFICIAL TEARS OPTH SOLN 15 ML BTL EACH EYE SCH ×3 (09:00→18:00)
[2017-01-18] MEDS: SENNOSIDES SYRUP 8.8 MG/5 ML CUP NG SCH ×2 (09:23→20:40)
[2017-01-18] MEDS: LIDOCAINE HCL 5% PATCH T-DERMAL SCH (09:24)
[2017-01-18] MEDS: CHLORHEXIDINE 0.12% (ORAL KIT) 15 ML CUP MT SCH ×2 (09:25→20:00)
[2017-01-18] MEDS: MIDAZOLAM 100 MG/ML INJ 100 ML IV SCH (09:25)
[2017-01-18] MEDS: FUROSEMIDE INJ 100 MG in SODIUM CHLORIDE 0.9% INJ 90 ML IV SCH ×2 (09:26→17:33)
[2017-01-18 09:57] LABS: PLATELET ESTIMATE SMEAR HIGH (NORMAL); PLATELET MORPHOLOGY NORMAL (NORMAL)
[2017-01-18 09:58] LABS: SCAN/DIFF AUTO DIFF CONFIRMED
[2017-01-18 10:59] LABS: BLOOD GAS BASE EXCESS 1.2 mmol/L (-2-2); BLOOD GAS CARBOXYHEMOGLOBIN 1.2 % (0-4); BLOOD GAS HCO3 25 mmol/L (22-26); BLOOD GAS METHEMOGLOBIN 0.7 % (0-2); BLOOD GAS O2 HGB SATURATION 93 % (90-100); BLOOD GAS OXYGEN CONTENT 11.1 Vol % (12.0-20.0); BLOOD GAS PCO2 41 mmHg (38-42); BLOOD GAS PO2 75 mmHg (61-120); BLOOD GAS TOTAL HGB 8.4 G/DL (12.0-16.0); CRITICAL VALUE NO; OXYGEN DEVICE VENTILATOR; TEMP CORR TO 98.6
[2017-01-18 11:00] LABS: DRAW SITE LT RADIAL; FIO2 10 %; NUMBER OF ARTERIAL PUNCTURES 2; STAT NO; ULNAR PULSE PRESENT
[2017-01-18] MEDS: REMOVE OLD LIDOCAINE PATCH T-DERMAL SCH (11:00)
--- NOTE | 2017-01-18 11:42 | HHI.PR ---
Addendum to Inpatient Note Additional Information seen and examined deteriorated reps ganesh bradshaw sputum change abx zosyn, zyvox fullnote to follow Lurdes Quarles MD Jan 18, 2017 11:42
[2017-01-18 12:22] LABS: BLOOD GAS BASE EXCESS 1.1 mmol/L (-2-2); BLOOD GAS HCO3 25 mmol/L (22-26); BLOOD GAS METHEMOGLOBIN 0.7 % (0-2); BLOOD GAS O2 HGB SATURATION 92 % (90-100); BLOOD GAS OXYGEN CONTENT 13.1 Vol % (12.0-20.0); BLOOD GAS PCO2 41 mmHg (38-42); BLOOD GAS PO2 71 mmHg (61-120); BLOOD GAS TOTAL HGB 10.1 G/DL (12.0-16.0); CRITICAL VALUE NO; OXYGEN DEVICE VENTILATOR; TEMP CORR TO 98.6
[2017-01-18 12:24] LABS: DRAW SITE RT RADIAL; FIO2 95 %; NUMBER OF ARTERIAL PUNCTURES 1; STAT NO; ULNAR PULSE PRESENT; VENT SETTINGS APRV
[2017-01-18] MEDS: PIPERACIL-TAZO 4.5 GM PREMIX 100 ML IV SCH ×3 (12:25→23:59)
[2017-01-18] MEDS: LINEZOLID 600 MG PREMIX 300 ML IV SCH ×2 (12:25→23:59)
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
--- NOTE | 2017-01-18 15:10 | HHI.IDPN ---
Subjective Subjective Remarks delayed entry Pt seen erlier today around 1130 doing much worse on bipahsic vent'n, 100% FiO2 + low grade fever not mucjh secretions now, but earlier had a lot of secretions Antibiotics CFTX Allergies: Coded Allergies: No Known Allergies (Unverified , 12/31/16) Objective . Vital Signs Date Time Temp Pulse Resp B/P Pulse Ox O2 Delivery O2 Flow Rate FiO2 01/18/17 14:00 78 01/18/17 12:00 95 01/18/17 12:00 99.5 95 23 126/73 97 01/18/17 12:00 100 01/18/17 10:00 80 01/18/17 08:00 88 01/18/17 08:00 100 01/18/17 08:00 99.6 88 16 109/58 94 01/18/17 07:46 95 100 01/18/17 06:00 91 01/18/17 04:18 96 80 01/18/17 04:00 98.9 99 24 142/89 97 01/18/17 04:00 99 01/18/17 04:00 100 01/18/17 02:00 98 01/18/17 01:24 96 80 01/18/17 00:00 92 01/18/17 00:00 100 01/18/17 00:00 98.9 92 18 132/71 97 01/17/17 22:00 96 01/17/17 20:22 94 70 01/17/17 20:00 70 01/17/17 20:00 98.7 87 27 126/74 91 01/17/17 20:00 87 01/17/17 18:16 65 01/17/17 18:00 78 01/17/17 17:43 95 70 01/17/17 17:00 70 01/17/17 16:00 86 01/17/17 16:00 99.0 86 32 134/76 89 01/17/17 16:00 100 01/17/17 01/17/17 01/18/17 15:00 23:00 07:00 Intake Total 1247 ml 1408 ml 833 ml Output Total 700 ml 650 ml 600 ml Balance 547 ml 758 ml 233 ml Intake IV Total 646 ml 746 ml 413 ml Tube Feeding 541 ml 572 ml 360 ml Tube Irrigant 60 ml 90 ml 60 ml Output Urine Total 500 ml 550 ml 500 ml Stool Total 200 ml 100 ml 100 ml Chest Tube Drainage Total 0 ml . Laboratory Tests Test 01/17/17 01/18/17 04:40 04:45 White Blood Count 14.0 TH/MM3 13.0 TH/MM3 Red Blood Count 2.96 MIL/MM3 2.92 MIL/MM3 Hemoglobin 8.7 GM/DL 8.7 GM/DL Hematocrit 27.1 % 26.9 % Mean Corpuscular Volume 91.6 FL 92.2 FL Mean Corpuscular Hemoglobin 29.4 PG 29.7 PG Mean Corpuscular Hemoglobin 32.1 % 32.2 % Concent Red Cell Distribution Width 16.5 % 16.2 % Platelet Count 982 TH/MM3 923 TH/MM3 Mean Platelet Volume 7.9 FL 7.7 FL Neutrophils (%) (Auto) 69.8 % 66.5 % Lymphocytes (%) (Auto) 5.7 % 7.5 % Monocytes (%) (Auto) 17.3 % 18.8 % Eosinophils (%) (Auto) 6.0 % 6.5 % Basophils (%) (Auto) 1.2 % 0.7 % Neutrophils # (Auto) 9.8 TH/MM3 8.6 TH/MM3 Lymphocytes # (Auto) 0.8 TH/MM3 1.0 TH/MM3 Monocytes # (Auto) 2.4 TH/MM3 2.4 TH/MM3 Eosinophils # (Auto) 0.8 TH/MM3 0.8 TH/MM3 Basophils # (Auto) 0.2 TH/MM3 0.1 TH/MM3 CBC Comment AUTO DIFF AUTO DIFF Differential Comment AUTO DIFF AUTO DIFF CONFIRMED CONFIRMED Platelet Estimate HIGH HIGH Platelet Morphology Comment ENLARGED NORMAL Stomatocytes 1+ Duran-Milam Bodies PRESENT Laboratory Tests Test 01/17/17 01/18/17 04:40 04:45 Sodium Level 139 MEQ/L 140 MEQ/L Potassium Level 4.1 MEQ/L 4.3 MEQ/L Chloride Level 105 MEQ/L 106 MEQ/L Carbon Dioxide Level 28.1 MEQ/L 26.6 MEQ/L Anion Gap 6 MEQ/L 7 MEQ/L Blood Urea Nitrogen 20 MG/DL 20 MG/DL Creatinine 0.96 MG/DL 0.86 MG/DL Estimat Glomerular Filtration 78 ML/MIN 88 ML/MIN Rate Random Glucose 162 MG/DL 150 MG/DL Calcium Level 7.7 MG/DL 7.9 MG/DL Total Bilirubin 0.9 MG/DL 0.7 MG/DL Aspartate Amino Transf 40 U/L 47 U/L (AST/SGOT) Alanine Aminotransferase 85 U/L 88 U/L (ALT/SGPT) Alkaline Phosphatase 229 U/L 250 U/L Total Protein 6.2 GM/DL 6.4 GM/DL Albumin 1.6 GM/DL 1.6 GM/DL Imaging Last Impressions Chest X-Ray 01/18/17 0600 Signed Impressions: Service Date/Time: Wednesday, January 18, 2017 04:49 - CONCLUSION: Some interval worsening in aeration. Daljit Anthony MD Chest Tube Insertion 01/08/17 1628 Signed Impressions: Service Date/Time: Sunday, January 08, 2017 16:58 - CONCLUSION: Uncomplicated chest tube placement as above. 1 L of hemorrhagic fluid was removed. Fly Longo MD Upper Extremity Ultrasound 01/08/17 0000 Signed Impressions: Service Date/Time: Sunday, January 08, 2017 08:10 - CONCLUSION: Occlusive thrombus within the left basilic vein. Nichol Wellington MD Lower Extremity Ultrasound 01/08/17 0000 Signed Impressions: Service Date/Time: Sunday, January 08, 2017 08:43 - CONCLUSION: Normal examination. Nichol Wellington MD CT Angiography 01/08/17 0000 Signed Impressions: Service Date/Time: Sunday, January 08, 2017 12:49 - CONCLUSION: 1. There is no evidence for PE for technique. 2. Worsening left pleural effusion and interval development of right pleural effusion and dense consolidation in both lung bases. 3. Resolution of the previously seen left pneumothorax and subcutaous emphysema. Nichol Wellington MD Head CT 01/05/17 0600 Signed Impressions: Service Date/Time: Thursday, January 05, 2017 04:58 - CONCLUSION: No acute intracranial disease. Paranasal sinus disease. Juan Miller MD Abdomen X-Ray 01/05/17 0000 Signed Impressions: Service Date/Time: Thursday, January 05, 2017 08:09 - CONCLUSION: Multiple displaced rib fractures on the left side. NG tube and surgical drain are in good position. Numerous air-filled loops of bowel throughout the abdomen. Ziggy Juarez MD Clavicle X-Ray 01/02/17 0000 Signed Impressions: Service Date/Time: December 08:16 - CONCLUSION: Nondisplaced fractures involving the distal clavicle with good alignment at the a.c. joint. Lars Granados MD Pelvis X-Ray 12/31/16 1224 Signed Impressions: Service Date/Time: Saturday, December 31, 2016 11:46 - CONCLUSION: No acute disease. Shan Sotomayor MD Chest CT 12/31/16 1224 Signed Impressions: Service Date/Time: Saturday, December 31, 2016 12:42 - CONCLUSION: 1. Flail left chest with a moderate to large left pneumothorax and presence of left chest tube. This does raise the possibility of a bronchial injury. 2. Comminuted left clavicle and left scapular fracture. 3. Right chest tube also present with tiny right pneumothorax. 4. Bilateral lung contusions. Small left hemothorax. No evidence for traumatic aortic injury. Endotracheal tube in satisfactory position. Kimo Ventura MD Cervical Spine CT 12/31/164 Signed Impressions: Service Date/Time: Saturday, December 31, 2016 12:38 - CONCLUSION: 1. Extensive air within the soft tissues of the neck dissecting cephalad from the chest. Bilateral chest tubes with small apical pneumothoraces. Endotracheal tube present. 2. No acute fracture or subluxation in the cervical spine. Kimo Ventura MD Abdomen/Pelvis CT 12/31/16 1224 Signed Impressions: Service Date/Time: Saturday, December 31, 2016 12:42 - CONCLUSION: 1. Severely fractured spleen with numerous areas of active extravasation and moderate hemoperitoneum. 2. Laceration left lobe liver with some active extravasation as well. 3. Extensive air dissecting down the left abdominal wall and into the left scrotal region. 4. Flattened IVC with intense contrast in the kidneys and adrenals characteristic of hypovolemia. 5. Numerous lower left rib fractures left pneumothorax, left hemothorax and bilateral chest tubes and lung contusions. See chest CT report. Kimo Ventura MD Physical Exam CONSTITUTIONAL/GENERAL: This is an adequately nourished patient, in no apparent distress. TUBES/LINES/DRAINS: SKIN: No jaundice, rashes, or lesions. . Skin temperature appropriate. Not diaphoretic. EYES: Pupils equal and round and reactive. No scleral icterus. No injection or drainage. Fundi not examined. ENT: Hearing not tested. Nose without bleeding or purulent drainage.Oral mucosae without visible erythema, exudates, masses, or lesions. Orally intubated CARDIOVASCULAR: Regular rate and rhythm without murmurs, gallops, or rubs. No JVD. Periphery well perfused with brisk refill RESPIRATORY/CHEST: Symmetric, unlabored respirations. Diffuse rhonch to auscultation. Breath sounds diminished b/b. CT in place L with serosang dc GASTROINTESTINAL: Abdomen lsoft , much less distended no reaction to palpation. No hepato-splenomegaly, or palpable masses. Bowel sounds hypoactive Medial laparotomy incision dry and clean, healing Liquid brown strool in dignidshield GENITOURINARY: Without palpable bladder distension. Michel catheter in place with clear yellow urine MUSCULOSKELETAL: Extremities without clubbing, cyanosis, 3+ edema, less tight , seems better No mottling or clubbing. NEUROLOGICAL: Heavily sedated and unresponsive PSYCHIATRIC: unable to assess Assessment & Plan Remarks Assessment and Plan Multi trauma LEFT clavicle fx (non op) LEFT scapula fx (non-op) Bronchial arboration LEFT serial rib fx LEFT flail chest LEFT PTX / FELIPE RIGHT PTX BILAT lung contusions Fractured spleen (Grade 4) w/ extravasation and hemoperitoneum LEFT lower lobe liver laceration Hepatic vein rupture Extensive air down the left abdominal wall Hemorrhagic shock Fluid overload PNA in the settings of b/l pulmonary contusions Low grade fever WOrsening resp status; maxed out on vent support, Acute VDRF ? fluid overolad vs new pneumonia Leukocytosis - improving - bandemia today Diarrhea, C.diff negative REC's: - repeat sputum clx - dc CFTX - start zosyn, zyvox selena RN dw Lurdes Chapman MD Jan 18, 2017 15:10
[2017-01-18 16:06] LABS: BICARBONATE 26.7 MEQ/L (21.0-32.0); POTASSIUM 4.1 MEQ/L (3.5-5.1)
[2017-01-18 16:28] LABS: CALCIUM-PROTEIN CORRECTED 7.6 MG/DL (8.5-10.1)
[2017-01-18] MEDS: ALBUMIN HUMAN 25% 25 GM/100 ML BAGP IV SCH (18:14)
[2017-01-18] MEDS ORDERED: CALCIUM GLUCONATE INJ 2 GM in SODIUM CHLORIDE 0.9% INJ 100 ML IV ONE (20:00)
[2017-01-19] VITALS (18 sets, daily range): BP systolic 111–170; BP diastolic 62–94; PULSE 72–100; RESP 12–23; TEMP 98.6–100.3; O2SAT 93–98
[2017-01-19] MEDS: ALBUMIN HUMAN 25% 25 GM/100 ML BAGP IV SCH ×3 (02:28→16:44)
[2017-01-19] MEDS: RESP: ALBUTEROL 2.5 MG/3 ML NEB (PRN) NEB ×2 (03:16→08:12)
[2017-01-19] MEDS: FUROSEMIDE INJ 100 MG in SODIUM CHLORIDE 0.9% INJ 90 ML IV SCH ×2 (03:33→11:18)
[2017-01-19 04:34] LABS: BLOOD GAS BASE EXCESS 2.5 mmol/L (-2-2); BLOOD GAS CARBOXYHEMOGLOBIN 1.1 % (0-4); BLOOD GAS HCO3 27 mmol/L (22-26); BLOOD GAS METHEMOGLOBIN 0.7 % (0-2); BLOOD GAS O2 HGB SATURATION 95 % (90-100); BLOOD GAS OXYGEN CONTENT 10.7 Vol % (12.0-20.0); BLOOD GAS PCO2 44 mmHg (38-42); BLOOD GAS PO2 82 mmHg (61-120); BLOOD GAS TOTAL HGB 7.9 G/DL (12.0-16.0); CRITICAL VALUE NO; OXYGEN DEVICE VENTILATOR; TEMP CORR TO 98.6
[2017-01-19 04:35] LABS: DRAW SITE RT RADIAL; FIO2 55 %; NUMBER OF ARTERIAL PUNCTURES 1; STAT NO; ULNAR PULSE PRESENT
[2017-01-19] MEDS: PIPERACIL-TAZO 4.5 GM PREMIX 100 ML IV SCH ×4 (05:39→23:40)
[2017-01-19] MEDS: MIDAZOLAM 100 MG/ML INJ 100 ML IV SCH ×2 (05:39→21:33)
[2017-01-19 06:02] LABS: BICARBONATE 28.5 MEQ/L (21.0-32.0); POTASSIUM 3.8 MEQ/L (3.5-5.1)
[2017-01-19] MEDS: SODIUM CHLORIDE 0.9% FLUSH 10 ML FLUSH IV FLUSH SCH ×3 (07:22→21:00)
[2017-01-19] MEDS: SENNOSIDES SYRUP 8.8 MG/5 ML CUP NG SCH ×2 (07:57→21:03)
[2017-01-19] MEDS: CHLORHEXIDINE 0.12% (ORAL KIT) 15 ML CUP MT SCH ×2 (07:57→20:00)
[2017-01-19] MEDS: ARTIFICIAL TEARS OPTH SOLN 15 ML BTL EACH EYE SCH ×3 (07:57→16:45)
[2017-01-19] MEDS: LIDOCAINE HCL 5% PATCH T-DERMAL SCH (07:57)
[2017-01-19] MEDS: PROPOFOL 1000 MG/100 ML INJ 100 ML IV SCH ×7 (07:58→23:40)
[2017-01-19] MEDS: REMOVE OLD LIDOCAINE PATCH T-DERMAL SCH (11:00)
[2017-01-19] MEDS: ENOXAPARIN SODIUM 30 MG/0.3 ML SYRINGE SQ SCH ×2 (11:18→23:39)
[2017-01-19] MEDS: LINEZOLID 600 MG PREMIX 300 ML IV SCH (11:18)
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
[2017-01-19] MEDS: RESP: ALBUTEROL 2.5 MG/IPRATROPIUM 0.5 MG NEB (SCH) NEB ×3 (11:57→23:06)
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
[2017-01-19] MEDS: fentaNYL 2,500 MCG/NS 250 ML IV SCH (16:45)
[2017-01-19 20:16] LABS: BICARBONATE 26.3 MEQ/L (21.0-32.0); POTASSIUM 3.7 MEQ/L (3.5-5.1)
[2017-01-19 20:38] LABS: CALCIUM-PROTEIN CORRECTED 7.7 MG/DL (8.5-10.1)
[2017-01-20] VITALS (17 sets, daily range): BP systolic 118–157; BP diastolic 65–96; PULSE 64–110; RESP 12–23; TEMP 98.5–100.9; O2SAT 95–100
[2017-01-20] MEDS: FUROSEMIDE INJ 100 MG in SODIUM CHLORIDE 0.9% INJ 90 ML IV SCH (01:10)
[2017-01-20] MEDS: LINEZOLID 600 MG PREMIX 300 ML IV SCH ×2 (01:10→13:21)
[2017-01-20] MEDS: PROPOFOL 1000 MG/100 ML INJ 100 ML IV SCH ×7 (02:21→22:03)
[2017-01-20] MEDS: ALBUMIN HUMAN 25% 25 GM/100 ML BAGP IV SCH ×3 (02:21→16:52)
[2017-01-20] MEDS: RESP: ALBUTEROL 2.5 MG/IPRATROPIUM 0.5 MG NEB (SCH) NEB ×4 (03:59→21:46)
[2017-01-20 04:37] LABS: AUTOMATED NEUTROPHIL # 6.8 TH/MM3 (1.8-7.7); BASOPHIL # 0.1 TH/MM3 (0-0.2); BASOPHIL % 0.7 % (0.0-2.0); EOSINOPHIL # 0.8 TH/MM3 (0-0.4); HEMATOCRIT 23.5 % (39.0-51.0); LYMPH % 6.1 % (9.0-44.0); LYMPHOCYTE # 0.6 TH/MM3 (1.0-4.8); MEAN CELL VOLUME 91.2 FL (80.0-100.0); MEAN CORPUSCULAR HGB CONC 32.9 % (32.0-36.0); MONO % 19.5 % (0.0-8.0); NEUT % 65.7 % (16.0-70.0); PLATELET COUNT 729 TH/MM3 (150-450); RED BLOOD COUNT 2.58 MIL/MM3 (4.50-5.90); RED CELL DISTRIBUTION WIDTH 16.2 % (11.6-17.2); WHITE BLOOD COUNT 10.3 TH/MM3 (4.0-11.0)
[2017-01-20 04:41] LABS: HEMO FLAGS AUTO DIFF
--- NOTE | 2017-01-20 04:42 | RADRPT ---
EXAM DATE/TIME: 01/20/2017 03:27 CORRECTION Corrected on: January 22, 2017; added None to medical history [facility] COMPARISON: CHEST SINGLE AP, January 18, 2017, 4:49. INDICATIONS : Evaluate rib fractures post trauma/ [place] MEDICAL HISTORY : None. SURGICAL HISTORY : None. ENCOUNTER: Subsequent ACUITY: 1 week PAIN SCORE: Non-responsive. LOCATION: Bilateral chest FINDINGS: Portable AP view of the chest demonstrates a normal-sized cardiac silhouette. Endotracheal tube tip m easures 5 cm from the janice nasogastric tube courses beyond the GE junction. Right upper chimney PIC C distal tip is in the SVC. There are mid and lower lung zone interstitial and airspace opacities tommie aterally. There is blunting of the costophrenic sulci bilaterally. No pneumothorax is visualized. The re are multiple leftward fractures. CONCLUSION: 1. Multiple left rib fractures remain present. No pneumothorax is visualized. 2. Airspace consolidation in the lower lungs bilaterally small bilateral pleural effusions. Daljit Mills MD on January 20, 2017 at 4:39 Board Certified Radiologist. Board Certified Radiologist. This report was verified electronically.
[2017-01-20 05:07] LABS: ANION GAP 6 MEQ/L (5-15); AST (GOT) 82 U/L (15-37); BICARBONATE 31.3 MEQ/L (21.0-32.0); BLOOD UREA NITROGEN 25 MG/DL (7-18); CHLORIDE 101 MEQ/L (98-107); GLOMERULAR FILTRATION RATE 59 ML/MIN (>89); MAGNESIUM 2.4 MG/DL (1.5-2.5); POTASSIUM 3.6 MEQ/L (3.5-5.1); SODIUM (NA) 138 MEQ/L (136-145)
[2017-01-20 05:14] LABS: ALKALINE PHOSPHATASE 253 U/L (45-117); ALT (GPT) 112 U/L (12-78); TOTAL BILIRUBIN ADULT 0.9 MG/DL (0.2-1.0)
[2017-01-20] MEDS: PIPERACIL-TAZO 4.5 GM PREMIX 100 ML IV SCH ×3 (05:18→16:52)
[2017-01-20] MEDS: fentaNYL 2,500 MCG/NS 250 ML IV SCH ×2 (05:18→13:51)
[2017-01-20 05:53] LABS: BLOOD GAS BASE EXCESS 3.8 mmol/L (-2-2); BLOOD GAS CARBOXYHEMOGLOBIN 1.1 % (0-4); BLOOD GAS HCO3 28 mmol/L (22-26); BLOOD GAS METHEMOGLOBIN 0.8 % (0-2); BLOOD GAS O2 HGB SATURATION 95 % (90-100); BLOOD GAS OXYGEN CONTENT 14.8 Vol % (12.0-20.0); BLOOD GAS PCO2 44 mmHg (38-42); BLOOD GAS PO2 89 mmHg (61-120); CRITICAL VALUE NO; OXYGEN DEVICE VENTILATOR; TEMP CORR TO 98.6
[2017-01-20 05:54] LABS: DRAW SITE RT RADIAL; FIO2 50 %; NUMBER OF ARTERIAL PUNCTURES 1; STAT NO; ULNAR PULSE PRESENT; VENT SETTINGS APRV
[2017-01-20] MEDS: SODIUM CHLORIDE 0.9% FLUSH 10 ML FLUSH IV FLUSH SCH ×3 (07:13→21:04)
[2017-01-20 07:16] LABS: BANDS 6 % (0-6); BASOPHILS 1 % (0-2); CORRECTED NUCLEATED RBC 1 /100 WBC (0-0); EOSINOPHILS 9 % (0-4); NEUTROPHIL # MANUAL DIFF 7.1 TH/MM3 (1.8-7.7); POLYS (SEG NEUTROPHILS) 63 % (16-70); WBC DIFF SAMPLE 100
[2017-01-20 07:17] LABS: PLATELET ESTIMATE SMEAR HIGH (NORMAL); PLATELET MORPHOLOGY ENLARGED (NORMAL); SCAN/DIFF FINAL DIFF MANUAL; STOMATOCYTES 1+ (NORMAL)
[2017-01-20] MEDS: ARTIFICIAL TEARS OPTH SOLN 15 ML BTL EACH EYE SCH ×3 (07:41→16:53)
[2017-01-20] MEDS: SENNOSIDES SYRUP 8.8 MG/5 ML CUP NG SCH ×2 (07:41→21:04)
[2017-01-20] MEDS: CHLORHEXIDINE 0.12% (ORAL KIT) 15 ML CUP MT SCH ×2 (07:41→21:04)
[2017-01-20] MEDS: LIDOCAINE HCL 5% PATCH T-DERMAL SCH (07:42)
[2017-01-20] MEDS: REMOVE OLD LIDOCAINE PATCH T-DERMAL SCH (11:00)
[2017-01-20] MEDS: ENOXAPARIN SODIUM 30 MG/0.3 ML SYRINGE SQ SCH (11:12)
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
[2017-01-20] MEDS: hydrALAZINE HCL 20 MG/ML VIAL IV PUSH PRN (11:32)
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
[2017-01-20] MEDS: MIDAZOLAM 100 MG/ML INJ 100 ML IV SCH (13:51)
[2017-01-20 16:23] LABS: BICARBONATE 29.4 MEQ/L (21.0-32.0); MAGNESIUM 2.3 MG/DL (1.5-2.5); POTASSIUM 3.7 MEQ/L (3.5-5.1)
[2017-01-20 16:39] LABS: CALCIUM-PROTEIN CORRECTED 7.5 MG/DL (8.5-10.1)
[2017-01-20] MEDS: FUROSEMIDE 40 MG/4 ML VIAL IV PUSH SCH (16:53)
--- NOTE | 2017-01-20 19:08 | HHI.IDPN ---
Subjective Subjective Remarks Delayed entry - pt was seen earlier today Pt remains afebrile, but having difficult time oxygenating Remains on high vent setrtings with FiO2 @ or near 100% Low grade fever T max 100.9 ALL clx are negative RN reported abundant thick sputum Antibiotics Zosyn Zyvox Past Medical History Foot surgery Allergies: Coded Allergies: No Known Allergies (Unverified , 12/31/16) Objective . Vital Signs Date Time Temp Pulse Resp B/P Pulse Ox O2 Delivery O2 Flow Rate FiO2 01/20/17 18:00 71 01/20/17 16:00 79 01/20/17 16:00 99.7 82 12 122/66 97 01/20/17 16:00 80 01/20/17 15:46 96 80 01/20/17 14:00 83 01/20/17 12:25 100 80 01/20/17 12:00 107 01/20/17 12:00 100 01/20/17 12:00 100.9 107 20 157/96 100 01/20/17 10:00 79 01/20/17 09:30 100 01/20/17 09:25 95 100 01/20/17 08:29 100 50 01/20/17 08:00 99.1 67 23 139/78 99 01/20/17 08:00 50 01/20/17 08:00 67 01/20/17 06:00 71 01/20/17 04:00 98.5 64 12 119/65 97 01/20/17 04:00 50 01/20/17 04:00 64 01/20/17 04:00 95 50 01/20/17 02:00 66 01/20/17 00:00 50 01/20/17 00:00 98.8 84 12 126/67 96 01/20/17 00:00 84 01/19/17 23:00 96 50 01/19/17 22:00 84 01/19/17 20:00 50 01/19/17 20:00 100 01/19/17 20:00 99.8 100 19 170/94 95 01/19/17 01/19/17 01/20/17 15:00 23:00 07:00 Intake Total 1919 ml 1138 ml 1718 ml Output Total 2200 ml 1750 ml 1400 ml Balance -281 ml -612 ml 318 ml Intake IV Total 1177 ml 642 ml 1087 ml Tube Feeding 522 ml 436 ml 531 ml Albumin 100 ml 100 ml Tube Irrigant 120 ml 60 ml Output Urine Total 2200 ml 1750 ml 1400 ml Stool Total 0 ml 0 ml 0 ml . Laboratory Tests Test 01/20/17 04:20 White Blood Count 10.3 TH/MM3 Red Blood Count 2.58 MIL/MM3 Hemoglobin 7.7 GM/DL Hematocrit 23.5 % Mean Corpuscular Volume 91.2 FL Mean Corpuscular Hemoglobin 30.0 PG Mean Corpuscular Hemoglobin 32.9 % Concent Red Cell Distribution Width 16.2 % Platelet Count 729 TH/MM3 Mean Platelet Volume 7.5 FL Neutrophils (%) (Auto) 65.7 % Lymphocytes (%) (Auto) 6.1 % Monocytes (%) (Auto) 19.5 % Eosinophils (%) (Auto) 8.0 % Basophils (%) (Auto) 0.7 % Neutrophils # (Auto) 6.8 TH/MM3 Lymphocytes # (Auto) 0.6 TH/MM3 Monocytes # (Auto) 2.0 TH/MM3 Eosinophils # (Auto) 0.8 TH/MM3 Basophils # (Auto) 0.1 TH/MM3 CBC Comment AUTO DIFF Differential Total Cells 100 Counted Neutrophils % (Manual) 63 % Band Neutrophils % 6 % Lymphocytes % 4 % Monocytes % 17 % Eosinophils % 9 % Basophils % 1 % Neutrophils # (Manual) 7.1 TH/MM3 Nucleated Red Blood Cells 1 /100 WBC Differential Comment FINAL DIFF MANUAL Platelet Estimate HIGH Platelet Morphology Comment ENLARGED Stomatocytes 1+ Laboratory Tests Test 01/19/17 01/19/17 01/20/17 01/20/17 04:55 18:30 04:20 15:00 Sodium Level 139 MEQ/L 136 MEQ/L 138 MEQ/L 136 MEQ/L Potassium Level 3.8 MEQ/L 3.7 MEQ/L 3.6 MEQ/L 3.7 MEQ/L Chloride Level 102 MEQ/L 98 MEQ/L 101 MEQ/L 97 MEQ/L Carbon Dioxide Level 28.5 MEQ/L 26.3 MEQ/L 31.3 MEQ/L 29.4 MEQ/L Anion Gap 9 MEQ/L 12 MEQ/L 6 MEQ/L 10 MEQ/L Blood Urea Nitrogen 22 MG/DL 20 MG/DL 25 MG/DL 26 MG/DL Creatinine 1.11 MG/DL 1.07 MG/DL 1.21 MG/DL 1.20 MG/DL Estimat Glomerular Filtration 66 ML/MIN 69 ML/MIN 59 ML/MIN 60 ML/MIN Rate Random Glucose 167 MG/DL 136 MG/DL 155 MG/DL 203 MG/DL Calcium Level 7.9 MG/DL 7.4 MG/DL 7.5 MG/DL 7.2 MG/DL Protein Corrected Calcium 7.7 MG/DL 7.5 MG/DL Total Protein 6.6 GM/DL 6.6 GM/DL 6.5 GM/DL Phosphorus Level 4.8 MG/DL Magnesium Level 2.4 MG/DL 2.3 MG/DL Total Bilirubin 0.9 MG/DL Aspartate Amino Transf 82 U/L (AST/SGOT) Alanine Aminotransferase 112 U/L (ALT/SGPT) Alkaline Phosphatase 253 U/L Albumin 2.7 GM/DL Microbiology Date/Time Procedure Status Source Growth 01/18/17 15:48 Gram Stain - Final Complete Sputum Endotracheal 01/18/17 15:48 Sputum Culture - Final Complete Sputum Endotracheal HEAVY GROWTH NORMAL RESPIRATORY BELTRAN Imaging Last Impressions Chest X-Ray 01/20/17 0600 Signed Impressions: Service Date/Time: Friday, January 20, 2017 03:27 - CONCLUSION: 1. Multiple left rib fractures remain present. No pneumothorax is visualized. 2. Airspace consolidation in the lower lungs bilaterally small bilateral pleural effusions. Daljit Mills MD Chest Tube Insertion 01/08/17 1628 Signed Impressions: Service Date/Time: Sunday, January 08, 2017 16:58 - CONCLUSION: Uncomplicated chest tube placement as above. 1 L of hemorrhagic fluid was removed. Fly Longo MD Upper Extremity Ultrasound 01/08/17 0000 Signed Impressions: Service Date/Time: Sunday, January 08, 2017 08:10 - CONCLUSION: Occlusive thrombus within the left basilic vein. Nichol Wellington MD Lower Extremity Ultrasound 01/08/17 0000 Signed Impressions: Service Date/Time: Sunday, January 08, 2017 08:43 - CONCLUSION: Normal examination. Nichol Wellington MD CT Angiography 01/08/17 0000 Signed Impressions: Service Date/Time: Sunday, January 08, 2017 12:49 - CONCLUSION: 1. There is no evidence for PE for technique. 2. Worsening left pleural effusion and interval development of right pleural effusion and dense consolidation in both lung bases. 3. Resolution of the previously seen left pneumothorax and subcutaous emphysema. Nichol Wellington MD Head CT 01/05/17 0600 Signed Impressions: Service Date/Time: Thursday, January 05, 2017 04:58 - CONCLUSION: No acute intracranial disease. Paranasal sinus disease. Juan Miller MD Abdomen X-Ray 01/05/17 0000 Signed Impressions: Service Date/Time: Thursday, January 05, 2017 08:09 - CONCLUSION: Multiple displaced rib fractures on the left side. NG tube and surgical drain are in good position. Numerous air-filled loops of bowel throughout the abdomen. Ziggy Juarez MD Clavicle X-Ray 01/02/17 0000 Signed Impressions: Service Date/Time: December 08:16 - CONCLUSION: Nondisplaced fractures involving the distal clavicle with good alignment at the a.c. joint. Lars Granados MD Pelvis X-Ray 12/31/16 1224 Signed Impressions: Service Date/Time: Saturday, December 31, 2016 11:46 - CONCLUSION: No acute disease. Shan Sotomayor MD Chest CT 12/31/16 1224 Signed Impressions: Service Date/Time: Saturday, December 31, 2016 12:42 - CONCLUSION: 1. Flail left chest with a moderate to large left pneumothorax and presence of left chest tube. This does raise the possibility of a bronchial injury. 2. Comminuted left clavicle and left scapular fracture. 3. Right chest tube also present with tiny right pneumothorax. 4. Bilateral lung contusions. Small left hemothorax. No evidence for traumatic aortic injury. Endotracheal tube in satisfactory position. Kimo Ventura MD Cervical Spine CT 12/31/16 1224 Signed Impressions: Service Date/Time: Saturday, December 31, 2016 12:38 - CONCLUSION: 1. Extensive air within the soft tissues of the neck dissecting cephalad from the chest. Bilateral chest tubes with small apical pneumothoraces. Endotracheal tube present. 2. No acute fracture or subluxation in the cervical spine. Kimo Ventura MD Abdomen/Pelvis CT 12/31/16 1224 Signed Impressions: Service Date/Time: Jackie, December 31, 2016 12:42 - CONCLUSION: 1. Severely fractured spleen with numerous areas of active extravasation and moderate hemoperitoneum. 2. Laceration left lobe liver with some active extravasation as well. 3. Extensive air dissecting down the left abdominal wall and into the left scrotal region. 4. Flattened IVC with intense contrast in the kidneys and adrenals characteristic of hypovolemia. 5. Numerous lower left rib fractures left pneumothorax, left hemothorax and bilateral chest tubes and lung contusions. See chest CT report. Kimo Ventura MD Physical Exam CONSTITUTIONAL/GENERAL: Obese male, sedated on the vent. SKIN: No jaundice, rashes, or lesions. Warm EYES: Pupils equal and round and reactive. No scleral icterus. No injection or drainage ENT: Hearing not tested. Nose without bleeding or purulent drainage. Orally intubated CARDIOVASCULAR: Regular rate and rhythm without murmurs, gallops, or rubs. No JVD. Periphery well perfused with brisk refill RESPIRATORY/CHEST: Symmetric, unlabored respirations. Diffuse rhonchi to auscultation. Breath sounds diminished CT in place L with serosang drainage GASTROINTESTINAL: Abdomen soft , much less distended no reaction to palpation. Bowel sounds hypoactive. Midline laparotomy incision dry and clean, healing Liquid brown stool in dignishield GENITOURINARY: Michel catheter in place with clear yellow urine MUSCULOSKELETAL: Extremities without clubbing, cyanosis, 3+ edema, less tight , seems better. No mottling or clubbing. NEUROLOGICAL: Heavily sedated and unresponsive PSYCHIATRIC: unable to assess LINE: PICC RUE no evidence of infetion Assessment & Plan Remarks IMPRESSION Multi trauma LEFT clavicle fx (non op) LEFT scapula fx (non-op) Bronchial arboration LEFT serial rib fx LEFT flail chest LEFT PTX / FELIPE RIGHT PTX BILAT lung contusions Fractured spleen (Grade 4) w/ extravasation and hemoperitoneum LEFT lower lobe liver laceration Hepatic vein rupture Extensive air down the left abdominal wall Hemorrhagic shock Fluid overload PNA in the settings of bilateral pulmonary contusions Low grade fever Worsening resp status - Acute VDRF ? fluid overolad vs new pneumonia Leukocytosis - improving Diarrhea, C.diff negative PLAN Follow new C/S Continue Zosyn dc Zyvox chk procalcitonine Follow temps Monitor progress Lurdes Quarles MD Jan 20, 2017 19:08
[2017-01-20 21:03] LABS: MEAN CORPUSCULAR HGB CONC 37.2 % (32.0-36.0)
[2017-01-21] VITALS (18 sets, daily range): BP systolic 117–166; BP diastolic 64–92; PULSE 78–114; RESP 12–24; TEMP 99.5–102.4; O2SAT 92–100
[2017-01-21] MEDS: ENOXAPARIN SODIUM 30 MG/0.3 ML SYRINGE SQ SCH ×3 (00:04→23:03)
[2017-01-21] MEDS: PIPERACIL-TAZO 4.5 GM PREMIX 100 ML IV SCH ×5 (00:04→23:04)
[2017-01-21] MEDS: fentaNYL 2,500 MCG/NS 250 ML IV SCH (02:56)
[2017-01-21] MEDS: RESP: ALBUTEROL 2.5 MG/IPRATROPIUM 0.5 MG NEB (SCH) NEB ×4 (03:41→21:13)
[2017-01-21] MEDS: PROPOFOL 1000 MG/100 ML INJ 100 ML IV SCH ×7 (04:09→23:04)
[2017-01-21 04:43] LABS: AUTOMATED NEUTROPHIL # 8.4 TH/MM3 (1.8-7.7); BASOPHIL % 0.4 % (0.0-2.0); EOSINOPHIL # 1.1 TH/MM3 (0-0.4); EOSINOPHIL % 8.7 % (0.0-4.0); HEMATOCRIT 22.1 % (39.0-51.0); LYMPH % 6.6 % (9.0-44.0); LYMPHOCYTE # 0.8 TH/MM3 (1.0-4.8); MEAN CELL VOLUME 90.9 FL (80.0-100.0); MEAN CORPUSCULAR HEMOGLOBIN 33.8 PG (27.0-34.0); MONO % 17.9 % (0.0-8.0); NEUT % 66.4 % (16.0-70.0); PLATELET COUNT 610 TH/MM3 (150-450); RED BLOOD COUNT 2.43 MIL/MM3 (4.50-5.90); RED CELL DISTRIBUTION WIDTH 15.6 % (11.6-17.2); WHITE BLOOD COUNT 12.6 TH/MM3 (4.0-11.0)
[2017-01-21 04:44] LABS: HEMO FLAGS AUTO DIFF
[2017-01-21] MEDS: ACETAMINOPHEN 650 MG/20.3 ML UDC OG-TUBE PRN ×3 (04:53→23:12)
[2017-01-21 05:33] LABS: BLOOD GAS BASE EXCESS 4.4 mmol/L (-2-2); BLOOD GAS CARBOXYHEMOGLOBIN 1.2 % (0-4); BLOOD GAS HCO3 28 mmol/L (22-26); BLOOD GAS METHEMOGLOBIN 0.9 % (0-2); BLOOD GAS O2 HGB SATURATION 95 % (90-100); BLOOD GAS PCO2 43 mmHg (38-42); BLOOD GAS PO2 92 mmHg (61-120); BLOOD GAS TOTAL HGB 8.1 G/DL (12.0-16.0); CRITICAL VALUE NO; OXYGEN DEVICE VENTILATOR; TEMP CORR TO 98.6
[2017-01-21 05:35] LABS: DRAW SITE RP; FIO2 80 %; NUMBER OF ARTERIAL PUNCTURES 1; STAT NO; ULNAR PULSE PRESENT
[2017-01-21 05:51] LABS: BICARBONATE 28.2 MEQ/L (21.0-32.0); CALCIUM-PROTEIN CORRECTED 7.7 MG/DL (8.5-10.1); MAGNESIUM 2.3 MG/DL (1.5-2.5); POTASSIUM 3.5 MEQ/L (3.5-5.1); TOTAL BILIRUBIN ADULT 1.3 MG/DL (0.2-1.0)
[2017-01-21 06:21] LABS: BANDS 20 % (0-6); BASOPHILS 1 % (0-2); EOSINOPHILS 11 % (0-4); METAMYELOCYTES 1 % (0-1); MYELOCYTES 2 % (0-0); PLATELET ESTIMATE SMEAR HIGH (NORMAL); PLATELET MORPHOLOGY NORMAL (NORMAL); POLYS (SEG NEUTROPHILS) 56 % (16-70); SCAN/DIFF FINAL DIFF MANUAL; WBC DIFF SAMPLE 100
[2017-01-21] MEDS: SODIUM CHLORIDE 0.9% FLUSH 10 ML FLUSH IV FLUSH SCH ×3 (07:21→20:45)
[2017-01-21] MEDS: CHLORHEXIDINE 0.12% (ORAL KIT) 15 ML CUP MT SCH ×2 (08:27→20:45)
[2017-01-21] MEDS: ARTIFICIAL TEARS OPTH SOLN 15 ML BTL EACH EYE SCH ×3 (08:27→17:15)
[2017-01-21] MEDS: FUROSEMIDE 40 MG/4 ML VIAL IV PUSH SCH (08:28)
[2017-01-21] MEDS: SENNOSIDES SYRUP 8.8 MG/5 ML CUP NG SCH ×2 (08:28→20:45)
[2017-01-21] MEDS: hydrALAZINE HCL 20 MG/ML VIAL IV PUSH PRN (08:49)
[2017-01-21] MEDS: MIDAZOLAM 100 MG/ML INJ 100 ML IV SCH (08:49)
[2017-01-21] MEDS: REMOVE OLD LIDOCAINE PATCH T-DERMAL SCH (09:52)
--- NOTE | 2017-01-21 10:15 | HHI.PR ---
Neuropsych Emotional Emotional: UnabletoAssess: Emotional, Anxious/Fearful, Depressed/Sad, Hostile/ Resentful, Irritable/Angry/Frustrate, Labile, Constricted/Blunted Behavior Behavior: Unable to Asses: Behavior, Coping/Acceptance, Cooperative w/ Treatment, Motivation, Frustration Tolerance/[place], Impulsive/Agitated, Suicidal/ Homicidal Risk Cognitive Cognitive: Unable to Asses: Cognitive, Attention/Concentration, Confused/ Orientation, Insight/Awareness, Judgement/Problem-Solving, Memory Psychosocial Psychosocial: Intact: Psychosocial, Family/Other Adjustment, Realistic Expectation, Unable to Asses: Self-Esteem/Confidence Progress Notes/Response to Tx Contents of Sessions: Adjustment, Level of Consciousness Time with Patient: 15 minutes Premorbid psychological status Premorbid Cognitive, Emotional and Behavioral Status: Stable. The patient has high school and college and is retired. The patient has no prior psychiatric difficulties, as described above. Substance abuse history is unremarkable. Behavioral Reactions of Patient and Family/Support System: Stable. The patients family is experiencing ongoing issues of adjustment given the nature of the injury, and this aspect of recovery will require ongoing monitoring. Emotional/Behavioral Status of Patient and Family/Support System: Stable. Pertinent issues, if appropriate to this patients clinical care, are described in detail above. Maximizing acute care outcome It is recommended that the patient be monitored for emergent behavioral impulsivity as the medical condition evolves. This patients neuropathological challenges may limit their rehabilitation potential going forward, and these challenges will require specialized therapeutic skills to maximize outcome. Additionally, the patients family is experiencing ongoing issues of adjustment given the traumatic nature of the injury, and they may benefit from ongoing psychological assistance. Anticipated Problems Ongoing areas of concern will include behavioral impulsivity, lack of insight and judgment, which is expected to improve with time and treatment. Presently , the patient is not following commands. Treatment Plan This clinician will continue to follow with you throughout the course of this patients acute care treatment, and I will be available to meet with the patient s family/support system to facilitate their understanding and the ongoing care of their family member. The goals of neuropsychological intervention shall be both educational and supportive to the family/support system as is deemed clinically appropriate. [facility] Level: I:No response-total assistance Impression This gentleman suffered a traumatic brain injury secondary to anoxia from volume blood loss, and now has secondary complications due to ARDS. He is expected to have significant major neurocognitive disorder. Diagnosis: (1) Major neurocognitive disorder as late effect of traumatic brain injury without behavioral disturbance Status: Acute Progress Note Narrative Ongoing follow-up of patient seen during daily trauma rounds. This is day 21 post injury. The patient is still recovering from ARDS with PF% of 115. He has made no neurobehavioral improvements given sedation levels. He is at [facility]. I will continue to follow. Neal White PhD Jan 21, 2017 10:15 am
--- NOTE | 2017-01-21 14:21 | HHI.IDPN ---
Subjective Subjective Remarks pt is on vent, FiO2 60% fever, low grade + diarrhea Antibiotics Zosyn Zyvox Past Medical History Foot surgery Allergies: Coded Allergies: No Known Allergies (Unverified , 12/31/16) Objective . Vital Signs Date Time Temp Pulse Resp B/P Pulse Ox O2 Delivery O2 Flow Rate FiO2 01/21/17 12:00 88 01/21/17 12:00 70 01/21/17 12:00 100.1 88 12 140/78 100 01/21/17 11:47 100 60 01/21/17 10:00 94 01/21/17 08:00 99.5 101 24 163/92 100 01/21/17 08:00 101 01/21/17 08:00 75 01/21/17 08:00 100 75 01/21/17 06:00 101 01/21/17 04:06 100 80 01/21/17 04:00 102.3 102 12 166/92 100 01/21/17 04:00 102 01/21/17 04:00 80 01/21/17 02:00 102 01/21/17 01:11 100 80 01/21/17 00:00 82 01/21/17 00:00 99.7 82 12 126/81 100 01/21/17 00:00 80 01/20/17 22:00 72 01/20/17 21:46 100 80 01/20/17 20:00 80 01/20/17 20:00 98.7 69 12 118/70 98 01/20/17 20:00 69 01/20/17 18:00 71 01/20/17 16:00 79 01/20/17 16:00 99.7 82 12 122/66 97 01/20/17 16:00 80 01/20/17 15:46 96 80 01/20/17 14:00 83 01/20/17 01/20/17 01/21/17 14:59 22:59 06:59 Intake Total 1610 ml 1155 ml 1283 ml Output Total 1750 ml 975 ml 700 ml Balance -140 ml 180 ml 583 ml Intake IV Total 898 ml 594 ml 748 ml Tube Feeding 492 ml 501 ml 475 ml Albumin 100 ml Tube Irrigant 120 ml 60 ml 60 ml Output Urine Total 1300 ml 850 ml 600 ml Stool Total 450 ml 125 ml 100 ml . Laboratory Tests Test 01/20/17 01/21/17 04:20 04:20 White Blood Count 10.3 TH/MM3 12.6 TH/MM3 Red Blood Count 2.58 MIL/MM3 2.43 MIL/MM3 Hemoglobin 7.7 GM/DL 8.2 GM/DL Hematocrit 23.5 % 22.1 % Mean Corpuscular Volume 91.2 FL 90.9 FL Mean Corpuscular Hemoglobin 30.0 PG 33.8 PG Mean Corpuscular Hemoglobin 32.9 % 37.2 % Concent Red Cell Distribution Width 16.2 % 15.6 % Platelet Count 729 TH/MM3 610 TH/MM3 Mean Platelet Volume 7.5 FL 8.3 FL Neutrophils (%) (Auto) 65.7 % 66.4 % Lymphocytes (%) (Auto) 6.1 % 6.6 % Monocytes (%) (Auto) 19.5 % 17.9 % Eosinophils (%) (Auto) 8.0 % 8.7 % Basophils (%) (Auto) 0.7 % 0.4 % Neutrophils # (Auto) 6.8 TH/MM3 8.4 TH/MM3 Lymphocytes # (Auto) 0.6 TH/MM3 0.8 TH/MM3 Monocytes # (Auto) 2.0 TH/MM3 2.3 TH/MM3 Eosinophils # (Auto) 0.8 TH/MM3 1.1 TH/MM3 Basophils # (Auto) 0.1 TH/MM3 0.0 TH/MM3 CBC Comment AUTO DIFF AUTO DIFF Differential Total Cells 100 100 Counted Neutrophils % (Manual) 63 % 56 % Band Neutrophils % 6 % 20 % Lymphocytes % 4 % 7 % Monocytes % 17 % 2 % Eosinophils % 9 % 11 % Basophils % 1 % 1 % Neutrophils # (Manual) 7.1 TH/MM3 10.0 TH/MM3 Nucleated Red Blood Cells 1 /100 WBC Differential Comment FINAL DIFF FINAL DIFF MANUAL MANUAL Platelet Estimate HIGH HIGH Platelet Morphology Comment ENLARGED NORMAL Stomatocytes 1+ Metamyelocytes 1 % Myelocytes 2 % Laboratory Tests Test 01/19/17 01/20/17 01/20/17 01/21/17 18:30 04:20 15:00 04:20 Sodium Level 136 MEQ/L 138 MEQ/L 136 MEQ/L 136 MEQ/L Potassium Level 3.7 MEQ/L 3.6 MEQ/L 3.7 MEQ/L 3.5 MEQ/L Chloride Level 98 MEQ/L 101 MEQ/L 97 MEQ/L 98 MEQ/L Carbon Dioxide Level 26.3 MEQ/L 31.3 MEQ/L 29.4 MEQ/L 28.2 MEQ/L Anion Gap 12 MEQ/L 6 MEQ/L 10 MEQ/L 10 MEQ/L Blood Urea Nitrogen 20 MG/DL 25 MG/DL 26 MG/DL 29 MG/DL Creatinine 1.07 MG/DL 1.21 MG/DL 1.20 MG/DL 1.19 MG/DL Estimat Glomerular Filtration 69 ML/MIN 59 ML/MIN 60 ML/MIN 61 ML/MIN Rate Random Glucose 136 MG/DL 155 MG/DL 203 MG/DL 127 MG/DL Calcium Level 7.4 MG/DL 7.5 MG/DL 7.2 MG/DL 7.4 MG/DL Protein Corrected Calcium 7.7 MG/DL 7.5 MG/DL 7.7 MG/DL Total Protein 6.6 GM/DL 6.6 GM/DL 6.5 GM/DL 6.5 GM/DL Phosphorus Level 4.8 MG/DL Magnesium Level 2.4 MG/DL 2.3 MG/DL 2.3 MG/DL Total Bilirubin 0.9 MG/DL 1.3 MG/DL Aspartate Amino Transf 82 U/L 101 U/L (AST/SGOT) Alanine Aminotransferase 112 U/L 162 U/L (ALT/SGPT) Alkaline Phosphatase 253 U/L 263 U/L Albumin 2.7 GM/DL 2.7 GM/DL Procalcitonin 0.06 ng/mL Microbiology Date/Time Procedure Status Source Growth 01/18/17 15:48 Gram Stain - Final Complete Sputum Endotracheal 01/18/17 15:48 Sputum Culture - Final Complete Sputum Endotracheal HEAVY GROWTH NORMAL RESPIRATORY BELTRAN Imaging Last Impressions Chest X-Ray 01/20/17 0600 Signed Impressions: Service Date/Time: Friday, January 20, 2017 03:27 - CONCLUSION: 1. Multiple left rib fractures remain present. No pneumothorax is visualized. 2. Airspace consolidation in the lower lungs bilaterally small bilateral pleural effusions. Daljit Mills MD Chest Tube Insertion 01/08/17 1628 Signed Impressions: Service Date/Time: Sunday, January 08, 2017 16:58 - CONCLUSION: Uncomplicated chest tube placement as above. 1 L of hemorrhagic fluid was removed. Fly Longo MD Upper Extremity Ultrasound 01/08/17 0000 Signed Impressions: Service Date/Time: Sunday, January 08, 2017 08:10 - CONCLUSION: Occlusive thrombus within the left basilic vein. Nichol Wellington MD Lower Extremity Ultrasound 01/08/17 0000 Signed Impressions: Service Date/Time: Sunday, January 08, 2017 08:43 - CONCLUSION: Normal examination. Nichol Wellington MD CT Angiography 01/08/17 0000 Signed Impressions: Service Date/Time: Sunday, January 08, 2017 12:49 - CONCLUSION: 1. There is no evidence for PE for technique. 2. Worsening left pleural effusion and interval development of right pleural effusion and dense consolidation in both lung bases. 3. Resolution of the previously seen left pneumothorax and subcutaous emphysema. Nichol Wellington MD Head CT 01/05/17 0600 Signed Impressions: Service Date/Time: Thursday, January 05, 2017 04:58 - CONCLUSION: No acute intracranial disease. Paranasal sinus disease. Juan Miller MD Abdomen X-Ray 01/05/17 0000 Signed Impressions: Service Date/Time: Thursday, January 05, 2017 08:09 - CONCLUSION: Multiple displaced rib fractures on the left side. NG tube and surgical drain are in good position. Numerous air-filled loops of bowel throughout the abdomen. Ziggy Juarez MD Clavicle X-Ray 01/02/17 0000 Signed Impressions: Service Date/Time: December 08:16 - CONCLUSION: Nondisplaced fractures involving the distal clavicle with good alignment at the a.c. joint. Lars Granados MD Pelvis X-Ray 12/31/16 1224 Signed Impressions: Service Date/Time: Saturday, December 31, 2016 11:46 - CONCLUSION: No acute disease. Shan Sotomayor MD Chest CT 12/31/16 1224 Signed Impressions: Service Date/Time: Saturday, December 31, 2016 12:42 - CONCLUSION: 1. Flail left chest with a moderate to large left pneumothorax and presence of left chest tube. This does raise the possibility of a bronchial injury. 2. Comminuted left clavicle and left scapular fracture. 3. Right chest tube also present with tiny right pneumothorax. 4. Bilateral lung contusions. Small left hemothorax. No evidence for traumatic aortic injury. Endotracheal tube in satisfactory position. Kimo Ventura MD Cervical Spine CT 12/31/16 1224 Signed Impressions: Service Date/Time: Saturday, December 31, 2016 12:38 - CONCLUSION: 1. Extensive air within the soft tissues of the neck dissecting cephalad from the chest. Bilateral chest tubes with small apical pneumothoraces. Endotracheal tube present. 2. No acute fracture or subluxation in the cervical spine. Kimo Ventura MD Abdomen/Pelvis CT 12/31/16 1224 Signed Impressions: Service Date/Time: Saturday, December 31, 2016 12:42 - CONCLUSION: 1. Severely fractured spleen with numerous areas of active extravasation and moderate hemoperitoneum. 2. Laceration left lobe liver with some active extravasation as well. 3. Extensive air dissecting down the left abdominal wall and into the left scrotal region. 4. Flattened IVC with intense contrast in the kidneys and adrenals characteristic of hypovolemia. 5. Numerous lower left rib fractures left pneumothorax, left hemothorax and bilateral chest tubes and lung contusions. See chest CT report. Kimo Ventura MD Physical Exam CONSTITUTIONAL/GENERAL: Obese male, sedated on the vent. SKIN: No jaundice, rashes, or lesions. Warm EYES: Pupils equal and round and reactive. No scleral icterus. No injection or drainage ENT: Hearing not tested. Nose without bleeding or purulent drainage. Orally intubated CARDIOVASCULAR: Regular rate and rhythm without murmurs, gallops, or rubs. No JVD. Periphery well perfused with brisk refill RESPIRATORY/CHEST: Symmetric, unlabored respirations. Diffuse rhonchi to auscultation. Breath sounds diminished CT in place L with serosang drainage GASTROINTESTINAL: Abdomen tight ,quite distended no reaction to palpation. Bowel sounds hypoactive. Midline laparotomy incision dry and clean, healing Liquid brown stool in dignishield GENITOURINARY: Michel catheter in place with clear yellow urine MUSCULOSKELETAL: Extremities without clubbing, cyanosis, 3+ edema, less tight , seems better. No mottling or clubbing. NEUROLOGICAL: Heavily sedated and unresponsive PSYCHIATRIC: unable to assess LINE: PICC RUE no evidence of infetion Assessment & Plan Remarks IMPRESSION Multi trauma LEFT clavicle fx (non op) LEFT scapula fx (non-op) Bronchial arboration LEFT serial rib fx LEFT flail chest LEFT PTX / FELIPE RIGHT PTX BILAT lung contusions Fractured spleen (Grade 4) w/ extravasation and hemoperitoneum LEFT lower lobe liver laceration Hepatic vein rupture Extensive air down the left abdominal wall Hemorrhagic shock Fluid overload PNA in the settings of bilateral pulmonary contusions Low grade fever Worsening resp status - Acute VDRF ? fluid overolad vs new pneumonia Leukocytosis - improving Diarrhea, C.diff negative PLAN Follow new C/S Continue Zosyn for now Follow temps Monitor progress Lurdes Quarles MD Jan 21, 2017 14:21
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
[2017-01-21] MEDS ORDERED: BUMETANIDE INJ 1 MG/4 ML VIAL IV PUSH ONE (15:15)
[2017-01-21] MEDS: BUMETANIDE INJ 100 ML IV SCH (15:46)
[2017-01-21] MEDS ORDERED: FUROSEMIDE 40 MG/4 ML VIAL IV PUSH SCH (17:00)
[2017-01-21 18:16] LABS: POTASSIUM 3.5 MEQ/L (3.5-5.1)
[2017-01-21 19:34] LABS: CALCIUM-PROTEIN CORRECTED 7.4 MG/DL (8.5-10.1)
[2017-01-21] MEDS: POTASSIUM CHLORIDE 25 MEQ EFFERVESCENT TAB PO SCH (20:45)
[2017-01-21 21:03] LABS: MEAN CORPUSCULAR HGB CONC 37.1 % (32.0-36.0)
[2017-01-22] VITALS (19 sets, daily range): BP systolic 131–169; BP diastolic 71–95; PULSE 82–108; RESP 11–30; TEMP 98.9–101.9; O2SAT 94–100
[2017-01-22] MEDS: RESP: ALBUTEROL 2.5 MG/IPRATROPIUM 0.5 MG NEB (SCH) NEB ×4 (04:03→20:34)
[2017-01-22] MEDS: MIDAZOLAM HCL 5 MG/ML VIAL (1 ML) IV PRN (04:07)
[2017-01-22] MEDS: fentaNYL 2,500 MCG/NS 250 ML IV SCH ×2 (04:07→23:48)
[2017-01-22] MEDS: PROPOFOL 1000 MG/100 ML INJ 100 ML IV SCH ×6 (04:07→23:48)
[2017-01-22] MEDS: MIDAZOLAM 100 MG/ML INJ 100 ML IV SCH ×2 (04:07→14:47)
[2017-01-22 05:16] LABS: AUTOMATED NEUTROPHIL # 12.4 TH/MM3 (1.8-7.7); BASOPHIL # 0.1 TH/MM3 (0-0.2); BASOPHIL % 0.6 % (0.0-2.0); EOSINOPHIL # 0.7 TH/MM3 (0-0.4); HEMATOCRIT 22.3 % (39.0-51.0); MEAN CELL VOLUME 90.2 FL (80.0-100.0); MEAN CORPUSCULAR HEMOGLOBIN 33.4 PG (27.0-34.0); MONO % 14.9 % (0.0-8.0); NEUT % 74.5 % (16.0-70.0); PLATELET COUNT 539 TH/MM3 (150-450); RED BLOOD COUNT 2.47 MIL/MM3 (4.50-5.90); RED CELL DISTRIBUTION WIDTH 16.1 % (11.6-17.2); WHITE BLOOD COUNT 16.7 TH/MM3 (4.0-11.0)
[2017-01-22 05:19] LABS: BICARBONATE 27.3 MEQ/L (21.0-32.0); MAGNESIUM 2.4 MG/DL (1.5-2.5); POTASSIUM 3.5 MEQ/L (3.5-5.1)
[2017-01-22] MEDS: PIPERACIL-TAZO 4.5 GM PREMIX 100 ML IV SCH ×4 (05:26→23:48)
[2017-01-22] MEDS: LABETALOL HCL 100 MG/20 ML VIAL IV PUSH PRN ×2 (05:27→12:12)
[2017-01-22 05:32] LABS: HEMO FLAGS AUTO DIFF
[2017-01-22 05:47] LABS: BLOOD GAS BASE EXCESS 4.1 mmol/L (-2-2); BLOOD GAS CARBOXYHEMOGLOBIN 1.2 % (0-4); BLOOD GAS HCO3 28 mmol/L (22-26); BLOOD GAS METHEMOGLOBIN 0.7 % (0-2); BLOOD GAS O2 HGB SATURATION 94 % (90-100); BLOOD GAS OXYGEN CONTENT 11.9 Vol % (12.0-20.0); BLOOD GAS PCO2 40 mmHg (38-42); BLOOD GAS PO2 79 mmHg (61-120); BLOOD GAS TOTAL HGB 8.9 G/DL (12.0-16.0); CRITICAL VALUE NO; FIO2 100 %; OXYGEN DEVICE VENTILATOR; TEMP CORR TO 98.6; VENT SETTINGS ACPC/15/p24/1.3/+12
[2017-01-22 05:48] LABS: DRAW SITE RT RADIAL; NUMBER OF ARTERIAL PUNCTURES 2; STAT NO; ULNAR PULSE PRESENT
[2017-01-22 05:49] LABS: CALCIUM-PROTEIN CORRECTED 7.2 MG/DL (8.5-10.1)
[2017-01-22] MEDS: ACETAMINOPHEN 650 MG/20.3 ML UDC OG-TUBE PRN ×2 (06:19→11:50)
--- NOTE | 2017-01-22 06:21 | RADRPT ---
EXAM DATE/TIME: 01/22/2017 04:39 [facility] COMPARISON: CHEST SINGLE AP, January 20, 2017, 3:27. INDICATIONS : Shortness of breath. MEDICAL HISTORY : None. SURGICAL HISTORY : None. ENCOUNTER: Subsequent ACUITY: 1 week PAIN SCORE: Non-responsive. LOCATION: Bilateral chest FINDINGS: Portable AP view of the chest demonstrates a normal-sized cardiac silhouette. ETT, nasogastric tube, and right upper extremity PICC remain present. There is bilateral lower lung zone airspace consolidat ion along with pleural based opacities. Left rib fractures remain visualized. No pneumothorax is seen . CONCLUSION: Stable chest x-ray with bilateral lower lung zone airspace consolidation and small pleural effusions. Daljit Mills MD on January 22, 2017 at 6:19 Board Certified Radiologist. This report was verified electronically.
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
[2017-01-22] MEDS: SODIUM CHLORIDE 0.9% FLUSH 10 ML FLUSH IV FLUSH SCH ×3 (07:59→20:09)
[2017-01-22 08:13] LABS: BLOOD GAS BASE EXCESS 2.1 mmol/L (-2-2); BLOOD GAS CARBOXYHEMOGLOBIN 1.2 % (0-4); BLOOD GAS HCO3 27 mmol/L (22-26); BLOOD GAS METHEMOGLOBIN 0.8 % (0-2); BLOOD GAS O2 HGB SATURATION 96 % (90-100); BLOOD GAS OXYGEN CONTENT 10.6 Vol % (12.0-20.0); BLOOD GAS PCO2 44 mmHg (38-42); BLOOD GAS PO2 106 mmHg (61-120); BLOOD GAS TOTAL HGB 7.7 G/DL (12.0-16.0); CRITICAL VALUE NO; OXYGEN DEVICE VENTILATOR; TEMP CORR TO 98.6
[2017-01-22 08:14] LABS: DRAW SITE ART LINE; FIO2 100 %; NUMBER OF ARTERIAL PUNCTURES 0; STAT NO; ULNAR PULSE PRESENT; VENT SETTINGS APRV/BILEVEL
--- NOTE | 2017-01-22 08:16 | PD.PROCEDR ---
Procedure Note Procedure DX: Respiratory Failure, hypoxemic (J96.01) OP: Insertion Right Radial Arterial Line (75884) Procedure: Ryan test normal right hand. Right wrist supinated and prepped, draped. Right radial artery cannulated with 20 gauge needle and wire easily advanced. 20 Gauge cannula passed over wire to 10 cm. Good waveform observed, dressing applied. Finger tips pink after procedure. Calvin Dejesus MD Jan 22, 2017 08:16
[2017-01-22 08:26] LABS: BANDS 10 % (0-6); NEUTROPHIL # MANUAL DIFF 14.9 TH/MM3 (1.8-7.7); POLYS (SEG NEUTROPHILS) 79 % (16-70); WBC DIFF SAMPLE 100
[2017-01-22 08:27] LABS: SPHEROCYTES 1+ (NORMAL)
[2017-01-22 08:28] LABS: PLATELET ESTIMATE SMEAR HIGH (NORMAL); PLATELET MORPHOLOGY NORMAL (NORMAL); SCAN/DIFF FINAL DIFF MANUAL
[2017-01-22] MEDS: REMOVE OLD LIDOCAINE PATCH T-DERMAL SCH (08:45)
[2017-01-22] MEDS: ARTIFICIAL TEARS OPTH SOLN 15 ML BTL EACH EYE SCH ×3 (08:45→17:01)
[2017-01-22] MEDS: ALBUMIN HUMAN 25% 25 GM/100 ML BAGP IV SCH ×2 (08:45→17:01)
[2017-01-22] MEDS: SENNOSIDES SYRUP 8.8 MG/5 ML CUP NG SCH ×2 (08:45→20:09)
[2017-01-22] MEDS: CHLORHEXIDINE 0.12% (ORAL KIT) 15 ML CUP MT SCH ×2 (08:45→19:59)
[2017-01-22] MEDS: POTASSIUM CHLORIDE 25 MEQ EFFERVESCENT TAB PO SCH ×2 (08:45→20:08)
[2017-01-22] MEDS: ENOXAPARIN SODIUM 30 MG/0.3 ML SYRINGE SQ SCH ×2 (11:12→23:49)
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
[2017-01-22] MEDS: METOLAZONE 5 MG TAB PO SCH ×2 (11:43→20:09)
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
[2017-01-22] MEDS: hydrALAZINE HCL 20 MG/ML VIAL IV PUSH PRN (13:27)
[2017-01-22 16:03] LABS: BICARBONATE 28.4 MEQ/L (21.0-32.0); MAGNESIUM 2.5 MG/DL (1.5-2.5); POTASSIUM 4.1 MEQ/L (3.5-5.1)
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
[2017-01-22 16:15] LABS: BLOOD GAS BASE EXCESS 1.9 mmol/L (-2-2); BLOOD GAS HCO3 26 mmol/L (22-26); BLOOD GAS METHEMOGLOBIN 0.9 % (0-2); BLOOD GAS O2 HGB SATURATION 96 % (90-100); BLOOD GAS OXYGEN CONTENT 11.5 Vol % (12.0-20.0); BLOOD GAS PCO2 44 mmHg (38-42); BLOOD GAS PO2 107 mmHg (61-120); BLOOD GAS TOTAL HGB 8.3 G/DL (12.0-16.0); CRITICAL VALUE NO; TEMP CORR TO 98.6
[2017-01-22 16:16] LABS: OXYGEN DEVICE VENTILATOR
[2017-01-22 16:17] LABS: DRAW SITE ART LINE; FIO2 80 %; NUMBER OF ARTERIAL PUNCTURES 0; STAT NO; ULNAR PULSE PRESENT; VENT SETTINGS APRV
--- NOTE | 2017-01-22 17:28 | HHI.IDPN ---
Subjective Subjective Remarks pt is on vent, FiO2 80% fever, spiked to 102.5 in the last 24 hrs + diarrhea, stooling 500-670 cc WBC went up Antibiotics Zosyn Zyvox Past Medical History Foot surgery Allergies: Coded Allergies: No Known Allergies (Unverified , 12/31/16) Objective . Vital Signs Date Time Temp Pulse Resp B/P Pulse Ox O2 Delivery O2 Flow Rate FiO2 01/22/17 17:07 99 70 01/22/17 16:00 100.5 99 19 144/71 98 01/22/17 16:00 80 01/22/17 16:00 99 01/22/17 14:00 102 01/22/17 12:00 101 01/22/17 12:00 90 01/22/17 12:00 101.0 82 22 169/76 98 01/22/17 10:30 95 95 01/22/17 10:00 94 01/22/17 09:00 95 01/22/17 08:06 97 95 01/22/17 08:00 82 01/22/17 08:00 99.5 82 11 131/71 97 01/22/17 08:00 100 01/22/17 06:00 89 01/22/17 04:04 95 100 01/22/17 04:00 60 01/22/17 04:00 101.9 108 30 164/95 97 01/22/17 04:00 108 01/22/17 02:00 100 01/22/17 00:23 94 60 01/22/17 00:00 101.7 100 15 137/79 94 01/22/17 00:00 60 01/22/17 00:00 100 01/21/17 22:52 92 60 01/21/17 22:00 96 01/21/17 20:12 94 60 01/21/17 20:00 60 01/21/17 20:00 100 01/21/17 20:00 99.8 78 23 117/64 94 01/21/17 18:00 83 01/21/17 01/21/17 01/22/17 14:59 22:59 06:59 Intake Total 1200 ml 1233 ml 1119 ml Output Total 900 ml 1500 ml 2100 ml Balance 300 ml -267 ml -981 ml Intake IV Total 631 ml 656 ml 619 ml Tube Feeding 449 ml 477 ml 400 ml Tube Irrigant 120 ml 100 ml 100 ml Output Urine Total 700 ml 1300 ml 2000 ml Stool Total 200 ml 200 ml 100 ml . Laboratory Tests Test 01/21/17 01/22/17 04:20 04:12 White Blood Count 12.6 TH/MM3 16.7 TH/MM3 Red Blood Count 2.43 MIL/MM3 2.47 MIL/MM3 Hemoglobin 8.2 GM/DL 8.3 GM/DL Hematocrit 22.1 % 22.3 % Mean Corpuscular Volume 90.9 FL 90.2 FL Mean Corpuscular Hemoglobin 33.8 PG 33.4 PG Mean Corpuscular Hemoglobin 37.2 % 37.1 % Concent Red Cell Distribution Width 15.6 % 16.1 % Platelet Count 610 TH/MM3 539 TH/MM3 Mean Platelet Volume 8.3 FL 8.7 FL Neutrophils (%) (Auto) 66.4 % 74.5 % Lymphocytes (%) (Auto) 6.6 % 6.0 % Monocytes (%) (Auto) 17.9 % 14.9 % Eosinophils (%) (Auto) 8.7 % 4.0 % Basophils (%) (Auto) 0.4 % 0.6 % Neutrophils # (Auto) 8.4 TH/MM3 12.4 TH/MM3 Lymphocytes # (Auto) 0.8 TH/MM3 1.0 TH/MM3 Monocytes # (Auto) 2.3 TH/MM3 2.5 TH/MM3 Eosinophils # (Auto) 1.1 TH/MM3 0.7 TH/MM3 Basophils # (Auto) 0.0 TH/MM3 0.1 TH/MM3 CBC Comment AUTO DIFF AUTO DIFF Differential Total Cells 100 100 Counted Neutrophils % (Manual) 56 % 79 % Band Neutrophils % 20 % 10 % Lymphocytes % 7 % 7 % Monocytes % 2 % 4 % Eosinophils % 11 % Basophils % 1 % Neutrophils # (Manual) 10.0 TH/MM3 14.9 TH/MM3 Metamyelocytes 1 % Myelocytes 2 % Differential Comment FINAL DIFF FINAL DIFF MANUAL MANUAL Platelet Estimate HIGH HIGH Platelet Morphology Comment NORMAL NORMAL Spherocytes 1+ Laboratory Tests Test 01/21/17 01/21/17 01/22/17 01/22/17 04:20 16:15 04:12 15:00 Sodium Level 136 MEQ/L 135 MEQ/L 133 MEQ/L 138 MEQ/L Potassium Level 3.5 MEQ/L 3.5 MEQ/L 3.5 MEQ/L 4.1 MEQ/L Chloride Level 98 MEQ/L 98 MEQ/L 97 MEQ/L 99 MEQ/L Carbon Dioxide Level 28.2 MEQ/L 29.0 MEQ/L 27.3 MEQ/L 28.4 MEQ/L Anion Gap 10 MEQ/L 8 MEQ/L 9 MEQ/L 11 MEQ/L Blood Urea Nitrogen 29 MG/DL 34 MG/DL 38 MG/DL 42 MG/DL Creatinine 1.19 MG/DL 1.34 MG/DL 1.40 MG/DL 1.62 MG/DL Estimat Glomerular Filtration 61 ML/MIN 53 ML/MIN 50 ML/MIN 42 ML/MIN Rate Random Glucose 127 MG/DL 141 MG/DL 149 MG/DL 156 MG/DL Calcium Level 7.4 MG/DL 7.3 MG/DL 6.9 MG/DL 8.0 MG/DL Protein Corrected Calcium 7.7 MG/DL 7.4 MG/DL 7.2 MG/DL Magnesium Level 2.3 MG/DL 2.4 MG/DL 2.5 MG/DL Total Bilirubin 1.3 MG/DL 2.0 MG/DL Aspartate Amino Transf 101 U/L 90 U/L (AST/SGOT) Alanine Aminotransferase 162 U/L 176 U/L (ALT/SGPT) Alkaline Phosphatase 263 U/L 291 U/L Total Protein 6.5 GM/DL 6.9 GM/DL 6.5 GM/DL Albumin 2.7 GM/DL 2.4 GM/DL Procalcitonin 0.06 ng/mL Phosphorus Level 5.1 MG/DL Imaging Last Impressions Chest X-Ray 01/22/17 0600 Signed Impressions: Service Date/Time: Sunday, January 22, 2017 04:39 - CONCLUSION: Stable chest x-ray with bilateral lower lung zone airspace consolidation and small pleural effusions. Daljit Mills MD Chest Tube Insertion 01/08/17 1628 Signed Impressions: Service Date/Time: Sunday, January 08, 2017 16:58 - CONCLUSION: Uncomplicated chest tube placement as above. 1 L of hemorrhagic fluid was removed. Fly Longo MD Upper Extremity Ultrasound 01/08/17 0000 Signed Impressions: Service Date/Time: Sunday, January 08, 2017 08:10 - CONCLUSION: Occlusive thrombus within the left basilic vein. Nichol Wellington MD Lower Extremity Ultrasound 01/08/17 0000 Signed Impressions: Service Date/Time: Sunday, January 08, 2017 08:43 - CONCLUSION: Normal examination. Nichol Wellington MD CT Angiography 01/08/17 0000 Signed Impressions: Service Date/Time: Sunday, January 08, 2017 12:49 - CONCLUSION: 1. There is no evidence for PE for technique. 2. Worsening left pleural effusion and interval development of right pleural effusion and dense consolidation in both lung bases. 3. Resolution of the previously seen left pneumothorax and subcutaous emphysema. Nichol Wellington MD Head CT 01/05/17 0600 Signed Impressions: Service Date/Time: Thursday, January 05, 2017 04:58 - CONCLUSION: No acute intracranial disease. Paranasal sinus disease. Juan Miller MD Abdomen X-Ray 01/05/17 0000 Signed Impressions: Service Date/Time: Thursday, January 05, 2017 08:09 - CONCLUSION: Multiple displaced rib fractures on the left side. NG tube and surgical drain are in good position. Numerous air-filled loops of bowel throughout the abdomen. Ziggy Juarez MD Clavicle X-Ray 01/02/17 0000 Signed Impressions: Service Date/Time: December 08:16 - CONCLUSION: Nondisplaced fractures involving the distal clavicle with good alignment at the a.c. joint. Lars Granados MD Pelvis X-Ray 12/31/16 1224 Signed Impressions: Service Date/Time: Saturday, December 31, 2016 11:46 - CONCLUSION: No acute disease. Shan Sotomayor MD Chest CT 12/31/16 1224 Signed Impressions: Service Date/Time: Saturday, December 31, 2016 12:42 - CONCLUSION: 1. Flail left chest with a moderate to large left pneumothorax and presence of left chest tube. This does raise the possibility of a bronchial injury. 2. Comminuted left clavicle and left scapular fracture. 3. Right chest tube also present with tiny right pneumothorax. 4. Bilateral lung contusions. Small left hemothorax. No evidence for traumatic aortic injury. Endotracheal tube in satisfactory position. Kimo Ventura MD Cervical Spine CT 12/31/16 1224 Signed Impressions: Service Date/Time: Saturday, December 31, 2016 12:38 - CONCLUSION: 1. Extensive air within the soft tissues of the neck dissecting cephalad from the chest. Bilateral chest tubes with small apical pneumothoraces. Endotracheal tube present. 2. No acute fracture or subluxation in the cervical spine. Kimo Ventura MD Abdomen/Pelvis CT 12/31/16 1224 Signed Impressions: Service Date/Time: Saturday, December 31, 2016 12:42 - CONCLUSION: 1. Severely fractured spleen with numerous areas of active extravasation and moderate hemoperitoneum. 2. Laceration left lobe liver with some active extravasation as well. 3. Extensive air dissecting down the left abdominal wall and into the left scrotal region. 4. Flattened IVC with intense contrast in the kidneys and adrenals characteristic of hypovolemia. 5. Numerous lower left rib fractures left pneumothorax, left hemothorax and bilateral chest tubes and lung contusions. See chest CT report. Kimo Ventura MD Physical Exam CONSTITUTIONAL/GENERAL: Obese male, sedated on the vent. SKIN: No jaundice, rashes, or lesions. Warm EYES: Pupils equal and round and reactive. No scleral icterus. + b/l conjuncival hemarrages and hemoses ENT: Hearing not tested. Nose without bleeding or purulent drainage. Orally intubated CARDIOVASCULAR: Regular rate and rhythm without murmurs, gallops, or rubs. No JVD. Periphery well perfused with brisk refill RESPIRATORY/CHEST: Symmetric, unlabored respirations. Few rhonchi to auscultation. Breath sounds diminished CT in place L with serous drainage GASTROINTESTINAL: Abdomen tight ,quite distended no reaction to palpation. Bowel sounds hypoactive. Midline laparotomy incision dry and clean, healing Liquid brown stool in [place] GENITOURINARY: Michel catheter in place with clear yellow urine MUSCULOSKELETAL: Extremities without clubbing, cyanosis, 4+ edema, less tight , seems better. No mottling or clubbing. NEUROLOGICAL: Heavily sedated and unresponsive PSYCHIATRIC: unable to assess LINE: PICC RUE no evidence of infetion Assessment & Plan Remarks IMPRESSION Multi trauma LEFT clavicle fx (non op) LEFT scapula fx (non-op) Bronchial arboration LEFT serial rib fx LEFT flail chest LEFT PTX / FELIPE RIGHT PTX BILAT lung contusions Fractured spleen (Grade 4) w/ extravasation and hemoperitoneum LEFT lower lobe liver laceration Hepatic vein rupture Extensive air down the left abdominal wall Hemorrhagic shock Fluid overload PNA in the settings of bilateral pulmonary contusions Low grade fever Worsening resp status - Acute VDRF ? fluid overolad vs new pneumonia Diarrhea, C.diff negative Worsening fever, leukocytosis Persistent ly negative culture, - nl procalcitonine PLAN Follow new C/S Continue Zosyn add vanco add micafungin CT abd/pel when feasible chk blood clx, urine clx repeat C.diff Follow temps Monitor progress Lurdes Quarles MD Jan 22, 2017 17:28
[2017-01-22] MEDS ORDERED: Vancomycin Consult Pharmacy 1 EA OTHER SCH (17:30)
--- NOTE | 2017-01-22 18:05 | RADRPT ---
EXAM DATE/TIME: 01/22/2017 13:18 [facility] COMPARISON: No previous studies available for comparison. INDICATIONS : Increased BUN/creatinine. MEDICAL HISTORY : No significant medical history. SURGICAL HISTORY : Foot surgery. Knee repair. ENCOUNTER: Initial ACUITY: 1 day PAIN SCORE: Nonresponsive. LOCATION: Bilateral flank MEASUREMENTS: RIGHT KIDNEY: 11.3 x 6.0 x 5.3 cm LEFT KIDNEY: 13.0 x 5.6 x 7.1 cm FINDINGS: Exam is mildly limited. RIGHT KIDNEY: Renal cortex is normal in thickness and echotexture. No hydronephrosis, stone, or mass. LEFT KIDNEY: Renal cortex is normal in thickness and echotexture. No hydronephrosis, stone, or mass. BLADDER: Within normal limits given the degree of distension. Michel catheter present. CONCLUSION: Normal renal sonogram. Juan iMller MD on January 22, 2017 at 18:03 Board Certified Radiologist. This report was verified electronically.
[2017-01-22] MEDS ORDERED: DIATRIZOATE MEGLUM/DIATRIZOATE SOD 9 ML CUP PO ONE (19:30)
[2017-01-22] MEDS ORDERED: VANCOMYCIN INJ 2,000 MG in SODIUM CHLORID 0.9% 500 ML INJ 500 ML IV ONE (20:00)
[2017-01-22 20:02] LABS: C. DIFF EPI 027 PRESUMPTIVE NEGATIVE (NEGATIVE); C. DIFF TOXIN PCR NEGATIVE (NEGATIVE)
[2017-01-22 20:05] LABS: BACTERIA, URINE OCC /hpf; BLOOD, URINE NEG (NEG); GLUCOSE,URINE NEG (NEG); KETONE, URINE NEG (NEG); MUCUS URINE FEW /lpf (OCC); NITRITE,URINE NEG (NEG); URINE COLOR YELLOW (YELLW/STRAW)
[2017-01-22 20:06] LABS: COMMENT (UR) CATH-CULTURE IND; CULTURE IF INDICATED CATH CULTURE IND
[2017-01-22] MEDS: MICAFUNGIN INJ 150 MG in SODIUM CHLORIDE 0.9% INJ 100 ML IV SCH (20:53)
[2017-01-23] VITALS (19 sets, daily range): BP systolic 126–168; BP diastolic 62–82; PULSE 9–109; RESP 11–24; TEMP 99.1–101.3; O2SAT 95–98
[2017-01-23] MEDS: ALBUMIN HUMAN 25% 25 GM/100 ML BAGP IV SCH ×4 (01:31→23:57)
[2017-01-23] MEDS: BUMETANIDE INJ 100 ML IV SCH ×2 (01:39→14:49)
[2017-01-23] MEDS: MIDAZOLAM 100 MG/ML INJ 100 ML IV SCH ×2 (01:40→09:01)
[2017-01-23] MEDS: RESP: ALBUTEROL 2.5 MG/IPRATROPIUM 0.5 MG NEB (SCH) NEB ×2 (03:07→08:18)
[2017-01-23] MEDS: PROPOFOL 1000 MG/100 ML INJ 100 ML IV SCH ×8 (03:43→23:27)
[2017-01-23 04:13] LABS: BLOOD GAS BASE EXCESS 2.8 mmol/L (-2-2); BLOOD GAS CARBOXYHEMOGLOBIN 1.1 % (0-4); BLOOD GAS HCO3 27 mmol/L (22-26); BLOOD GAS O2 HGB SATURATION 97 % (90-100); BLOOD GAS OXYGEN CONTENT 11.2 Vol % (12.0-20.0); BLOOD GAS PCO2 46 mmHg (38-42); BLOOD GAS PO2 130 mmHg (61-120); TEMP CORR TO 98.6
[2017-01-23 04:14] LABS: CRITICAL VALUE NO; OXYGEN DEVICE VENTILATOR
[2017-01-23 04:15] LABS: DRAW SITE ART LINE; FIO2 60 %; STAT NO; ULNAR PULSE PRESENT
[2017-01-23] MEDS: LABETALOL HCL 100 MG/20 ML VIAL IV PUSH PRN (04:24)
[2017-01-23] MEDS: PIPERACIL-TAZO 4.5 GM PREMIX 100 ML IV SCH ×4 (05:15→23:57)
[2017-01-23 05:51] LABS: BASOPHIL # 0.1 TH/MM3 (0-0.2); BASOPHIL % 0.6 % (0.0-2.0); EOSINOPHIL # 0.6 TH/MM3 (0-0.4); EOSINOPHIL % 3.4 % (0.0-4.0); HEMATOCRIT 23.4 % (39.0-51.0); LYMPH % 3.7 % (9.0-44.0); LYMPHOCYTE # 0.7 TH/MM3 (1.0-4.8); MEAN CELL VOLUME 90.9 FL (80.0-100.0); MEAN CORPUSCULAR HEMOGLOBIN 30.1 PG (27.0-34.0); MEAN CORPUSCULAR HGB CONC 33.1 % (32.0-36.0); MONO % 16.7 % (0.0-8.0); NEUT % 75.6 % (16.0-70.0); PLATELET COUNT 513 TH/MM3 (150-450); RED BLOOD COUNT 2.57 MIL/MM3 (4.50-5.90); RED CELL DISTRIBUTION WIDTH 16.3 % (11.6-17.2); WHITE BLOOD COUNT 18.6 TH/MM3 (4.0-11.0)
[2017-01-23 06:09] LABS: ANION GAP 12 MEQ/L (5-15); AST (GOT) 76 U/L (15-37); BICARBONATE 28.2 MEQ/L (21.0-32.0); BLOOD UREA NITROGEN 52 MG/DL (7-18); CHLORIDE 97 MEQ/L (98-107); GLOMERULAR FILTRATION RATE 37 ML/MIN (>89); MAGNESIUM 2.7 MG/DL (1.5-2.5); POTASSIUM 3.8 MEQ/L (3.5-5.1); SODIUM (NA) 137 MEQ/L (136-145)
[2017-01-23 06:17] LABS: ALKALINE PHOSPHATASE 295 U/L (45-117); ALT (GPT) 147 U/L (12-78); TOTAL BILIRUBIN ADULT 2.2 MG/DL (0.2-1.0)
--- NOTE | 2017-01-23 06:23 | RADRPT ---
EXAM DATE/TIME: 01/23/2017 05:00 [facility] COMPARISON: CHEST SINGLE AP, January 22, 2017, 4:39. INDICATIONS : Respiratory distress. MEDICAL HISTORY : None. SURGICAL HISTORY : None. ENCOUNTER: Subsequent ACUITY: 3 weeks PAIN SCORE: Non-responsive. LOCATION: Bilateral chest FINDINGS: Portable AP view of the chest demonstrates a normal-sized cardiac silhouette. ETT, NG tube, and right upper extremity PICC remain present. Lungs are underinflated and there are stable bibasilar pleural- parenchymal opacities. No pneumothorax is visualized. There are multiple left rib fractures. CONCLUSION: Stable chest x-ray with bibasilar pleural-parenchymal opacities. Daljit Mills MD on January 23, 2017 at 6:21 Board Certified Radiologist. This report was verified electronically.
[2017-01-23 07:01] LABS: HEMO FLAGS AUTO DIFF
[2017-01-23] MEDS: CHLORHEXIDINE 0.12% (ORAL KIT) 15 ML CUP MT SCH ×2 (08:00→20:23)
[2017-01-23] MEDS ORDERED: PHARMACY ORDERED LAB ONE (08:00)
[2017-01-23 08:03] LABS: BANDS 12 % (0-6); BASOPHILS 1 % (0-2); EOSINOPHILS 6 % (0-4); NEUTROPHIL # MANUAL DIFF 14.3 TH/MM3 (1.8-7.7); POLYS (SEG NEUTROPHILS) 65 % (16-70); WBC DIFF SAMPLE 100
[2017-01-23 08:05] LABS: PLATELET ESTIMATE SMEAR HIGH (NORMAL); PLATELET MORPHOLOGY NORMAL (NORMAL); SCAN/DIFF FINAL DIFF MANUAL; TARGET CELLS 1+ (NORMAL)
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
[2017-01-23] MEDS: SODIUM CHLORIDE 0.9% FLUSH 10 ML FLUSH IV FLUSH SCH ×3 (09:00→20:23)
[2017-01-23] MEDS: METOLAZONE 5 MG TAB PO SCH ×2 (09:00→20:24)
[2017-01-23] MEDS: POTASSIUM CHLORIDE 25 MEQ EFFERVESCENT TAB PO SCH ×2 (09:01→20:23)
[2017-01-23] MEDS: ARTIFICIAL TEARS OPTH SOLN 15 ML BTL EACH EYE SCH ×3 (09:02→17:03)
[2017-01-23] MEDS: fentaNYL 2,500 MCG/NS 250 ML IV SCH ×2 (09:02→19:49)
[2017-01-23] MEDS: SENNOSIDES SYRUP 8.8 MG/5 ML CUP NG SCH ×2 (09:03→20:23)
[2017-01-23] MEDS: REMOVE OLD LIDOCAINE PATCH T-DERMAL SCH (10:39)
[2017-01-23] MEDS: ENOXAPARIN SODIUM 30 MG/0.3 ML SYRINGE SQ SCH ×2 (11:56→23:57)
[2017-01-23] MEDS: hydrALAZINE HCL 20 MG/ML VIAL IV PUSH PRN (13:38)
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
[2017-01-23] MEDS: ACETAMINOPHEN 650 MG/20.3 ML UDC OG-TUBE PRN (16:22)
--- NOTE | 2017-01-23 16:57 | HHI.IDPN ---
Subjective Subjective Remarks pt is on vent, FiO2 dowun to 45 % cont ot have fever, up to 101.3 + diarrhea, stooling 500-670 cc WBC went up even higher Antibiotics Saida hair Past Medical History Foot surgery Allergies: Coded Allergies: No Known Allergies (Unverified , 12/31/16) Objective . Vital Signs Date Time Temp Pulse Resp B/P Pulse Ox O2 Delivery O2 Flow Rate FiO2 01/23/17 16:00 99 01/23/17 16:00 45 01/23/17 16:00 101.3 99 14 153/71 01/23/17 14:00 99.7 109 22 164/77 01/23/17 14:00 109 01/23/17 12:00 86 01/23/17 12:00 45 01/23/17 12:00 100.8 98 24 158/71 98 01/23/17 10:54 95 45 01/23/17 10:00 95 01/23/17 08:13 97 50 01/23/17 08:00 99.1 97 21 141/67 98 01/23/17 08:00 86 01/23/17 08:00 60 01/23/17 06:00 92 01/23/17 04:25 98 60 01/23/17 04:00 99.7 97 21 168/82 98 01/23/17 04:00 60 01/23/17 04:00 91 01/23/17 02:00 91 01/23/17 00:28 98 60 01/23/17 00:00 100.4 9 13 158/74 98 01/23/17 00:00 60 01/23/17 00:00 99 01/22/17 22:00 106 01/22/17 20:48 100 40 01/22/17 20:40 98 60 01/22/17 20:00 98.9 93 21 157/77 97 01/22/17 20:00 98 01/22/17 20:00 60 01/22/17 18:00 90 01/22/17 17:07 99 70 01/22/17 01/22/17 01/23/17 14:59 22:59 06:59 Intake Total 1582 ml 1433 ml 1750 ml Output Total 2350 ml 2000 ml 3300 ml Balance -768 ml -567 ml -1550 ml Intake IV Total 868 ml 904 ml 1245 ml Tube Feeding 494 ml 469 ml 505 ml Albumin 100 ml Tube Irrigant 120 ml Other 60 ml Output Urine Total 2150 ml 2000 ml 3000 ml Stool Total 200 ml 300 ml . Laboratory Tests Test 01/22/17 01/23/17 04:12 05:25 White Blood Count 16.7 TH/MM3 18.6 TH/MM3 Red Blood Count 2.47 MIL/MM3 2.57 MIL/MM3 Hemoglobin 8.3 GM/DL 7.7 GM/DL Hematocrit 22.3 % 23.4 % Mean Corpuscular Volume 90.2 FL 90.9 FL Mean Corpuscular Hemoglobin 33.4 PG 30.1 PG Mean Corpuscular Hemoglobin 37.1 % 33.1 % Concent Red Cell Distribution Width 16.1 % 16.3 % Platelet Count 539 TH/MM3 513 TH/MM3 Mean Platelet Volume 8.7 FL 7.8 FL Neutrophils (%) (Auto) 74.5 % 75.6 % Lymphocytes (%) (Auto) 6.0 % 3.7 % Monocytes (%) (Auto) 14.9 % 16.7 % Eosinophils (%) (Auto) 4.0 % 3.4 % Basophils (%) (Auto) 0.6 % 0.6 % Neutrophils # (Auto) 12.4 TH/MM3 14.0 TH/MM3 Lymphocytes # (Auto) 1.0 TH/MM3 0.7 TH/MM3 Monocytes # (Auto) 2.5 TH/MM3 3.1 TH/MM3 Eosinophils # (Auto) 0.7 TH/MM3 0.6 TH/MM3 Basophils # (Auto) 0.1 TH/MM3 0.1 TH/MM3 CBC Comment AUTO DIFF AUTO DIFF Differential Total Cells 100 100 Counted Neutrophils % (Manual) 79 % 65 % Band Neutrophils % 10 % 12 % Lymphocytes % 7 % 5 % Monocytes % 4 % 11 % Neutrophils # (Manual) 14.9 TH/MM3 14.3 TH/MM3 Differential Comment FINAL DIFF FINAL DIFF MANUAL MANUAL Platelet Estimate HIGH HIGH Platelet Morphology Comment NORMAL NORMAL Spherocytes 1+ Eosinophils % 6 % Basophils % 1 % Target Cells 1+ Laboratory Tests Test 01/22/17 01/22/17 01/23/17 04:12 15:00 05:25 Sodium Level 133 MEQ/L 138 MEQ/L 137 MEQ/L Potassium Level 3.5 MEQ/L 4.1 MEQ/L 3.8 MEQ/L Chloride Level 97 MEQ/L 99 MEQ/L 97 MEQ/L Carbon Dioxide Level 27.3 MEQ/L 28.4 MEQ/L 28.2 MEQ/L Anion Gap 9 MEQ/L 11 MEQ/L 12 MEQ/L Blood Urea Nitrogen 38 MG/DL 42 MG/DL 52 MG/DL Creatinine 1.40 MG/DL 1.62 MG/DL 1.82 MG/DL Estimat Glomerular Filtration 50 ML/MIN 42 ML/MIN 37 ML/MIN Rate Random Glucose 149 MG/DL 156 MG/DL 167 MG/DL Calcium Level 6.9 MG/DL 8.0 MG/DL 8.2 MG/DL Protein Corrected Calcium 7.2 MG/DL Magnesium Level 2.4 MG/DL 2.5 MG/DL 2.7 MG/DL Total Bilirubin 2.0 MG/DL 2.2 MG/DL Aspartate Amino Transf 90 U/L 76 U/L (AST/SGOT) Alanine Aminotransferase 176 U/L 147 U/L (ALT/SGPT) Alkaline Phosphatase 291 U/L 295 U/L Total Protein 6.5 GM/DL 7.4 GM/DL Albumin 2.4 GM/DL 3.1 GM/DL Phosphorus Level 5.1 MG/DL 6.2 MG/DL Microbiology Date/Time Procedure Status Source Growth 01/22/17 18:45 Aerobic Blood Culture - Preliminary Resulted Blood Peripheral NO GROWTH IN 1 DAY 01/22/17 18:45 Anaerobic Blood Culture - Preliminary Resulted Blood Peripheral NO GROWTH IN 1 DAY 01/22/17 18:48 Urine Culture - Preliminary Resulted Urine Catheterized Urine NO GROWTH IN 24 HOURS. 01/22/17 18:50 Aerobic Blood Culture - Preliminary Resulted Blood Peripheral NO GROWTH IN 1 DAY 01/22/17 18:50 Anaerobic Blood Culture - Preliminary Resulted Blood Peripheral NO GROWTH IN 1 DAY Imaging Last Impressions Chest X-Ray 01/23/17 0600 Signed Impressions: Service Date/Time: December 05:00 - CONCLUSION: Stable chest x-ray with bibasilar pleural-parenchymal opacities. Daljit Mills MD Renal Ultrasound 01/22/17 0000 Signed Impressions: Service Date/Time: Sunday, January 22, 2017 13:18 - CONCLUSION: Normal renal sonogram. Juan Miller MD Chest Tube Insertion 01/08/17 1628 Signed Impressions: Service Date/Time: Sunday, January 08, 2017 16:58 - CONCLUSION: Uncomplicated chest tube placement as above. 1 L of hemorrhagic fluid was removed. Fly Longo MD Upper Extremity Ultrasound 01/08/17 0000 Signed Impressions: Service Date/Time: Sunday, January 08, 2017 08:10 - CONCLUSION: Occlusive thrombus within the left basilic vein. Nichol Wellington MD Lower Extremity Ultrasound 01/08/17 0000 Signed Impressions: Service Date/Time: Sunday, January 08, 2017 08:43 - CONCLUSION: Normal examination. Nichol Wellington MD CT Angiography 01/08/17 0000 Signed Impressions: Service Date/Time: Sunday, January 08, 2017 12:49 - CONCLUSION: 1. There is no evidence for PE for technique. 2. Worsening left pleural effusion and interval development of right pleural effusion and dense consolidation in both lung bases. 3. Resolution of the previously seen left pneumothorax and subcutaous emphysema. Nichol Wellington MD Head CT 01/05/17 0600 Signed Impressions: Service Date/Time: Thursday, January 05, 2017 04:58 - CONCLUSION: No acute intracranial disease. Paranasal sinus disease. Juan Miller MD Abdomen X-Ray 01/05/17 0000 Signed Impressions: Service Date/Time: Thursday, January 05, 2017 08:09 - CONCLUSION: Multiple displaced rib fractures on the left side. NG tube and surgical drain are in good position. Numerous air-filled loops of bowel throughout the abdomen. Ziggy Juarez MD Clavicle X-Ray 01/02/17 0000 Signed Impressions: Service Date/Time: December 08:16 - CONCLUSION: Nondisplaced fractures involving the distal clavicle with good alignment at the a.c. joint. Lars Granados MD Pelvis X-Ray 12/31/16 1224 Signed Impressions: Service Date/Time: Saturday, December 31, 2016 11:46 - CONCLUSION: No acute disease. Shan Sotomayor MD Chest CT 12/31/16 1224 Signed Impressions: Service Date/Time: Saturday, December 31, 2016 12:42 - CONCLUSION: 1. Flail left chest with a moderate to large left pneumothorax and presence of left chest tube. This does raise the possibility of a bronchial injury. 2. Comminuted left clavicle and left scapular fracture. 3. Right chest tube also present with tiny right pneumothorax. 4. Bilateral lung contusions. Small left hemothorax. No evidence for traumatic aortic injury. Endotracheal tube in satisfactory position. Kimo Ventura MD Cervical Spine CT 12/31/16 1224 Signed Impressions: Service Date/Time: Saturday, December 31, 2016 12:38 - CONCLUSION: 1. Extensive air within the soft tissues of the neck dissecting cephalad from the chest. Bilateral chest tubes with small apical pneumothoraces. Endotracheal tube present. 2. No acute fracture or subluxation in the cervical spine. Kimo Ventura MD Abdomen/Pelvis CT 12/31/16 1224 Signed Impressions: Service Date/Time: Saturday, December 31, 2016 12:42 - CONCLUSION: 1. Severely fractured spleen with numerous areas of active extravasation and moderate hemoperitoneum. 2. Laceration left lobe liver with some active extravasation as well. 3. Extensive air dissecting down the left abdominal wall and into the left scrotal region. 4. Flattened IVC with intense contrast in the kidneys and adrenals characteristic of hypovolemia. 5. Numerous lower left rib fractures left pneumothorax, left hemothorax and bilateral chest tubes and lung contusions. See chest CT report. Kimo Ventura MD Physical Exam CONSTITUTIONAL/GENERAL: Obese male, sedated on the vent. SKIN: No jaundice, rashes, or lesions. Warm EYES: Pupils equal and round and reactive. No scleral icterus. + b/l conjuncival hemarrages and hemoses ENT: Hearing not tested. Nose without bleeding or purulent drainage. Orally intubated CARDIOVASCULAR: Regular rate and rhythm without murmurs, gallops, or rubs. No JVD. Periphery well perfused with brisk refill RESPIRATORY/CHEST: Symmetric, unlabored respirations. Few rhonchi to auscultation. Breath sounds diminished CT in place L with serous drainage GASTROINTESTINAL: Abdomen tight ,quite distended no reaction to palpation. Midline laparotomy incision dry and clean, healing Liquid brown stool in [place] GENITOURINARY: Michel catheter in place with clear yellow urine MUSCULOSKELETAL: Extremities without clubbing, cyanosis, 4+ edema, less tight , seems better. No mottling or clubbing. NEUROLOGICAL: Heavily sedated and unresponsive PSYCHIATRIC: unable to assess LINE: PICC RUE no evidence of infetion Assessment & Plan Remarks IMPRESSION Multi trauma LEFT clavicle fx (non op) LEFT scapula fx (non-op) Bronchial arboration LEFT serial rib fx LEFT flail chest LEFT PTX / FELIPE RIGHT PTX BILAT lung contusions Fractured spleen (Grade 4) w/ extravasation and hemoperitoneum LEFT lower lobe liver laceration Hepatic vein rupture Extensive air down the left abdominal wall Hemorrhagic shock Fluid overload PNA in the settings of bilateral pulmonary contusions Low grade fever Worsening resp status - Acute VDRF ? fluid overolad vs new pneumonia Diarrhea, C.diff negative Persistent fever, worsening leukocytosis ? source ? intraabdominal abscess Persistent ly negative culture, - nl procalcitonine PLAN Follow new C/S Continue Zosyn cont vanco cont micafungin CT abd/pel fu blood clx, urine clx Follow temps Monitor progress Lurdes Quarles MD Jan 23, 2017 16:57
[2017-01-23 17:20] LABS: BLOOD GAS BASE EXCESS 1.4 mmol/L (-2-2); BLOOD GAS CARBOXYHEMOGLOBIN 1.3 % (0-4); BLOOD GAS HCO3 26 mmol/L (22-26); BLOOD GAS O2 HGB SATURATION 95 % (90-100); BLOOD GAS OXYGEN CONTENT 10.6 Vol % (12.0-20.0); BLOOD GAS PCO2 44 mmHg (38-42); BLOOD GAS PO2 91 mmHg (61-120); BLOOD GAS TOTAL HGB 7.8 G/DL (12.0-16.0); CRITICAL VALUE NO; OXYGEN DEVICE VENTILATOR; TEMP CORR TO 98.6
[2017-01-23 17:21] LABS: DRAW SITE ART LINE; FIO2 45 %; NUMBER OF ARTERIAL PUNCTURES 0; STAT NO; ULNAR PULSE PRESENT; VENT SETTINGS BILEVEL
[2017-01-23 17:34] LABS: BICARBONATE 29.5 MEQ/L (21.0-32.0); MAGNESIUM 2.7 MG/DL (1.5-2.5); POTASSIUM 3.7 MEQ/L (3.5-5.1)
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
--- NOTE | 2017-01-23 19:03 | HHI.PR ---
Addendum to Inpatient Note Additional Information dw Dr Gould pt is curretnly too unstable to go to CT while on biphasic vent'n - will wait resp improvement and if cont to have leukocytosis/ fever will re- Lurdes Bonilla MD Jan 23, 2017 19:03
[2017-01-23] MEDS: MICAFUNGIN INJ 150 MG in SODIUM CHLORIDE 0.9% INJ 100 ML IV SCH (20:23)
[2017-01-24] VITALS (19 sets, daily range): BP systolic 126–154; BP diastolic 62–82; PULSE 72–96; RESP 11–25; TEMP 98.7–99.7; O2SAT 93–99
[2017-01-24] MEDS: MIDAZOLAM 100 MG/ML INJ 100 ML IV SCH ×3 (02:20→20:15)
[2017-01-24] MEDS: fentaNYL 2,500 MCG/NS 250 ML IV SCH ×3 (04:18→20:15)
[2017-01-24] MEDS: PROPOFOL 1000 MG/100 ML INJ 100 ML IV SCH ×8 (04:18→22:15)
[2017-01-24 04:31] LABS: BLOOD GAS BASE EXCESS 1.6 mmol/L (-2-2); BLOOD GAS CARBOXYHEMOGLOBIN 1.5 % (0-4); BLOOD GAS HCO3 26 mmol/L (22-26); BLOOD GAS METHEMOGLOBIN 1.1 % (0-2); BLOOD GAS O2 HGB SATURATION 94 % (90-100); BLOOD GAS OXYGEN CONTENT 10.1 Vol % (12.0-20.0); BLOOD GAS PCO2 43 mmHg (38-42); BLOOD GAS PO2 85 mmHg (61-120); BLOOD GAS TOTAL HGB 7.5 G/DL (12.0-16.0); TEMP CORR TO 98.6
[2017-01-24 04:32] LABS: CRITICAL VALUE NO; OXYGEN DEVICE VENTILATOR
[2017-01-24 04:33] LABS: DRAW SITE ART LINE; FIO2 40 %; STAT NO
[2017-01-24 04:49] LABS: AUTOMATED NEUTROPHIL # 10.6 TH/MM3 (1.8-7.7); BASOPHIL # 0.1 TH/MM3 (0-0.2); BASOPHIL % 0.6 % (0.0-2.0); EOSINOPHIL # 1.4 TH/MM3 (0-0.4); EOSINOPHIL % 8.7 % (0.0-4.0); LYMPHOCYTE # 1.1 TH/MM3 (1.0-4.8); MEAN CELL VOLUME 89.7 FL (80.0-100.0); MEAN CORPUSCULAR HEMOGLOBIN 31.1 PG (27.0-34.0); MEAN CORPUSCULAR HGB CONC 34.6 % (32.0-36.0); NEUT % 68.7 % (16.0-70.0); PLATELET COUNT 404 TH/MM3 (150-450); RED BLOOD COUNT 2.18 MIL/MM3 (4.50-5.90); RED CELL DISTRIBUTION WIDTH 16.3 % (11.6-17.2); WHITE BLOOD COUNT 15.5 TH/MM3 (4.0-11.0)
[2017-01-24 04:56] LABS: HEMO FLAGS AUTO DIFF
[2017-01-24 04:58] LABS: HEMATOCRIT 19.5 % (39.0-51.0)
[2017-01-24 05:10] LABS: ANION GAP 14 MEQ/L (5-15); AST (GOT) 73 U/L (15-37); BICARBONATE 26.3 MEQ/L (21.0-32.0); BLOOD UREA NITROGEN 67 MG/DL (7-18); CHLORIDE 96 MEQ/L (98-107); GLOMERULAR FILTRATION RATE 27 ML/MIN (>89); MAGNESIUM 2.9 MG/DL (1.5-2.5); POTASSIUM 3.7 MEQ/L (3.5-5.1); SODIUM (NA) 136 MEQ/L (136-145)
[2017-01-24 05:12] LABS: ALT (GPT) 132 U/L (12-78)
[2017-01-24 05:14] LABS: ALKALINE PHOSPHATASE 281 U/L (45-117); TOTAL BILIRUBIN ADULT 2.6 MG/DL (0.2-1.0)
[2017-01-24 05:31] LABS: BANDS 4 % (0-6); CORRECTED NUCLEATED RBC 2 /100 WBC (0-0); EOSINOPHILS 11 % (0-4); METAMYELOCYTES 1 % (0-1); NEUTROPHIL # MANUAL DIFF 11.5 TH/MM3 (1.8-7.7); POLYS (SEG NEUTROPHILS) 68 % (16-70); PROMYELOCYTES 1 % (0-0); WBC DIFF SAMPLE 100
[2017-01-24 05:32] LABS: PLATELET ESTIMATE SMEAR HIGH (NORMAL); PLATELET MORPHOLOGY NORMAL (NORMAL); SCAN/DIFF FINAL DIFF MANUAL; STOMATOCYTES 1+ (NORMAL)
--- NOTE | 2017-01-24 05:37 | RADRPT ---
EXAM DATE/TIME: 01/24/2017 04:15 [facility] COMPARISON: CHEST SINGLE AP, January 23, 2017, 5:00. INDICATIONS : Shortness of breath MEDICAL HISTORY : [facility], Rib fractures. SURGICAL HISTORY : None. ENCOUNTER: Subsequent ACUITY: 3 weeks PAIN SCORE: Non-responsive. LOCATION: Bilateral chest FINDINGS: Single AP view of the chest. Endotracheal tube, nasogastric tube, and right-sided PICC line remain in place. Bilateral pulmonary parenchymal opacity unchanged. No evidence of pleural effusion or pneumot horax. CONCLUSION: No significant interval change. Randall Rm MD on January 24, 2017 at 5:35 Board Certified Radiologist. This report was verified electronically.
[2017-01-24] MEDS: PIPERACIL-TAZO 4.5 GM PREMIX 100 ML IV SCH ×3 (06:08→17:03)
[2017-01-24] MEDS: BUMETANIDE INJ 100 ML IV SCH ×2 (06:09→22:12)
[2017-01-24] MEDS: LABETALOL HCL 100 MG/20 ML VIAL IV PUSH PRN (06:30)
[2017-01-24] MEDS: CHLORHEXIDINE 0.12% (ORAL KIT) 15 ML CUP MT SCH ×2 (08:00→20:14)
[2017-01-24] MEDS: RESP: ALBUTEROL 2.5 MG/3 ML NEB (PRN) NEB (08:01)
[2017-01-24] MEDS: SENNOSIDES SYRUP 8.8 MG/5 ML CUP NG SCH ×2 (08:27→20:15)
[2017-01-24] MEDS: SODIUM CHLORIDE 0.9% FLUSH 10 ML FLUSH IV FLUSH SCH ×3 (08:28→20:14)
[2017-01-24] MEDS: METOLAZONE 5 MG TAB PO SCH ×2 (08:28→20:15)
[2017-01-24] MEDS: ARTIFICIAL TEARS OPTH SOLN 15 ML BTL EACH EYE SCH ×3 (08:29→17:02)
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
[2017-01-24] MEDS: POTASSIUM CHLORIDE 25 MEQ EFFERVESCENT TAB PO SCH ×2 (09:20→20:15)
[2017-01-24] MEDS ORDERED: ROCURONIUM INJ 50 MG/5 ML VIAL IV ONE (09:30)
[2017-01-24] MEDS: REMOVE OLD LIDOCAINE PATCH T-DERMAL SCH (11:00)
[2017-01-24] MEDS ORDERED: POTASSIUM CHLORIDE 25 MEQ EFFERVESCENT TAB PO SCH (11:45)
[2017-01-24] MEDS: ENOXAPARIN SODIUM 30 MG/0.3 ML SYRINGE SQ SCH (12:00)
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
--- NOTE | 2017-01-24 12:16 | PD.PROCEDR ---
Procedure Note Procedure Procedure: Bronchoscopy to assist percutaneous tracheostomy Indication: Vent dependent respiratory failure, unable to wean Procedure: Informed consent was obtained. The bronchoscope was advanced through the ETT into janice. The janice and right main bronchus had thick yellow secretions which were suctioned out. Upper main bronchi appeared anatomically normal. Under direct visualization ET tube was withdrawn to 18 cm gradually. Percutaneous tracheostomy procedure from insertion of the Angiocath to dilation and placement of tracheostomy tube was directly visualized and confirmed with the video bronchoscopy. There was no significant bleeding and the bronchoscope was then removed. (See separate trach procedure note by Dr. Gould). After completion of the tracheostomy I reentered the newly placed tracheostomy tube with the bronchoscope, and confirmed the position. Bronchoscope was initially advanced to the right lower lobe subsegmental bronchi under significant amount of thick yellow secretions was removed with multiple lavages. Patient also had thick secretions in the left lower lobe which were also removed with multiple lavages Taisha Bocanegra MD Jan 24, 2017 12:16
--- NOTE | 2017-01-24 14:25 | RADRPT ---
EXAM DATE/TIME: 01/24/2017 12:33 [facility] COMPARISON: CHEST SINGLE AP, January 20, 2017, 3:27. CHEST SINGLE AP, January 24, 2017, 4:15. INDICATIONS : Status Post Trach. MEDICAL HISTORY : None. SURGICAL HISTORY : Pacemaker. ENCOUNTER: Subsequent ACUITY: 2 weeks PAIN SCORE: Non-responsive. LOCATION: Bilateral chest FINDINGS: There is slight improvement in pulmonary edema since the prior examination. Residual edema remains. T racheostomy tube is present in satisfactory position. NG tube is present with tip in the stomach. The rest of the examination has not significantly changed. CONCLUSION: Improving pulmonary edema. Nichol Wellington MD on January 24, 2017 at 14:22 Board Certified Radiologist. This report was verified electronically.
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
[2017-01-24 17:32] LABS: BLOOD GAS BASE EXCESS 0.5 mmol/L (-2-2); BLOOD GAS CARBOXYHEMOGLOBIN 1.1 % (0-4); BLOOD GAS HCO3 25 mmol/L (22-26); BLOOD GAS O2 HGB SATURATION 91 % (90-100); BLOOD GAS OXYGEN CONTENT 12.9 Vol % (12.0-20.0); BLOOD GAS PCO2 43 mmHg (38-42); BLOOD GAS PO2 71 mmHg (61-120); CRITICAL VALUE NO; OXYGEN DEVICE VENTILATOR; TEMP CORR TO 98.6
[2017-01-24 17:33] LABS: DRAW SITE ART LINE; FIO2 40 %; NUMBER OF ARTERIAL PUNCTURES 0; STAT NO; ULNAR PULSE PRESENT; VENT SETTINGS APRV
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
[2017-01-24 19:44] LABS: BICARBONATE 24.6 MEQ/L (21.0-32.0); POTASSIUM 3.8 MEQ/L (3.5-5.1)
[2017-01-24] MEDS ORDERED: GELATIN 12 MM/7 MM FOAM ONE ×2 (19:50→23:50)
[2017-01-24] MEDS: MICAFUNGIN INJ 150 MG in SODIUM CHLORIDE 0.9% INJ 100 ML IV SCH (20:14)
[2017-01-25] VITALS (18 sets, daily range): BP systolic 146–157; BP diastolic 73–79; PULSE 80–97; RESP 13–21; TEMP 98.3–99.1; O2SAT 94–97
[2017-01-25 00:51] LABS: HEMATOCRIT 22.9 % (39.0-51.0)
[2017-01-25 00:55] LABS: REVIEW FLAG FINAL
[2017-01-25] MEDS: PROPOFOL 1000 MG/100 ML INJ 100 ML IV SCH ×7 (01:08→21:54)
[2017-01-25] MEDS: fentaNYL 2,500 MCG/NS 250 ML IV SCH ×2 (03:47→17:12)
[2017-01-25 04:12] LABS: BICARBONATE 25.9 MEQ/L (21.0-32.0); POTASSIUM 3.8 MEQ/L (3.5-5.1)
[2017-01-25 04:19] LABS: INTERNATIONAL NORMALIZED RATIO 1.1 RATIO; PROTHROMBIN TIME - PATIENT 12.7 SEC (9.8-11.6)
[2017-01-25 05:06] LABS: BLOOD GAS BASE EXCESS -0.1 mmol/L (-2-2); BLOOD GAS CARBOXYHEMOGLOBIN 1.5 % (0-4); BLOOD GAS HCO3 24 mmol/L (22-26); BLOOD GAS O2 HGB SATURATION 94 % (90-100); BLOOD GAS OXYGEN CONTENT 10.5 Vol % (12.0-20.0); BLOOD GAS PCO2 43 mmHg (38-42); BLOOD GAS PO2 90 mmHg (61-120); BLOOD GAS TOTAL HGB 7.8 G/DL (12.0-16.0); CRITICAL VALUE NO; OXYGEN DEVICE VENTILATOR; TEMP CORR TO 98.6
[2017-01-25 05:07] LABS: DRAW SITE ART LINE; FIO2 40 %; STAT NO
[2017-01-25] MEDS: PIPERACIL-TAZO 4.5 GM PREMIX 100 ML IV SCH ×2 (06:00)
[2017-01-25] MEDS: CHLORHEXIDINE 0.12% (ORAL KIT) 15 ML CUP MT SCH ×2 (08:00→19:47)
[2017-01-25] MEDS: SENNOSIDES SYRUP 8.8 MG/5 ML CUP NG SCH ×2 (08:51→19:47)
[2017-01-25] MEDS: POTASSIUM CHLORIDE 25 MEQ EFFERVESCENT TAB PO SCH ×2 (08:51→19:47)
[2017-01-25] MEDS: METOLAZONE 5 MG TAB PO SCH ×2 (08:51→19:47)
[2017-01-25] MEDS: ARTIFICIAL TEARS OPTH SOLN 15 ML BTL EACH EYE SCH ×3 (08:52→17:11)
[2017-01-25] MEDS: SODIUM CHLORIDE 0.9% FLUSH 10 ML FLUSH IV FLUSH SCH ×3 (09:00→19:47)
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
[2017-01-25] MEDS ORDERED: VANCOMYCIN 1,500 MG/NS 500 ML IV ONE ×2 (10:00)
[2017-01-25] MEDS: BUMETANIDE INJ 100 ML IV SCH ×2 (10:37→23:38)
[2017-01-25] MEDS: REMOVE OLD LIDOCAINE PATCH T-DERMAL SCH (11:00)
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
[2017-01-25] MEDS: PIPERACIL-TAZO 3.375 GM PREMIX 50 ML IV SCH ×3 (13:06→23:38)
[2017-01-25] MEDS: ENOXAPARIN SODIUM 30 MG/0.3 ML SYRINGE SQ SCH ×3 (13:06→23:38)
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
[2017-01-25 15:51] LABS: BLOOD GAS BASE EXCESS 0.2 mmol/L (-2-2); BLOOD GAS CARBOXYHEMOGLOBIN 1.5 % (0-4); BLOOD GAS HCO3 25 mmol/L (22-26); BLOOD GAS METHEMOGLOBIN 1.2 % (0-2); BLOOD GAS O2 HGB SATURATION 93 % (90-100); BLOOD GAS OXYGEN CONTENT 10.5 Vol % (12.0-20.0); BLOOD GAS PCO2 44 mmHg (38-42); BLOOD GAS PO2 82 mmHg (61-120); BLOOD GAS TOTAL HGB 7.9 G/DL (12.0-16.0); CRITICAL VALUE NO; OXYGEN DEVICE VENTILATOR; TEMP CORR TO 98.6
[2017-01-25 15:52] LABS: DRAW SITE ART LINE; FIO2 40 %; STAT NO; ULNAR PULSE PRESENT; VENT SETTINGS APRV/BILEVEL
--- NOTE | 2017-01-25 16:31 | HHI.IDPN ---
Subjective Subjective Remarks pt is on vent,n emains on biphasic Blood clx from 01/22 + for yeast He is on micafungin since 01/22 no fever x 48 yrs cont o have diarrhea, c.diff neg large amount of thin ck purulent looking ETT secretions Antibiotics Zosyn vanco micafungin Past Medical History Foot surgery Allergies: Coded Allergies: No Known Allergies (Unverified , 12/31/16) Objective . Vital Signs Date Time Temp Pulse Resp B/P Pulse Ox O2 Delivery O2 Flow Rate FiO2 01/25/17 15:17 94 40 01/25/17 14:00 87 01/25/17 12:00 99.0 86 14 157/79 95 Automatic Cuff 01/25/17 12:00 40 01/25/17 12:00 86 01/25/17 11:40 96 40 01/25/17 10:00 83 01/25/17 08:00 40 01/25/17 08:00 81 01/25/17 08:00 98.3 81 14 148/74 95 01/25/17 07:31 96 40 01/25/17 06:00 86 01/25/17 04:09 95 40 01/25/17 04:00 40 01/25/17 04:00 98.8 81 15 150/74 95 01/25/17 04:00 80 01/25/17 02:00 82 01/25/17 01:56 94 40 01/25/17 00:00 98.6 84 21 150/74 95 01/25/17 00:00 82 01/25/17 00:00 40 01/24/17 22:00 77 01/24/17 20:28 96 40 01/24/17 20:00 98.7 76 19 141/72 95 01/24/17 20:00 77 01/24/17 20:00 40 01/24/17 18:00 78 01/24/17 01/24/17 01/25/17 15:00 23:00 07:00 Intake Total 1671 ml 871 ml 698 ml Output Total 1125 ml 700 ml 1300 ml Balance 546 ml 171 ml -602 ml Intake IV Total 1111 ml 871 ml 698 ml Tube Feeding 0 ml Packed Cells 500 ml Tube Irrigant 60 ml Output Urine Total 825 ml 700 ml 1300 ml Stool Total 300 ml . Laboratory Tests Test 01/24/17 01/25/17 04:30 00:14 White Blood Count 15.5 TH/MM3 Red Blood Count 2.18 MIL/MM3 Hemoglobin 6.8 GM/DL 8.3 GM/DL Hematocrit 19.5 % 22.9 % Mean Corpuscular Volume 89.7 FL Mean Corpuscular Hemoglobin 31.1 PG Mean Corpuscular Hemoglobin 34.6 % Concent Red Cell Distribution Width 16.3 % Platelet Count 404 TH/MM3 Mean Platelet Volume 8.1 FL Neutrophils (%) (Auto) 68.7 % Lymphocytes (%) (Auto) 7.0 % Monocytes (%) (Auto) 15.0 % Eosinophils (%) (Auto) 8.7 % Basophils (%) (Auto) 0.6 % Neutrophils # (Auto) 10.6 TH/MM3 Lymphocytes # (Auto) 1.1 TH/MM3 Monocytes # (Auto) 2.3 TH/MM3 Eosinophils # (Auto) 1.4 TH/MM3 Basophils # (Auto) 0.1 TH/MM3 CBC Comment AUTO DIFF Differential Total Cells 100 Counted Neutrophils % (Manual) 68 % Band Neutrophils % 4 % Lymphocytes % 8 % Monocytes % 7 % Eosinophils % 11 % Neutrophils # (Manual) 11.5 TH/MM3 Metamyelocytes 1 % Promyelocytes 1 % Nucleated Red Blood Cells 2 /100 WBC Differential Comment FINAL DIFF MANUAL Platelet Estimate HIGH Platelet Morphology Comment NORMAL Stomatocytes 1+ Laboratory Tests Test 01/24/17 01/24/17 01/25/17 04:30 18:30 03:40 Sodium Level 136 MEQ/L 136 MEQ/L 138 MEQ/L Potassium Level 3.7 MEQ/L 3.8 MEQ/L 3.8 MEQ/L Chloride Level 96 MEQ/L 95 MEQ/L 96 MEQ/L Carbon Dioxide Level 26.3 MEQ/L 24.6 MEQ/L 25.9 MEQ/L Anion Gap 14 MEQ/L 16 MEQ/L 16 MEQ/L Blood Urea Nitrogen 67 MG/DL 76 MG/DL 83 MG/DL Creatinine 2.38 MG/DL 2.69 MG/DL 2.78 MG/DL Estimat Glomerular Filtration 27 ML/MIN 24 ML/MIN 23 ML/MIN Rate Random Glucose 158 MG/DL 112 MG/DL 109 MG/DL Calcium Level 8.2 MG/DL 8.4 MG/DL 8.4 MG/DL Phosphorus Level 6.2 MG/DL 8.1 MG/DL 7.8 MG/DL Magnesium Level 2.9 MG/DL 3.0 MG/DL 3.0 MG/DL Total Bilirubin 2.6 MG/DL Aspartate Amino Transf 73 U/L (AST/SGOT) Alanine Aminotransferase 132 U/L (ALT/SGPT) Alkaline Phosphatase 281 U/L Total Protein 7.2 GM/DL Albumin 3.0 GM/DL Microbiology Date/Time Procedure Status Source Growth 01/22/17 18:45 Aerobic Blood Culture - Preliminary Resulted Blood Peripheral NO GROWTH IN 3 DAYS 01/22/17 18:45 Anaerobic Blood Culture - Preliminary Resulted Blood Peripheral NO GROWTH IN 3 DAYS 01/22/17 18:48 Urine Culture - Final Complete Urine Catheterized Urine NO GROWTH IN 48 HOURS. 01/22/17 18:50 Aerobic Blood Culture - Preliminary Resulted Blood Peripheral Yeast Species 01/22/17 18:50 Anaerobic Blood Culture - Preliminary Resulted Blood Peripheral NO GROWTH IN 3 DAYS Imaging Last Impressions Chest X-Ray 01/24/17 0600 Signed Impressions: Service Date/Time: Tuesday, January 24, 2017 04:15 - CONCLUSION: No significant interval change. Randall Rm MD Renal Ultrasound 01/22/17 0000 Signed Impressions: Service Date/Time: Sunday, January 22, 2017 13:18 - CONCLUSION: Normal renal sonogram. Juan Miller MD Chest Tube Insertion 01/08/17 1628 Signed Impressions: Service Date/Time: Sunday, January 08, 2017 16:58 - CONCLUSION: Uncomplicated chest tube placement as above. 1 L of hemorrhagic fluid was removed. Fly Longo MD Upper Extremity Ultrasound 01/08/17 0000 Signed Impressions: Service Date/Time: Sunday, January 08, 2017 08:10 - CONCLUSION: Occlusive thrombus within the left basilic vein. Nichol Wellington MD Lower Extremity Ultrasound 01/08/17 0000 Signed Impressions: Service Date/Time: Sunday, January 08, 2017 08:43 - CONCLUSION: Normal examination. Nichol Wellington MD CT Angiography 01/08/17 0000 Signed Impressions: Service Date/Time: Sunday, January 08, 2017 12:49 - CONCLUSION: 1. There is no evidence for PE for technique. 2. Worsening left pleural effusion and interval development of right pleural effusion and dense consolidation in both lung bases. 3. Resolution of the previously seen left pneumothorax and subcutaous emphysema. Nichol Wellington MD Head CT 01/05/17 0600 Signed Impressions: Service Date/Time: Thursday, January 05, 2017 04:58 - CONCLUSION: No acute intracranial disease. Paranasal sinus disease. Juan Miller MD Abdomen X-Ray 01/05/17 0000 Signed Impressions: Service Date/Time: Thursday, January 05, 2017 08:09 - CONCLUSION: Multiple displaced rib fractures on the left side. NG tube and surgical drain are in good position. Numerous air-filled loops of bowel throughout the abdomen. Ziggy Juarez MD Clavicle X-Ray 01/02/17 0000 Signed Impressions: Service Date/Time: December 08:16 - CONCLUSION: Nondisplaced fractures involving the distal clavicle with good alignment at the a.c. joint. Lars Granados MD Pelvis X-Ray 12/31/16 1224 Signed Impressions: Service Date/Time: Saturday, December 31, 2016 11:46 - CONCLUSION: No acute disease. Shan Sotomayor MD Chest CT 12/31/16 1224 Signed Impressions: Service Date/Time: Saturday, December 31, 2016 12:42 - CONCLUSION: 1. Flail left chest with a moderate to large left pneumothorax and presence of left chest tube. This does raise the possibility of a bronchial injury. 2. Comminuted left clavicle and left scapular fracture. 3. Right chest tube also present with tiny right pneumothorax. 4. Bilateral lung contusions. Small left hemothorax. No evidence for traumatic aortic injury. Endotracheal tube in satisfactory position. Kimo Ventura MD Cervical Spine CT 12/31/16 1224 Signed Impressions: Service Date/Time: Saturday, December 31, 2016 12:38 - CONCLUSION: 1. Extensive air within the soft tissues of the neck dissecting cephalad from the chest. Bilateral chest tubes with small apical pneumothoraces. Endotracheal tube present. 2. No acute fracture or subluxation in the cervical spine. Kimo Ventura MD Abdomen/Pelvis CT 12/31/16 1224 Signed Impressions: Service Date/Time: Saturday, December 31, 2016 12:42 - CONCLUSION: 1. Severely fractured spleen with numerous areas of active extravasation and moderate hemoperitoneum. 2. Laceration left lobe liver with some active extravasation as well. 3. Extensive air dissecting down the left abdominal wall and into the left scrotal region. 4. Flattened IVC with intense contrast in the kidneys and adrenals characteristic of hypovolemia. 5. Numerous lower left rib fractures left pneumothorax, left hemothorax and bilateral chest tubes and lung contusions. See chest CT report. Kimo Ventura MD Physical Exam CONSTITUTIONAL/GENERAL: Obese male, sedated on the vent. SKIN: No jaundice, rashes, or lesions. Warm EYES: Pupils equal and round and reactive. No scleral icterus. + b/l conjuncival hemarrages and hemoses ENT: Hearing not tested. Nose without bleeding or purulent drainage. NACK : trach in place CARDIOVASCULAR: Regular rate and rhythm without murmurs, gallops, or rubs. No JVD. Periphery well perfused with brisk refill RESPIRATORY/CHEST: Symmetric, unlabored respirations. Few rhonchi to auscultation. Breath sounds diminished CT in place L with serous drainage GASTROINTESTINAL: Abdomen soft , less distended no reaction to palpation. Midline laparotomy incision dry and clean, healing and well approximated Liquid brown stool in [place] GENITOURINARY: Michel catheter in place with clear yellow urine MUSCULOSKELETAL: Extremities without clubbing, cyanosis, less prominent edema, less tight , seems better. No mottling or clubbing. NEUROLOGICAL: Heavily sedated and unresponsive PSYCHIATRIC: unable to assess LINE: PICC RUE no evidence of infetion Assessment & Plan Remarks IMPRESSION Multi trauma LEFT clavicle fx (non op) LEFT scapula fx (non-op) Bronchial arboration LEFT serial rib fx LEFT flail chest LEFT PTX / FELIPE RIGHT PTX BILAT lung contusions Fractured spleen (Grade 4) w/ extravasation and hemoperitoneum LEFT lower lobe liver laceration Hepatic vein rupture Extensive air down the left abdominal wall Hemorrhagic shock Fluid overload PNA in the settings of bilateral pulmonary contusions New issue, fungemia ? source Acute VDRF ? fluid overolad vs new pneumonia sp trach ? intraabdominal abscess Diarrhea, C.diff negative PLAN Continue Zosyn cont vanco cont micafungin fu ID on yeast CT abd/pel when feasible fu blood clx rechk sputum clx adjst abx per clx change [facility] Luis Fernando Tam RN, Alexandra A. MD Jan 25, 2017 16:31
[2017-01-25] MEDS: MIDAZOLAM 100 MG/ML INJ 100 ML IV SCH (17:12)
[2017-01-25 18:18] LABS: BICARBONATE 25.2 MEQ/L (21.0-32.0); MAGNESIUM 3.1 MG/DL (1.5-2.5); POTASSIUM 3.8 MEQ/L (3.5-5.1)
[2017-01-25] MEDS: MICAFUNGIN INJ 150 MG in SODIUM CHLORIDE 0.9% INJ 100 ML IV SCH (19:48)
[2017-01-26] VITALS (17 sets, daily range): BP systolic 112–157; BP diastolic 59–77; PULSE 78–91; RESP 11–22; TEMP 98.1–99.9; O2SAT 97–99
[2017-01-26] MEDS: fentaNYL 2,500 MCG/NS 250 ML IV SCH ×3 (03:46→21:16)
[2017-01-26] MEDS: PROPOFOL 1000 MG/100 ML INJ 100 ML IV SCH ×9 (03:47→22:57)
[2017-01-26 04:11] LABS: AUTOMATED NEUTROPHIL # 10.2 TH/MM3 (1.8-7.7); BASOPHIL # 0.2 TH/MM3 (0-0.2); BASOPHIL % 1.1 % (0.0-2.0); EOSINOPHIL # 1.6 TH/MM3 (0-0.4); EOSINOPHIL % 10.9 % (0.0-4.0); LYMPHOCYTE # 0.9 TH/MM3 (1.0-4.8); MEAN CELL VOLUME 88.1 FL (80.0-100.0); MEAN CORPUSCULAR HEMOGLOBIN 31.7 PG (27.0-34.0); MONO % 12.9 % (0.0-8.0); NEUT % 69.1 % (16.0-70.0); PLATELET COUNT 392 TH/MM3 (150-450); RED BLOOD COUNT 2.72 MIL/MM3 (4.50-5.90); RED CELL DISTRIBUTION WIDTH 15.8 % (11.6-17.2); WHITE BLOOD COUNT 14.8 TH/MM3 (4.0-11.0)
[2017-01-26 04:18] LABS: HEMO FLAGS AUTO DIFF
[2017-01-26] MEDS: hydrALAZINE HCL 20 MG/ML VIAL IV PUSH PRN (04:22)
[2017-01-26] MEDS: HYDROmorphone HCL PF 1 MG/ML VIAL IV PRN (04:22)
[2017-01-26] MEDS: LABETALOL HCL 100 MG/20 ML VIAL IV PUSH PRN (04:31)
[2017-01-26] MEDS: MIDAZOLAM HCL 5 MG/ML VIAL (1 ML) IV PRN (04:31)
[2017-01-26 04:50] LABS: ACANTHOCYTES 1+ (NORMAL); BANDS 4 % (0-6); BASOPHILS 1 % (0-2); BICARBONATE 26.2 MEQ/L (21.0-32.0); EOSINOPHILS 11 % (0-4); METAMYELOCYTES 1 % (0-1); MYELOCYTES 1 % (0-0); NEUTROPHIL # MANUAL DIFF 11.1 TH/MM3 (1.8-7.7); POLYS (SEG NEUTROPHILS) 69 % (16-70); POTASSIUM 3.7 MEQ/L (3.5-5.1); WBC DIFF SAMPLE 100
[2017-01-26 04:51] LABS: PLATELET ESTIMATE SMEAR HIGH (NORMAL); PLATELET MORPHOLOGY NORMAL (NORMAL); SCAN/DIFF FINAL DIFF MANUAL
[2017-01-26] MEDS: PIPERACIL-TAZO 3.375 GM PREMIX 50 ML IV SCH ×4 (04:51→22:57)
--- NOTE | 2017-01-26 05:19 | RADRPT ---
EXAM DATE/TIME: 01/26/2017 03:54 [place] COMPARISON: No previous studies available for comparison. INDICATIONS : Infiltrate. MEDICAL HISTORY : None. SURGICAL HISTORY : Pacemaker. ENCOUNTER: Subsequent ACUITY: 2 weeks PAIN SCORE: Non-responsive. LOCATION: Bilateral chest FINDINGS: A single view of the chest demonstrates the tracheostomy tube, right-sided PICC line and nasogastric are all good position. Patchy infiltrates predominantly in the lung bases are stable. Mild perihilar vascular congestion persists The cardiomediastinal contours are unremarkable. Stable multiple left-s ided rib fractures CONCLUSION: Bilateral parenchymal opacifications are unchanged. No pneumothorax Ziggy Juarez MD on January 26, 2017 at 5:17 Board Certified Radiologist. This report was verified electronically.
[2017-01-26] MEDS: CHLORHEXIDINE 0.12% (ORAL KIT) 15 ML CUP MT SCH ×2 (08:00→20:02)
[2017-01-26] MEDS: SODIUM CHLORIDE 0.9% FLUSH 10 ML FLUSH IV FLUSH SCH ×3 (08:08→20:03)
[2017-01-26] MEDS: SENNOSIDES SYRUP 8.8 MG/5 ML CUP NG SCH ×2 (08:11→20:03)
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
[2017-01-26] MEDS: ARTIFICIAL TEARS OPTH SOLN 15 ML BTL EACH EYE SCH ×3 (08:18→17:56)
[2017-01-26] MEDS: METOLAZONE 5 MG TAB PO SCH ×2 (08:18→20:03)
[2017-01-26] MEDS: POTASSIUM CHLORIDE 25 MEQ EFFERVESCENT TAB PO SCH ×2 (08:18→20:03)
[2017-01-26] MEDS: REMOVE OLD LIDOCAINE PATCH T-DERMAL SCH (08:18)
[2017-01-26 08:19] LABS: BLOOD GAS CARBOXYHEMOGLOBIN 1.2 % (0-4); BLOOD GAS HCO3 25 mmol/L (22-26); BLOOD GAS METHEMOGLOBIN 1.3 % (0-2); BLOOD GAS O2 HGB SATURATION 95 % (90-100); BLOOD GAS OXYGEN CONTENT 11.3 Vol % (12.0-20.0); BLOOD GAS PCO2 46 mmHg (38-42); BLOOD GAS PO2 110 mmHg (61-120); BLOOD GAS TOTAL HGB 8.3 G/DL (12.0-16.0); CRITICAL VALUE NO; DRAW SITE ART LINE; FIO2 40 %; OXYGEN DEVICE VENTILATOR; STAT NO; TEMP CORR TO 98.6; ULNAR PULSE PRESENT; VENT SETTINGS APRV/BILEVEL
[2017-01-26] MEDS: MIDAZOLAM 100 MG/ML INJ 100 ML IV SCH (08:19)
[2017-01-26] MEDS: BUMETANIDE INJ 100 ML IV SCH (09:34)
[2017-01-26] MEDS: ENOXAPARIN SODIUM 30 MG/0.3 ML SYRINGE SQ SCH (11:37)
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
[2017-01-26] MEDS: MICAFUNGIN INJ 150 MG in SODIUM CHLORIDE 0.9% INJ 100 ML IV SCH (20:03)
[2017-01-26] MEDS: HEPARIN SODIUM - SQ 10,000 UNITS/ML VIAL SQ SCH (20:03)
[2017-01-26 21:07] LABS: MEAN CORPUSCULAR HGB CONC 36.9 % (32.0-36.0)
[2017-01-27] VITALS (18 sets, daily range): BP systolic 131–172; BP diastolic 64–86; PULSE 81–100; RESP 10–21; TEMP 98.3–98.9; O2SAT 95–99
[2017-01-27] MEDS: MIDAZOLAM 100 MG/ML INJ 100 ML IV SCH ×2 (02:24→17:23)
[2017-01-27] MEDS: PROPOFOL 1000 MG/100 ML INJ 100 ML IV SCH ×8 (02:24→22:06)
[2017-01-27 04:48] LABS: HEMATOCRIT 23.7 % (39.0-51.0); MEAN CELL VOLUME 89.6 FL (80.0-100.0); MEAN CORPUSCULAR HEMOGLOBIN 33.1 PG (27.0-34.0); PLATELET COUNT 392 TH/MM3 (150-450); RED BLOOD COUNT 2.64 MIL/MM3 (4.50-5.90); RED CELL DISTRIBUTION WIDTH 16.1 % (11.6-17.2); WHITE BLOOD COUNT 14.3 TH/MM3 (4.0-11.0)
[2017-01-27] MEDS: PIPERACIL-TAZO 3.375 GM PREMIX 50 ML IV SCH ×3 (04:59→17:23)
[2017-01-27] MEDS: HEPARIN SODIUM - SQ 10,000 UNITS/ML VIAL SQ SCH ×3 (04:59→20:58)
[2017-01-27 05:24] LABS: BICARBONATE 22.9 MEQ/L (21.0-32.0); POTASSIUM 4.3 MEQ/L (3.5-5.1)
[2017-01-27 06:09] LABS: HEMO FLAGS AUTO DIFF
[2017-01-27] MEDS: fentaNYL 2,500 MCG/NS 250 ML IV SCH ×2 (06:57→17:23)
[2017-01-27 07:54] LABS: BANDS 4 % (0-6); BASOPHILS 1 % (0-2); CORRECTED NUCLEATED RBC 1 /100 WBC (0-0); EOSINOPHILS 12 % (0-4); NEUTROPHIL # MANUAL DIFF 10.2 TH/MM3 (1.8-7.7); PLATELET ESTIMATE SMEAR NORMAL (NORMAL); PLATELET MORPHOLOGY NORMAL (NORMAL); POLYS (SEG NEUTROPHILS) 67 % (16-70); WBC DIFF SAMPLE 100
[2017-01-27 07:55] LABS: SCAN/DIFF FINAL DIFF MANUAL; TARGET CELLS 1+ (NORMAL)
[2017-01-27 08:30] LABS: BLOOD GAS BASE EXCESS -0.6 mmol/L (-2-2); BLOOD GAS CARBOXYHEMOGLOBIN 0.9 % (0-4); BLOOD GAS HCO3 25 mmol/L (22-26); BLOOD GAS METHEMOGLOBIN 1.3 % (0-2); BLOOD GAS O2 HGB SATURATION 95 % (90-100); BLOOD GAS PCO2 47 mmHg (38-42); BLOOD GAS PO2 101 mmHg (61-120); BLOOD GAS TOTAL HGB 10.4 G/DL (12.0-16.0); CRITICAL VALUE NO; OXYGEN DEVICE VENTILATOR; TEMP CORR TO 98.6
[2017-01-27 08:31] LABS: DRAW SITE RT RADIAL; FIO2 40 %; NUMBER OF ARTERIAL PUNCTURES 1; STAT NO; ULNAR PULSE PRESENT; VENT SETTINGS APRV
[2017-01-27] MEDS: POTASSIUM CHLORIDE 25 MEQ EFFERVESCENT TAB PO SCH ×2 (09:00→21:00)
[2017-01-27] MEDS: SODIUM CHLORIDE 0.9% FLUSH 10 ML FLUSH IV FLUSH SCH ×3 (09:00→20:59)
[2017-01-27] MEDS: CHLORHEXIDINE 0.12% (ORAL KIT) 15 ML CUP MT SCH ×2 (09:00→20:58)
[2017-01-27] MEDS: SENNOSIDES SYRUP 8.8 MG/5 ML CUP NG SCH ×2 (09:00→20:58)
[2017-01-27] MEDS: METOLAZONE 5 MG TAB PO SCH ×2 (09:01→21:00)
[2017-01-27] MEDS: ARTIFICIAL TEARS OPTH SOLN 15 ML BTL EACH EYE SCH ×3 (10:40→18:33)
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
[2017-01-27] MEDS: BUMETANIDE INJ 100 ML IV SCH (12:06)
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
[2017-01-27] MEDS: MICAFUNGIN INJ 150 MG in SODIUM CHLORIDE 0.9% INJ 100 ML IV SCH (20:58)
[2017-01-28] VITALS (19 sets, daily range): BP systolic 118–174; BP diastolic 61–95; PULSE 82–102; RESP 11–15; TEMP 98.6–99.5; O2SAT 96–100
[2017-01-28] MEDS: PIPERACIL-TAZO 3.375 GM PREMIX 50 ML IV SCH ×4 (01:00→17:06)
[2017-01-28] MEDS: PROPOFOL 1000 MG/100 ML INJ 100 ML IV SCH ×8 (01:00→21:42)
[2017-01-28] MEDS: fentaNYL 2,500 MCG/NS 250 ML IV SCH ×3 (02:40→21:43)
[2017-01-28 05:01] LABS: ALKALINE PHOSPHATASE 273 U/L (45-117); TOTAL BILIRUBIN ADULT 2.1 MG/DL (0.2-1.0)
[2017-01-28 05:34] LABS: ANION GAP 19 MEQ/L (5-15); AST (GOT) 72 U/L (15-37); BICARBONATE 21.3 MEQ/L (21.0-32.0); BLOOD UREA NITROGEN 115 MG/DL (7-18); CHLORIDE 94 MEQ/L (98-107); GLOMERULAR FILTRATION RATE 18 ML/MIN (>89); SODIUM (NA) 134 MEQ/L (136-145)
[2017-01-28 05:36] LABS: POTASSIUM 4.7 MEQ/L (3.5-5.1)
[2017-01-28 05:53] LABS: ALT (GPT) 107 U/L (12-78)
[2017-01-28 05:54] LABS: MEAN CELL VOLUME 88.8 FL (80.0-100.0); MEAN CORPUSCULAR HEMOGLOBIN 31.3 PG (27.0-34.0); MEAN CORPUSCULAR HGB CONC 35.3 % (32.0-36.0); PLATELET COUNT 518 TH/MM3 (150-450); RED BLOOD COUNT 2.81 MIL/MM3 (4.50-5.90); WHITE BLOOD COUNT 16.5 TH/MM3 (4.0-11.0)
--- NOTE | 2017-01-28 05:54 | RADRPT ---
EXAM DATE/TIME: 01/28/2017 04:59 [facility] COMPARISON: CHEST SINGLE AP, January 26, 2017, 3:54. INDICATIONS : Short of breath. MEDICAL HISTORY : None. SURGICAL HISTORY : Pacemaker. ENCOUNTER: Subsequent ACUITY: 2 weeks PAIN SCORE: Non-responsive. LOCATION: Bilateral chest FINDINGS: A single AP portable semierect view of the chest was obtained and again demonstrates the tracheostomy tube and nasogastric tube in place. There has been and interval improvement in the bibasilar opacity with mild patchy residual. The left costophrenic angle remains blunted consistent with a small effus ion. The heart size remains within normal limits. There are multiple overlying electrocardiogram lead s. CONCLUSION: 1. Interval improvement in bibasal opacity. Mild residual remains. 2. Small left effusion. Burt Moses MD on January 28, 2017 at 5:52 Board Certified Radiologist. This report was verified electronically.
[2017-01-28] MEDS: HEPARIN SODIUM - SQ 10,000 UNITS/ML VIAL SQ SCH ×3 (05:56→21:42)
[2017-01-28 06:33] LABS: HEMO FLAGS AUTO DIFF
[2017-01-28 06:38] LABS: BANDS 5 % (0-6); CORRECTED NUCLEATED RBC 3 /100 WBC (0-0); EOSINOPHILS 6 % (0-4); METAMYELOCYTES 1 % (0-1); NEUTROPHIL # MANUAL DIFF 13.2 TH/MM3 (1.8-7.7); OVALOCYTES 1+ (NORMAL); POLYS (SEG NEUTROPHILS) 74 % (16-70); TARGET CELLS 1+ (NORMAL); WBC DIFF SAMPLE 100
[2017-01-28 06:39] LABS: PLATELET ESTIMATE SMEAR HIGH (NORMAL); PLATELET MORPHOLOGY ENLARGED (NORMAL); SCAN/DIFF FINAL DIFF MANUAL
[2017-01-28 08:02] LABS: BLOOD GAS BASE EXCESS -1.5 mmol/L (-2-2); BLOOD GAS CARBOXYHEMOGLOBIN 1.1 % (0-4); BLOOD GAS HCO3 23 mmol/L (22-26); BLOOD GAS METHEMOGLOBIN 1.3 % (0-2); BLOOD GAS O2 HGB SATURATION 95 % (90-100); BLOOD GAS OXYGEN CONTENT 14.9 Vol % (12.0-20.0); BLOOD GAS PCO2 40 mmHg (38-42); BLOOD GAS PO2 101 mmHg (61-120); BLOOD GAS TOTAL HGB 11.1 G/DL (12.0-16.0); CRITICAL VALUE NO; TEMP CORR TO 98.6
[2017-01-28 08:03] LABS: FIO2 40 %; OXYGEN DEVICE VENTILATOR; VENT SETTINGS APRV/BILEVEL
[2017-01-28 08:04] LABS: DRAW SITE RT RADIAL; NUMBER OF ARTERIAL PUNCTURES 1; STAT NO; ULNAR PULSE PRESENT
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
[2017-01-28] MEDS: METOLAZONE 5 MG TAB PO SCH ×2 (08:17→21:19)
[2017-01-28] MEDS: CHLORHEXIDINE 0.12% (ORAL KIT) 15 ML CUP MT SCH ×2 (08:17→21:20)
[2017-01-28] MEDS: ARTIFICIAL TEARS OPTH SOLN 15 ML BTL EACH EYE SCH ×3 (08:18→17:39)
[2017-01-28] MEDS: SODIUM CHLORIDE 0.9% FLUSH 10 ML FLUSH IV FLUSH SCH ×3 (08:18→21:20)
[2017-01-28] MEDS: POTASSIUM CHLORIDE 25 MEQ EFFERVESCENT TAB PO SCH ×2 (08:19→21:00)
[2017-01-28] MEDS: SENNOSIDES SYRUP 8.8 MG/5 ML CUP NG SCH ×2 (08:20→21:00)
[2017-01-28] MEDS: MIDAZOLAM 100 MG/ML INJ 100 ML IV SCH (09:39)
[2017-01-28] MEDS ORDERED: HYOSCYAMINE 0.125 MG TAB PO PRN (11:00)
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
--- NOTE | 2017-01-28 12:06 | GIPROC ---
[facility] [address] [facility]. [facility], [address] EGD PROCEDURE REPORT EXAM DATE: 01/28/2017 PATIENT NAME: Deniz Barrientos MR #: [id number] BIRTHDATE: 1945 ATTENDING: Harini Carreno MD ORDER #: [id number] MOLD POLISHER: Jalen Sanodval and Dawn Ybarra STATUS: inpatient INDICATIONS: The patient is a 71 yr old male here for an EGD due to feeding difficulties, needs peg for penitentiary nutrition PROCEDURE PERFORMED: egd with attempted peg MEDICATIONS: Per Anesthesia and None. TOPICAL ANESTHETIC: none CONSENT: The patient understands the risks and benefits of the procedure and understands that these risks include, but are not limited to: sedation, allergic reaction, infection, perforation and/or bleeding. Alternative means of evaluation and treatment include, among others: physical exam, x-rays, and/or surgical intervention. The patient elects to proceed with this endoscopic procedure. medical equipment was checked for proper function. Hand hygiene and appropriate measures for infection prevention was taken. After the risks, benefits and alternatives of the procedure were thoroughly explained, Informed consent was verified, confirmed and timeout was successfully executed by the treatment team. The patient was anesthetized with topical anesthesia and the Pentax [id number] endoscope was introduced through the mouth and advanced to the second portion of the duodenum. Retroflexed views revealed a hiatal hernia The gastroscope was then slowly withdrawn and removed. Gastritis otherwise normal endoscopy ngt in place peg could not be placed endoscopically-no transillumination noted. ADVERSE EVENTS: There were no complications. IMPRESSIONS: 1. Gastritis otherwise normal endoscopy ngt in place peg could not be placed endoscopically-no transillumination noted 2. Retroflexed views revealed a hiatal hernia RECOMMENDATIONS: 1. Anti-reflux regimen 2. Consult IR for GT placement PATIENT CONDITION: stable DISPOSITION: Inpatient REPEAT EXAM: Return as needed for EGD Harini Carreno MD eSigned: Harini Carreno MD 01/28/2017 12:05 PM cc:
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
[2017-01-28] MEDS: LABETALOL HCL 100 MG/20 ML VIAL IV PUSH PRN (15:23)
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
--- NOTE | 2017-01-28 17:25 | RADRPT ---
EXAM DATE/TIME: 01/28/2017 16:54 [facility] COMPARISON: No previous studies available for comparison. INDICATIONS : Confirm dubhoff placement. MEDICAL HISTORY : None. SURGICAL HISTORY : None. ENCOUNTER: Subsequent ACUITY: 1 month PAIN SCORE: 0/10 LOCATION: Bilateral abdomen FINDINGS: Examination of the abdomen demonstrates a normal bowel gas pattern. No free air is identified. No o rganomegaly is evident. NG tip in distal stomach. Osseous structures are intact. CONCLUSION: 1. Nasogastric tube tip in distal stomach. Kimo Ventura MD on January 28, 2017 at 17:23 Board Certified Radiologist. This report was verified electronically.
[2017-01-28] MEDS: FLUCONAZOLE 200 MG TAB PO SCH (18:37)
[2017-01-29] VITALS (19 sets, daily range): BP systolic 124–139; BP diastolic 63–78; PULSE 82–102; RESP 11–20; TEMP 98.2–99.4; O2SAT 96–100
[2017-01-29] MEDS: PROPOFOL 1000 MG/100 ML INJ 100 ML IV SCH ×4 (01:47→17:31)
[2017-01-29] MEDS: MIDAZOLAM 100 MG/ML INJ 100 ML IV SCH ×2 (04:17→17:31)
[2017-01-29 05:23] LABS: HEMATOCRIT 24.8 % (39.0-51.0); MEAN CELL VOLUME 89.4 FL (80.0-100.0); MEAN CORPUSCULAR HEMOGLOBIN 30.7 PG (27.0-34.0); MEAN CORPUSCULAR HGB CONC 34.3 % (32.0-36.0); PLATELET COUNT 560 TH/MM3 (150-450); RED BLOOD COUNT 2.78 MIL/MM3 (4.50-5.90); RED CELL DISTRIBUTION WIDTH 15.6 % (11.6-17.2); WHITE BLOOD COUNT 14.7 TH/MM3 (4.0-11.0)
[2017-01-29 05:27] LABS: HEMO FLAGS AUTO DIFF
[2017-01-29 05:39] LABS: ANION GAP 19 MEQ/L (5-15); AST (GOT) 58 U/L (15-37); BICARBONATE 22.9 MEQ/L (21.0-32.0); BLOOD UREA NITROGEN 126 MG/DL (7-18); CHLORIDE 94 MEQ/L (98-107); GLOMERULAR FILTRATION RATE 17 ML/MIN (>89); POTASSIUM 3.8 MEQ/L (3.5-5.1); SODIUM (NA) 136 MEQ/L (136-145)
[2017-01-29 05:45] LABS: ALKALINE PHOSPHATASE 270 U/L (45-117); ALT (GPT) 95 U/L (12-78); TOTAL BILIRUBIN ADULT 1.8 MG/DL (0.2-1.0)
[2017-01-29] MEDS: HEPARIN SODIUM - SQ 10,000 UNITS/ML VIAL SQ SCH ×3 (06:00→22:30)
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
[2017-01-29] MEDS: CHLORHEXIDINE 0.12% (ORAL KIT) 15 ML CUP MT SCH ×2 (08:00→20:37)
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
[2017-01-29 08:18] LABS: BANDS 2 % (0-6); BASOPHILS 1 % (0-2); EOSINOPHILS 2 % (0-4); NEUTROPHIL # MANUAL DIFF 11.8 TH/MM3 (1.8-7.7); POLYS (SEG NEUTROPHILS) 78 % (16-70); WBC DIFF SAMPLE 100
[2017-01-29 08:19] LABS: PLATELET ESTIMATE SMEAR HIGH (NORMAL); PLATELET MORPHOLOGY NORMAL (NORMAL); SCAN/DIFF FINAL DIFF MANUAL; TEARDROP RBCS 1+ (NORMAL)
[2017-01-29] MEDS: SODIUM CHLORIDE 0.9% FLUSH 10 ML FLUSH IV FLUSH SCH ×2 (09:00→20:39)
[2017-01-29] MEDS: ARTIFICIAL TEARS OPTH SOLN 15 ML BTL EACH EYE SCH ×3 (09:00→18:00)
[2017-01-29] MEDS: SENNOSIDES SYRUP 8.8 MG/5 ML CUP NG SCH ×2 (09:00→20:37)
[2017-01-29] MEDS: fentaNYL 2,500 MCG/NS 250 ML IV SCH (09:02)
[2017-01-29] MEDS: METOLAZONE 5 MG TAB PO SCH ×2 (09:40→20:37)
[2017-01-29] MEDS: FLUCONAZOLE 200 MG TAB PO SCH (09:40)
[2017-01-29] MEDS: POTASSIUM CHLORIDE 25 MEQ EFFERVESCENT TAB PO SCH ×2 (09:41→20:37)
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
--- NOTE | 2017-01-29 10:15 | RADRPT ---
EXAM DATE/TIME: 01/29/2017 09:56 [facility] COMPARISON: ABDOMEN SINGLE VIEW, January 29, 2017, 7:38. ABDOMEN KUB ONLY, January 05, 2017, 8:09. INDICATIONS : Dobhoff tube placement. MEDICAL HISTORY : None. SURGICAL HISTORY : None. ENCOUNTER: Subsequent ACUITY: 1 month PAIN SCORE: Non-responsive. LOCATION: Abdomen. FINDINGS: Single supine frontal view of the abdomen demonstrates a feeding tube present with distal tip in the proximal stomach. There is a nonobstructive bowel gas pattern. Degenerative changes are present throu ghout the spine. CONCLUSION: Feeding tube has not significantly changed position with distal tip remaining in the proximal stomach . Daljit Mills MD on January 29, 2017 at 10:12 Board Certified Radiologist. This report was verified electronically.
[2017-01-29] MEDS ORDERED: ceFAZolin 2 GM PREMIX 50 ML IV SCH (14:15)
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
[2017-01-30] VITALS (15 sets, daily range): BP systolic 124–169; BP diastolic 67–107; PULSE 84–115; RESP 16–19; TEMP 98.7–99.8; O2SAT 92–99
[2017-01-30] MEDS: PROPOFOL 1000 MG/100 ML INJ 100 ML IV SCH ×6 (00:54→22:43)
[2017-01-30] MEDS: fentaNYL 2,500 MCG/NS 250 ML IV SCH ×2 (01:25→22:43)
[2017-01-30 04:43] LABS: AUTOMATED NEUTROPHIL # 9.6 TH/MM3 (1.8-7.7); BASOPHIL # 0.1 TH/MM3 (0-0.2); BASOPHIL % 0.9 % (0.0-2.0); EOSINOPHIL % 7.1 % (0.0-4.0); HEMATOCRIT 27.2 % (39.0-51.0); LYMPH % 7.8 % (9.0-44.0); LYMPHOCYTE # 1.1 TH/MM3 (1.0-4.8); MEAN CELL VOLUME 88.6 FL (80.0-100.0); MEAN CORPUSCULAR HEMOGLOBIN 30.3 PG (27.0-34.0); MEAN CORPUSCULAR HGB CONC 34.2 % (32.0-36.0); MONO % 17.4 % (0.0-8.0); NEUT % 66.8 % (16.0-70.0); PLATELET COUNT 593 TH/MM3 (150-450); RED BLOOD COUNT 3.07 MIL/MM3 (4.50-5.90); RED CELL DISTRIBUTION WIDTH 16.2 % (11.6-17.2); WHITE BLOOD COUNT 14.4 TH/MM3 (4.0-11.0)
[2017-01-30 04:45] LABS: HEMO FLAGS AUTO DIFF
[2017-01-30 05:09] LABS: ANION GAP 16 MEQ/L (5-15); AST (GOT) 49 U/L (15-37); BICARBONATE 29.2 MEQ/L (21.0-32.0); BLOOD UREA NITROGEN 136 MG/DL (7-18); CHLORIDE 94 MEQ/L (98-107); GLOMERULAR FILTRATION RATE 17 ML/MIN (>89); POTASSIUM 3.9 MEQ/L (3.5-5.1); SODIUM (NA) 139 MEQ/L (136-145)
[2017-01-30 05:13] LABS: ALKALINE PHOSPHATASE 310 U/L (45-117); ALT (GPT) 88 U/L (12-78); TOTAL BILIRUBIN ADULT 1.4 MG/DL (0.2-1.0)
[2017-01-30] MEDS: HEPARIN SODIUM - SQ 10,000 UNITS/ML VIAL SQ SCH ×3 (06:00→21:10)
[2017-01-30 07:11] LABS: TARGET CELLS 1+ (NORMAL)
[2017-01-30 07:12] LABS: PLATELET ESTIMATE SMEAR HIGH (NORMAL); PLATELET MORPHOLOGY NORMAL (NORMAL); SCAN/DIFF AUTO DIFF CONFIRMED
[2017-01-30] MEDS: METOLAZONE 5 MG TAB PO SCH ×2 (08:24→21:09)
[2017-01-30] MEDS: POTASSIUM CHLORIDE 25 MEQ EFFERVESCENT TAB PO SCH ×2 (08:24→21:09)
[2017-01-30] MEDS: CHLORHEXIDINE 0.12% (ORAL KIT) 15 ML CUP MT SCH ×2 (08:25→20:08)
[2017-01-30] MEDS: ARTIFICIAL TEARS OPTH SOLN 15 ML BTL EACH EYE SCH ×3 (08:25→17:34)
[2017-01-30] MEDS: MIDAZOLAM 100 MG/ML INJ 100 ML IV SCH (08:25)
[2017-01-30] MEDS: SENNOSIDES SYRUP 8.8 MG/5 ML CUP NG SCH ×3 (08:25→21:09)
[2017-01-30] MEDS: SODIUM CHLORIDE 0.9% FLUSH 10 ML FLUSH IV FLUSH SCH ×2 (08:25→21:09)
[2017-01-30] MEDS: FLUCONAZOLE 200 MG TAB PO SCH (08:25)
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
[2017-01-30] MEDS: ACETAMINOPHEN 650 MG/20.3 ML UDC OG-TUBE PRN (09:57)
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
[2017-01-30] MEDS: BUMETANIDE INJ 1 MG/4 ML VIAL IV PUSH SCH ×2 (13:55→21:09)
--- NOTE | 2017-01-30 15:12 | PD.RAD ---
Post Procedure Progress Note Pre Procedure Diagnosis: (1) Major neurocognitive disorder as late effect of traumatic brain injury without behavioral disturbance Post Procedure Diagnosis: (1) Major neurocognitive disorder as late effect of traumatic brain injury without behavioral disturbance Procedure Date: Jan 30, 2017 Supervising Radiologist: Gagan Sarmiento JR Proceduralist/Assist: Long Jeffery, RT(R), Eli Silvestre RT(R)() Anesthesia: Other Plan of Activity Patient to Unit: Critical Care Patient Condition: Fair See PACS Report for procedural detail/treatment Feeding Tube Gastrostomy Placement [place]: 18 Findings: G tube in good position. Plan T fasteners will fall off on their own in 2-3 weeks. Jr. Torsten,Gagan Valencia MD Jan 30, 2017 15:12
[2017-01-30] MEDS ORDERED: IOHEXOL 350 MG/ML 50 ML BTL (for RAD DIAG) G-TUBE ONE (15:21)
[2017-01-30] MEDS ORDERED: GLUCAGON 1 MG/ML VIAL IV ONE (15:43)
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
[2017-01-31] VITALS (18 sets, daily range): BP systolic 122–152; BP diastolic 75–91; PULSE 86–121; RESP 14–25; TEMP 98.4–102; O2SAT 95–100
[2017-01-31] MEDS: MIDAZOLAM 100 MG/ML INJ 100 ML IV SCH ×2 (01:52→17:46)
[2017-01-31] MEDS: PROPOFOL 1000 MG/100 ML INJ 100 ML IV SCH ×4 (03:05→22:46)
--- NOTE | 2017-01-31 06:27 | RADRPT ---
EXAM DATE/TIME: 01/31/2017 04:50 [place] COMPARISON: CHEST SINGLE AP, January 28, 2017, 4:59. INDICATIONS : Infiltrate MEDICAL HISTORY : None. SURGICAL HISTORY : Pacemaker. ENCOUNTER: Subsequent ACUITY: 1 month PAIN SCORE: Non-responsive. LOCATION: Bilateral chest FINDINGS: The cardiac silhouette is normal in transverse diameter. A tracheostomy tube is in place in the midli ne. TheThere is left lower lobe atelectasis versus pneumonia. The right lung is free of acute parench ymal opacity. CONCLUSION: 1. Left lower lobe atelectasis versus pneumonia. There has been no significant change when compared t o the prior exam. Efe Park MD on January 31, 2017 at 6:24 Board Certified Radiologist. This report was verified electronically.
[2017-01-31] MEDS: HEPARIN SODIUM - SQ 10,000 UNITS/ML VIAL SQ SCH ×3 (06:29→21:53)
[2017-01-31] MEDS: BUMETANIDE INJ 1 MG/4 ML VIAL IV PUSH SCH ×3 (06:29→21:53)
[2017-01-31 06:54] LABS: BICARBONATE 28.6 MEQ/L (21.0-32.0); POTASSIUM 3.8 MEQ/L (3.5-5.1)
[2017-01-31] MEDS: SODIUM CHLORIDE 0.9% FLUSH 10 ML FLUSH IV FLUSH SCH ×2 (07:15→20:08)
[2017-01-31 07:17] LABS: AUTOMATED NEUTROPHIL # 14.9 TH/MM3 (1.8-7.7); BASOPHIL # 0.1 TH/MM3 (0-0.2); BASOPHIL % 0.4 % (0.0-2.0); EOSINOPHIL # 0.4 TH/MM3 (0-0.4); EOSINOPHIL % 2.1 % (0.0-4.0); HEMATOCRIT 36.9 % (39.0-51.0); HEMO FLAGS DIFF FINAL; LYMPH % 8.3 % (9.0-44.0); LYMPHOCYTE # 1.6 TH/MM3 (1.0-4.8); MEAN CELL VOLUME 89.3 FL (80.0-100.0); MEAN CORPUSCULAR HEMOGLOBIN 30.1 PG (27.0-34.0); MEAN CORPUSCULAR HGB CONC 33.6 % (32.0-36.0); MONO % 9.9 % (0.0-8.0); NEUT % 79.3 % (16.0-70.0); PLATELET COUNT 517 TH/MM3 (150-450); RED BLOOD COUNT 4.13 MIL/MM3 (4.50-5.90); RED CELL DISTRIBUTION WIDTH 16.6 % (11.6-17.2); WHITE BLOOD COUNT 18.8 TH/MM3 (4.0-11.0)
[2017-01-31] MEDS: CHLORHEXIDINE 0.12% (ORAL KIT) 15 ML CUP MT SCH ×2 (07:51→20:08)
[2017-01-31] MEDS: ARTIFICIAL TEARS OPTH SOLN 15 ML BTL EACH EYE SCH ×3 (07:52→18:00)
[2017-01-31] MEDS: POTASSIUM CHLORIDE 25 MEQ EFFERVESCENT TAB PO SCH ×2 (07:52→20:08)
[2017-01-31] MEDS: SENNOSIDES SYRUP 8.8 MG/5 ML CUP NG SCH ×2 (07:52→20:08)
[2017-01-31] MEDS: METOLAZONE 5 MG TAB PO SCH ×2 (07:52→20:08)
[2017-01-31] MEDS: FLUCONAZOLE 200 MG TAB PO SCH (08:29)
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
[2017-01-31] MEDS: RESP: ALBUTEROL 2.5 MG/3 ML NEB (PRN) NEB (11:05)
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
[2017-01-31] MEDS: ACETAMINOPHEN 650 MG/20.3 ML UDC OG-TUBE PRN ×2 (13:51→22:52)
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
[2017-01-31] MEDS: fentaNYL 2,500 MCG/NS 250 ML IV SCH (23:00)
[2017-02-01] VITALS (18 sets, daily range): BP systolic 122–155; BP diastolic 61–83; PULSE 94–105; RESP 16–20; TEMP 99.2–100.2; O2SAT 94–100
[2017-02-01] MEDS: PROPOFOL 1000 MG/100 ML INJ 100 ML IV SCH (05:11)
[2017-02-01] MEDS: HEPARIN SODIUM - SQ 10,000 UNITS/ML VIAL SQ SCH ×3 (05:12→20:22)
[2017-02-01] MEDS: BUMETANIDE INJ 1 MG/4 ML VIAL IV PUSH SCH ×3 (05:12→20:22)
[2017-02-01 05:52] LABS: AUTOMATED NEUTROPHIL # 19.7 TH/MM3 (1.8-7.7); BASOPHIL # 0.1 TH/MM3 (0-0.2); BASOPHIL % 0.4 % (0.0-2.0); EOSINOPHIL # 0.4 TH/MM3 (0-0.4); EOSINOPHIL % 1.7 % (0.0-4.0); HEMATOCRIT 26.6 % (39.0-51.0); LYMPH % 5.2 % (9.0-44.0); LYMPHOCYTE # 1.2 TH/MM3 (1.0-4.8); MEAN CELL VOLUME 90.8 FL (80.0-100.0); MEAN CORPUSCULAR HEMOGLOBIN 29.3 PG (27.0-34.0); MEAN CORPUSCULAR HGB CONC 32.3 % (32.0-36.0); MONO % 10.5 % (0.0-8.0); NEUT % 82.2 % (16.0-70.0); PLATELET COUNT 717 TH/MM3 (150-450); RED BLOOD COUNT 2.93 MIL/MM3 (4.50-5.90); WHITE BLOOD COUNT 23.9 TH/MM3 (4.0-11.0)
[2017-02-01 05:57] LABS: HEMO FLAGS AUTO DIFF
[2017-02-01 06:23] LABS: ANION GAP 18 MEQ/L (5-15); BICARBONATE 29.1 MEQ/L (21.0-32.0); BLOOD UREA NITROGEN 157 MG/DL (7-18); CHLORIDE 94 MEQ/L (98-107); POTASSIUM 3.7 MEQ/L (3.5-5.1); SODIUM (NA) 141 MEQ/L (136-145)
[2017-02-01] MEDS: CHLORHEXIDINE 0.12% (ORAL KIT) 15 ML CUP MT SCH ×2 (08:00→20:23)
[2017-02-01 08:11] LABS: PLATELET ESTIMATE SMEAR HIGH (NORMAL)
[2017-02-01 08:12] LABS: PLATELET MORPHOLOGY NORMAL (NORMAL); SCAN/DIFF AUTO DIFF CONFIRMED
[2017-02-01] MEDS: SENNOSIDES SYRUP 8.8 MG/5 ML CUP NG SCH ×3 (09:00→20:23)
[2017-02-01] MEDS: ARTIFICIAL TEARS OPTH SOLN 15 ML BTL EACH EYE SCH ×3 (09:00→18:46)
[2017-02-01] MEDS: SODIUM CHLORIDE 0.9% FLUSH 10 ML FLUSH IV FLUSH SCH ×2 (09:00→20:23)
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
[2017-02-01] MEDS: POTASSIUM CHLORIDE 25 MEQ EFFERVESCENT TAB PO SCH ×2 (09:50→20:22)
[2017-02-01] MEDS: FLUCONAZOLE 200 MG TAB PO SCH (09:52)
[2017-02-01] MEDS: PROPRANOLOL HCL 20 MG TAB PO SCH ×3 (09:53→18:46)
[2017-02-01] MEDS: METOLAZONE 5 MG TAB PO SCH ×2 (09:53→20:22)
[2017-02-01] MEDS: oxyCODONE HCL ORAL CONC 20 MG/ML SYRINGE PO SCH ×4 (09:54→20:23)
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
[2017-02-01] MEDS ORDERED: HALOPERIDOL LACTATE 5 MG/ML AMP IV PUSH PRN (10:00)
[2017-02-01] MEDS: QUEtiapine FUMARATE 100 MG TAB PO SCH ×3 (10:00→20:22)
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
--- NOTE | 2017-02-01 11:06 | RADRPT ---
EXAM DATE/TIME: 02/01/2017 10:35 [facility] COMPARISON: CT ABDOMEN & PELVIS W CONTRAST, December 31, 2016, 12:42. INDICATIONS : Splenic laceration. ORAL CONTRAST: No oral contrast ingested. RADIATION DOSE: 5.44 CTDIvol (mGy) ; Combined studies - Thorax/Abdomen/Pelvis MEDICAL HISTORY : Splenic laceration, rib fractures. SURGICAL HISTORY : Bilateral chest tubes. ENCOUNTER: Subsequent ACUITY: 1 month PAIN SCALE: Non-responsive LOCATION: lower quadrant TECHNIQUE: Volumetric scanning of the abdomen and pelvis was performed. Using automated exposure control and ad justment of the mA and/or kV according to patient size, radiation dose was kept as low as reasonably achievable to obtain optimal diagnostic quality images. DICOM format image data is available electro nically for review and comparison. FINDINGS: LOWER LUNGS: Please refer to chest CT report for description of the supradiaphragmatic findings. LIVER: There are 2 stable cysts within this liver measuring up to 16 mm. There is no dilation of the biliar y tree. No calcified gallstones. SPLEEN: Surgically absent. There are 2 clips in the left upper quadrant. No fluid collection is present. PANCREAS: Within normal limits. KIDNEYS: Normal in size and shape. There is no mass, stone, or hydronephrosis. ADRENAL GLANDS: Within normal limits. VASCULAR: There is no aortic aneurysm. There is mild atherosclerotic disease. BOWEL/MESENTERY: The stomach, small bowel, and colon demonstrate no acute abnormality. There is no free intraperitone al air or fluid. There is sigmoid diverticulosis. G-tube is present. ABDOMINAL WALL: There are postsurgical changes along the midline anteriorly. RETROPERITONEUM: There is no lymphadenopathy. BLADDER: Michel catheter is present. REPRODUCTIVE: Within normal limits. INGUINAL: There is no lymphadenopathy or hernia. MUSCULOSKELETAL: No acute osseous abnormality is visualized. CONCLUSION: No acute finding is identified within the abdomen or pelvis. 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 There is no fluid collection present. Daljit Mills MD on February 01, 2017 at 10:59 Board Certified Radiologist. This report was verified electronically.
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
[2017-02-01 15:19] LABS: BACTERIA, URINE OCC /hpf; BLOOD, URINE NEG (NEG); GLUCOSE,URINE NEG (NEG); KETONE, URINE NEG (NEG); MUCUS URINE FEW /lpf (OCC); NITRITE,URINE NEG (NEG); URINE COLOR YELLOW (YELLW/STRAW)
[2017-02-01 15:22] LABS: COMMENT (UR) CATH-CULTURE IND; CULTURE IF INDICATED CATH CULTURE IND
--- NOTE | 2017-02-01 16:26 | RADRPT ---
EXAM DATE/TIME: 02/01/2017 15:30 [facility] COMPARISON: US LEG BILATERAL VENOUS DOPPLER, January 08, 2017, 8:43. INDICATIONS : Bilateral leg swelling. MEDICAL HISTORY : Left clavicle fracture. Left scapulor fracture. Left and right rib fracture. Hemopneumothorax. Liver laceration. SURGICAL HISTORY : Splenectomy. Knee repair. Foot surgery. Exploratory laparotomy. ENCOUNTER: Subsequent ACUITY: 1 day PAIN SCORE: Non-responsive LOCATION: Bilateral leg. TECHNIQUE: Venous ultrasound of the left and right leg was performed from the inguinal ligament to the proximal calf. Real-time, color Doppler and spectral tracing, compression and augmentation techniques were us ed. FINDINGS: RIGHT LEG: There is normal compressibility of the deep venous system from the inguinal region to the proximal ca lf. No echogenic clot is seen in the lumen of the common femoral, femoral, popliteal, and posterior tibial veins. There is a normal response of the venous system to proximal and distal augmentation an d respiration. LEFT LEG: There is normal compressibility of the deep venous system from the inguinal region to the proximal ca lf. No echogenic clot is seen in the lumen of the common femoral, femoral, popliteal, and posterior tibial veins. There is a normal response of the venous system to proximal and distal augmentation an d respiration. CONCLUSION: No DVT of either lower extremity. Daljit Cabrera MD on February 01, 2017 at 16:24 Board Certified Radiologist. This report was verified electronically.
--- NOTE | 2017-02-01 16:29 | RADRPT ---
EXAM DATE/TIME: 02/01/2017 15:44 [facility] COMPARISON: No previous studies available for comparison. INDICATIONS : Bilateral arm swelling. History of deep vein thrombosis. MEDICAL HISTORY : Left clavicle fracture. Left scapulor fracture. Left and right rib fracture. Hemopneumothorax. Liver laceration. SURGICAL HISTORY : Splenectomy. Knee repair. Foot surgery. Exploratory laparotomy. ENCOUNTER: Subsequent ACUITY: 1 day PAIN SCORE: Non-responsive LOCATION: Bilateral arm. FINDINGS: RIGHT UPPER EXTREMITY: Nonocclusive superficial thrombus seen in the mid right cephalic vein. Other venous tributaries of th e right upper extremity are patent. LEFT UPPER EXTREMITY: Nonocclusive deep venous thrombus seen distally in the left basilic vein. CONCLUSION: Localized superficial thrombosis of the right upper extremity and deep venous thrombosis of the left upper extremity. Daljit Cabrera MD on February 01, 2017 at 16:25 Board Certified Radiologist. This report was verified electronically.
[2017-02-02] VITALS (16 sets, daily range): BP systolic 124–153; BP diastolic 62–80; PULSE 89–98; RESP 14–22; TEMP 99.1–100; O2SAT 90–98
[2017-02-02] MEDS: PROPRANOLOL HCL 20 MG TAB PO SCH ×5 (00:56→23:57)
[2017-02-02] MEDS: oxyCODONE HCL ORAL CONC 20 MG/ML SYRINGE PO SCH ×6 (02:00→20:13)
[2017-02-02] MEDS: BUMETANIDE INJ 1 MG/4 ML VIAL IV PUSH SCH (05:42)
[2017-02-02] MEDS: QUEtiapine FUMARATE 100 MG TAB PO SCH ×3 (05:42→20:14)
[2017-02-02] MEDS: HEPARIN SODIUM - SQ 10,000 UNITS/ML VIAL SQ SCH ×3 (05:43→20:13)
[2017-02-02 07:17] LABS: BASOPHIL # 0.1 TH/MM3 (0-0.2); BASOPHIL % 0.3 % (0.0-2.0); EOSINOPHIL # 1.7 TH/MM3 (0-0.4); EOSINOPHIL % 7.1 % (0.0-4.0); HEMATOCRIT 25.9 % (39.0-51.0); LYMPH % 7.1 % (9.0-44.0); LYMPHOCYTE # 1.7 TH/MM3 (1.0-4.8); MEAN CELL VOLUME 89.4 FL (80.0-100.0); MEAN CORPUSCULAR HEMOGLOBIN 30.2 PG (27.0-34.0); MEAN CORPUSCULAR HGB CONC 33.8 % (32.0-36.0); MONO % 10.6 % (0.0-8.0); NEUT % 74.9 % (16.0-70.0); PLATELET COUNT 745 TH/MM3 (150-450); RED CELL DISTRIBUTION WIDTH 16.7 % (11.6-17.2); WHITE BLOOD COUNT 24.1 TH/MM3 (4.0-11.0)
[2017-02-02 07:18] LABS: HEMO FLAGS AUTO DIFF
[2017-02-02 07:30] LABS: ANION GAP 17 MEQ/L (5-15); BICARBONATE 28.4 MEQ/L (21.0-32.0); CHLORIDE 96 MEQ/L (98-107); POTASSIUM 4.3 MEQ/L (3.5-5.1); SODIUM (NA) 141 MEQ/L (136-145)
[2017-02-02 07:31] LABS: BLOOD UREA NITROGEN 183 MG/DL (7-18)
[2017-02-02 07:52] LABS: HOWELL-JOLLY BODIES PRESENT (NONE SEEN)
[2017-02-02 07:53] LABS: PLATELET ESTIMATE SMEAR HIGH (NORMAL)
[2017-02-02 07:54] LABS: PLATELET MORPHOLOGY ENLARGED (NORMAL); SCAN/DIFF AUTO DIFF CONFIRMED
[2017-02-02] MEDS: METOLAZONE 5 MG TAB PO SCH (08:09)
[2017-02-02] MEDS: POTASSIUM CHLORIDE 25 MEQ EFFERVESCENT TAB PO SCH ×2 (08:09→20:13)
[2017-02-02] MEDS: FLUCONAZOLE 200 MG TAB PO SCH (08:10)
[2017-02-02] MEDS: ARTIFICIAL TEARS OPTH SOLN 15 ML BTL EACH EYE SCH ×3 (08:10→20:00)
[2017-02-02] MEDS: SODIUM CHLORIDE 0.9% FLUSH 10 ML FLUSH IV FLUSH SCH ×2 (08:11→20:13)
[2017-02-02] MEDS: CHLORHEXIDINE 0.12% (ORAL KIT) 15 ML CUP MT SCH ×2 (08:12→20:12)
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
[2017-02-02] MEDS ORDERED: SODIUM CHLOR 0.9% 1000 ML INJ 1,000 ML IV PRN ×2 (10:47)
[2017-02-02] MEDS ORDERED: SODIUM CHLORIDE 0.9% FLUSH 10 ML FLUSH IV FLUSH PRN (11:00)
[2017-02-02] MEDS ORDERED: GELATIN 12 MM/7 MM FOAM TOP PRN (11:00)
[2017-02-02] MEDS ORDERED: NITROGLYCERIN 0.4 MG SL 25 TABS/BTL SL PRN (11:00)
[2017-02-02] MEDS ORDERED: MANNITOL 12.5 GM/50 ML VIAL IV PRN (11:00)
[2017-02-02] MEDS ORDERED: ONDANSETRON HCL 4 MG/2 ML VIAL IV PRN (11:00)
[2017-02-02] MEDS ORDERED: ACETAMINOPHEN 325 MG TAB PO PRN (11:00)
[2017-02-02] MEDS ORDERED: cloNIDine HCL 0.1 MG TAB PO PRN (11:00)
[2017-02-02] MEDS ORDERED: HEPARIN SODIUM - IV 10,000 UNITS/10 ML VIAL IVF PRN (11:00)
[2017-02-02] MEDS ORDERED: diphenhydrAMINE HCL 25 MG CAP PO PRN (11:00)
[2017-02-02] MEDS: SENNOSIDES SYRUP 8.8 MG/5 ML CUP NG SCH ×2 (11:18→20:13)
--- NOTE | 2017-02-02 15:35 | RADRPT ---
EXAM DATE/TIME: 02/02/2017 15:03 [place] COMPARISON: CT THORAX W CONTRAST, December 31, 2016, 12:42. CHEST SINGLE AP, January 31, 2017, 4:50. INDICATIONS : Vascath placement. MEDICAL HISTORY : Flail chest, Pneumonia, Rib fractures. SURGICAL HISTORY : Bilateral Chest tubes. ENCOUNTER: Subsequent ACUITY: 1 day PAIN SCORE: Non-responsive. LOCATION: Bilateral chest FINDINGS: Right internal jugular central venous catheter now present, tip at atrial caval junction. I don't see a pneumothorax. Basilar consolidation and small to moderate effusion seen at the left lung base, slightly worse. Tracheostomy again noted. Bilateral rib fractures are again noted. CONCLUSION: 1. New right IJ central venous catheter with tip at the atriocaval junction. No pneumothorax. 2. Consolidation and [id number] pleural effusion at the left lung base slightly worse. Daljit Cabrera MD on February 02, 2017 at 15:31 Board Certified Radiologist. This report was verified electronically.
--- NOTE | 2017-02-02 16:44 | PD.PROCEDR ---
Procedure Note Procedure Central Line Procedure Note Right IJ 14 Uzbek 20 cm dialysis catheter Diagnosis: Acute kidney injury requiring dialysis Indications: Acute kidney injury requiring dialysis Consent: Written consent was obtained Anesthesia: Fentanyl 100 ug IV Description of the Procedure: The patient was placed in the supine, mild- Trendelenburg position. The area was prepped and draped sterilely. A 19g needle was inserted under negative pressure aspiration and dark venous blood was obtained. A guidewire was inserted easily without resistance. A small incision was made using a #11 blade. Using a modified Seldinger technique, the dilators and 14 Uzbek, 20 cm catheter were advanced over the guidewire without resistance. All ports were aspirated and flushed, and had brisk blood return. The line was secured at the skin using 2-0 silk interrupted sutures. A Biopatch and Transparent sterile dressing were applied. There were no immediate complications noted. There was minimal EBL. The patient tolerated the procedure well. Ultrasound Guidance: Ultrasound guidance was used to identify the right internal jugular vein. The vascular anatomy of the right anterior neck was normal. The vessel was cannulated under direct, real-time ultrasound visualization. After placement of the guidewire, confirmation of the guidewire in the lumen of the vessel was made using ultrasound visualization, before dilation of the tract. A Chest x-ray has been ordered. I personally performed the procedure. Ghassan Elizondo MD Feb 02, 2017 16:44
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
[2017-02-02] MEDS: GENTAMICIN SULFATE (DIALYSIS USE ONLY) 20 MG/2 ML VIAL IV PRN (19:31)
[2017-02-02] MEDS: HEPARIN SODIUM - IV 10,000 UNITS/10 ML VIAL PRN (19:31)
[2017-02-03] VITALS (18 sets, daily range): BP systolic 130–153; BP diastolic 75–81; PULSE 86–92; RESP 15–25; TEMP 98.7–100.3; O2SAT 95–100
[2017-02-03] MEDS: oxyCODONE HCL ORAL CONC 20 MG/ML SYRINGE PO SCH ×4 (02:42→13:48)
[2017-02-03 04:49] LABS: AUTOMATED NEUTROPHIL # 20.5 TH/MM3 (1.8-7.7); BASOPHIL # 0.1 TH/MM3 (0-0.2); BASOPHIL % 0.3 % (0.0-2.0); EOSINOPHIL # 0.4 TH/MM3 (0-0.4); EOSINOPHIL % 1.7 % (0.0-4.0); HEMATOCRIT 26.8 % (39.0-51.0); LYMPH % 4.9 % (9.0-44.0); LYMPHOCYTE # 1.2 TH/MM3 (1.0-4.8); MEAN CELL VOLUME 90.1 FL (80.0-100.0); MEAN CORPUSCULAR HEMOGLOBIN 29.3 PG (27.0-34.0); MEAN CORPUSCULAR HGB CONC 32.5 % (32.0-36.0); MONO % 8.7 % (0.0-8.0); NEUT % 84.4 % (16.0-70.0); PLATELET COUNT 717 TH/MM3 (150-450); RED BLOOD COUNT 2.97 MIL/MM3 (4.50-5.90); RED CELL DISTRIBUTION WIDTH 16.9 % (11.6-17.2); WHITE BLOOD COUNT 24.3 TH/MM3 (4.0-11.0)
[2017-02-03 04:54] LABS: HEMO FLAGS AUTO DIFF
[2017-02-03] MEDS: HEPARIN SODIUM - SQ 10,000 UNITS/ML VIAL SQ SCH ×3 (05:01→20:04)
[2017-02-03] MEDS: PROPRANOLOL HCL 20 MG TAB PO SCH ×4 (05:01→23:26)
[2017-02-03] MEDS: QUEtiapine FUMARATE 100 MG TAB PO SCH ×2 (05:01→13:47)
[2017-02-03 05:32] LABS: BICARBONATE 28.5 MEQ/L (21.0-32.0); POTASSIUM 4.6 MEQ/L (3.5-5.1)
[2017-02-03 08:25] LABS: HOWELL-JOLLY BODIES PRESENT (NONE SEEN); PLATELET ESTIMATE SMEAR HIGH (NORMAL); PLATELET MORPHOLOGY NORMAL (NORMAL); SCAN/DIFF AUTO DIFF CONFIRMED
[2017-02-03] MEDS: CHLORHEXIDINE 0.12% (ORAL KIT) 15 ML CUP MT SCH ×2 (08:43→20:04)
[2017-02-03] MEDS: POTASSIUM CHLORIDE 25 MEQ EFFERVESCENT TAB PO SCH ×2 (08:44→20:04)
[2017-02-03] MEDS: ARTIFICIAL TEARS OPTH SOLN 15 ML BTL EACH EYE SCH ×3 (08:45→17:26)
[2017-02-03] MEDS: FLUCONAZOLE 200 MG TAB PO SCH (08:45)
[2017-02-03] MEDS: SODIUM CHLORIDE 0.9% FLUSH 10 ML FLUSH IV FLUSH SCH ×2 (08:45→20:04)
[2017-02-03] MEDS: SENNOSIDES SYRUP 8.8 MG/5 ML CUP NG SCH (08:45)
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
[2017-02-03] MEDS: PIPERACIL-TAZO 2.25 GM PREMIX 50 ML IV SCH ×2 (10:44→18:16)
[2017-02-03] MEDS ORDERED: PIPERACIL-TAZO 2.25 GM PREMIX 50 ML IV SCH (11:00)
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
[2017-02-03] MEDS: QUEtiapine FUMARATE 25 MG TAB PO SCH (20:04)
[2017-02-03] MEDS ORDERED: LEVOFLOXACIN 750 MG PREMIX INJ 150 ML IV ONE (21:00)
[2017-02-03] MEDS: PANTOPRAZOLE SODIUM 40 MG VIAL IV PUSH SCH (21:12)
[2017-02-04] VITALS (21 sets, daily range): BP systolic 126–157; BP diastolic 76–85; PULSE 81–96; RESP 14–27; TEMP 98–99.3; O2SAT 94–100
[2017-02-04 01:03] LABS: HEMATOCRIT 24.8 % (39.0-51.0); REVIEW FLAG FINAL
[2017-02-04] MEDS: QUEtiapine FUMARATE 25 MG TAB PO SCH ×3 (05:03→20:46)
[2017-02-04] MEDS: PROPRANOLOL HCL 20 MG TAB PO SCH ×3 (05:03→17:53)
[2017-02-04 05:06] LABS: AUTOMATED NEUTROPHIL # 17.8 TH/MM3 (1.8-7.7); BASOPHIL # 0.1 TH/MM3 (0-0.2); BASOPHIL % 0.5 % (0.0-2.0); EOSINOPHIL # 0.4 TH/MM3 (0-0.4); EOSINOPHIL % 1.7 % (0.0-4.0); HEMATOCRIT 25.3 % (39.0-51.0); LYMPH % 3.4 % (9.0-44.0); LYMPHOCYTE # 0.7 TH/MM3 (1.0-4.8); MEAN CELL VOLUME 90.5 FL (80.0-100.0); MEAN CORPUSCULAR HEMOGLOBIN 29.3 PG (27.0-34.0); MEAN CORPUSCULAR HGB CONC 32.4 % (32.0-36.0); MONO % 10.2 % (0.0-8.0); NEUT % 84.2 % (16.0-70.0); PLATELET COUNT 733 TH/MM3 (150-450); RED BLOOD COUNT 2.79 MIL/MM3 (4.50-5.90); WHITE BLOOD COUNT 21.2 TH/MM3 (4.0-11.0)
[2017-02-04 05:18] LABS: APTT (PATIENT) 29.3 SEC (24.3-30.1); INTERNATIONAL NORMALIZED RATIO 1.2 RATIO; PROTHROMBIN TIME - PATIENT 13.7 SEC (9.8-11.6)
[2017-02-04 05:21] LABS: HEMO FLAGS AUTO DIFF
[2017-02-04 05:37] LABS: MAGNESIUM 2.7 MG/DL (1.5-2.5)
[2017-02-04 05:38] LABS: INDIRECT BILIRUBIN 0.3 MG/DL (0.0-0.8); TOTAL BILIRUBIN ADULT 0.9 MG/DL (0.2-1.0)
[2017-02-04 05:49] LABS: BICARBONATE 31.5 MEQ/L (21.0-32.0); POTASSIUM 4.3 MEQ/L (3.5-5.1)
[2017-02-04 06:52] LABS: BANDS 7 % (0-6); EOSINOPHILS 4 % (0-4); METAMYELOCYTES 1 % (0-1); NEUTROPHIL # MANUAL DIFF 16.5 TH/MM3 (1.8-7.7); PLATELET ESTIMATE SMEAR HIGH (NORMAL); PLATELET MORPHOLOGY NORMAL (NORMAL); POLYS (SEG NEUTROPHILS) 70 % (16-70); SCAN/DIFF FINAL DIFF MANUAL; STOMATOCYTES 1+ (NORMAL); WBC DIFF SAMPLE 100
--- NOTE | 2017-02-04 07:24 | RADRPT ---
EXAM DATE/TIME: 02/04/2017 06:59 [place] COMPARISON: CT THORAX W/O CONTRAST, February 01, 2017, 10:35. INDICATIONS : Evaluate left clavicle fracture MEDICAL HISTORY : rib fractures, left clavicle and scapula fractures, splenic laceration SURGICAL HISTORY : tracheostomy ENCOUNTER: Subsequent ACUITY: 1 month PAIN SCORE: Non-responsive. LOCATION: Left clavicle FINDINGS: There is a fracture of the distal clavicle at the junction of the middle one third and outer one thir d extending toward the distal aspect not involving the a.c. joint with slightly offset magnified 5 mm . Fracture of the scapula is additionally appreciated just beyond the inferior glenoid fossa. There i s no evidence of shoulder dislocation. CONCLUSION: Fracture mid to distal clavicle. Rogelio King MD on February 04, 2017 at 7:21 Board Certified Radiologist. This report was verified electronically.
[2017-02-04] MEDS: RESP: ALBUTEROL 2.5 MG/3 ML NEB (PRN) NEB (07:42)
[2017-02-04] MEDS: POTASSIUM CHLORIDE 25 MEQ EFFERVESCENT TAB PO SCH ×2 (08:53→20:46)
[2017-02-04] MEDS: PANTOPRAZOLE SODIUM 40 MG VIAL IV PUSH SCH ×2 (08:53→20:47)
[2017-02-04] MEDS: FLUCONAZOLE 200 MG TAB PO SCH (08:53)
[2017-02-04] MEDS: CHLORHEXIDINE 0.12% (ORAL KIT) 15 ML CUP MT SCH ×2 (08:53→20:46)
[2017-02-04] MEDS: ARTIFICIAL TEARS OPTH SOLN 15 ML BTL EACH EYE SCH ×3 (09:00→17:53)
[2017-02-04] MEDS: SODIUM CHLORIDE 0.9% FLUSH 10 ML FLUSH IV FLUSH SCH ×2 (09:02→20:47)
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
[2017-02-04 14:35] LABS: C. DIFF EPI 027 PRESUMPTIVE NEGATIVE (NEGATIVE); C. DIFF TOXIN PCR NEGATIVE (NEGATIVE)
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
[2017-02-05] VITALS (21 sets, daily range): BP systolic 139–159; BP diastolic 76–93; PULSE 74–98; RESP 11–26; TEMP 97.6–99.3; O2SAT 92–100
[2017-02-05] MEDS: PROPRANOLOL HCL 20 MG TAB PO SCH ×4 (00:02→17:21)
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
[2017-02-05 05:22] LABS: AUTOMATED NEUTROPHIL # 15.1 TH/MM3 (1.8-7.7); BASOPHIL # 0.1 TH/MM3 (0-0.2); BASOPHIL % 0.4 % (0.0-2.0); EOSINOPHIL # 0.6 TH/MM3 (0-0.4); EOSINOPHIL % 3.3 % (0.0-4.0); HEMATOCRIT 28.3 % (39.0-51.0); LYMPH % 4.8 % (9.0-44.0); LYMPHOCYTE # 0.9 TH/MM3 (1.0-4.8); MEAN CELL VOLUME 88.8 FL (80.0-100.0); MEAN CORPUSCULAR HEMOGLOBIN 30.6 PG (27.0-34.0); MEAN CORPUSCULAR HGB CONC 34.5 % (32.0-36.0); MONO % 13.5 % (0.0-8.0); PLATELET COUNT 659 TH/MM3 (150-450); RED BLOOD COUNT 3.18 MIL/MM3 (4.50-5.90); RED CELL DISTRIBUTION WIDTH 16.7 % (11.6-17.2); WHITE BLOOD COUNT 19.4 TH/MM3 (4.0-11.0)
[2017-02-05] MEDS: QUEtiapine FUMARATE 25 MG TAB PO SCH ×3 (05:25→20:23)
[2017-02-05 05:27] LABS: HEMO FLAGS AUTO DIFF
[2017-02-05 05:55] LABS: BICARBONATE 29.6 MEQ/L (21.0-32.0)
[2017-02-05 06:17] LABS: SCAN/DIFF AUTO DIFF CONFIRMED
[2017-02-05] MEDS: CHLORHEXIDINE 0.12% (ORAL KIT) 15 ML CUP MT SCH ×2 (07:32→20:23)
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
[2017-02-05] MEDS: HEPARIN SODIUM - IV 10,000 UNITS/10 ML VIAL PRN (08:30)
[2017-02-05] MEDS: SODIUM CHLOR 0.9% 1000 ML INJ 1,000 ML IV PRN (08:30)
[2017-02-05] MEDS: GENTAMICIN SULFATE (DIALYSIS USE ONLY) 20 MG/2 ML VIAL IV PRN (08:30)
[2017-02-05] MEDS: POTASSIUM CHLORIDE 25 MEQ EFFERVESCENT TAB PO SCH ×2 (08:33→20:23)
[2017-02-05] MEDS: FLUCONAZOLE 200 MG TAB PO SCH (08:33)
[2017-02-05] MEDS: PANTOPRAZOLE SODIUM 40 MG VIAL IV PUSH SCH ×2 (08:33→20:23)
[2017-02-05] MEDS: SODIUM CHLORIDE 0.9% FLUSH 10 ML FLUSH IV FLUSH SCH ×2 (08:34→20:23)
[2017-02-05] MEDS: ARTIFICIAL TEARS OPTH SOLN 15 ML BTL EACH EYE SCH ×3 (08:34→17:21)
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
[2017-02-05] MEDS: LEVOFLOXACIN 500 MG PREMIX INJ 100 ML IV SCH (20:23)
[2017-02-05] MEDS: RESP: TOBRAMYCIN SULFATE 80 MG/2 ML NEB NEB SCH (20:29)
[2017-02-06] VITALS (18 sets, daily range): BP systolic 133–166; BP diastolic 84–97; PULSE 71–98; RESP 15–29; TEMP 97.9–99.1; O2SAT 96–100
[2017-02-06 05:04] LABS: BLOOD GAS BASE EXCESS 6.4 mmol/L (-2-2); BLOOD GAS CARBOXYHEMOGLOBIN 1.4 % (0-4); BLOOD GAS HCO3 30 mmol/L (22-26); BLOOD GAS METHEMOGLOBIN 0.9 % (0-2); BLOOD GAS O2 HGB SATURATION 88 % (90-100); BLOOD GAS OXYGEN CONTENT 12.8 Vol % (12.0-20.0); BLOOD GAS PCO2 41 mmHg (38-42); BLOOD GAS PO2 60 mmHg (61-120); BLOOD GAS TOTAL HGB 10.3 G/DL (12.0-16.0); TEMP CORR TO 98.6
[2017-02-06 05:07] LABS: CRITICAL VALUE YES; LITER FLOW 8 L/M; OXYGEN DEVICE T-PIECE
[2017-02-06 05:08] LABS: DRAW SITE RT RADIAL; FIO2 50 %; NUMBER OF ARTERIAL PUNCTURES 1; STAT NO; ULNAR PULSE Y
[2017-02-06] MEDS: QUEtiapine FUMARATE 25 MG TAB PO SCH ×3 (05:16→21:03)
[2017-02-06] MEDS: PROPRANOLOL HCL 20 MG TAB PO SCH ×4 (05:16→18:15)
[2017-02-06 06:26] LABS: AUTOMATED NEUTROPHIL # 13.4 TH/MM3 (1.8-7.7); BASOPHIL # 0.2 TH/MM3 (0-0.2); EOSINOPHIL # 0.9 TH/MM3 (0-0.4); EOSINOPHIL % 4.8 % (0.0-4.0); HEMATOCRIT 30.6 % (39.0-51.0); LYMPH % 5.1 % (9.0-44.0); LYMPHOCYTE # 0.9 TH/MM3 (1.0-4.8); MEAN CELL VOLUME 90.8 FL (80.0-100.0); MEAN CORPUSCULAR HEMOGLOBIN 29.2 PG (27.0-34.0); MEAN CORPUSCULAR HGB CONC 32.2 % (32.0-36.0); MONO % 13.8 % (0.0-8.0); NEUT % 75.3 % (16.0-70.0); PLATELET COUNT 708 TH/MM3 (150-450); RED BLOOD COUNT 3.37 MIL/MM3 (4.50-5.90); RED CELL DISTRIBUTION WIDTH 16.7 % (11.6-17.2); WHITE BLOOD COUNT 17.8 TH/MM3 (4.0-11.0)
[2017-02-06 06:29] LABS: HEMO FLAGS AUTO DIFF
[2017-02-06 07:14] LABS: PLATELET ESTIMATE SMEAR HIGH (NORMAL); PLATELET MORPHOLOGY NORMAL (NORMAL); SCAN/DIFF AUTO DIFF CONFIRMED
[2017-02-06 07:29] LABS: BICARBONATE 31.4 MEQ/L (21.0-32.0)
[2017-02-06 07:43] LABS: POTASSIUM 4.6 MEQ/L (3.5-5.1)
[2017-02-06] MEDS: RESP: TOBRAMYCIN SULFATE 80 MG/2 ML NEB NEB SCH ×2 (08:15→19:19)
[2017-02-06] MEDS: ARTIFICIAL TEARS OPTH SOLN 15 ML BTL EACH EYE SCH ×3 (09:00→18:00)
[2017-02-06] MEDS: POTASSIUM CHLORIDE 25 MEQ EFFERVESCENT TAB PO SCH ×2 (09:38→21:03)
[2017-02-06] MEDS: CHLORHEXIDINE 0.12% (ORAL KIT) 15 ML CUP MT SCH ×2 (09:39→21:02)
[2017-02-06] MEDS: FLUCONAZOLE 200 MG TAB PO SCH (09:39)
[2017-02-06] MEDS: SODIUM CHLORIDE 0.9% FLUSH 10 ML FLUSH IV FLUSH SCH ×2 (09:39→21:03)
[2017-02-06] MEDS: PANTOPRAZOLE SODIUM 40 MG VIAL IV PUSH SCH ×2 (09:39→21:03)
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
--- NOTE | 2017-02-06 11:28 | PD.ORT.PN ---
Subjective Subjective Remarks Stable with no new changes Objective Vitals Vital Signs Date Time Temp Pulse Resp B/P Pulse Ox O2 Delivery O2 Flow Rate FiO2 02/06/17 08:16 99 40 02/06/17 06:00 71 02/06/17 05:59 40 02/06/17 05:52 100 40 02/06/17 04:00 76 02/06/17 04:00 50 02/06/17 04:00 99.1 86 18 149/85 100 02/06/17 02:00 80 02/06/17 00:20 98 T-piece 8.00 50 02/06/17 00:00 99.1 88 20 141/84 96 02/06/17 00:00 76 02/06/17 00:00 50 02/05/17 22:00 82 02/05/17 21:06 96 T-piece 8.00 50 02/05/17 20:00 76 02/05/17 20:00 98.7 74 24 145/80 95 02/05/17 20:00 50 02/05/17 18:00 89 02/05/17 17:30 92 Partial Rebreather 8.00 50 02/05/17 17:15 100 T-piece 8.00 40 02/05/17 17:15 40 02/05/17 16:00 86 02/05/17 16:00 99.3 84 26 139/76 95 02/05/17 16:00 40 02/05/17 14:39 98 40 02/05/17 14:00 90 02/05/17 12:00 40 02/05/17 12:00 98.3 86 16 148/83 97 02/05/17 12:00 86 I/O 02/05/17 02/05/17 02/05/17 02/06/17 02/06/17 02/06/17 07:00 15:00 23:00 07:00 15:00 23:00 Intake Total 327 ml 344 ml 268 ml 432 ml Output Total 750 ml 750 ml 500 ml 650 ml Balance -423 ml -406 ml -232 ml -218 ml Intake IV Total 60 ml 151 ml Tube Feeding 267 ml 344 ml 268 ml 281 ml Output Urine Total 700 ml 650 ml 500 ml 650 ml Stool Total 50 ml 100 ml Hemodialysis 0 ml Result Diagram: 02/06/17 0355 02/06/17 0355 Imaging Last 72 hours Impressions Chest X-Ray 02/05/17 0600 Signed Impressions: Service Date/Time: Sunday, February 05, 2017 03:56 - CONCLUSION: No significant change has occurred. Shan Sotomayor MD Clavicle X-Ray 02/04/17 0000 Signed Impressions: Service Date/Time: Saturday, February 04, 2017 06:59 - CONCLUSION: Fracture mid to distal clavicle. Rogelio King MD Last 24 hours Impressions Chest X-Ray 01/02/17 0600 Signed Impressions: Service Date/Time: December 04:24 - CONCLUSION: Right basilar atelectasis. No pneumothorax. Juan Miller MD Objective Remarks LUE: palpable deformity left clavicle. minimal crepitus. good cap refill distally. RUE: no crepitus with motion. good cap refill BLE: no crepitus with motion. good cap refill Assessment & Plan Assessment and Plan 1) Left Clavicle and Scapula fxs -xrays of clavicle reviewed. properly aligned. -nonop treatment - NWB -f/u outpatient with Marcel or PETER repeat xrays in 3 weeks Burt Zamarripa Jr. Feb 06, 2017 11:28
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
--- NOTE | 2017-02-06 14:49 | HHI.IDPN ---
Subjective Subjective Remarks Chart reviewed progress noted Notes reviewed Pt grew C. albicans from blood clx of 01/22 , repeat clx stay negative grew PSAE from ETT culture Temps ok tolerates Tpiece looks comfortable On TF WBC slowly decreasing, down to 17K today CXR stable Sputum with PSAE PSAE R to Zosyn BC negative so far NO new (+) BC with Thais + liquid diarrhea, 100-200 cc/day Antibiotics Diflucan PO Levaquin tobra nebs Lines PIV with no e.o infection. Vascath Past Medical History Foot surgery Allergies: Coded Allergies: No Known Allergies (Unverified , 02/05/17) VERIFIED Objective . Vital Signs Date Time Temp Pulse Resp B/P Pulse Ox O2 Delivery O2 Flow Rate FiO2 02/06/17 11:00 100 T-piece 50 02/06/17 08:16 99 40 02/06/17 06:00 71 02/06/17 05:59 40 02/06/17 05:52 100 40 02/06/17 04:00 76 02/06/17 04:00 50 02/06/17 04:00 99.1 86 18 149/85 100 02/06/17 02:00 80 02/06/17 00:20 98 T-piece 8.00 50 02/06/17 00:00 99.1 88 20 141/84 96 02/06/17 00:00 76 02/06/17 00:00 50 02/05/17 22:00 82 02/05/17 21:06 96 T-piece 8.00 50 02/05/17 20:00 76 02/05/17 20:00 98.7 74 24 145/80 95 02/05/17 20:00 50 02/05/17 18:00 89 02/05/17 17:30 92 Partial Rebreather 8.00 50 02/05/17 17:15 100 T-piece 8.00 40 02/05/17 17:15 40 02/05/17 16:00 86 02/05/17 16:00 99.3 84 26 139/76 95 02/05/17 16:00 40 02/05/17 14:39 98 40 02/05/17 02/05/17 02/06/17 14:59 22:59 06:59 Intake Total 344 ml 268 ml 432 ml Output Total 750 ml 500 ml 650 ml Balance -406 ml -232 ml -218 ml Intake IV Total 151 ml Tube Feeding 344 ml 268 ml 281 ml Output Urine Total 650 ml 500 ml 650 ml Stool Total 100 ml Hemodialysis 0 ml . Laboratory Tests Test 02/05/17 02/06/17 04:35 03:55 White Blood Count 19.4 TH/MM3 17.8 TH/MM3 Red Blood Count 3.18 MIL/MM3 3.37 MIL/MM3 Hemoglobin 9.7 GM/DL 9.8 GM/DL Hematocrit 28.3 % 30.6 % Mean Corpuscular Volume 88.8 FL 90.8 FL Mean Corpuscular Hemoglobin 30.6 PG 29.2 PG Mean Corpuscular Hemoglobin 34.5 % 32.2 % Concent Red Cell Distribution Width 16.7 % 16.7 % Platelet Count 659 TH/MM3 708 TH/MM3 Mean Platelet Volume 9.3 FL 9.1 FL Neutrophils (%) (Auto) 78.0 % 75.3 % Lymphocytes (%) (Auto) 4.8 % 5.1 % Monocytes (%) (Auto) 13.5 % 13.8 % Eosinophils (%) (Auto) 3.3 % 4.8 % Basophils (%) (Auto) 0.4 % 1.0 % Neutrophils # (Auto) 15.1 TH/MM3 13.4 TH/MM3 Lymphocytes # (Auto) 0.9 TH/MM3 0.9 TH/MM3 Monocytes # (Auto) 2.6 TH/MM3 2.4 TH/MM3 Eosinophils # (Auto) 0.6 TH/MM3 0.9 TH/MM3 Basophils # (Auto) 0.1 TH/MM3 0.2 TH/MM3 CBC Comment AUTO DIFF AUTO DIFF Differential Comment AUTO DIFF AUTO DIFF CONFIRMED CONFIRMED Platelet Estimate HIGH Platelet Morphology Comment NORMAL Laboratory Tests Test 02/05/17 02/06/17 05:00 03:55 Sodium Level 141 MEQ/L 138 MEQ/L Potassium Level 4.0 MEQ/L 4.6 MEQ/L Chloride Level 99 MEQ/L 97 MEQ/L Carbon Dioxide Level 29.6 MEQ/L 31.4 MEQ/L Anion Gap 12 MEQ/L 10 MEQ/L Blood Urea Nitrogen 113 MG/DL 80 MG/DL Creatinine 2.94 MG/DL 2.16 MG/DL Estimat Glomerular Filtration 21 ML/MIN 30 ML/MIN Rate Random Glucose 149 MG/DL 116 MG/DL Calcium Level 8.9 MG/DL 9.1 MG/DL Microbiology Date/Time Procedure Status Source Growth 02/03/17 18:00 Stool Occult Blood (SAIGE) - Final Complete Stool Stool HEMOCCULT POSITIVE Imaging Chest X-Ray 02/02/17 0000 Signed Impressions: Service Date/Time: Thursday, February 02, 2017 15:03 - CONCLUSION: 1. New right IJ central venous catheter with tip at the atriocaval junction. No pneumothorax. 2. Consolidation and [id number] pleural effusion at the left lung base slightly worse. Daljit Cabrera MD Upper Extremity Ultrasound 02/01/17 0000 Signed Impressions: Service Date/Time: Wednesday, February 01, 2017 15:44 - CONCLUSION: Localized superficial thrombosis of the right upper extremity and deep venous thrombosis of the left upper extremity. Daljit Cabrrea MD Lower Extremity Ultrasound 02/01/17 0000 Signed Impressions: Service Date/Time: Wednesday, February 01, 2017 15:30 - CONCLUSION: No DVT of either lower extremity. Daljit Cabrera MD Chest CT 02/01/17 0000 Signed Impressions: Service Date/Time: Wednesday, February 01, 2017 10:35 - CONCLUSION: 1. There is bilateral lower lobe atelectasis and airspace consolidation with small left pleural effusion. 2. Multiple subacute incompletely healed left rib fractures, left clavicle fracture, and left scapular fracture. However, these demonstrate bony callus. Daljit Mills MD Abdomen/Pelvis CT 02/01/17 0000 Signed Impressions: Service Date/Time: Wednesday, February 01, 2017 10:35 - CONCLUSION: No acute finding is identified within the abdomen or pelvis. 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 There is no fluid collection present. Daljit Mills MD Last Impressions Chest X-Ray 01/24/17 0600 Signed Impressions: Service Date/Time: Tuesday, January 24, 2017 04:15 - CONCLUSION: No significant interval change. Randall Rm MD Renal Ultrasound 01/22/17 0000 Signed Impressions: Service Date/Time: Sunday, January 22, 2017 13:18 - CONCLUSION: Normal renal sonogram. Juan Miller MD Chest Tube Insertion 01/08/17 1628 Signed Impressions: Service Date/Time: Sunday, January 08, 2017 16:58 - CONCLUSION: Uncomplicated chest tube placement as above. 1 L of hemorrhagic fluid was removed. Fly Longo MD Upper Extremity Ultrasound 01/08/17 0000 Signed Impressions: Service Date/Time: Sunday, January 08, 2017 08:10 - CONCLUSION: Occlusive thrombus within the left basilic vein. Nichol Wellington MD Lower Extremity Ultrasound 01/08/17 0000 Signed Impressions: Service Date/Time: Sunday, January 08, 2017 08:43 - CONCLUSION: Normal examination. Nichol Wellington MD CT Angiography 01/08/17 0000 Signed Impressions: Service Date/Time: Sunday, January 08, 2017 12:49 - CONCLUSION: 1. There is no evidence for PE for technique. 2. Worsening left pleural effusion and interval development of right pleural effusion and dense consolidation in both lung bases. 3. Resolution of the previously seen left pneumothorax and subcutaous emphysema. Nichol Wellington MD Head CT 01/05/17 0600 Signed Impressions: Service Date/Time: Thursday, January 05, 2017 04:58 - CONCLUSION: No acute intracranial disease. Paranasal sinus disease. Juan Miller MD Abdomen X-Ray 01/05/17 0000 Signed Impressions: Service Date/Time: Thursday, January 05, 2017 08:09 - CONCLUSION: Multiple displaced rib fractures on the left side. NG tube and surgical drain are in good position. Numerous air-filled loops of bowel throughout the abdomen. Ziggy Juarez MD Clavicle X-Ray 01/02/17 0000 Signed Impressions: Service Date/Time: December 08:16 - CONCLUSION: Nondisplaced fractures involving the distal clavicle with good alignment at the a.c. joint. Lars Granados MD Pelvis X-Ray 12/31/16 1224 Signed Impressions: Service Date/Time: Saturday, December 31, 2016 11:46 - CONCLUSION: No acute disease. Shan Sotomayor MD Chest CT 12/31/16 1224 Signed Impressions: Service Date/Time: Saturday, December 31, 2016 12:42 - CONCLUSION: 1. Flail left chest with a moderate to large left pneumothorax and presence of left chest tube. This does raise the possibility of a bronchial injury. 2. Comminuted left clavicle and left scapular fracture. 3. Right chest tube also present with tiny right pneumothorax. 4. Bilateral lung contusions. Small left hemothorax. No evidence for traumatic aortic injury. Endotracheal tube in satisfactory position. Kimo Ventura MD Cervical Spine CT 12/31/16 1224 Signed Impressions: Service Date/Time: Saturday, December 31, 2016 12:38 - CONCLUSION: 1. Extensive air within the soft tissues of the neck dissecting cephalad from the chest. Bilateral chest tubes with small apical pneumothoraces. Endotracheal tube present. 2. No acute fracture or subluxation in the cervical spine. Kimo Ventura MD Abdomen/Pelvis CT 12/31/16 1224 Signed Impressions: Service Date/Time: Saturday, December 31, 2016 12:42 - CONCLUSION: 1. Severely fractured spleen with numerous areas of active extravasation and moderate hemoperitoneum. 2. Laceration left lobe liver with some active extravasation as well. 3. Extensive air dissecting down the left abdominal wall and into the left scrotal region. 4. Flattened IVC with intense contrast in the kidneys and adrenals characteristic of hypovolemia. 5. Numerous lower left rib fractures left pneumothorax, left hemothorax and bilateral chest tubes and lung contusions. See chest CT report. Kimo Ventura MD Physical Exam CONSTITUTIONAL/GENERAL: Obese male, OOB in a chair, tolerating Tpiece SKIN: No jaundice, rashes, or lesions. Warm EYES: Pupils equal and round and reactive. No scleral icterus. ENT: Nose without bleeding or purulent drainage. NECK : trach in place, site ok CARDIOVASCULAR: Regular rate and rhythm without murmurs, gallops, or rubs. RESPIRATORY/CHEST: Symmetric, unlabored respirations. Breath sounds diminished GASTROINTESTINAL: Abdomen soft distended, no reaction to palpation. Midline laparotomy incision dry and clean, healing and well approximated Liquid brown stool in [place], small amount GENITOURINARY: Michel catheter in place with clear yellow urine MUSCULOSKELETAL: Extremities without clubbing, cyanosis, less edema. No mottling or clubbing. NEUROLOGICAL: lethargic PSYCHIATRIC: unable to assess LINE: no evidence of infection Assessment & Plan Remarks IMPRESSION Multi trauma LEFT clavicle fx (non op) LEFT scapula fx (non-op) LEFT serial rib fx LEFT flail chest LEFT PTX / FELIPE RIGHT PTX BILAT lung contusions Fractured spleen (Grade 4) w/ extravasation and hemoperitoneum LEFT lower lobe liver laceration Hepatic vein rupture Extensive air down the left abdominal wall Hemorrhagic shock Fluid overload PNA in the settings of bilateral pulmonary contusions Fungemia: ? line infection. ? intra-abdominal pathology related to trauma related injuries. - repeat BC negative ? Intra abd abscess (risk factors: fractured spleen (Grade 4) w/ extravasation and hemoperitoneum, LEFT lower lobe liver laceration, Hepatic vein rupture) Acute VDRF ? fluid overolad vs. new pneumonia - sp trach Diarrhea, C.diff negative Leukocytosis, slightly better Recurrent fevers, now low grade PSAE PNA, ?early or tracheobronchitis DVT LUE Renal failure PLAN Continue Diflucan x 2 weeks minimum from first neg BC Continue Levaquin and aerosol Tobramycin for now Follow CBC Weaning per CCM Monitor progress ophthamlmologist consutLurdes Brown Dr, MD Feb 06, 2017 14:49
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
[2017-02-07] VITALS (16 sets, daily range): BP systolic 144–167; BP diastolic 81–97; PULSE 80–96; RESP 19–25; TEMP 98.6–99.4; O2SAT 91–99
[2017-02-07] MEDS: PROPRANOLOL HCL 20 MG TAB PO SCH ×5 (00:06→23:01)
[2017-02-07] MEDS: QUEtiapine FUMARATE 25 MG TAB PO SCH ×3 (04:06→20:21)
[2017-02-07 05:14] LABS: AUTOMATED NEUTROPHIL # 14.3 TH/MM3 (1.8-7.7); BASOPHIL # 0.2 TH/MM3 (0-0.2); BASOPHIL % 1.2 % (0.0-2.0); HEMATOCRIT 31.8 % (39.0-51.0); HEMO FLAGS DIFF FINAL; LYMPHOCYTE # 1.2 TH/MM3 (1.0-4.8); MEAN CELL VOLUME 90.6 FL (80.0-100.0); MEAN CORPUSCULAR HEMOGLOBIN 30.1 PG (27.0-34.0); MEAN CORPUSCULAR HGB CONC 33.2 % (32.0-36.0); MONO % 10.3 % (0.0-8.0); NEUT % 72.5 % (16.0-70.0); PLATELET COUNT 677 TH/MM3 (150-450); RED BLOOD COUNT 3.51 MIL/MM3 (4.50-5.90); RED CELL DISTRIBUTION WIDTH 16.4 % (11.6-17.2); WHITE BLOOD COUNT 19.7 TH/MM3 (4.0-11.0)
[2017-02-07 05:25] LABS: BICARBONATE 27.6 MEQ/L (21.0-32.0); POTASSIUM 4.2 MEQ/L (3.5-5.1)
[2017-02-07] MEDS: RESP: TOBRAMYCIN SULFATE 80 MG/2 ML NEB NEB SCH ×2 (07:46→19:33)
[2017-02-07] MEDS: CHLORHEXIDINE 0.12% (ORAL KIT) 15 ML CUP MT SCH ×2 (08:00→20:24)
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
[2017-02-07] MEDS: SODIUM CHLOR 0.9% 1000 ML INJ 1,000 ML IV PRN (08:25)
[2017-02-07] MEDS: HEPARIN SODIUM - IV 10,000 UNITS/10 ML VIAL PRN (08:26)
[2017-02-07] MEDS: GENTAMICIN SULFATE (DIALYSIS USE ONLY) 20 MG/2 ML VIAL IV PRN (08:26)
[2017-02-07] MEDS: ARTIFICIAL TEARS OPTH SOLN 15 ML BTL EACH EYE SCH ×3 (09:00→18:00)
[2017-02-07] MEDS: SODIUM CHLORIDE 0.9% FLUSH 10 ML FLUSH IV FLUSH SCH ×2 (09:00→20:25)
[2017-02-07] MEDS: PANTOPRAZOLE SODIUM 40 MG VIAL IV PUSH SCH ×2 (10:10→20:21)
[2017-02-07] MEDS: POTASSIUM CHLORIDE 25 MEQ EFFERVESCENT TAB PO SCH ×2 (10:10→20:26)
[2017-02-07] MEDS: FLUCONAZOLE 200 MG TAB PO SCH (10:10)
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
--- NOTE | 2017-02-07 18:29 | HHI.IDPN ---
Subjective Subjective Remarks delaeyed note pt was seen earlier today around 1300 He is doing OK no fever, though WBC went up Remains on Tpiece Pt was examined by ophathalmologist: No ocular involvement on dilated exam. remias encephalopathic Antibiotics Diflucan PO Levaquin tobra nebs Lines PIV with no e.o infection. Vascath Past Medical History Foot surgery Allergies: Coded Allergies: No Known Allergies (Unverified , 02/05/17) VERIFIED Objective . Vital Signs Date Time Temp Pulse Resp B/P Pulse Ox O2 Delivery O2 Flow Rate FiO2 02/07/17 16:00 99.1 86 19 146/81 98 02/07/17 16:00 86 02/07/17 14:00 95 02/07/17 12:00 99.0 94 25 144/83 96 02/07/17 12:00 94 02/07/17 11:34 98 T-piece 50 02/07/17 10:00 96 02/07/17 08:50 91 75 02/07/17 08:00 95 02/07/17 08:00 98.6 90 20 150/89 97 02/07/17 07:47 98 T-piece 40 02/07/17 07:00 99 T-Piece 50 02/07/17 06:00 80 02/07/17 04:00 90 02/07/17 04:00 98.7 90 20 167/86 97 02/07/17 02:00 90 02/07/17 00:00 90 02/07/17 00:00 98.9 90 20 149/87 97 02/06/17 22:00 84 02/06/17 20:00 98.9 80 22 158/85 98 02/06/17 20:00 98 T-Piece 50 02/06/17 20:00 80 02/06/17 19:19 98 T-piece 40 02/06/17 02/06/17 02/07/17 15:00 23:00 07:00 Intake Total 473 ml 191 ml 552 ml Output Total 1000 ml 650 ml 975 ml Balance -527 ml -459 ml -423 ml Tube Feeding 473 ml 71 ml 432 ml Tube Irrigant 120 ml Other 120 ml Output Urine Total 700 ml 450 ml 900 ml Stool Total 300 ml 200 ml 75 ml . Laboratory Tests Test 02/06/17 02/07/17 03:55 04:03 White Blood Count 17.8 TH/MM3 19.7 TH/MM3 Red Blood Count 3.37 MIL/MM3 3.51 MIL/MM3 Hemoglobin 9.8 GM/DL 10.6 GM/DL Hematocrit 30.6 % 31.8 % Mean Corpuscular Volume 90.8 FL 90.6 FL Mean Corpuscular Hemoglobin 29.2 PG 30.1 PG Mean Corpuscular Hemoglobin 32.2 % 33.2 % Concent Red Cell Distribution Width 16.7 % 16.4 % Platelet Count 708 TH/MM3 677 TH/MM3 Mean Platelet Volume 9.1 FL 9.3 FL Neutrophils (%) (Auto) 75.3 % 72.5 % Lymphocytes (%) (Auto) 5.1 % 6.0 % Monocytes (%) (Auto) 13.8 % 10.3 % Eosinophils (%) (Auto) 4.8 % 10.0 % Basophils (%) (Auto) 1.0 % 1.2 % Neutrophils # (Auto) 13.4 TH/MM3 14.3 TH/MM3 Lymphocytes # (Auto) 0.9 TH/MM3 1.2 TH/MM3 Monocytes # (Auto) 2.4 TH/MM3 2.0 TH/MM3 Eosinophils # (Auto) 0.9 TH/MM3 2.0 TH/MM3 Basophils # (Auto) 0.2 TH/MM3 0.2 TH/MM3 CBC Comment AUTO DIFF DIFF FINAL Differential Comment AUTO DIFF CONFIRMED Platelet Estimate HIGH Platelet Morphology Comment NORMAL Laboratory Tests Test 02/06/17 02/07/17 03:55 04:03 Sodium Level 138 MEQ/L 141 MEQ/L Potassium Level 4.6 MEQ/L 4.2 MEQ/L Chloride Level 97 MEQ/L 101 MEQ/L Carbon Dioxide Level 31.4 MEQ/L 27.6 MEQ/L Anion Gap 10 MEQ/L 12 MEQ/L Blood Urea Nitrogen 80 MG/DL 92 MG/DL Creatinine 2.16 MG/DL 2.34 MG/DL Estimat Glomerular Filtration 30 ML/MIN 28 ML/MIN Rate Random Glucose 116 MG/DL 161 MG/DL Calcium Level 9.1 MG/DL 9.4 MG/DL Imaging Last Impressions Chest X-Ray 02/05/17 0600 Signed Impressions: Service Date/Time: Sunday, February 05, 2017 03:56 - CONCLUSION: No significant change has occurred. Shan Sotomayor MD Clavicle X-Ray 02/04/17 Signed Impressions: Service Date/Time: Saturday, February 04, 2017 06:59 - CONCLUSION: Fracture mid to distal clavicle. Rogelio King MD Upper Extremity Ultrasound 02/01/17 Signed Impressions: Service Date/Time: Wednesday, February 01, 2017 15:44 - CONCLUSION: Localized superficial thrombosis of the right upper extremity and deep venous thrombosis of the left upper extremity. Daljit Cabrera MD Lower Extremity Ultrasound 02/01/17 Signed Impressions: Service Date/Time: Wednesday, February 01, 2017 15:30 - CONCLUSION: No DVT of either lower extremity. Daljit Cabrera MD Chest CT 02/01/17 Signed Impressions: Service Date/Time: Wednesday, February 01, 2017 10:35 - CONCLUSION: 1. There is bilateral lower lobe atelectasis and airspace consolidation with small left pleural effusion. 2. Multiple subacute incompletely healed left rib fractures, left clavicle fracture, and left scapular fracture. However, these demonstrate bony callus. Daljit Mills MD Abdomen/Pelvis CT 02/01/17 Signed Impressions: Service Date/Time: Wednesday, February 01, 2017 10:35 - CONCLUSION: No acute finding is identified within the abdomen or pelvis. 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 There is no fluid collection present. Daljit Mills MD Gastrostomy Tube Placement 01/30/17 Signed Impressions: Service Date/Time: January 14:17 - CONCLUSION: Uncomplicated gastrostomy tube placement as above. Gagan Sarmiento Jr., MD Abdomen X-Ray 01/29/17 Signed Impressions: Service Date/Time: Sunday, January 29, 2017 09:56 - CONCLUSION: Feeding tube has not significantly changed position with distal tip remaining in the proximal stomach. Daljit Mills MD Renal Ultrasound 01/22/17 Signed Impressions: Service Date/Time: Sunday, January 22, 2017 13:18 - CONCLUSION: Normal renal sonogram. Juan Miller MD Chest Tube Insertion 01/08/17 1628 Signed Impressions: Service Date/Time: Sunday, January 08, 2017 16:58 - CONCLUSION: Uncomplicated chest tube placement as above. 1 L of hemorrhagic fluid was removed. Fly Longo MD CT Angiography 01/08/17 0000 Signed Impressions: Service Date/Time: Sunday, January 08, 2017 12:49 - CONCLUSION: 1. There is no evidence for PE for technique. 2. Worsening left pleural effusion and interval development of right pleural effusion and dense consolidation in both lung bases. 3. Resolution of the previously seen left pneumothorax and subcutaous emphysema. K. Long Wellington MD Head CT 01/05/17 0600 Signed Impressions: Service Date/Time: Thursday, January 05, 2017 04:58 - CONCLUSION: No acute intracranial disease. Paranasal sinus disease. Juan Miller MD Pelvis X-Ray 12/31/16 1224 Signed Impressions: Service Date/Time: Saturday, December 31, 2016 11:46 - CONCLUSION: No acute disease. Shan Sotomayor MD Cervical Spine CT 12/31/16 1224 Signed Impressions: Service Date/Time: Saturday, December 31, 2016 12:38 - CONCLUSION: 1. Extensive air within the soft tissues of the neck dissecting cephalad from the chest. Bilateral chest tubes with small apical pneumothoraces. Endotracheal tube present. 2. No acute fracture or subluxation in the cervical spine. Kimo Ventura MD Physical Exam CONSTITUTIONAL/GENERAL: Obese male, tolerating Tpiece SKIN: No jaundice, rashes, or lesions. Warm EYES: Pupils equal and round and reactive. No scleral icterus. ENT: Nose without bleeding or purulent drainage. NECK : trach in place, site ok CARDIOVASCULAR: Regular rate and rhythm without murmurs, gallops, or rubs. RESPIRATORY/CHEST: Symmetric, unlabored respirations. Breath sounds diminished GASTROINTESTINAL: Abdomen soft distended, no reaction to palpation. Midline laparotomy incision dry and clean, healing and well approximated Liquid brown stool in [place], small amount GENITOURINARY: Michel catheter in place with clear yellow urine MUSCULOSKELETAL: Extremities without clubbing, cyanosis, less edema. No mottling or clubbing. NEUROLOGICAL: lethargic , opens eyes to voice, not following commands PSYCHIATRIC: unable to assess LINE: no evidence of infection Assessment & Plan Remarks IMPRESSION Multi trauma LEFT clavicle fx (non op) LEFT scapula fx (non-op) LEFT serial rib fx LEFT flail chest LEFT PTX / FELIPE RIGHT PTX BILAT lung contusions Fractured spleen (Grade 4) w/ extravasation and hemoperitoneum LEFT lower lobe liver laceration Hepatic vein rupture Extensive air down the left abdominal wall Hemorrhagic shock Fluid overload PNA in the settings of bilateral pulmonary contusions Fungemia: ? line infection. ? intra-abdominal pathology related to trauma related injuries. - repeat BC negative - no ocular involvement ? Intra abd abscess (risk factors: fractured spleen (Grade 4) w/ extravasation and hemoperitoneum, LEFT lower lobe liver laceration, Hepatic vein rupture) Acute VDRF ? fluid overolad vs. new pneumonia - sp trach Diarrhea, C.diff negative Leukocytosis, slightly better Recurrent fevers, now low grade PSAE PNA, ?early or tracheobronchitis DVT LUE Renal failure: slowly improving creatinine, non oliguric worsening leukocytosis PLAN Continue Diflucan x 2 weeks minimum from first neg BC - chck 2 D echo; Continue Levaquin and aerosol Tobramycin for at least 2 weeks, longer if clinically required Follow CBC Monitor progress fu LFTs weekly while on fluconazoe Lurdes Quarles MD Feb 07, 2017 18:29
[2017-02-07] MEDS: RESP: ALBUTEROL 2.5 MG/3 ML NEB (PRN) NEB (19:33)
[2017-02-07] MEDS: LEVOFLOXACIN 500 MG PREMIX INJ 100 ML IV SCH (20:21)
[2017-02-08] VITALS (14 sets, daily range): BP systolic 128–150; BP diastolic 71–89; PULSE 82–115; RESP 16–24; TEMP 97.7–99; O2SAT 94–100
[2017-02-08 04:39] LABS: BASOPHIL # 0.1 TH/MM3 (0-0.2); BASOPHIL % 0.5 % (0.0-2.0); EOSINOPHIL # 1.9 TH/MM3 (0-0.4); EOSINOPHIL % 8.8 % (0.0-4.0); HEMATOCRIT 29.6 % (39.0-51.0); LYMPHOCYTE # 1.1 TH/MM3 (1.0-4.8); MEAN CELL VOLUME 90.5 FL (80.0-100.0); MEAN CORPUSCULAR HEMOGLOBIN 30.2 PG (27.0-34.0); MEAN CORPUSCULAR HGB CONC 33.4 % (32.0-36.0); MONO % 11.2 % (0.0-8.0); NEUT % 74.5 % (16.0-70.0); PLATELET COUNT 511 TH/MM3 (150-450); RED BLOOD COUNT 3.27 MIL/MM3 (4.50-5.90); RED CELL DISTRIBUTION WIDTH 16.6 % (11.6-17.2); WHITE BLOOD COUNT 21.5 TH/MM3 (4.0-11.0)
[2017-02-08 04:47] LABS: HEMO FLAGS AUTO DIFF
[2017-02-08] MEDS: PROPRANOLOL HCL 20 MG TAB PO SCH ×3 (04:57→18:00)
[2017-02-08] MEDS: QUEtiapine FUMARATE 25 MG TAB PO SCH ×3 (04:58→20:49)
[2017-02-08 05:29] LABS: PLATELET ESTIMATE SMEAR HIGH (NORMAL); PLATELET MORPHOLOGY NORMAL (NORMAL); SCAN/DIFF AUTO DIFF CONFIRMED
[2017-02-08 05:30] LABS: ALKALINE PHOSPHATASE 236 U/L (45-117); ALT (GPT) 55 U/L (12-78); ANION GAP 10 MEQ/L (5-15); AST (GOT) 37 U/L (15-37); BICARBONATE 27.8 MEQ/L (21.0-32.0); BLOOD UREA NITROGEN 70 MG/DL (7-18); CHLORIDE 103 MEQ/L (98-107); GLOMERULAR FILTRATION RATE 33 ML/MIN (>89); POTASSIUM 4.2 MEQ/L (3.5-5.1); SODIUM (NA) 141 MEQ/L (136-145); TOTAL BILIRUBIN ADULT 0.6 MG/DL (0.2-1.0)
[2017-02-08] MEDS: CHLORHEXIDINE 0.12% (ORAL KIT) 15 ML CUP MT SCH ×2 (08:00→20:49)
[2017-02-08] MEDS: RESP: TOBRAMYCIN SULFATE 80 MG/2 ML NEB NEB SCH ×2 (08:32→20:19)
[2017-02-08] MEDS: ARTIFICIAL TEARS OPTH SOLN 15 ML BTL EACH EYE SCH ×3 (09:00→18:00)
[2017-02-08] MEDS: SODIUM CHLORIDE 0.9% FLUSH 10 ML FLUSH IV FLUSH SCH ×2 (09:00→20:49)
[2017-02-08] MEDS: PANTOPRAZOLE SODIUM 40 MG VIAL IV PUSH SCH ×2 (09:09→20:48)
[2017-02-08] MEDS: POTASSIUM CHLORIDE 25 MEQ EFFERVESCENT TAB PO SCH ×2 (09:10→20:48)
[2017-02-08] MEDS: FLUCONAZOLE 200 MG TAB PO SCH (09:10)
[2017-02-08] MEDS: hydrALAZINE HCL 20 MG/ML VIAL IV PUSH PRN (12:08)
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
[2017-02-08] MEDS: ONDANSETRON HCL 4 MG/2 ML VIAL IV PRN (21:28)
[2017-02-09] VITALS (14 sets, daily range): BP systolic 111–142; BP diastolic 5–85; PULSE 79–106; RESP 14–20; TEMP 98.2–99.6; O2SAT 94–100
[2017-02-09] MEDS: PROPRANOLOL HCL 20 MG TAB PO SCH ×5 (00:31→23:07)
[2017-02-09 04:40] LABS: AUTOMATED NEUTROPHIL # 16.7 TH/MM3 (1.8-7.7); BASOPHIL # 0.2 TH/MM3 (0-0.2); BASOPHIL % 0.7 % (0.0-2.0); EOSINOPHIL # 1.6 TH/MM3 (0-0.4); EOSINOPHIL % 7.1 % (0.0-4.0); LYMPH % 5.9 % (9.0-44.0); LYMPHOCYTE # 1.3 TH/MM3 (1.0-4.8); MEAN CELL VOLUME 90.5 FL (80.0-100.0); MEAN CORPUSCULAR HEMOGLOBIN 29.6 PG (27.0-34.0); MEAN CORPUSCULAR HGB CONC 32.7 % (32.0-36.0); MONO % 10.4 % (0.0-8.0); NEUT % 75.9 % (16.0-70.0); PLATELET COUNT 521 TH/MM3 (150-450); RED BLOOD COUNT 3.65 MIL/MM3 (4.50-5.90); RED CELL DISTRIBUTION WIDTH 16.3 % (11.6-17.2)
[2017-02-09 04:44] LABS: HEMO FLAGS AUTO DIFF
[2017-02-09 05:08] LABS: BICARBONATE 28.4 MEQ/L (21.0-32.0); POTASSIUM 4.2 MEQ/L (3.5-5.1)
[2017-02-09] MEDS: QUEtiapine FUMARATE 25 MG TAB PO SCH ×3 (05:20→21:57)
[2017-02-09 05:31] LABS: PLATELET ESTIMATE SMEAR HIGH (NORMAL); PLATELET MORPHOLOGY NORMAL (NORMAL); SCAN/DIFF AUTO DIFF CONFIRMED
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
[2017-02-09] MEDS: RESP: TOBRAMYCIN SULFATE 80 MG/2 ML NEB NEB SCH ×2 (07:19→20:06)
[2017-02-09] MEDS: CHLORHEXIDINE 0.12% (ORAL KIT) 15 ML CUP MT SCH ×2 (08:00→19:57)
[2017-02-09] MEDS: SODIUM CHLORIDE 0.9% FLUSH 10 ML FLUSH IV FLUSH SCH ×2 (08:54→19:56)
[2017-02-09] MEDS: FLUCONAZOLE 200 MG TAB PO SCH (08:54)
[2017-02-09] MEDS: ARTIFICIAL TEARS OPTH SOLN 15 ML BTL EACH EYE SCH ×3 (08:54→18:00)
[2017-02-09] MEDS: POTASSIUM CHLORIDE 25 MEQ EFFERVESCENT TAB PO SCH ×2 (08:54→19:56)
[2017-02-09] MEDS: PANTOPRAZOLE SODIUM 40 MG VIAL IV PUSH SCH ×2 (08:54→19:55)
[2017-02-09] MEDS ORDERED: PNEUMOCOCCAL POLYVALENT INJ 25 MCG/0.5 ML SYR IM ONE (11:00)
[2017-02-09] MEDS ORDERED: HAEMOPH B POLYSACCH CONJ VACCINE 0.5 ML VIAL IM ONE (11:00)
[2017-02-09] MEDS ORDERED: MENINGOCOCCAL CONJUGATE VACCINE 0.5 ML VIAL IM ONE (11:00)
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
[2017-02-09] MEDS: HEPARIN SODIUM - SQ 10,000 UNITS/ML VIAL SQ SCH ×2 (14:01→21:57)
--- NOTE | 2017-02-09 15:25 | HHI.IDPN ---
Subjective Subjective Remarks no fever, WBC remains high, still going up Remains on Tpiece remias profoundly encephalopathic heavy secretions Antibiotics Diflucan PO Levaquin tobra nebs Lines PIV with no e.o infection. Vascath Past Medical History Foot surgery Allergies: Coded Allergies: No Known Allergies (Unverified , 02/05/17) VERIFIED Objective . Vital Signs Date Time Temp Pulse Resp B/P Pulse Ox O2 Delivery O2 Flow Rate FiO2 02/09/17 14:15 95 T-Piece 28 02/09/17 14:00 86 02/09/17 12:43 16 02/09/17 12:00 99.1 91 20 114/72 97 02/09/17 12:00 88 02/09/17 10:00 106 02/09/17 08:00 98.2 87 14 111/69 97 02/09/17 08:00 91 02/09/17 07:22 99 T-piece 35 02/09/17 07:00 95 T-Piece 35 02/09/17 06:00 85 02/09/17 04:00 85 02/09/17 04:00 99.0 90 20 142/83 94 02/09/17 02:00 79 02/09/17 00:00 93 02/09/17 00:00 99.6 93 17 137/73 96 02/08/17 22:00 96 02/08/17 20:45 96 T-piece 35 02/08/17 20:00 100 T-Piece 40 02/08/17 20:00 112 02/08/17 20:00 99.0 85 16 128/80 100 02/08/17 18:00 105 02/08/17 16:00 98.7 106 22 138/80 96 02/08/17 16:00 104 02/08/17 02/08/17 02/09/17 14:59 22:59 06:59 Intake Total 684 ml 655 ml 354 ml Output Total 1250.0 ml 530.0 ml 478 ml Balance -566.0 ml 125.0 ml -124 ml Intake IV Total 44 ml 33 ml 0 ml Tube Feeding 440 ml 422 ml 254 ml Tube Irrigant 200 ml 200 ml 100 ml Output Urine Total 700 ml 250 ml 425 ml Stool Total 425 ml 0 ml 3 ml Gastric Drainage Total 140 ml 50 ml Tube Feeding Residual Discard 125.0 ml 140.0 ml . Laboratory Tests Test 8/12/17 8/13/17 03:57 03:14 White Blood Count 21.5 TH/MM3 22.0 TH/MM3 Red Blood Count 3.27 MIL/MM3 3.65 MIL/MM3 Hemoglobin 9.9 GM/DL 10.8 GM/DL Hematocrit 29.6 % 33.0 % Mean Corpuscular Volume 90.5 FL 90.5 FL Mean Corpuscular Hemoglobin 30.2 PG 29.6 PG Mean Corpuscular Hemoglobin 33.4 % 32.7 % Concent Red Cell Distribution Width 16.6 % 16.3 % Platelet Count 511 TH/MM3 521 TH/MM3 Mean Platelet Volume 8.8 FL 9.5 FL Neutrophils (%) (Auto) 74.5 % 75.9 % Lymphocytes (%) (Auto) 5.0 % 5.9 % Monocytes (%) (Auto) 11.2 % 10.4 % Eosinophils (%) (Auto) 8.8 % 7.1 % Basophils (%) (Auto) 0.5 % 0.7 % Neutrophils # (Auto) 16.0 TH/MM3 16.7 TH/MM3 Lymphocytes # (Auto) 1.1 TH/MM3 1.3 TH/MM3 Monocytes # (Auto) 2.4 TH/MM3 2.3 TH/MM3 Eosinophils # (Auto) 1.9 TH/MM3 1.6 TH/MM3 Basophils # (Auto) 0.1 TH/MM3 0.2 TH/MM3 CBC Comment AUTO DIFF AUTO DIFF Differential Comment AUTO DIFF AUTO DIFF CONFIRMED CONFIRMED Platelet Estimate HIGH HIGH Platelet Morphology Comment NORMAL NORMAL Laboratory Tests Test 02/08/17 02/09/17 03:57 03:44 Sodium Level 141 MEQ/L 143 MEQ/L Potassium Level 4.2 MEQ/L 4.2 MEQ/L Chloride Level 103 MEQ/L 103 MEQ/L Carbon Dioxide Level 27.8 MEQ/L 28.4 MEQ/L Anion Gap 10 MEQ/L 12 MEQ/L Blood Urea Nitrogen 70 MG/DL 77 MG/DL Creatinine 2.02 MG/DL 2.11 MG/DL Estimat Glomerular Filtration 33 ML/MIN 31 ML/MIN Rate Random Glucose 165 MG/DL 140 MG/DL Calcium Level 9.0 MG/DL 9.3 MG/DL Total Bilirubin 0.6 MG/DL Aspartate Amino Transf 37 U/L (AST/SGOT) Alanine Aminotransferase 55 U/L (ALT/SGPT) Alkaline Phosphatase 236 U/L Total Protein 7.4 GM/DL Albumin 2.7 GM/DL Microbiology Date/Time Procedure Status Source Growth 02/08/17 18:27 Gram Stain - Final Resulted Sputum Endotracheal 02/08/17 18:27 Sputum Culture - Preliminary Resulted Sputum Endotracheal IMMATURE GROWTH - REINCUBATE Imaging Last Impressions Head CT 02/09/17 0600 Signed Impressions: Service Date/Time: Thursday, February 09, 2017 04:47 - CONCLUSION: 1. Mild cerebral atrophy. 2. Opacification of both mastoid air cells. Juan Miller MD Chest X-Ray 02/09/17 0600 Signed Impressions: Service Date/Time: Thursday, February 09, 2017 04:37 - CONCLUSION: Improving bilateral patchy airspace disease. Juan Miller MD Clavicle X-Ray 02/04/17 0000 Signed Impressions: Service Date/Time: Saturday, February 04, 2017 06:59 - CONCLUSION: Fracture mid to distal clavicle. Rogelio King MD Upper Extremity Ultrasound 02/01/17 Signed Impressions: Service Date/Time: Wednesday, February 01, 2017 15:44 - CONCLUSION: Localized superficial thrombosis of the right upper extremity and deep venous thrombosis of the left upper extremity. Daljit Cabrera MD Lower Extremity Ultrasound 02/01/17 Signed Impressions: Service Date/Time: Wednesday, February 01, 2017 15:30 - CONCLUSION: No DVT of either lower extremity. Daljit Cabrera MD Chest CT 02/01/17 0000 Signed Impressions: Service Date/Time: Wednesday, February 01, 2017 10:35 - CONCLUSION: 1. There is bilateral lower lobe atelectasis and airspace consolidation with small left pleural effusion. 2. Multiple subacute incompletely healed left rib fractures, left clavicle fracture, and left scapular fracture. However, these demonstrate bony callus. Daljit Mills MD Abdomen/Pelvis CT 02/01/17 Signed Impressions: Service Date/Time: Wednesday, February 01, 2017 10:35 - CONCLUSION: No acute finding is identified within the abdomen or pelvis. 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 There is no fluid collection present. Daljit Mills MD Gastrostomy Tube Placement 01/30/17 Signed Impressions: Service Date/Time: January 14:17 - CONCLUSION: Uncomplicated gastrostomy tube placement as above. Gagan Sarmiento Jr., MD Abdomen X-Ray 01/29/17 0000 Signed Impressions: Service Date/Time: Sunday, January 29, 2017 09:56 - CONCLUSION: Feeding tube has not significantly changed position with distal tip remaining in the proximal stomach. Daljit Mills MD Renal Ultrasound 01/22/17 0000 Signed Impressions: Service Date/Time: Sunday, January 22, 2017 13:18 - CONCLUSION: Normal renal sonogram. Juan Miller MD Chest Tube Insertion 01/08/17 1628 Signed Impressions: Service Date/Time: Sunday, January 08, 2017 16:58 - CONCLUSION: Uncomplicated chest tube placement as above. 1 L of hemorrhagic fluid was removed. Fly Longo MD CT Angiography 01/08/17 0000 Signed Impressions: Service Date/Time: Sunday, January 08, 2017 12:49 - CONCLUSION: 1. There is no evidence for PE for technique. 2. Worsening left pleural effusion and interval development of right pleural effusion and dense consolidation in both lung bases. 3. Resolution of the previously seen left pneumothorax and subcutaous emphysema. Nichol Wellington MD Pelvis X-Ray 12/31/16 1224 Signed Impressions: Service Date/Time: Saturday, December 31, 2016 11:46 - CONCLUSION: No acute disease. Shan Sotomayor MD Cervical Spine CT 12/31/16 1224 Signed Impressions: Service Date/Time: Saturday, December 31, 2016 12:38 - CONCLUSION: 1. Extensive air within the soft tissues of the neck dissecting cephalad from the chest. Bilateral chest tubes with small apical pneumothoraces. Endotracheal tube present. 2. No acute fracture or subluxation in the cervical spine. Kimo Ventura MD Physical Exam CONSTITUTIONAL/GENERAL: Obese male, tolerating Tpiece SKIN: No jaundice, rashes, or lesions. Warm EYES: Pupils equal and round and reactive. No scleral icterus. ENT: Nose without bleeding or purulent drainage. NECK : trach in place, site ok CARDIOVASCULAR: Regular rate and rhythm without murmurs, gallops, or rubs. RESPIRATORY/CHEST: Symmetric, unlabored respirations. Breath sounds diminished GASTROINTESTINAL: Abdomen soft distended, + grimacing to palpation. Midline laparotomy incision dry and clean, healing and well approximated Liquid dark brown stool in dignishield, small amount GENITOURINARY: Michel catheter in place with clear yellow urine MUSCULOSKELETAL: Extremities without clubbing, cyanosis, less edema. No mottling or clubbing. NEUROLOGICAL: essentially unresponsive not following commands per RN intermittently follows commands PSYCHIATRIC: unable to assess LINE: no evidence of infection Assessment & Plan Remarks IMPRESSION Multi trauma LEFT clavicle fx (non op) LEFT scapula fx (non-op) LEFT serial rib fx LEFT flail chest LEFT PTX / FELIPE RIGHT PTX BILAT lung contusions Fractured spleen (Grade 4) w/ extravasation and hemoperitoneum LEFT lower lobe liver laceration Hepatic vein rupture Extensive air down the left abdominal wall Hemorrhagic shock Fluid overload PNA in the settings of bilateral pulmonary contusions Fungemia: ? line infection. ? intra-abdominal pathology related to trauma related injuries. - repeat BC negative - no ocular involvement ? Intra abd abscess (risk factors: fractured spleen (Grade 4) w/ extravasation and hemoperitoneum, LEFT lower lobe liver laceration, Hepatic vein rupture) Acute VDRF ? fluid overolad vs. new pneumonia - sp trach Diarrhea, C.diff negative Leukocytosis, slightly better Recurrent fevers, now low grade PSAE PNA, - sputum persistently purulent DVT LUE Renal failure: slowly improving creatinine, non oliguric worsening leukocytosis, leukemoid reaction - WBC keep going up PLAN Continue Diflucan x 2 weeks minimum from first neg BC - FU 2 D echo; Continue Levaquin and aerosol Tobramycin for at least 2 weeks, longer if clinically required Follow CBC Monitor progress fu LFTs weekly while on fluconazoe fu repeat sputum clx Might re CT chest and abd if WBC cont to rise Lurdes Quarles MD Feb 09, 2017 15:25
[2017-02-09] MEDS: LEVOFLOXACIN 500 MG PREMIX INJ 100 ML IV SCH (19:56)
[2017-02-10] VITALS (14 sets, daily range): BP systolic 105–141; BP diastolic 59–78; PULSE 82–102; RESP 13–26; TEMP 98.4–100; O2SAT 94–100
[2017-02-10] MEDS: ONDANSETRON HCL 4 MG/2 ML VIAL IV PRN (03:28)
[2017-02-10 05:34] LABS: AUTOMATED NEUTROPHIL # 17.4 TH/MM3 (1.8-7.7); BASOPHIL # 0.2 TH/MM3 (0-0.2); BASOPHIL % 0.8 % (0.0-2.0); EOSINOPHIL % 8.7 % (0.0-4.0); HEMATOCRIT 30.5 % (39.0-51.0); LYMPH % 4.9 % (9.0-44.0); LYMPHOCYTE # 1.1 TH/MM3 (1.0-4.8); MEAN CELL VOLUME 91.8 FL (80.0-100.0); MEAN CORPUSCULAR HEMOGLOBIN 29.6 PG (27.0-34.0); MEAN CORPUSCULAR HGB CONC 32.2 % (32.0-36.0); MONO % 9.7 % (0.0-8.0); NEUT % 75.9 % (16.0-70.0); PLATELET COUNT 546 TH/MM3 (150-450); RED BLOOD COUNT 3.32 MIL/MM3 (4.50-5.90); RED CELL DISTRIBUTION WIDTH 16.6 % (11.6-17.2); WHITE BLOOD COUNT 22.9 TH/MM3 (4.0-11.0)
[2017-02-10 05:36] LABS: ANION GAP 10 MEQ/L (5-15); AST (GOT) 42 U/L (15-37); BICARBONATE 26.7 MEQ/L (21.0-32.0); BLOOD UREA NITROGEN 81 MG/DL (7-18); CHLORIDE 105 MEQ/L (98-107); GLOMERULAR FILTRATION RATE 31 ML/MIN (>89); MAGNESIUM 2.5 MG/DL (1.5-2.5); SODIUM (NA) 142 MEQ/L (136-145)
[2017-02-10 05:39] LABS: ALKALINE PHOSPHATASE 249 U/L (45-117); ALT (GPT) 53 U/L (12-78); TOTAL BILIRUBIN ADULT 0.6 MG/DL (0.2-1.0)
[2017-02-10] MEDS: HEPARIN SODIUM - SQ 10,000 UNITS/ML VIAL SQ SCH ×3 (05:39→22:13)
[2017-02-10 05:40] LABS: HEMO FLAGS AUTO DIFF
[2017-02-10] MEDS: QUEtiapine FUMARATE 25 MG TAB PO SCH ×3 (05:40→22:13)
[2017-02-10] MEDS: PROPRANOLOL HCL 20 MG TAB PO SCH ×3 (05:40→18:00)
[2017-02-10 07:29] LABS: BANDS 1 % (0-6); EOSINOPHILS 8 % (0-4); NEUTROPHIL # MANUAL DIFF 19.9 TH/MM3 (1.8-7.7); POLYS (SEG NEUTROPHILS) 86 % (16-70); WBC DIFF SAMPLE 100
[2017-02-10 07:30] LABS: PLATELET ESTIMATE SMEAR HIGH (NORMAL); PLATELET MORPHOLOGY NORMAL (NORMAL); SCAN/DIFF FINAL DIFF MANUAL
[2017-02-10] MEDS: RESP: TOBRAMYCIN SULFATE 80 MG/2 ML NEB NEB SCH ×2 (07:50→20:46)
[2017-02-10] MEDS: CHLORHEXIDINE 0.12% (ORAL KIT) 15 ML CUP MT SCH ×2 (08:00→19:42)
[2017-02-10] MEDS: HEPARIN SODIUM - IV 10,000 UNITS/10 ML VIAL PRN (08:29)
[2017-02-10] MEDS: SODIUM CHLOR 0.9% 1000 ML INJ 1,000 ML IV PRN (08:29)
[2017-02-10] MEDS: GENTAMICIN SULFATE (DIALYSIS USE ONLY) 20 MG/2 ML VIAL IV PRN (08:30)
--- NOTE | 2017-02-10 08:43 | HHI.PR ---
Neuropsych Progress Notes/Response to Tx Contents of Sessions: Adjustment, Level of Consciousness Time with Patient: 15 minutes Premorbid psychological status Premorbid Cognitive, Emotional and Behavioral Status: Stable. The patient has high school and college and is retired. The patient has no prior psychiatric difficulties, as described above. Substance abuse history is unremarkable. Behavioral Reactions of Patient and Family/Support System: Stable. The patients family is experiencing ongoing issues of adjustment given the nature of the injury, and this aspect of recovery will require ongoing monitoring. Emotional/Behavioral Status of Patient and Family/Support System: Stable. Pertinent issues, if appropriate to this patients clinical care, are described in detail above. Maximizing acute care outcome It is recommended that the patient be monitored for emergent behavioral impulsivity as the medical condition evolves. This patients neuropathological challenges may limit their rehabilitation potential going forward, and these challenges will require specialized therapeutic skills to maximize outcome. Additionally, the patients family is experiencing ongoing issues of adjustment given the traumatic nature of the injury, and they may benefit from ongoing psychological assistance. Anticipated Problems Ongoing areas of concern will include behavioral impulsivity, lack of insight and judgment, which is expected to improve with time and treatment. Presently , the patient is not following commands. Treatment Plan This clinician will continue to follow with you throughout the course of this patients acute care treatment, and I will be available to meet with the patient s family/support system to facilitate their understanding and the ongoing care of their family member. The goals of neuropsychological intervention shall be both educational and supportive to the family/support system as is deemed clinically appropriate. 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 He is expected to have significant major neurocognitive disorder. Diagnosis: (1) Major neurocognitive disorder as late effect of traumatic brain injury without behavioral disturbance Status: Acute Progress Note Narrative Ongoing follow-up of patient seen during daily trauma rounds. This is day [address] Recent Head CT was unremarkable except for mild atrophy. The patient is awake, follows commands inconsistently. He is considered at this point to be at a [place] from a neurobehavioral standpoint. I will continue to follow. Neal White PhD Feb 10, 2017 8:43 am
[2017-02-10] MEDS: ARTIFICIAL TEARS OPTH SOLN 15 ML BTL EACH EYE SCH ×3 (09:00→17:31)
[2017-02-10] MEDS: ALBUMIN HUMAN 25% 25 GM/100 ML BAGP IV PRN (09:07)
[2017-02-10] MEDS: FLUCONAZOLE 200 MG TAB PO SCH (11:43)
[2017-02-10] MEDS: POTASSIUM CHLORIDE 25 MEQ EFFERVESCENT TAB PO SCH ×2 (11:43→19:41)
[2017-02-10] MEDS: PANTOPRAZOLE SODIUM 40 MG VIAL IV PUSH SCH ×2 (11:44→19:41)
[2017-02-10] MEDS: SODIUM CHLORIDE 0.9% FLUSH 10 ML FLUSH IV FLUSH SCH ×2 (11:45→19:41)
--- NOTE | 2017-02-10 12:12 | HHI.IDPN ---
Subjective Subjective Remarks no fever, but WBC still up almost to 23 K now tolerates Tpiece Antibiotics Diflucan PO Levaquin tobra nebs Lines PIV with no e.o infection. Vascath Past Medical History Foot surgery Allergies: Coded Allergies: No Known Allergies (Unverified , 02/05/17) VERIFIED Objective . Vital Signs Date Time Temp Pulse Resp B/P Pulse Ox O2 Delivery O2 Flow Rate FiO2 02/10/17 07:50 97 T-piece 6.00 28 02/10/17 06:00 99 02/10/17 04:00 98.9 102 26 119/73 97 02/10/17 04:00 102 02/10/17 02:00 102 02/10/17 00:00 89 02/10/17 00:00 99.2 89 16 105/59 94 02/09/17 22:00 95 02/09/17 20:06 97 T-piece 28 02/09/17 20:00 99.2 94 14 142/58 100 02/09/17 20:00 100 T-Piece 28 02/09/17 20:00 94 02/09/17 18:00 101 02/09/17 16:00 94 02/09/17 16:00 99.2 95 15 128/85 95 02/09/17 14:15 95 T-Piece 28 02/09/17 14:00 86 02/09/17 12:43 16 02/09/17 12:00 99.1 91 20 114/72 97 02/09/17 12:00 88 02/09/17 02/09/17 02/10/17 15:00 23:00 07:00 Intake Total 630 ml 732 ml 441 ml Output Total 700.0 ml 700.0 ml 650 ml Balance -70.0 ml 32.0 ml -209 ml Intake IV Total 110 ml 0 ml Tube Feeding 430 ml 382 ml 381 ml Tube Irrigant 200 ml 240 ml 60 ml Output Urine Total 650 ml 650 ml 650 ml Tube Feeding Residual Discard 50.0 ml 50.0 ml # Bowel Movements 2 1 2 . Laboratory Tests Test 02/09/17 02/10/17 03:14 03:45 White Blood Count 22.0 TH/MM3 22.9 TH/MM3 Red Blood Count 3.65 MIL/MM3 3.32 MIL/MM3 Hemoglobin 10.8 GM/DL 9.8 GM/DL Hematocrit 33.0 % 30.5 % Mean Corpuscular Volume 90.5 FL 91.8 FL Mean Corpuscular Hemoglobin 29.6 PG 29.6 PG Mean Corpuscular Hemoglobin 32.7 % 32.2 % Concent Red Cell Distribution Width 16.3 % 16.6 % Platelet Count 521 TH/MM3 546 TH/MM3 Mean Platelet Volume 9.5 FL 9.2 FL Neutrophils (%) (Auto) 75.9 % 75.9 % Lymphocytes (%) (Auto) 5.9 % 4.9 % Monocytes (%) (Auto) 10.4 % 9.7 % Eosinophils (%) (Auto) 7.1 % 8.7 % Basophils (%) (Auto) 0.7 % 0.8 % Neutrophils # (Auto) 16.7 TH/MM3 17.4 TH/MM3 Lymphocytes # (Auto) 1.3 TH/MM3 1.1 TH/MM3 Monocytes # (Auto) 2.3 TH/MM3 2.2 TH/MM3 Eosinophils # (Auto) 1.6 TH/MM3 2.0 TH/MM3 Basophils # (Auto) 0.2 TH/MM3 0.2 TH/MM3 CBC Comment AUTO DIFF AUTO DIFF Differential Comment AUTO DIFF FINAL DIFF CONFIRMED MANUAL Platelet Estimate HIGH HIGH Platelet Morphology Comment NORMAL NORMAL Differential Total Cells 100 Counted Neutrophils % (Manual) 86 % Band Neutrophils % 1 % Lymphocytes % 2 % Monocytes % 3 % Eosinophils % 8 % Neutrophils # (Manual) 19.9 TH/MM3 Red Cell Morphology Comment NORMAL Laboratory Tests Test 02/09/17 02/10/17 03:44 03:45 Sodium Level 143 MEQ/L 142 MEQ/L Potassium Level 4.2 MEQ/L 4.0 MEQ/L Chloride Level 103 MEQ/L 105 MEQ/L Carbon Dioxide Level 28.4 MEQ/L 26.7 MEQ/L Anion Gap 12 MEQ/L 10 MEQ/L Blood Urea Nitrogen 77 MG/DL 81 MG/DL Creatinine 2.11 MG/DL 2.15 MG/DL Estimat Glomerular Filtration 31 ML/MIN 31 ML/MIN Rate Random Glucose 140 MG/DL 170 MG/DL Calcium Level 9.3 MG/DL 9.3 MG/DL Magnesium Level 2.5 MG/DL Total Bilirubin 0.6 MG/DL Aspartate Amino Transf 42 U/L (AST/SGOT) Alanine Aminotransferase 53 U/L (ALT/SGPT) Alkaline Phosphatase 249 U/L Total Protein 7.9 GM/DL Albumin 2.8 GM/DL Microbiology Date/Time Procedure Status Source Growth 02/08/17 18:27 Gram Stain - Final Resulted Sputum Endotracheal 02/08/17 18:27 Sputum Culture - Preliminary Resulted Sputum Endotracheal IMMATURE GROWTH - REINCUBATE Imaging Last Impressions Head CT 02/09/17 0600 Signed Impressions: Service Date/Time: Thursday, February 09, 2017 04:47 - CONCLUSION: 1. Mild cerebral atrophy. 2. Opacification of both mastoid air cells. Juan Miller MD Chest X-Ray 02/09/17 0600 Signed Impressions: Service Date/Time: Thursday, February 09, 2017 04:37 - CONCLUSION: Improving bilateral patchy airspace disease. Juan Miller MD Clavicle X-Ray 02/04/17 0000 Signed Impressions: Service Date/Time: Saturday, February 04, 2017 06:59 - CONCLUSION: Fracture mid to distal clavicle. Rogelio King MD Upper Extremity Ultrasound 02/01/17 0000 Signed Impressions: Service Date/Time: Wednesday, February 01, 2017 15:44 - CONCLUSION: Localized superficial thrombosis of the right upper extremity and deep venous thrombosis of the left upper extremity. Daljit Cabrera MD Lower Extremity Ultrasound 02/01/17 0000 Signed Impressions: Service Date/Time: Wednesday, February 01, 2017 15:30 - CONCLUSION: No DVT of either lower extremity. Daljit Cabrera MD Chest CT 02/01/17 0000 Signed Impressions: Service Date/Time: Wednesday, February 01, 2017 10:35 - CONCLUSION: 1. There is bilateral lower lobe atelectasis and airspace consolidation with small left pleural effusion. 2. Multiple subacute incompletely healed left rib fractures, left clavicle fracture, and left scapular fracture. However, these demonstrate bony callus. Daljit Mills MD Abdomen/Pelvis CT 02/01/17 0000 Signed Impressions: Service Date/Time: Wednesday, February 01, 2017 10:35 - CONCLUSION: No acute finding is identified within the abdomen or pelvis. 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 There is no fluid collection present. Daljit Mills MD Gastrostomy Tube Placement 01/30/17 0000 Signed Impressions: Service Date/Time: January 14:17 - CONCLUSION: Uncomplicated gastrostomy tube placement as above. Gagan Sarmiento Jr., MD Abdomen X-Ray 01/29/17 0000 Signed Impressions: Service Date/Time: Sunday, January 29, 2017 09:56 - CONCLUSION: Feeding tube has not significantly changed position with distal tip remaining in the proximal stomach. Daljit Mills MD Renal Ultrasound 01/22/17 0000 Signed Impressions: Service Date/Time: Sunday, January 22, 2017 13:18 - CONCLUSION: Normal renal sonogram. Juan Miller MD Chest Tube Insertion 01/08/17 1628 Signed Impressions: Service Date/Time: Sunday, January 08, 2017 16:58 - CONCLUSION: Uncomplicated chest tube placement as above. 1 L of hemorrhagic fluid was removed. Fly Longo MD CT Angiography 01/08/17 0000 Signed Impressions: Service Date/Time: Sunday, January 08, 2017 12:49 - CONCLUSION: 1. There is no evidence for PE for technique. 2. Worsening left pleural effusion and interval development of right pleural effusion and dense consolidation in both lung bases. 3. Resolution of the previously seen left pneumothorax and subcutaous emphysema. Nichol Wellington MD Pelvis X-Ray 12/31/16 1224 Signed Impressions: Service Date/Time: Saturday, December 31, 2016 11:46 - CONCLUSION: No acute disease. Shan Sotomayor MD Cervical Spine CT 12/31/16 1224 Signed Impressions: Service Date/Time: Saturday, December 31, 2016 12:38 - CONCLUSION: 1. Extensive air within the soft tissues of the neck dissecting cephalad from the chest. Bilateral chest tubes with small apical pneumothoraces. Endotracheal tube present. 2. No acute fracture or subluxation in the cervical spine. Kimo Ventura MD Physical Exam CONSTITUTIONAL/GENERAL: Obese male, tolerating Tpiece SKIN: No jaundice, rashes, or lesions. Warm EYES: Pupils equal and round and reactive. No scleral icterus. ENT: Nose without bleeding or purulent drainage. NECK : trach in place, site ok CARDIOVASCULAR: Regular rate and rhythm without murmurs, gallops, or rubs. RESPIRATORY/CHEST: Symmetric, unlabored respirations. Breath sounds diminished GASTROINTESTINAL: Abdomen soft distended, no reaction to palpation. Midline laparotomy incision dry and clean,nearly completely healed Liquid dark brown stool in dignishield, small amount GENITOURINARY: Michel catheter in place with clear yellow urine MUSCULOSKELETAL: Extremities without clubbing, cyanosis, less edema. No mottling or clubbing. NEUROLOGICAL: essentially unresponsive not following commands PSYCHIATRIC: unable to assess LINE: no evidence of infection Assessment & Plan Remarks IMPRESSION Multi trauma LEFT clavicle fx (non op) LEFT scapula fx (non-op) LEFT serial rib fx LEFT flail chest LEFT PTX / FELIPE RIGHT PTX BILAT lung contusions Fractured spleen (Grade 4) w/ extravasation and hemoperitoneum LEFT lower lobe liver laceration Hepatic vein rupture Extensive air down the left abdominal wall Hemorrhagic shock Fluid overload PNA in the settings of bilateral pulmonary contusions Fungemia: ? line infection. ? intra-abdominal pathology related to trauma related injuries. - repeat BC negative - no ocular involvement ? Intra abd abscess (risk factors: fractured spleen (Grade 4) w/ extravasation and hemoperitoneum, LEFT lower lobe liver laceration, Hepatic vein rupture) Acute VDRF ? - tolerating Tpiece Diarrhea, C.diff negative PSAE PNA, - sputum persistently purulent - repeat clx P DVT LUE Renal failure: slowly improving creatinine, non oliguric, still receiving HD treatment worsening leukocytosis, leukemoid reaction - WBC keep going up PLAN Continue Diflucan x 2 weeks minimum from first neg BC - FU 2 D echo; Continue Levaquin and aerosol Tobramycin for at least 2 weeks, longer if clinically required start meropenem fu P sputum clx will dc fluconazole if negaive 2 D echo fu LFTs weekly while on fluconazoe fu repeat sputum clx dw Lurdes Sanders MD Feb 10, 2017 12:12
[2017-02-10] MEDS ORDERED: ASP: Documented ESBL, MDR A baumannii or P. aeruginosa PRN (12:15)
[2017-02-10] MEDS ORDERED: MISCELLANEOUS PHARMACY INFORMATION XX PRN (12:15)
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
[2017-02-10] MEDS: MEROPENEM INJ 500 MG in SODIUM CHLORIDE 0.9% INJ 100 ML IV SCH (13:01)
--- NOTE | 2017-02-10 13:04 | ECHRPT ---
Indication: Vegetations CONCLUSIONS Normal left ventricular size. Wall thickness is normal. The left ventricular systolic function is low normal with an estimated ejection fraction in the rang e of 50- 55%. The right ventricle is mildly dilated. No vegetation on the mitral valve No vegetation on the aortic valve. No obvious vegetation on the tricuspid valve. BP: 117 / 72 HR: 86 Rhythm: MEASUREMENTS (Male / Female) Normal Values Technical Quality: 2D ECHO LV Diastolic Diameter PLAX 4.3 cm 4.2 - 5.9 / 3.9 - 5.3 cm LV Systolic Diameter PLAX 3.4 cm IVS Diastolic Thickness 1.1 cm 0.6 - 1.0 / 0.6 - 0.9 cm LVPW Diastolic Thickness 0.7 cm 0.6 - 1.0 / 0.6 - 0.9 cm LV Relative Wall Thickness 0.4 RV Internal Dim ED PLAX 3.0 cm DOPPLER Mitral E Point Velocity 60.7 cm/s Mitral A Point Velocity 81.4 cm/s Mitral E to A Ratio 0.7 TR Peak Velocity 235.0 cm/s TR Peak Gradient 22.1 mmHg FINDINGS LEFT VENTRICLE Normal left ventricular size. Wall thickness is normal. The left ventricular systolic function is low normal with an estimated ejection fraction in the rang e of 50- 55%. RIGHT VENTRICLE The right ventricle is mildly dilated. LEFT ATRIUM The left atrial size is normal. RIGHT ATRIUM The right atrial size is normal. ATRIAL SEPTUM Normal atrial septal thickness without atrial level shunting by limited color doppler interrogation. AORTA The aortic root and proximal ascending aorta are normal in size on limited imaging. MITRAL VALVE No vegetation on the mitral valve AORTIC VALVE No vegetation on the aortic valve. TRICUSPID VALVE The tricuspid valve is not well visualized. No obvious vegetation on the tricuspid valve. PULMONARY VALVE The pulmonary valve is not well visualized. VESSELS The inferior vena cava is normal in size. PERICARDIUM No pericardial effusion. Jason Winkler MD, FACC (Electronically Signed) Final Date:10 February 2017 13:03
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
--- NOTE | 2017-02-10 17:42 | RADRPT ---
EXAM DATE/TIME: 02/10/2017 16:41 [place] COMPARISON: CHEST SINGLE AP, February 09, 2017, 4:37. CT THORAX W/O CONTRAST, February 01, 2017, 10:35. INDICATIONS : Evaluate for infection. Elevated white blood cell count. Trauma. RADIATION DOSE: 16.26 CTDIvol (mGy) MEDICAL HISTORY : Flail chest, rib fractures. SURGICAL HISTORY : Bilateral chest tubes. ENCOUNTER: Subsequent ACUITY: 1 month PAIN SCALE: Non-responsive LOCATION: Bilateral chest TECHNIQUE: Volumetric scanning of the chest was performed. Using automated exposure control and adjustment of t he mA and/or kV according to patient size, radiation dose was kept as low as reasonably achievable to obtain optimal diagnostic quality images. DICOM format image data is available electronically for r eview and comparison. Follow-up recommendations for detected pulmonary nodules are based at a minimum on nodule size and pa tient risk factors according to Fleischner Society Guidelines. FINDINGS: LUNGS: There is bilateral lower lobe atelectasis and likely consolidation, left greater than right. No pneum othorax is present. PLEURAE: There is a stable small left pleural effusion. MEDIASTINUM: The heart and great vessels demonstrate no acute abnormality. There is a stable mildly enlarged righ t paratracheal lymph node. Tracheostomy remains present. There is a central line in the superior vena cava terminating near the cavoatrial junction. AXILLAE: Within normal limits. No lymphadenopathy. MUSCULOSKELETAL: There are multiple left-sided rib fractures, left clavicle fracture comment left scapular fracture th at demonstrates bony callus consistent with some interval healing and remodeling. MISCELLANEOUS: Visualized upper abdominal organs demonstrate no significant change. CONCLUSION: 1. Stable small left pleural effusion with bilateral atelectasis and consolidation in the lower lobes , left greater than right. These parenchymal changes could represent an infectious process given the clinical history. However, these have improved compared to the study from 9 days ago. 2. Signs of healing of the left scapula, left clavicle, and multiple left rib fractures. Daljit Mills MD on February 10, 2017 at 17:36 Board Certified Radiologist. This report was verified electronically.
[2017-02-10] MEDS: ACETAMINOPHEN 650 MG/20.3 ML UDC OG-TUBE PRN (20:30)
[2017-02-11] VITALS (10 sets, daily range): BP systolic 98–128; BP diastolic 59–74; PULSE 80–96; RESP 14–22; TEMP 98.3–100.2; O2SAT 95–100
[2017-02-11] MEDS: PROPRANOLOL HCL 20 MG TAB PO SCH ×4 (00:34→18:41)
[2017-02-11] MEDS: MEROPENEM INJ 500 MG in SODIUM CHLORIDE 0.9% INJ 100 ML IV SCH ×2 (01:04→12:27)
[2017-02-11] MEDS: ACETAMINOPHEN 650 MG/20.3 ML UDC OG-TUBE PRN (05:08)
[2017-02-11] MEDS: QUEtiapine FUMARATE 25 MG TAB PO SCH ×3 (05:08→20:19)
[2017-02-11] MEDS: HEPARIN SODIUM - SQ 10,000 UNITS/ML VIAL SQ SCH ×3 (05:09→20:19)
--- NOTE | 2017-02-11 05:29 | RADRPT ---
EXAM DATE/TIME: 02/11/2017 04:58 [place] COMPARISON: CHEST SINGLE AP, February 09, 2017, 4:37. INDICATIONS : Shortness of breath. MEDICAL HISTORY : Flail chest, rib fractures, Left clavicle fracture. Left scapulor fracture, Hemopneumothorax. Liver l aceration. SURGICAL HISTORY : Bilateral chest tubes. ENCOUNTER: Subsequent ACUITY: 1 month PAIN SCORE: Non-responsive. LOCATION: Bilateral chest FINDINGS: Tracheostomy. Right internal jugular catheter tip projects in the right atrium. No evidence of pneu mothorax. Persisting consolidation in the medial left lower lung and patchy infiltrates in the right lower lung with discoid atelectasis similar in appearance to prior examination. Both hemidiaphragms remain fairly well delineated. The heart is normal size. Mild tortuosity descending thoracic aorta . Fractures of the scapula to, left clavicle, and multiple left ribs. No pneumothorax. CONCLUSION: Bibasilar infiltrates, greater on the left than the right, stable from prior. Gagan Denny MD on February 11, 2017 at 5:26 Board Certified Radiologist. This report was verified electronically.
[2017-02-11 05:46] LABS: AUTOMATED NEUTROPHIL # 11.1 TH/MM3 (1.8-7.7); BASOPHIL # 0.2 TH/MM3 (0-0.2); BASOPHIL % 1.4 % (0.0-2.0); EOSINOPHIL # 1.6 TH/MM3 (0-0.4); EOSINOPHIL % 9.9 % (0.0-4.0); HEMATOCRIT 30.8 % (39.0-51.0); HEMO FLAGS DIFF FINAL; LYMPH % 6.8 % (9.0-44.0); LYMPHOCYTE # 1.1 TH/MM3 (1.0-4.8); MEAN CELL VOLUME 90.7 FL (80.0-100.0); MEAN CORPUSCULAR HEMOGLOBIN 29.2 PG (27.0-34.0); MEAN CORPUSCULAR HGB CONC 32.2 % (32.0-36.0); MONO % 12.5 % (0.0-8.0); NEUT % 69.4 % (16.0-70.0); PLATELET COUNT 412 TH/MM3 (150-450); RED BLOOD COUNT 3.39 MIL/MM3 (4.50-5.90); RED CELL DISTRIBUTION WIDTH 16.2 % (11.6-17.2)
[2017-02-11 06:27] LABS: ALKALINE PHOSPHATASE 235 U/L (45-117); ALT (GPT) 46 U/L (12-78); ANION GAP 9 MEQ/L (5-15); AST (GOT) 37 U/L (15-37); BICARBONATE 28.1 MEQ/L (21.0-32.0); BLOOD UREA NITROGEN 52 MG/DL (7-18); CHLORIDE 102 MEQ/L (98-107); GLOMERULAR FILTRATION RATE 40 ML/MIN (>89); POTASSIUM 3.9 MEQ/L (3.5-5.1); SODIUM (NA) 139 MEQ/L (136-145); TOTAL BILIRUBIN ADULT 0.5 MG/DL (0.2-1.0)
[2017-02-11] MEDS: CHLORHEXIDINE 0.12% (ORAL KIT) 15 ML CUP MT SCH ×2 (07:46→20:17)
[2017-02-11] MEDS: ARTIFICIAL TEARS OPTH SOLN 15 ML BTL EACH EYE SCH ×3 (07:46→18:00)
[2017-02-11] MEDS: SODIUM CHLORIDE 0.9% FLUSH 10 ML FLUSH IV FLUSH SCH ×2 (07:47→20:18)
[2017-02-11] MEDS: RESP: TOBRAMYCIN SULFATE 80 MG/2 ML NEB NEB SCH ×2 (07:56→20:52)
[2017-02-11] MEDS: RESP: ALBUTEROL 2.5 MG/3 ML NEB (PRN) NEB ×2 (07:57→20:39)
[2017-02-11] MEDS: PANTOPRAZOLE SODIUM 40 MG VIAL IV PUSH SCH ×2 (08:13→20:18)
[2017-02-11] MEDS: POTASSIUM CHLORIDE 25 MEQ EFFERVESCENT TAB PO SCH ×2 (08:13→20:18)
[2017-02-11] MEDS: FLUCONAZOLE 200 MG TAB PO SCH (08:13)
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
[2017-02-11] MEDS ORDERED: DOCU100S PO (17:22)
[2017-02-11] MEDS ORDERED: ONDA4INJ2 IV (17:22)
[2017-02-11] MEDS ORDERED: LEVA500T20 PO (17:22)
[2017-02-11] MEDS ORDERED: CHLO.12%30 MT (17:22)
[2017-02-11] MEDS ORDERED: LEVS0.123 PO (17:22)
[2017-02-11] MEDS ORDERED: [UNRECOGNIZED DRUG - CODE] RECTAL (17:22)
[2017-02-11] MEDS ORDERED: ALBU0.08 NEB (17:22)
[2017-02-11] MEDS ORDERED: TOBR40IN5 NEB (17:22)
[2017-02-11] MEDS ORDERED: ACET650S OG-TUBE (17:22)
[2017-02-11] MEDS ORDERED: HYDR20IN4 IV PUSH (17:22)
[2017-02-11] MEDS ORDERED: OXYC-392 G-TUBE (17:22)
[2017-02-11] MEDS ORDERED: CLON.1 PO (17:22)
[2017-02-11] MEDS ORDERED: MERO1INJ IV (17:22)
[2017-02-11] MEDS ORDERED: Lactulose Liq PO (17:22)
[2017-02-11] MEDS ORDERED: PROP20TA3 PO (17:22)
[2017-02-11] MEDS ORDERED: HEPA10003 SQ (17:22)
[2017-02-11] MEDS ORDERED: DIFL200T PO (17:22)
[2017-02-11] MEDS ORDERED: LABE5INJ IV PUSH (17:22)
[2017-02-11] MEDS ORDERED: KLYTECL PO (17:22)
[2017-02-11] MEDS ORDERED: PANT40P IV PUSH (17:22)
[2017-02-11] MEDS ORDERED: BENA25CA4 PO (17:22)
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
[2017-02-11] MEDS: LEVOFLOXACIN 500 MG PREMIX INJ 100 ML IV SCH (20:18)
[2017-02-12] VITALS (7 sets, daily range): BP systolic 123–135; BP diastolic 76–79; PULSE 87–98; RESP 12–19; TEMP 98.1–98.3; O2SAT 95–99
[2017-02-12] MEDS: MEROPENEM INJ 500 MG in SODIUM CHLORIDE 0.9% INJ 100 ML IV SCH ×2 (00:28→13:28)
[2017-02-12] MEDS: PROPRANOLOL HCL 20 MG TAB PO SCH ×3 (00:29→12:54)
[2017-02-12 05:28] LABS: AUTOMATED NEUTROPHIL # 8.3 TH/MM3 (1.8-7.7); BASOPHIL # 0.2 TH/MM3 (0-0.2); BASOPHIL % 1.4 % (0.0-2.0); EOSINOPHIL # 1.2 TH/MM3 (0-0.4); EOSINOPHIL % 9.7 % (0.0-4.0); HEMATOCRIT 29.6 % (39.0-51.0); HEMO FLAGS DIFF FINAL; MEAN CELL VOLUME 90.9 FL (80.0-100.0); MEAN CORPUSCULAR HEMOGLOBIN 29.9 PG (27.0-34.0); MEAN CORPUSCULAR HGB CONC 32.9 % (32.0-36.0); MONO % 13.7 % (0.0-8.0); NEUT % 67.2 % (16.0-70.0); PLATELET COUNT 444 TH/MM3 (150-450); RED BLOOD COUNT 3.26 MIL/MM3 (4.50-5.90); RED CELL DISTRIBUTION WIDTH 16.5 % (11.6-17.2); WHITE BLOOD COUNT 12.3 TH/MM3 (4.0-11.0)
[2017-02-12 05:50] LABS: ALT (GPT) 44 U/L (12-78); ANION GAP 12 MEQ/L (5-15); AST (GOT) 30 U/L (15-37); BICARBONATE 26.4 MEQ/L (21.0-32.0); BLOOD UREA NITROGEN 59 MG/DL (7-18); CHLORIDE 105 MEQ/L (98-107); GLOMERULAR FILTRATION RATE 36 ML/MIN (>89); POTASSIUM 4.2 MEQ/L (3.5-5.1); SODIUM (NA) 143 MEQ/L (136-145)
[2017-02-12] MEDS: QUEtiapine FUMARATE 25 MG TAB PO SCH (05:52)
[2017-02-12 05:53] LABS: ALKALINE PHOSPHATASE 223 U/L (45-117); TOTAL BILIRUBIN ADULT 0.5 MG/DL (0.2-1.0)
[2017-02-12] MEDS: HEPARIN SODIUM - SQ 10,000 UNITS/ML VIAL SQ SCH ×2 (05:53→14:06)
[2017-02-12] MEDS: RESP: TOBRAMYCIN SULFATE 80 MG/2 ML NEB NEB SCH (07:27)
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
[2017-02-12] MEDS: FLUCONAZOLE 200 MG TAB PO SCH (08:50)
[2017-02-12] MEDS: PANTOPRAZOLE SODIUM 40 MG VIAL IV PUSH SCH (08:50)
[2017-02-12] MEDS: SODIUM CHLORIDE 0.9% FLUSH 10 ML FLUSH IV FLUSH SCH (09:00)
[2017-02-12] MEDS ORDERED: QUET1TAB7 PO (09:20)
[2017-02-12] MEDS: CHLORHEXIDINE 0.12% (ORAL KIT) 15 ML CUP MT SCH (10:00)
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
[2017-02-12] MEDS: POTASSIUM CHLORIDE 25 MEQ EFFERVESCENT TAB PO SCH (13:00)
--- NOTE | 2017-02-12 13:59 | HHI.IDPN ---
Subjective Subjective Remarks no fever and WBC going down less secretrions tolerates tube feeds at goal tolerates Tpiece growing PSAE in sputum x 2 isolates, 1/2 R to imipenem, both S levaquin, cefepime, tobra Antibiotics Diflucan PO Levaquin tobra nebs meropenem Lines PIV with no e.o infection. Vascath Past Medical History Foot surgery Allergies: Coded Allergies: No Known Allergies (Unverified , 02/05/17) VERIFIED Objective . Vital Signs Date Time Temp Pulse Resp B/P Pulse Ox O2 Delivery O2 Flow Rate FiO2 02/12/17 12:00 98.2 87 18 129/78 99 02/12/17 08:00 98.3 95 19 135/79 95 02/12/17 07:32 97 T-piece 6.00 28 02/12/17 07:00 95 T-Piece 28 02/12/17 06:00 90 02/12/17 04:00 98.2 92 12 123/76 98 02/12/17 04:00 92 02/12/17 02:00 92 02/12/17 00:00 98 02/12/17 00:00 98.1 98 19 134/79 98 02/11/17 20:39 97 T-piece 6.00 28 02/11/17 20:00 99.8 82 14 122/72 95 02/11/17 19:00 98 T-Piece 28 02/11/17 16:00 98.9 86 14 128/71 95 02/11/17 02/11/17 02/12/17 14:59 22:59 06:59 Intake Total 428 ml 600 ml 585 ml Output Total 410 ml 350 ml 300 ml Balance 18 ml 250 ml 285 ml Intake IV Total 10 ml 109 ml 100 ml Tube Feeding 358 ml 371 ml 365 ml Tube Irrigant 60 ml 120 ml 120 ml Output Urine Total 350 ml 350 ml 300 ml Gastric Drainage Total 60 ml # Bowel Movements 0 0 0 . Laboratory Tests Test 02/11/17 02/12/17 05:32 04:29 White Blood Count 16.0 TH/MM3 12.3 TH/MM3 Red Blood Count 3.39 MIL/MM3 3.26 MIL/MM3 Hemoglobin 9.9 GM/DL 9.7 GM/DL Hematocrit 30.8 % 29.6 % Mean Corpuscular Volume 90.7 FL 90.9 FL Mean Corpuscular Hemoglobin 29.2 PG 29.9 PG Mean Corpuscular Hemoglobin 32.2 % 32.9 % Concent Red Cell Distribution Width 16.2 % 16.5 % Platelet Count 412 TH/MM3 444 TH/MM3 Mean Platelet Volume 8.5 FL 9.2 FL Neutrophils (%) (Auto) 69.4 % 67.2 % Lymphocytes (%) (Auto) 6.8 % 8.0 % Monocytes (%) (Auto) 12.5 % 13.7 % Eosinophils (%) (Auto) 9.9 % 9.7 % Basophils (%) (Auto) 1.4 % 1.4 % Neutrophils # (Auto) 11.1 TH/MM3 8.3 TH/MM3 Lymphocytes # (Auto) 1.1 TH/MM3 1.0 TH/MM3 Monocytes # (Auto) 2.0 TH/MM3 1.7 TH/MM3 Eosinophils # (Auto) 1.6 TH/MM3 1.2 TH/MM3 Basophils # (Auto) 0.2 TH/MM3 0.2 TH/MM3 CBC Comment DIFF FINAL DIFF FINAL Differential Comment Laboratory Tests Test 02/11/17 02/12/17 05:32 04:39 Sodium Level 139 MEQ/L 143 MEQ/L Potassium Level 3.9 MEQ/L 4.2 MEQ/L Chloride Level 102 MEQ/L 105 MEQ/L Carbon Dioxide Level 28.1 MEQ/L 26.4 MEQ/L Anion Gap 9 MEQ/L 12 MEQ/L Blood Urea Nitrogen 52 MG/DL 59 MG/DL Creatinine 1.71 MG/DL 1.85 MG/DL Estimat Glomerular Filtration 40 ML/MIN 36 ML/MIN Rate Random Glucose 145 MG/DL 149 MG/DL Calcium Level 9.2 MG/DL 9.0 MG/DL Total Bilirubin 0.5 MG/DL 0.5 MG/DL Aspartate Amino Transf 37 U/L 30 U/L (AST/SGOT) Alanine Aminotransferase 46 U/L 44 U/L (ALT/SGPT) Alkaline Phosphatase 235 U/L 223 U/L Total Protein 7.9 GM/DL 7.6 GM/DL Albumin 3.4 GM/DL 3.0 GM/DL Imaging Last Impressions Chest X-Ray 02/11/17 0600 Signed Impressions: Service Date/Time: Saturday, February 11, 2017 04:58 - CONCLUSION: Bibasilar infiltrates, greater on the left than the right, stable from prior. Gagan Denny MD Chest CT 02/10/17 0000 Signed Impressions: Service Date/Time: Friday, February 10, 2017 16:41 - CONCLUSION: 1. Stable small left pleural effusion with bilateral atelectasis and consolidation in the lower lobes, left greater than right. These parenchymal changes could represent an infectious process given the clinical history. However, these have improved compared to the study from 9 days ago. 2. Signs of healing of the left scapula , left clavicle, and multiple left rib fractures. Daljit Mills MD Head CT 02/09/17 0600 Signed Impressions: Service Date/Time: Thursday, February 09, 2017 04:47 - CONCLUSION: 1. Mild cerebral atrophy. 2. Opacification of both mastoid air cells. Juan Miller MD Clavicle X-Ray 02/04/17 0000 Signed Impressions: Service Date/Time: Saturday, February 04, 2017 06:59 - CONCLUSION: Fracture mid to distal clavicle. Rogelio King MD Upper Extremity Ultrasound 02/01/17 0000 Signed Impressions: Service Date/Time: Wednesday, February 01, 2017 15:44 - CONCLUSION: Localized superficial thrombosis of the right upper extremity and deep venous thrombosis of the left upper extremity. Daljit Cabrera MD Lower Extremity Ultrasound 02/01/17 0000 Signed Impressions: Service Date/Time: Wednesday, February 01, 2017 15:30 - CONCLUSION: No DVT of either lower extremity. Daljit Cabrera MD Abdomen/Pelvis CT 02/01/17 0000 Signed Impressions: Service Date/Time: Wednesday, February 01, 2017 10:35 - CONCLUSION: No acute finding is identified within the abdomen or pelvis. 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 There is no fluid collection present. Daljit Mills MD Gastrostomy Tube Placement 01/30/17 0000 Signed Impressions: Service Date/Time: January 14:17 - CONCLUSION: Uncomplicated gastrostomy tube placement as above. Gagan Sarmiento Jr., MD Abdomen X-Ray 01/29/17 0000 Signed Impressions: Service Date/Time: Sunday, January 29, 2017 09:56 - CONCLUSION: Feeding tube has not significantly changed position with distal tip remaining in the proximal stomach. Daljit Mills MD Renal Ultrasound 01/22/17 0000 Signed Impressions: Service Date/Time: Sunday, January 22, 2017 13:18 - CONCLUSION: Normal renal sonogram. Juan Miller MD Chest Tube Insertion 01/08/17 1628 Signed Impressions: Service Date/Time: Sunday, January 08, 2017 16:58 - CONCLUSION: Uncomplicated chest tube placement as above. 1 L of hemorrhagic fluid was removed. Fly Longo MD CT Angiography 01/08/17 0000 Signed Impressions: Service Date/Time: Sunday, January 08, 2017 12:49 - CONCLUSION: 1. There is no evidence for PE for technique. 2. Worsening left pleural effusion and interval development of right pleural effusion and dense consolidation in both lung bases. 3. Resolution of the previously seen left pneumothorax and subcutaous emphysema. Nichol Wellington MD Pelvis X-Ray 12/31/16 1224 Signed Impressions: Service Date/Time: Saturday, December 31, 2016 11:46 - CONCLUSION: No acute disease. Shan Sotomayor MD Cervical Spine CT 12/31/16 1224 Signed Impressions: Service Date/Time: Saturday, December 31, 2016 12:38 - CONCLUSION: 1. Extensive air within the soft tissues of the neck dissecting cephalad from the chest. Bilateral chest tubes with small apical pneumothoraces. Endotracheal tube present. 2. No acute fracture or subluxation in the cervical spine. Kimo Ventura MD Physical Exam CONSTITUTIONAL/GENERAL: Obese male, tolerating Tpiece SKIN: No jaundice, rashes, or lesions. Warm EYES: Pupils equal and round and reactive. No scleral icterus. NECK : trach in place, site ok CARDIOVASCULAR: Regular rate and rhythm without murmurs, gallops, or rubs. RESPIRATORY/CHEST: Symmetric, unlabored respirations. Breath sounds diminished Clear to asucultation GASTROINTESTINAL: Abdomen soft distended, no reaction to palpation. Midline laparotomy incision dry and clean,nearly completely healed Liquid dark brown stool in [place], small amount GENITOURINARY: Michel catheter in place with clear yellow urine MUSCULOSKELETAL: Extremities without clubbing, cyanosis, minimal edema. NEUROLOGICAL: essentially unresponsive not following commands PSYCHIATRIC: unable to assess LINE: no evidence of infection Assessment & Plan Remarks IMPRESSION Multi trauma LEFT clavicle fx (non op) LEFT scapula fx (non-op) LEFT serial rib fx LEFT flail chest LEFT PTX / FELIPE RIGHT PTX BILAT lung contusions Fractured spleen (Grade 4) w/ extravasation and hemoperitoneum LEFT lower lobe liver laceration Hepatic vein rupture Extensive air down the left abdominal wall Hemorrhagic shock Fluid overload PNA in the settings of bilateral pulmonary contusions Fungemia: ? line infection. ? intra-abdominal pathology related to trauma related injuries. - repeat BC negative - 2 D echo neg - no ocular involvement ? Intra abd abscess (risk factors: fractured spleen (Grade 4) w/ extravasation and hemoperitoneum, LEFT lower lobe liver laceration, Hepatic vein rupture) Acute VDRF ? - tolerating Tpiece Diarrhea, C.diff negative PSAE PNA, ? MDRO - sputum persistently purulent - repeat clx P DVT LUE Renal failure: slowly improving creatinine, non oliguric, still receiving HD treatment leukocytosis, leukemoid reaction - resolved Fever - resolved PLAN complete Diflucan Continue aerosol Tobramycin x 2 weeks dc meropenem, Levaquin start cefepime x 2 weeks, pseudomonas doses, renally adjustred fu LFTs weekly while on fluconazoe OK to dc to [facility] Quarles MD Feb 12, 2017 13:59
[2017-02-12] MEDS ORDERED: QUEtiapine FUMARATE 25 MG TAB PO SCH (14:00)
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
[2017-02-12] MEDS ORDERED: CEFEPIME INJ 2,000 MG in SODIUM CHLORIDE 0.9% INJ 100 ML IV SCH (16:00)
== END 2017-02-12 15:15 | DRG 3 ==
LOC: NEPI 11:53 → NEDA 12:58 → EDBD 12:58 → N03A 15:10
PROVIDERS: ADMIT Surgery; ATTEND Surgery
PROC: 5A1955Z Respiratory Ventilation, Greater than 96 Consecutive Hours (ICD-10-PCS; 2016-12-31)
PROC: 06L Lower Veins, Occlusion (ICD-10-PCS; 2016-12-31)
PROC: 0BH17EZ Insertion of Endotracheal Airway into Trachea, Via Natural or Artificial Opening (ICD-10-PCS; 2016-12-31)
PROC: 0W9B30Z Drainage of Left Pleural Cavity with Drainage Device, Percutaneous Approach (ICD-10-PCS; 2016-12-31)
PROC: 30243K1 Transfusion of Nonautologous Frozen Plasma into Central Vein, Percutaneous Approach (ICD-10-PCS; 2016-12-31)
PROC: 30243R1 Transfusion of Nonautologous Platelets into Central Vein, Percutaneous Approach (ICD-10-PCS; 2016-12-31)
PROC: 0W9930Z Drainage of Right Pleural Cavity with Drainage Device, Percutaneous Approach (ICD-10-PCS; 2016-12-31)
PROC: 05H533Z Insertion of Infusion Device into Right Subclavian Vein, Percutaneous Approach (ICD-10-PCS; 2016-12-31)
PROC: 0W9B30Z Drainage of Left Pleural Cavity with Drainage Device, Percutaneous Approach (ICD-10-PCS; 2016-12-31)
PROC: 07TP0ZZ Resection of Spleen, Open Approach (ICD-10-PCS; principal; 2016-12-31 12:58)
PROC: 30233N1 Transfusion of Nonautologous Red Blood Cells into Peripheral Vein, Percutaneous Approach (ICD-10-PCS; 2017-01-03)
PROC: 0W9B30Z Drainage of Left Pleural Cavity with Drainage Device, Percutaneous Approach (ICD-10-PCS; 2017-01-08)
PROC: 03HY32Z Insertion of Monitoring Device into Upper Artery, Percutaneous Approach (ICD-10-PCS; 2017-01-22)
PROC: 4A133B1 Monitoring of Arterial Pressure, Peripheral, Percutaneous Approach (ICD-10-PCS; 2017-01-22)
PROC: 4A133J1 Monitoring of Arterial Pulse, Peripheral, Percutaneous Approach (ICD-10-PCS; 2017-01-22)
PROC: 0B113F4 Bypass Trachea to Cutaneous with Tracheostomy Device, Percutaneous Approach (ICD-10-PCS; 2017-01-24)
PROC: 0BJ08ZZ Inspection of Tracheobronchial Tree, Via Natural or Artificial Opening Endoscopic (ICD-10-PCS; 2017-01-24)
PROC: 0DJ08ZZ Inspection of Upper Intestinal Tract, Via Natural or Artificial Opening Endoscopic (ICD-10-PCS; 2017-01-28)
PROC: 0DH63UZ Insertion of Feeding Device into Stomach, Percutaneous Approach (ICD-10-PCS; 2017-01-30)
PROC: 02HV33Z Insertion of Infusion Device into Superior Vena Cava, Percutaneous Approach (ICD-10-PCS; 2017-02-02)
PROC: 5A1D60Z (ICD-10-PCS; 2017-02-03)
DX: S36.032A Major laceration of spleen, initial encounter (principal); T79.4XXA Traumatic shock, initial encounter; S22.5XXA Flail chest, initial encounter for closed fracture; S35.1 Injury of inferior vena cava; G93.41 Metabolic encephalopathy; S27.2XXA Traumatic hemopneumothorax, initial encounter; J15.1 Pneumonia due to Pseudomonas; B37.7 Candidal sepsis; J90 Pleural effusion, not elsewhere classified; K66.1 Hemoperitoneum; S27.4 Injury of bronchus; S27.431 Laceration of bronchus, unilateral; T79.7XXA Traumatic subcutaneous emphysema, initial encounter; J80 Acute respiratory distress syndrome; S36.113A Laceration of liver, unspecified degree, initial encounter; N17.9 Acute kidney failure, unspecified; S27.322A Contusion of lung, bilateral, initial encounter; S06.9X9A Unspecified intracranial injury with loss of consciousness of unspecified duration, initial encounter; D62 Acute posthemorrhagic anemia; Z99.11 Dependence on respirator [ventilator] status; K92.1 Melena; E46 Unspecified protein-calorie malnutrition; I82.622 Acute embolism and thrombosis of deep veins of left upper extremity; J98.11 Atelectasis; E87.3 Alkalosis; J95.851 Ventilator associated pneumonia; T17.990A Other foreign object in respiratory tract, part unspecified in causing asphyxiation, initial encounter; S42.002A Fracture of unspecified part of left clavicle, initial encounter for closed fracture; S42.102A Fracture of unspecified part of scapula, left shoulder, initial encounter for closed fracture; E88.09 Other disorders of plasma-protein metabolism, not elsewhere classified; D69.6 Thrombocytopenia, unspecified; D72.823 Leukemoid reaction; K44.9 Diaphragmatic hernia without obstruction or gangrene; F02.80 Dementia in other diseases classified elsewhere, unspecified severity, without behavioral disturbance, psychotic disturbance, mood disturbance, and anxiety; E87.6 Hypokalemia; R00.1 Bradycardia, unspecified; K29.70 Gastritis, unspecified, without bleeding; R13.10 Dysphagia, unspecified; E87.70 Fluid overload, unspecified; R19.7 Diarrhea, unspecified; E83.39 Other disorders of phosphorus metabolism; Y84.8 Other medical procedures as the cause of abnormal reaction of the patient, or of later complication, without mention of misadventure at the time of the procedure; Y95 Nosocomial condition; Z51.5 Encounter for palliative care; Z23 Encounter for immunization; V22.4XXA Motorcycle driver injured in collision with two- or three-wheeled motor vehicle in traffic accident, initial encounter
CPT/HCPCS: 31500; 31600; 31624; 32551; 32557; 36430; 36556; 36600; 49440; 70450; 71010; 71250; 71260; 71275; 72125; 72170; 73000; 74000; 74176; 74177; 76775; 76937; 80048; 80053; 80074; 80076; 80202; 81001; 82140; 82150; 82272; 82330; 82435; 82550; 82552; 82565; 82805; 82945; 82947; 82948; 83605; 83615; 83690; 83735; 83986; 84100; 84132; 84145; 84155; 84157; 84295; 84484; 84520; 85007; 85014; 85018; 85025; 85027; 85384; 85610; 85730; 86077; 86850; 86870; 86880; 86900; 86901; 86902; 86920; 86922; 86927; 87015; 87040; 87070; 87077; 87086; 87102; 87106; 87116; 87186; 87205; 87206; 87493; 87641; 88112; 88305; 89051; 90732; 90734; 90935; 93005; 93308; 93970; 94002; 94003; 94640; 94664; 96374; 96375; 99291; A7521; C1729; C1769; C9113; G0390; J0360; J0610; J0690; J0696; J1170; J1580; J1610; J1642; J1644; J1650; J1940; J1956; J2020; J2060; J2185; J2212; J2248; J2250; J2370; J2405; J2543; J2765; J3010; J3370; J3475; J3480; J7030; J7040; J7050; J7120; J7613; J7685; P9016; P9017; P9021; P9035; P9047; Q9963; Q9967